=== PATIENT | male | born 1935 | race Caucasian/White ===

== ENCOUNTER 2016-11-27 16:33 | Inpatient (IN) | payer MEDICARE ==
[2016-11-27] MEDS ORDERED: Sodium Chloride 0.9% 1,000 ML IV ONE (17:56)
--- NOTE | 2016-11-27 17:58 | ED Physician Chart ---
ED Chief Complaint/HPI - Patient Information Date Seen:: 11/27/16 Time Seen:: 17:50 Chief Complaint:: GENERALIZED WEAKNESS, FREQUENT FALLS History of Present Illness:: THE PATIENT IS A POOR HISTORIAN DUE TO DEMENTIA. HE STATES THAT ABOUT LUNCH TIME TODAY HE BECAME LIGHT HEADED AND HAD A MECHANICAL FALL WHEN HE LOST HIS BALLANCE. HE DENIES AND HEAD OR OTHER INJURY AT THE TIME OF THE FALL. THE TRACK LAYER HEAD WHO ACCOMPANIED THE PATIENT TO THE HOSPITAL SAID THE PATIENT HAS BECOME WEAKER OVER THE PAST WEEK WITH INCREASED INCIDENCES OF FALLING. THE PATIENT DENIES ANY PAIN, DIFFICULTY BREATHING, NAUSEA OR VOMITING. Allergies:: Allergies Allergy/AdvReac Type Severity Reaction Status Date / Time No Known Allergies Allergy Verified 11/27/16 16:38 NO KNOWN ALLERGIES Vitals:: Vital Signs - 8 hr 11/27/16 16:38 Temp 98.3 F HR 70 RR 16 BP 124/74 O2 Sat % 96 ED Review of Systems - Review of Systems General/Constitutional: No fever, No chills, No weight loss, Weakness, Loss of appetite, Other (view of systems is iffy the patient's lack of memory.) Skin: No skin lesions, No rash, No bruising Head: No headache, Light headed Eyes: Acuity change, No loss of vision, No pain, No diplopia ENT: No earache, No sore throat, No tinnitus Neck: No neck pain, No stiffness, No mass noted Cardio Vascular: No chest pain, No palpitations, No edema Pulmonary: No SOB, No cough, No sputum GI: No nausea, No vomiting, No diarrhea, No pain G/U: No dysuria, No hematuria Musculoskeletal: No bone or joint pain, No back pain Psychiatric: No prior psych history Hematopoietic: No bruising Neurological: No syncope, Weakness, No paresthesia, No seizure, Dizziness, Confusion, No vertigo ED Past Medical History - Past Medical History Past Medical History: Other (FAILURE TO THRIVE, DEHYDRATION, SCHOLIOSIS (FROM [facility] PAPERWORK)) Family Medical History - Family Member Niece History Unknown: Yes Ethnicity: ED Physical Exam - Physical Examination General/Constitutional: Well-developed, well-nourished, Alert, No distress, Non- toxic appearing Head: Atraumatic Eyes: Lids, conjuctiva normal, PERRL, EOMI (patient has bilateral cataracts. The sclera are anicteric.) Skin: Nl inspection, No rash, No skin lesions, No ecchymosis, Well hydrated, No lymphadenopathy ENMT: External ears, nose nl, TM canals nl, Nasal exam nl, Oropharynx nl, Tonsils nl Other ENMT comments:: Teeth show evidence of moderate neglect. The oral mucosa is adequately hydrated. Neck: Nontender, No JVD, No nuchal rigidity, No mass, No stridor Respiratory: Nl effort/Exclusion, Clear to Auscultation, No Wheeze/Rhonchi/Rales Cardio Vascular: RRR, No murmur, gallop, rubs, NL S1 S2 Other Cardio Vascular comments:: Patient has good pulses in all 4 extremities. GI: No tenderness/rebounding/guarding, No organomegaly, No hernia, Normal BS's, Nondistended, No mass/bruits, No McBurney tenderness Other GI comments:: Rectal examination was deferred at my discretion. : No CVA tenderness, NL external genitalia Neuro/Psych: Normal sensory exam, Normal motor strength, Mood normal, No focal deficits Other Neuro/Psych comments:: ALERT BUT ORIENTED ONLY TO NAME. Other Misc comments:: SCOLIOSIS OF THORASIC SPINE. ED Labs/Radiology/EKG Results - Lab Results Results: Laboratory Results - last 24 hr 12/05/16 12/06/16 18:00 04:41 Sodium 128 L 130 L Potassium 4.1 3.6 Chloride 98 100 Carbon Dioxide 27.1 26.8 Anion Gap 7.0 6.8 L BUN 17 13 Creatinine 0.7 0.7 Est GFR ( Amer) TNP TNP Est GFR (Non-Af Amer) TNP TNP BUN/Creatinine Ratio 24.3 18.6 Glucose 97 79 Calcium 9.4 8.9 Moderate hyponatremia with the remaining electrolytes being within normal parameters. Normal renal function. No hypoglycemia. - Radiology Results Results: SINGLE VIEW PORTABLE CXR: NO CARDIOMEGALY OR CHF. NO AREAS OF PULMONARY CONSOLIDATION. NO PNEUMOTHORAX. ECTATIC AORTA WITH CALCIFICAIONS OF THE WALL. NO PLEURO EFFUSIONS: IMPRESSION: NO ACUTE CARDIOPULMONARY FINDINGS. ED Assessment - Assessment General Assessment: CASE SUMMARY: this 81-year-old male was sent from his nursing facility to the emergency department for evaluation of weakness and frequent falling. Patient has dementia and is a poor historian. He notes that he became lightheaded around lunch time and had a fall when he lost his balance. He denies any injury at the time of the fall. On physical examination there is no visible or palpable evidence of pedantry. There is no tenderness of the cervical, thoracic or lumbar spine. 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 Electrolyte studies showed the patient to be hyponatremia. Patient will be admitted to Dr. ROCA FOR FURTHER DIAGNOSTIC TESTING AND TREATMENT INDICATED. MDM FOR GROUND LEVEL FALL: NOT Acute head injury based on history and physical examination. NO Long bone fractures based on physical examination. NO internal organ injury based on physical exam. NO Cervical spine injuries based on NEXUS Criteria. ED Septic Shock - . Is Septic Shock (SBP<90, OR Lactate>4 mmol\L) present?: No - <6hrs of presentation: Vital Signs: Vital Signs - 8 hr 11/27/16 16:38 Temp 98.3 F HR 70 RR 16 BP 124/74 O2 Sat % 96 ED Reassessment (Disposition) - Reassessment Reassessment Condition:: Unchanged - Diagnosis Diagnosis:: GROUND LEVEL FALL. GENERALIZED WEAKNESS/BALANCE PROBLEM DEMENTIA FAILURE TO THRIVE, DEHYDRATION - Aftercare/Follow up Instructions Aftercare/Follow-Up Instructions:: Counseled pt regarding lab results/diagnosis & need follow up - Patient Disposition Discharge/Transfer:: Acute Care w/in this hosp Accepting Physician:: DR. ROCA ED Discharge Plan - Patient Disposition Admit/Discharge/Transfer: Acute Care w/in this hosp
[2016-11-27 18:08] LABS: % BASOPHILS 0.2 % (0.0-2.0); % EOSINOPHILS 2.7 % (0.0-5.0); % LYMPHOCYTES 24.8 % (20.0-50.0); % NEUTROPHILS 64.3 % (40.0-80.0); HEMATOCRIT 43.1 % (39.0-49.0); HEMOGLOBIN 14.4 gm/dL (12.6-17.4); MEAN CELL VOLUME 91.3 fl (80-99); MEAN CORPUSCULAR HEMOGLOBIN 30.5 pg (27.0-31.0); MEAN CORPUSCULAR HGB CONC 33.3 pg (28.0-36.0); NEUTROPHILE ABSOLUTE 5.3 Th/cmm (1.8-8.0); PLATELET COUNT 340 Th/cmm (150-400); RED BLOOD COUNT 4.72 Mil/cmm (3.80-5.80); WHITE BLOOD COUNT 8.1 Th/cmm (4.8-10.8)
[2016-11-27 18:24] LABS: ALB/GLOB RATIO 1.6 (1.0-1.8); ALKALINE PHOSPHATASE 76 U/L (34-104); ANION GAP 10.5 (7.0-16.0); BILIRUBIN,TOTAL 0.5 mg/dL (0.3-1.0); BUN - UREA NITROGEN 12 mg/dL (7-25); CALCIUM SERUM 9.6 mg/dL (8.6-10.3); CARBON DIOXIDE 22.8 mEq/L (21.0-31.0); CHLORIDE 96 mEq/L (98-107); CREATININE - SERUM 0.6 mg/dL (0.7-1.3); GLUCOSE 89 mg/dL (70-105); POTASSIUM SERUM 3.3 mEq/L (3.5-5.1); SGOT 14 U/L (13-39); SGPT/ALT 8 U/L (7-52); SODIUM SERUM 126 mEq/L (136-145)
[2016-11-27 18:54] LABS: URINE BILIRUBIN NEGATIVE (NEGATIVE); URINE BLOOD TRACE (NEGATIVE); URINE GLUCOSE (UA) NEGATIVE (NEGATIVE); URINE KETONE NEGATIVE (NEGATIVE); URINE PH 6.5 (4.6 - 8.0); URINE PROTEIN NEGATIVE (NEGATIVE); URINE UROBILINOGEN 0.2 E.U./dL (0.2 - 1.0)
[2016-11-27 19:13] LABS: URINE COLOR YELLOW
[2016-11-27 19:14] LABS: URINE BACTERIA NONE SEEN /hpf (NONE SEEN); URINE EPITHELIAL CELLS NONE SEEN /lpf (FEW); URINE WBC NONE SEEN /hpf (0-5)
[2016-11-27 22:24] VITALS: BP 162/98
[2016-11-27] MEDS: Sodium Chloride 0.9% 1,000 ML IV SCH (23:04)
--- NOTE | 2016-11-28 00:29 | History & Physical ---
ADMIT DATE: 11/27/2016 HISTORY OF PRESENT ILLNESS: The patient is an elderly male patient. Apparently, he has been falling several times, complaining of headache, complaining of dizziness, and the patient has been weak. The patient is known to have a history of dementia, and the patient came to the ER and was worked up and found to have hyponatremia and otherwise negative workup and was admitted for further workup. PHYSICAL EXAMINATION: GENERAL: The patient is well developed and well nourished. The patient is alert, but confused. VITAL SIGNS: His heart rate was normal at 70, respirations 16, blood pressure was 124/74. HEAD: Normal. ENT: Normal. NECK: Supple and nontender. LUNGS: Bilateral rales. CARDIOVASCULAR SYSTEM: S1 and S2 heard. ABDOMEN: Soft. Bowel sounds are heard. AUTO DISMANTLER: The patient was confused. LABORATORY DATA: The patient's sodium was 126. DIAGNOSES: History of recurrent falls and history of severe hyponatremia and generalized weakness, rule out cardiac arrhythmia and history of prior atrial fibrillation ____, and history of dementia. PLAN: The patient is being admitted. I will have cardiac and neuro workup. I will follow the patient. Also, replace some sodium to ____ sodium level to normal level and I will follow the patient. JOB# [id number]
[2016-11-28 07:16] LABS: MEAN PLATELET VOLUME 5.8 fl; WHITE BLOOD COUNT 7.3 Th/cmm (4.8-10.8)
[2016-11-28 07:27] LABS: % BASOPHILS 0.1 % (0.0-2.0); % EOSINOPHILS 2.7 % (0.0-5.0); % LYMPHOCYTES 22.3 % (20.0-50.0); % MONOCYTES 8.3 % (2.0-10.0); % NEUTROPHILS 66.6 % (40.0-80.0); HEMATOCRIT 42.5 % (39.0-49.0); HEMOGLOBIN 14.1 gm/dL (12.6-17.4); MEAN CELL VOLUME 90.8 fl (80-99); MEAN CORPUSCULAR HEMOGLOBIN 30.1 pg (27.0-31.0); MEAN CORPUSCULAR HGB CONC 33.1 pg (28.0-36.0); NEUTROPHILE ABSOLUTE 4.9 Th/cmm (1.8-8.0); PLATELET COUNT 345 Th/cmm (150-400); RED BLOOD COUNT 4.68 Mil/cmm (3.80-5.80); RED CELL DISTRIBUTION WIDTH 11.9 % (11.5-20.0)
[2016-11-28 07:48] LABS: ANION GAP 9.3 (7.0-16.0); BUN - UREA NITROGEN 12 mg/dL (7-25); CARBON DIOXIDE 24.1 mEq/L (21.0-31.0); CHLORIDE 103 mEq/L (98-107); CHOLESTEROL 164 mg/dL (<200); CREATININE - SERUM 0.6 mg/dL (0.7-1.3); GLUCOSE 81 mg/dL (70-105); POTASSIUM SERUM 3.4 mEq/L (3.5-5.1); SODIUM SERUM 133 mEq/L (136-145); TRIGLYCERIDES 69 mg/dL (<150)
--- NOTE | 2016-11-28 08:06 | Diagnostic Imaging Report ---
Portable chest x-ray HISTORY: Shortness of breath The overall heart size is difficult to assess with portable technique in a poor inspiration. No focal pulmonary processes. Tortuosity the thoracic aorta. No other hilar or mediastinal abnormalities. An orthopedic fixation plate traverses the left clavicle. Old left rib fractures noted. IMPRESSION: 1. No acute focal pulmonary processes
--- NOTE | 2016-11-28 12:40 | Diagnostic Imaging Report ---
CT scan of the brain without intravenous contrast HISTORY: Stroke, CVA Total DLP equals 570 CTDI equals 32.8 Axial sections were obtained to the base of the skull to the vertex. There is severe enlargement of the ventricular system. No acute parenchymal abnormalities. No intracerebral hemorrhage. No mass effect or shift of midline structures. Hypodensity is noted within the supratentorial white matter regions without mass effect. The findings may be associated with chronic small vessel ischemic disease. Atherosclerotic calcification is noted in the region of the vertebral and basilar arteries at the base of the skull. There appears to be partial visualization of an intraluminal density within the left maxillary sinus that may be associated with a mucosal polyp or cyst. IMPRESSION: 1. Marked ventriculomegaly. The changes may be associated with atrophy, a degree of hydrocephalus cannot be excluded. 2. No acute focal parenchymal abnormalities 3. Supratentorial white matter changes. The findings may be associated with chronic small vessel ischemic disease. 3. Atherosclerotic vascular changes 4. Partial visualization of an intraluminal density within the left maxillary sinus that may be associated with a mucosal polyp or cyst.
--- NOTE | 2016-11-28 13:42 | General Progress Note ---
Subjective - Review of Systems Events since last encounter: patient c/o dizziness denies chest pain Objective - Results Result Diagrams: 11/28/16 07:03 11/28/16 07:03 Recent Labs: Laboratory Last Values WBC 7.3 Th/cmm (4.8-10.8) 11/28/16 07:03 RBC 4.68 Mil/cmm (3.80-5.80) 11/28/16 07:03 Hgb 14.1 gm/dL (12.6-17.4) 11/28/16 07:03 Hct 42.5 % (39.0-49.0) 11/28/16 07:03 MCV 90.8 fl (80-99) 11/28/16 07:03 MCH 30.1 pg (27.0-31.0) 11/28/16 07:03 MCHC Differential 33.1 pg (28.0-36.0) 11/28/16 07:03 RDW 11.9 % (11.5-20.0) 11/28/16 07:03 Plt Count 345 Th/cmm (150-400) 11/28/16 07:03 MPV 5.8 fl 11/28/16 07:03 Neutrophils % 66.6 % (40.0-80.0) 11/28/16 07:03 Lymphocytes % 22.3 % (20.0-50.0) 11/28/16 07:03 Monocytes % 8.3 % (2.0-10.0) 11/28/16 07:03 Eosinophils % 2.7 % (0.0-5.0) 11/28/16 07:03 Basophils % 0.1 % (0.0-2.0) 11/28/16 07:03 Sodium 133 mEq/L (136-145) L 11/28/16 07:03 Potassium 3.4 mEq/L (3.5-5.1) L 11/28/16 07:03 Chloride 103 mEq/L (98-107) 11/28/16 07:03 Carbon Dioxide 24.1 mEq/L (21.0-31.0) 11/28/16 07:03 Anion Gap 9.3 (7.0-16.0) 11/28/16 07:03 BUN 12 mg/dL (7-25) 11/28/16 07:03 Creatinine 0.6 mg/dL (0.7-1.3) L 11/28/16 07:03 Est GFR ( Amer) TNP 11/28/16 07:03 Est GFR (Non-Af Amer) TNP 11/28/16 07:03 BUN/Creatinine Ratio 20.0 11/28/16 07:03 Glucose 81 mg/dL (70-105) 11/28/16 07:03 Whole Bld Lactic Acid 0.83 mmol/L (0.60-1.99) 11/27/16 17:58 Calcium 9.0 mg/dL (8.6-10.3) 11/28/16 07:03 Total Bilirubin 0.5 mg/dL (0.3-1.0) 11/27/16 17:58 AST 14 U/L (13-39) 11/27/16 17:58 ALT 8 U/L (7-52) 11/27/16 17:58 Alkaline Phosphatase 76 U/L (34-104) 11/27/16 17:58 Troponin I 0.01 ng/mL (0.01-0.05) 11/27/16 17:58 Total Protein 7.0 gm/dL (6.0-8.3) 11/27/16 17:58 Albumin 4.3 gm/dL (4.2-5.5) 11/27/16 17:58 Globulin 2.7 gm/dL 11/27/16 17:58 Albumin/Globulin Ratio 1.6 (1.0-1.8) 11/27/16 17:58 Triglycerides 69 mg/dL (<150) 11/28/16 07:03 Cholesterol 164 mg/dL (<200) 11/28/16 07:03 LDL Cholesterol Direct 105 mg/dL (75-193) 11/28/16 07:03 HDL Cholesterol 54 mg/dL (23-92) 11/28/16 07:03 TSH 0.80 uIU/ml (0.34-5.60) 11/28/16 07:03 Urine Source RANDOM 11/27/16 17:00 Urine Color YELLOW 11/27/16 17:00 Urine Clarity CLEAR (CLEAR) 11/27/16 17:00 Urine pH 6.5 (4.6 - 8.0) 11/27/16 17:00 Ur Specific [place] 1.010 (1.005-1.030) 11/27/16 17:00 Urine Protein NEGATIVE mg/dL (NEGATIVE) 11/27/16 17:00 Urine Glucose (UA) NEGATIVE mg/dL (NEGATIVE) 11/27/16 17:00 Urine Ketones NEGATIVE mg/dL (NEGATIVE) 11/27/16 17:00 Urine Blood TRACE (NEGATIVE) 11/27/16 17:00 Urine Nitrate NEGATIVE (NEGATIVE) 11/27/16 17:00 Urine Bilirubin NEGATIVE (NEGATIVE) 11/27/16 17:00 Urine Urobilinogen 0.2 E.U./dL (0.2 - 1.0) 11/27/16 17:00 Ur Leukocyte Esterase NEGATIVE (NEGATIVE) 11/27/16 17:00 Urine RBC 2-5 /hpf (0-5) H 11/27/16 17:00 Urine WBC NONE SEEN /hpf (0-5) 11/27/16 17:00 Ur Epithelial Cells NONE SEEN /lpf (FEW) 11/27/16 17:00 Urine Bacteria NONE SEEN /hpf (NONE SEEN) 11/27/16 17:00 - Physical Exam Vitals and I&O: Vital Signs Temp 97.6 F 11/28/16 04:00 Pulse 81 11/28/16 08:56 Resp 18 11/28/16 04:00 BP 154/88 11/28/16 08:56 Pulse Ox 98 11/28/16 04:00 Intake & Output 11/27/16 11/28/16 11/28/16 18:59 06:59 18:59 Intake Total 2000 Output Total 1500 Balance 500 Weight (lbs) 56.245 kg Intake: Intake, IV Amount 2000 Sodium Chloride 0.9% 1, 1000 000 ml @ Wide Open IV . Q0M ONE Rx#:[id number] Output: Urine 1500 Other: # Bowel Movements 0 Active Medications: Current Medications Acetaminophen (Tylenol) 650 mg PO Q4HR PRN PRN Reason: Pain (Mild) Stop: 01/26/17 21:20 Amlodipine Besylate (Norvasc) 5 mg PO DAILY [facility] Stop: 01/27/17 08:59 Last Admin: 11/28/16 08:55 Dose: 5 mg Docusate Sodium (Colace) 250 mg PO BID [facility] Stop: 01/27/17 08:59 Last Admin: 11/28/16 08:56 Dose: 250 mg Sodium Chloride (Nacl 0.9%) 1,000 mls @ 100 mls/hr IV .Q10H [facility] Stop: 01/26/17 19:36 Last Admin: 11/27/16 23:04 Dose: 100 mls/hr Losartan Potassium (Cozaar) 50 mg PO DAILY [facility] Stop: 01/27/17 08:59 Last Admin: 11/28/16 08:56 Dose: 50 mg
--- NOTE | 2016-11-29 01:08 | Consultation ---
DATE OF CONSULTATION: 11/28/2016 ATTENDING PHYSICIAN: Dr. Cookie Ivy. REDRAWER: Rachid Carrera M.D. REASON FOR CONSULTATION: Electrolyte imbalance, fluid management. HISTORY OF PRESENT ILLNESS: This is an 81-year-old male with past medical history of failure to thrive, who was brought in because of generalized weakness. A few hours prior to admission, the patient had a history of occasional dizziness associated with progressive weakness. He had multiple falls as a consequence. Three months prior to consultation, he had a lumbosacral x-ray done after a fall and this revealed no acute fractures. Three weeks prior to admission, he had another fall and a skull x-ray was done. This revealed no fracture. A few hours prior to admission, he had another episode of a fall with progressive weakness and dizziness. He was then brought to the Emergency Room. His sodium level was 136. He was brought to the Emergency Room. Sodium level was 126. He was started on normal saline and his sodium went up to 133. Potassium level was 3.[address] scan of the head revealed no acute focal abnormalities. Chest x-ray showed no acute disease. He had history of nausea, vomiting, diarrhea as well as polydipsia. PAST MEDICAL HISTORY: 1. Failure to thrive. 2. Essential hypertension. 3. Progressive generalized weakness. 4. Alzheimer dementia. PAST SURGICAL HISTORY: None. SOCIAL AND FAMILY HISTORY: I was not able to obtain directly from the patient because of his dementia. REVIEW OF SYSTEMS: Again, I was not able to decipher directly out of the patient. PHYSICAL EXAMINATION: GENERAL: The patient is awake, verbal, not in any distress. VITAL SIGNS: His blood pressure is 154/88, pulse 81, temperature 97.6 degrees. SKIN: Good turgor. Warm. No rash, nor jaundice appreciated. HEENT: Head normocephalic, atraumatic. Eyes: Extraocular muscles intact. Pupils equal, round, reactive to light and accommodates. Anicteric sclerae, pale conjunctivae. Nose: Midline nasal septum. Mouth: Moist mucosa with adequate dentition. NECK: Supple, no adenopathy, no thyromegaly, no bruits. Trachea palpated in the midline. CHEST AND CVS: S1, S2. No rub, murmur nor gallop appreciated. Point of maximal impulse fifth intercostal space, left midclavicular line. No abdominal or femoral bruits appreciated. LUNGS: Equal expansion. No use of accessory muscles. No supraclavicular retractions. Decreased breath sounds, but clear to auscultation without any wheeze. ABDOMEN: Mildly globular, soft, positive for bowel sounds. No bruits either diastolic or systolic. RECTAL: The patient refused. GENITOURINARY: Normal appearing male genitalia. MUSCULOSKELETAL: No effusions present in his joints with adequate range of motion. EXTREMITIES: No evidence of any edema, cyanosis, nor clubbing with palpable femoral, but unable to fully appreciate popliteal and dorsalis pedis pulses. NEUROLOGIC: The patient is awake, however, he had problem with comprehending my neuro commands, so I was not able to pursue further by neuro exam. He has voluntary movements of all of his extremities. LABORATORY DATA: Sodium 133, potassium 3.4, chloride 103, bicarbonate 24, BUN 12, creatinine 0.6, glucose 81, calcium is 9, albumin is 4.3. Troponin 0.01. Lactic acid 0.83. White count 7.3, hemoglobin 14.1, hematocrit 42.5, platelets 345, polys 66.6%. IMPRESSION: 1. Acute hyponatremia. The patient at this poin looked hypovolemic. He had been maintained on hydrochlorothiazide. This is the main reason why he developed hyponatremia. I doubt that his dizziness and generalized weakness are due to his hyponatremia because the degree of hyponatremia is not sufficient to cause neurological manifestations. 2. Hypokalemia, again this is due to intake of hydrochlorothiazide. 3. Dizziness with lightheadedness. Etiology possibly due to medications. 4. Failure to thrive. 5. Essential hypertension. 6. Progressive weakness, etiology at this point is unknown. PLAN: 1. Urinalysis. 2. Urine spot sodium. 3. Serum osmolality along with uric acid level. 4. Continue IV fluids with normal saline. 5. Hold hydrochlorothiazide for now. 6. Follow up electrolytes. Thank you Dr. Ivy for this consult. I will follow the patient closely with you. JOB# [id number]
[2016-11-29] MEDS: Sodium Chloride 0.9% 1,000 ML IV SCH ×2 (01:16→08:29)
--- NOTE | 2016-11-29 04:22 | Admit Criteria Form ---
Admit Criteria Forms - Admit Criteria Diagnosis: HYPONATREMIA; HYPERNATREMIA; HYPOKALEMIA; HYPERKALEMIA; HYPOCALCEMIA; HYPERCALCEMIA Clinical Indications for Inpatient Care (Place 'X' for any and all applicable criteria): Ongoing inpatient care may be indicated for ANY ONE of the following [G](1)(2)(3 )(5): [X ]I. Hyponatremia with ANY ONE of the following: [X ]a) Sodium less than 130 mEq/L (mmol/L) (new) (6)(22) [ ]b) Sodium less than 135 mEq/L (mmol/L) with ANY ONE of the following: [ ]i) Severe medical etiology requiring inpatient management (eg, heart failure, hypovolemia) [ ]ii) Altered mental status [ ]iii) Seizures [ ]II. Hypernatremia with ANY ONE of the following: [ ]a) Sodium greater than 155 mEq/L (mmol/L) [ ]b) Sodium greater than 150 mEq/L (mmol/L) with ANY ONE of the following: [ ] i) Altered mental status [ ]ii) Seizures [ ]iii) Severe medical etiology (eg, hypovolemia, diabetes insipidus) [ ]iv) Severe weakness [ ]v) Severe medical etiology (eg, hemolysis, infection, drug overdose) [ ]III. Hypokalemia with ANY ONE of the following: [ ]a) Potassium less than 2.5 mEq/L (mmol/L) despite outpatient and emergency treatment [ ]b) Potassium less than 3.0 mEq/L (mmol/L) with ANY ONE of the following: [ ]i) Weakness [ ]ii) Cardiac abnormality (eg, arrhythmia, conduction disturbance) [ ]iii) Cardiac ischemia [ ]iv) Ileus [ ]v) Ongoing medical cause requiring inpatient management. ( e.g., acute renal wasting, SIADH) [ ]vi) Other severe symptoms [ ] IV. Hyperkalemia with ANY ONE of the following: [ ]a) Potassium greater than 6.5 mEq/L (mmol/L) [ ]b) Potassium greater than 5 mEq/L (mmol/L) with ANY ONE of the following: [ ]i) Severe ECG findings [H] [ ]ii) Acute worsening of renal failure (creatinine greater than 2.5 mg/dL (221 micromoles/L) or significant elevation for age and size) [ ] V. Hypocalcemia with ANY ONE of the following: [ ]a) Calcium less than 7 mg/dL (1.75 mmol/L) despite outpatient and emergency treatment(19) [ ]b) Calcium less than 8 mg/dL (2 mmol/L) with significant symptoms or findings; examples include: [ ]i) Cardiac abnormality (eg, arrhythmia or conduction disturbance) [ ]ii) Altered mental status [ ]iii) Seizures [ ]iv) Breathing difficulty [ ]v) Muscle spasms [ ]. Hypercalcemia with ANY ONE of the following: [ ]a) Calcium greater than 14 mg/dL (3.5 mmol/L) [ ]b) Calcium greater than 12 mg/dL (3 mmol/L) with ANY ONE of the following: [ ]i) Significant dehydration or hypovolemia as indicated by ANY ONE of the following(2): [ ]1. Clinically significant dehydration as indicated by ANY ONE of the following: [ ]A. Acute loss of weight from baseline (5% of body weight in adults, 9% in pediatric patients) [ ]B. Hemodynamic instability [ ]C. Acute renal failure [ ]D. Serum sodium greater than 150 mEq/L (mmol/L) [ ]2) Dehydration that is persistent indicated by ALL of the following: [ ]A. Oral rehydration therapy not tolerated or insufficient to adequately correct dehydration [ ]B. Appropriate intravenous treatment (eg, fluids ) does not readily correct dehydration ie, after 12 to 24 hours of treatment) [ ]ii) Significant symptoms or findings; examples include: [ ]1) Altered mental status [ ]2) Cardiac abnormality (eg, arrhythmia, conduction disturbance) [ ]3) Cardiac abnormality (eg, arrhythmia, conduction disturbance) The original [employer] content created by [employer] has been revised. The portions of the content which have been revised are identified through the use of italic text or in bold, and [facility] has neither reviewed nor approved the modified material. All other unmodified content is copyright [facility] [place] [place] [employer] Please see references footnoted in the original [facility] edition 2016 Admit Criteria Met?: Yes
[2016-11-29 06:26] LABS: BUN - UREA NITROGEN 11 mg/dL (7-25); BUN/CREATININE RATIO 18.3; CARBON DIOXIDE 24.6 mEq/L (21.0-31.0); CHLORIDE 103 mEq/L (98-107); CREATININE - SERUM 0.6 mg/dL (0.7-1.3); GLUCOSE 76 mg/dL (70-105); MAGNESIUM 2.1 mg/dL (1.9-2.7); PHOSPHOROUS 3.1 mg/dL (2.5-5.0); POTASSIUM SERUM 3.6 mEq/L (3.5-5.1); SODIUM SERUM 133 mEq/L (136-145); URIC ACID 3.4 mg/dL (4.4-7.6)
--- NOTE | 2016-11-29 08:17 | General Progress Note ---
Subjective - Review of Systems Events since last encounter: patient awake alert c/o weakness Objective - Results Result Diagrams: 11/28/16 07:03 11/29/16 05:05 Recent Labs: Laboratory Last Values WBC 7.3 Th/cmm (4.8-10.8) 11/28/16 07:03 RBC 4.68 Mil/cmm (3.80-5.80) 11/28/16 07:03 Hgb 14.1 gm/dL (12.6-17.4) 11/28/16 07:03 Hct 42.5 % (39.0-49.0) 11/28/16 07:03 MCV 90.8 fl (80-99) 11/28/16 07:03 MCH 30.1 pg (27.0-31.0) 11/28/16 07:03 MCHC Differential 33.1 pg (28.0-36.0) 11/28/16 07:03 RDW 11.9 % (11.5-20.0) 11/28/16 07:03 Plt Count 345 Th/cmm (150-400) 11/28/16 07:03 MPV 5.8 fl 11/28/16 07:03 Neutrophils % 66.6 % (40.0-80.0) 11/28/16 07:03 Lymphocytes % 22.3 % (20.0-50.0) 11/28/16 07:03 Monocytes % 8.3 % (2.0-10.0) 11/28/16 07:03 Eosinophils % 2.7 % (0.0-5.0) 11/28/16 07:03 Basophils % 0.1 % (0.0-2.0) 11/28/16 07:03 Sodium 133 mEq/L (136-145) L 11/29/16 05:05 Potassium 3.6 mEq/L (3.5-5.1) 11/29/16 05:05 Chloride 103 mEq/L (98-107) 11/29/16 05:05 Carbon Dioxide 24.6 mEq/L (21.0-31.0) 11/29/16 05:05 Anion Gap 9.0 (7.0-16.0) 11/29/16 05:05 BUN 11 mg/dL (7-25) 09/08/17 05:05 Creatinine 0.6 mg/dL (0.7-1.3) L 11/29/16 05:05 Est GFR ( Amer) TNP 11/29/16 05:05 Est GFR (Non-Af Amer) TNP 11/29/16 05:05 BUN/Creatinine Ratio 18.3 11/29/16 05:05 Glucose 76 mg/dL (70-105) 11/29/16 05:05 Whole Bld Lactic Acid 0.83 mmol/L (0.60-1.99) 11/27/16 17:58 Uric Acid 3.4 mg/dL (4.4-7.6) L 11/29/16 05:05 Calcium 9.0 mg/dL (8.6-10.3) 11/29/16 05:05 Phosphorus 3.1 mg/dL (2.5-5.0) 11/29/16 05:05 Magnesium 2.1 mg/dL (1.9-2.7) 11/29/16 05:05 Total Bilirubin 0.5 mg/dL (0.3-1.0) 11/27/16 17:58 AST 14 U/L (13-39) 11/27/16 17:58 ALT 8 U/L (7-52) 11/27/16 17:58 Alkaline Phosphatase 76 U/L (34-104) 11/27/16 17:58 Troponin I 0.01 ng/mL (0.01-0.05) 11/27/16 17:58 Total Protein 7.0 gm/dL (6.0-8.3) 11/27/16 17:58 Albumin 4.3 gm/dL (4.2-5.5) 11/27/16 17:58 Globulin 2.7 gm/dL 11/27/16 17:58 Albumin/Globulin Ratio 1.6 (1.0-1.8) 11/27/16 17:58 Triglycerides 69 mg/dL (<150) 11/28/16 07:03 Cholesterol 164 mg/dL (<200) 11/28/16 07:03 LDL Cholesterol Direct 105 mg/dL (75-193) 11/28/16 07:03 HDL Cholesterol 54 mg/dL (23-92) 11/28/16 07:03 TSH 0.80 uIU/ml (0.34-5.60) 11/28/16 07:03 Urine Source RANDOM 11/27/16 17:00 Urine Color YELLOW 11/27/16 17:00 Urine Clarity CLEAR (CLEAR) 11/27/16 17:00 Urine pH 6.5 (4.6 - 8.0) 11/27/16 17:00 Ur Specific [place] 1.010 (1.005-1.030) 11/27/16 17:00 Urine Protein NEGATIVE mg/dL (NEGATIVE) 11/27/16 17:00 Urine Glucose (UA) NEGATIVE mg/dL (NEGATIVE) 11/27/16 17:00 Urine Ketones NEGATIVE mg/dL (NEGATIVE) 11/27/16 17:00 Urine Blood TRACE (NEGATIVE) 11/27/16 17:00 Urine Nitrate NEGATIVE (NEGATIVE) 11/27/16 17:00 Urine Bilirubin NEGATIVE (NEGATIVE) 11/27/16 17:00 Urine Urobilinogen 0.2 E.U./dL (0.2 - 1.0) 11/27/16 17:00 Ur Leukocyte Esterase NEGATIVE (NEGATIVE) 11/27/16 17:00 Urine RBC 2-5 /hpf (0-5) H 11/27/16 17:00 Urine WBC NONE SEEN /hpf (0-5) 11/27/16 17:00 Ur Epithelial Cells NONE SEEN /lpf (FEW) 11/27/16 17:00 Urine Bacteria NONE SEEN /hpf (NONE SEEN) 11/27/16 17:00 Ur Random Sodium 47 mmol/L 11/29/16 01:49 - Physical Exam Vitals and I&O: Vital Signs Temp 98.0 F 11/29/16 04:00 Pulse 71 11/29/16 04:00 Resp 18 11/29/16 04:00 BP 139/76 11/29/16 04:00 Pulse Ox 95 11/29/16 04:00 Intake & Output 11/28/16 11/29/16 11/29/16 18:59 06:59 18:59 Intake Total 1400 Balance 1400 Weight (lbs) 56.245 kg 56.245 kg Intake: Intake, IV Amount 1000 Sodium Chloride 0.9% 1, 1000 000 ml @ 100 mls/hr IV . Q10H [facility] Rx#:[id number] Oral 400 Other: # Voids 4 1,800 # Bowel Movements 1 1 Stool Characteristics Soft Soft Active Medications: Current Medications Acetaminophen (Tylenol) 650 mg PO Q4HR PRN PRN Reason: Pain (Mild) Stop: 01/26/17 21:20 Amlodipine Besylate (Norvasc) 5 mg PO DAILY [facility] Stop: 01/27/17 08:59 Last Admin: 11/28/16 08:55 Dose: 5 mg Docusate Sodium (Colace) 250 mg PO BID [facility] Stop: 01/27/17 08:59 Last Admin: 11/28/16 17:59 Dose: 250 mg Sodium Chloride (Nacl 0.9%) 1,000 mls @ 100 mls/hr IV .Q10H [facility] Stop: 01/26/17 19:36 Last Admin: 11/29/16 01:16 Dose: 100 mls/hr Losartan Potassium (Cozaar) 50 mg PO DAILY [facility] Stop: 01/27/17 08:59 Last Admin: 11/28/16 08:56 Dose: 50 mg
--- NOTE | 2016-11-29 14:54 | General Progress Note ---
Subjective - Review of Systems Service Date: 11/29/16 Subjective: alert, verbal,comfortable Objective - Results Result Diagrams: 11/28/16 07:03 11/29/16 05:05 Recent Labs: Laboratory Last Values WBC 7.3 Th/cmm (4.8-10.8) 11/28/16 07:03 RBC 4.68 Mil/cmm (3.80-5.80) 11/28/16 07:03 Hgb 14.1 gm/dL (12.6-17.4) 11/28/16 07:03 Hct 42.5 % (39.0-49.0) 11/28/16 07:03 MCV 90.8 fl (80-99) 11/28/16 07:03 MCH 30.1 pg (27.0-31.0) 11/28/16 07:03 MCHC Differential 33.1 pg (28.0-36.0) 11/28/16 07:03 RDW 11.9 % (11.5-20.0) 11/28/16 07:03 Plt Count 345 Th/cmm (150-400) 11/28/16 07:03 MPV 5.8 fl 11/28/16 07:03 Neutrophils % 66.6 % (40.0-80.0) 11/28/16 07:03 Lymphocytes % 22.3 % (20.0-50.0) 11/28/16 07:03 Monocytes % 8.3 % (2.0-10.0) 11/28/16 07:03 Eosinophils % 2.7 % (0.0-5.0) 11/28/16 07:03 Basophils % 0.1 % (0.0-2.0) 11/28/16 07:03 Sodium 133 mEq/L (136-145) L 11/29/16 05:05 Potassium 3.6 mEq/L (3.5-5.1) 11/29/16 05:05 Chloride 103 mEq/L (98-107) 11/29/16 05:05 Carbon Dioxide 24.6 mEq/L (21.0-31.0) 11/29/16 05:05 Anion Gap 9.0 (7.0-16.0) 11/29/16 05:05 BUN 11 mg/dL (7-25) 11/29/16 05:05 Creatinine 0.6 mg/dL (0.7-1.3) L 11/29/16 05:05 Est GFR ( Amer) TNP 11/29/16 05:05 Est GFR (Non-Af Amer) TNP 11/29/16 05:05 BUN/Creatinine Ratio 18.3 11/29/16 05:05 Glucose 76 mg/dL (70-105) 11/29/16 05:05 Whole Bld Lactic Acid 0.83 mmol/L (0.60-1.99) 11/27/16 17:58 Uric Acid 3.4 mg/dL (4.4-7.6) L 11/29/16 05:05 Calcium 9.0 mg/dL (8.6-10.3) 11/29/16 05:05 Phosphorus 3.1 mg/dL (2.5-5.0) 11/29/16 05:05 Magnesium 2.1 mg/dL (1.9-2.7) 11/29/16 05:05 Total Bilirubin 0.5 mg/dL (0.3-1.0) 11/27/16 17:58 AST 14 U/L (13-39) 11/27/16 17:58 ALT 8 U/L (7-52) 11/27/16 17:58 Alkaline Phosphatase 76 U/L (34-104) 11/27/16 17:58 Troponin I 0.01 ng/mL (0.01-0.05) 11/27/16 17:58 Total Protein 7.0 gm/dL (6.0-8.3) 11/27/16 17:58 Albumin 4.3 gm/dL (4.2-5.5) 11/27/16 17:58 Globulin 2.7 gm/dL 11/27/16 17:58 Albumin/Globulin Ratio 1.6 (1.0-1.8) 11/27/16 17:58 Triglycerides 69 mg/dL (<150) 11/28/16 07:03 Cholesterol 164 mg/dL (<200) 11/28/16 07:03 LDL Cholesterol Direct 105 mg/dL (75-193) 11/28/16 07:03 HDL Cholesterol 54 mg/dL (23-92) 11/28/16 07:03 TSH 0.80 uIU/ml (0.34-5.60) 11/28/16 07:03 Urine Source RANDOM 11/27/16 17:00 Urine Color YELLOW 11/27/16 17:00 Urine Clarity CLEAR (CLEAR) 11/27/16 17:00 Urine pH 6.5 (4.6 - 8.0) 11/27/16 17:00 Ur Specific [place] 1.010 (1.005-1.030) 11/27/16 17:00 Urine Protein NEGATIVE mg/dL (NEGATIVE) 11/27/16 17:00 Urine Glucose (UA) NEGATIVE mg/dL (NEGATIVE) 11/27/16 17:00 Urine Ketones NEGATIVE mg/dL (NEGATIVE) 11/27/16 17:00 Urine Blood TRACE (NEGATIVE) 11/27/16 17:00 Urine Nitrate NEGATIVE (NEGATIVE) 11/27/16 17:00 Urine Bilirubin NEGATIVE (NEGATIVE) 11/27/16 17:00 Urine Urobilinogen 0.2 E.U./dL (0.2 - 1.0) 11/27/16 17:00 Ur Leukocyte Esterase NEGATIVE (NEGATIVE) 11/27/16 17:00 Urine RBC 2-5 /hpf (0-5) H 11/27/16 17:00 Urine WBC NONE SEEN /hpf (0-5) 11/27/16 17:00 Ur Epithelial Cells NONE SEEN /lpf (FEW) 11/27/16 17:00 Urine Bacteria NONE SEEN /hpf (NONE SEEN) 11/27/16 17:00 Ur Random Sodium 47 mmol/L 11/29/16 01:49 - Physical Exam Vitals and I&O: Vital Signs Temp 98.1 F 11/29/16 08:00 Pulse 61 11/29/16 08:28 Resp 18 11/29/16 08:00 BP 165/108 11/29/16 08:28 Pulse Ox 98 11/29/16 08:00 Intake & Output 11/28/16 11/29/16 11/29/16 18:59 06:59 18:59 Intake Total 1400 721.667 Balance 1400 721.667 Weight (lbs) 56.245 kg 56.245 kg Intake: Intake, IV Amount 1000 721.667 Sodium Chloride 0.9% 1, 1000 721.667 000 ml @ 100 mls/hr IV . Q10H [facility] Rx#:[id number] Oral 400 Other: # Voids 4 1,800 # Bowel Movements 1 1 Stool Characteristics Soft Soft Soft Active Medications: Current Medications Acetaminophen (Tylenol) 650 mg PO Q4HR PRN PRN Reason: Pain (Mild) Stop: 01/26/17 21:20 Amlodipine Besylate (Norvasc) 5 mg PO DAILY NAD[facility] Stop: 01/27/17 08:59 Last Admin: 11/29/16 08:28 Dose: 5 mg Docusate Sodium (Colace) 250 mg PO BID [facility] Stop: 01/27/17 08:59 Last Admin: 11/29/16 08:25 Dose: 250 mg Sodium Chloride (Nacl 0.9%) 1,000 mls @ 100 mls/hr IV .Q10H [facility] Stop: 01/26/17 19:36 Last Admin: 11/29/16 08:29 Dose: 100 mls/hr Losartan Potassium (Cozaar) 50 mg PO DAILY [facility] Stop: 01/27/17 08:59 Last Admin: 11/29/16 08:28 Dose: 50 mg General: Alert, Oriented x3, No acute distress HEENT: Atraumatic, PERRLA, EOMI Neck: Supple, +2 carotid pulse wo bruit Cardiovascular: Regular rate, Normal S1, Normal S2 Lungs: Clear to auscultation Abdomen: Bowel sounds, Soft Extremities: no Edema Neurological: Sensation intact Skin: no Rash Psych/Mental Status: Mood NL Assessment/Plan - Assessment Assessment: Hyponatremia 2nd to HCTZ HYpokalemia 2nd to HCTZ dizziness, lightheadedness FTT Ess HTN - Plan Plan: Lab - Result Diagrams 11/28/16 07:03 11/29/16 05:05 Current Medications Acetaminophen (Tylenol) 650 mg PO Q4HR PRN PRN Reason: Pain (Mild) Stop: 01/26/17 21:20 Amlodipine Besylate (Norvasc) 5 mg PO DAILY [facility] Stop: 01/27/17 08:59 Last Admin: 11/29/16 08:28 Dose: 5 mg Docusate Sodium (Colace) 250 mg PO BID [facility] Stop: 01/27/17 08:59 Last Admin: 11/29/16 08:25 Dose: 250 mg Sodium Chloride (Nacl 0.9%) 1,000 mls @ 100 mls/hr IV .Q10H [facility] Stop: 01/26/17 19:36 Last Admin: 11/29/16 08:29 Dose: 100 mls/hr Losartan Potassium (Cozaar) 50 mg PO DAILY [facility] Stop: 01/27/17 08:59 Last Admin: 11/29/16 08:28 Dose: 50 mg Lab - Result Diagrams 11/28/16 07:03 11/29/16 05:05 Na stable @ 133 continue NS hydration
[2016-11-30] MEDS: Sodium Chloride 0.9% 1,000 ML IV SCH ×3 (01:30→16:14)
--- NOTE | 2016-11-30 09:52 | Consultation ---
DATE OF CONSULTATION: 11/29/2016 HISTORY OF PRESENT ILLNESS: The patient is an 81-year-old. The patient is admitted because of lot of dizziness, unsteadiness, and falls. The patient ____ more forgetful. Progressive weakness, difficulty with managing. The patient is having more and more difficulty with weakness and walking. PAST MEDICAL HISTORY: Hypertension, atrial fibrillation, dementia, and ataxia. MEDICATIONS: Per reconciliation. REVIEW OF SYSTEMS: The patient is awake, alert. The patient has no chest pain. The patient has no shortness of breath. No abdominal pain. No nausea or vomiting. The patient is unsteady. He says some headache. The patient falls. Forgetful. PHYSICAL EXAMINATION: VITAL SIGNS: Temperature 98.4, blood pressure 128/76, pulse is 74. NECK: Supple, no bruits. HEART: Sounds S1, S2. LUNGS: Clear. NEUROLOGIC: The patient is in bed. He gives me his name. He tells me how old, but he can not tell me much more. He is able to name simple objects such as pen and glasses. CRANIAL: Pupils react to light. No nystagmus. No facial weakness. MOTOR: The patient will lift both arms up. The patient will lift both legs up about 4/5. Reflexes are 1-2 in the upper extremities, 2+ at the knees. Ankles about -1. Gait not tested. Apparently very unsteady. INVESTIGATIONS: Sodium 126. CT scan of the head shows that the patient has ventriculomegaly. Question of hydrocephalus. The patient has white matter changes. IMPRESSION: 1. Ataxia. 2. Falls. 3. Dementia. 4. Hydrocephalus. 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 6. Hypertension, question atrial fibrillation. PLAN: Go ahead and do an MRI brain, MRI cervical spine. I will recommend Neurosurgery consult for the hydrocephalus. We will do lab studies. JOB# [id number]
--- NOTE | 2016-11-30 15:42 | General Progress Note ---
Subjective - Review of Systems Service Date: 11/30/16 Subjective: alert, verbal, comfortable. ambulating Objective - Results Result Diagrams: 11/28/16 07:03 11/29/16 05:05 Recent Labs: Laboratory Last Values WBC 7.3 Th/cmm (4.8-10.8) 11/28/16 07:03 RBC 4.68 Mil/cmm (3.80-5.80) 11/28/16 07:03 Hgb 14.1 gm/dL (12.6-17.4) 11/28/16 07:03 Hct 42.5 % (39.0-49.0) 11/28/16 07:03 MCV 90.8 fl (80-99) 11/28/16 07:03 MCH 30.1 pg (27.0-31.0) 11/28/16 07:03 MCHC Differential 33.1 pg (28.0-36.0) 11/28/16 07:03 RDW 11.9 % (11.5-20.0) 11/28/16 07:03 Plt Count 345 Th/cmm (150-400) 11/28/16 07:03 MPV 5.8 fl 11/28/16 07:03 Neutrophils % 66.6 % (40.0-80.0) 11/28/16 07:03 Lymphocytes % 22.3 % (20.0-50.0) 11/28/16 07:03 Monocytes % 8.3 % (2.0-10.0) 11/28/16 07:03 Eosinophils % 2.7 % (0.0-5.0) 11/28/16 07:03 Basophils % 0.1 % (0.0-2.0) 11/28/16 07:03 ESR 20 mm/hr (0-20) 11/30/16 06:05 Sodium 133 mEq/L (136-145) L 11/29/16 05:05 Potassium 3.6 mEq/L (3.5-5.1) 11/29/16 05:05 Chloride 103 mEq/L (98-107) 11/29/16 05:05 Carbon Dioxide 24.6 mEq/L (21.0-31.0) 11/29/16 05:05 Anion Gap 9.0 (7.0-16.0) 11/29/16 05:05 BUN 11 mg/dL (7-25) 11/29/16 05:05 Creatinine 0.6 mg/dL (0.7-1.3) L 11/29/16 05:05 Est GFR ( Amer) TNP 11/29/16 05:05 Est GFR (Non-Af Amer) TNP 11/29/16 05:05 BUN/Creatinine Ratio 18.3 11/29/16 05:05 Glucose 76 mg/dL (70-105) 11/29/16 05:05 Whole Bld Lactic Acid 0.83 mmol/L (0.60-1.99) 11/27/16 17:58 Uric Acid 3.4 mg/dL (4.4-7.6) L 11/29/16 05:05 Calcium 9.0 mg/dL (8.6-10.3) 11/29/16 05:05 Phosphorus 3.1 mg/dL (2.5-5.0) 11/29/16 05:05 Magnesium 2.1 mg/dL (1.9-2.7) 11/29/16 05:05 Total Bilirubin 0.5 mg/dL (0.3-1.0) 11/27/16 17:58 AST 14 U/L (13-39) 11/27/16 17:58 ALT 8 U/L (7-52) 11/27/16 17:58 Alkaline Phosphatase 76 U/L (34-104) 11/27/16 17:58 Ammonia 58 umol/L (16-53) H 11/29/16 20:36 Troponin I 0.01 ng/mL (0.01-0.05) 11/27/16 17:58 C-Reactive Protein < 0.2 mg/dL (0.0-0.9) 11/30/16 06:05 Total Protein 7.0 gm/dL (6.0-8.3) 11/27/16 17:58 Albumin 4.3 gm/dL (4.2-5.5) 11/27/16 17:58 Globulin 2.7 gm/dL 11/27/16 17:58 Albumin/Globulin Ratio 1.6 (1.0-1.8) 11/27/16 17:58 Triglycerides 69 mg/dL (<150) 11/28/16 07:03 Cholesterol 164 mg/dL (<200) 11/28/16 07:03 LDL Cholesterol Direct 105 mg/dL (75-193) 11/28/16 07:03 HDL Cholesterol 54 mg/dL (23-92) 11/28/16 07:03 Folic Acid 8.3 ng/mL (>3.0) 11/29/16 20:36 TSH 0.80 uIU/ml (0.34-5.60) 11/28/16 07:03 Urine Source RANDOM 11/27/16 17:00 Urine Color YELLOW 11/27/16 17:00 Urine Clarity CLEAR (CLEAR) 11/27/16 17:00 Urine pH 6.5 (4.6 - 8.0) 11/27/16 17:00 Ur Specific [place] 1.010 (1.005-1.030) 11/27/16 17:00 Urine Protein NEGATIVE mg/dL (NEGATIVE) 11/27/16 17:00 Urine Glucose (UA) NEGATIVE mg/dL (NEGATIVE) 11/27/16 17:00 Urine Ketones NEGATIVE mg/dL (NEGATIVE) 11/27/16 17:00 Urine Blood TRACE (NEGATIVE) 11/27/16 17:00 Urine Nitrate NEGATIVE (NEGATIVE) 11/27/16 17:00 Urine Bilirubin NEGATIVE (NEGATIVE) 11/27/16 17:00 Urine Urobilinogen 0.2 E.U./dL (0.2 - 1.0) 11/27/16 17:00 Ur Leukocyte Esterase NEGATIVE (NEGATIVE) 11/27/16 17:00 Urine RBC 2-5 /hpf (0-5) H 11/27/16 17:00 Urine WBC NONE SEEN /hpf (0-5) 11/27/16 17:00 Ur Epithelial Cells NONE SEEN /lpf (FEW) 11/27/16 17:00 Urine Bacteria NONE SEEN /hpf (NONE SEEN) 11/27/16 17:00 Ur Random Sodium 47 mmol/L 11/29/16 01:49 - Physical Exam Vitals and I&O: Vital Signs Temp 97.2 F 11/30/16 11:47 Pulse 76 11/30/16 13:04 Resp 16 11/30/16 11:47 BP 137/93 11/30/16 13:04 Pulse Ox 98 11/30/16 11:47 Intake & Output 11/29/16 11/30/1611/30/17 18:59 06:59 18:59 Intake Total 1721.407 553 1392 Output Total 1300 600 Balance 1721.667 -820 400 Weight (lbs) 54.885 kg 54.885 kg Intake: Intake, IV Amount 9958.847 0825 Sodium Chloride 0.9% 1, 7698.221 7033 000 ml @ 100 mls/hr IV . Q10H [facility] Rx#:[id number] Oral 480 Output: Urine 1300 600 Other: # Bowel Movements 0 Stool Characteristics Soft Active Medications: Current Medications Acetaminophen (Tylenol) 650 mg PO Q4HR PRN PRN Reason: Pain (Mild) Stop: 01/26/17 21:20 Amlodipine Besylate (Norvasc) 5 mg PO DAILY [facility] Stop: 01/27/17 08:59 Last Admin: 11/30/16 09:21 Dose: 5 mg Docusate Sodium (Colace) 250 mg PO BID [facility] Stop: 01/27/17 08:59 Last Admin: 11/30/16 09:21 Dose: 250 mg Sodium Chloride (Nacl 0.9%) 1,000 mls @ 100 mls/hr IV .Q10H [facility] Stop: 01/26/17 19:36 Last Admin: 11/30/16 11:55 Dose: 100 mls/hr Losartan Potassium (Cozaar) 50 mg PO DAILY [facility] Stop: 01/27/17 08:59 Last Admin: 11/30/16 09:22 Dose: 50 mg General: Alert, Oriented x3, No acute distress HEENT: Atraumatic, PERRLA, EOMI Neck: Supple, +2 carotid pulse wo bruit Cardiovascular: Regular rate, Normal S1, Normal S2 Lungs: Clear to auscultation Abdomen: Bowel sounds, Soft Extremities: no Edema Neurological: Sensation intact Skin: no Rash Psych/Mental Status: Mood NL Assessment/Plan - Assessment Assessment: Hyponatremia 2nd to HCTZ HYpokalemia 2nd to HCTZ dizziness, lightheadedness FTT Ess HTN Ventriculomegaly possible hydronephrosis - Plan Plan: Lab - Result Diagrams 11/28/16 07:03 11/29/16 05:05 Current Medications Acetaminophen (Tylenol) 650 mg PO Q4HR PRN PRN Reason: Pain (Mild) Stop: 01/26/17 21:20 Amlodipine Besylate (Norvasc) 5 mg PO DAILY [facility] Stop: 01/27/17 08:59 Last Admin: 11/29/16 08:28 Dose: 5 mg Docusate Sodium (Colace) 250 mg PO BID [facility] Stop: 01/27/17 08:59 Last Admin: 11/29/16 08:25 Dose: 250 mg Sodium Chloride (Nacl 0.9%) 1,000 mls @ 100 mls/hr IV .Q10H [facility] Stop: 01/26/17 19:36 Last Admin: 11/29/16 08:29 Dose: 100 mls/hr Losartan Potassium (Cozaar) 50 mg PO DAILY [facility] Stop: 01/27/17 08:59 Last Admin: 11/29/16 08:28 Dose: 50 mg Lab - Result Diagrams 11/28/16 07:03 11/29/16 05:05 Na stable @ 133 continue NS hydration f/u electrolytes
--- NOTE | 2016-11-30 16:20 | Internal Medicine Prog Note ---
Internal Medicine Objective - Results Result Diagrams: 11/28/16 07:03 11/29/16 05:05 Recent Labs: Laboratory Last Values WBC 7.3 Th/cmm (4.8-10.8) 11/28/16 07:03 RBC 4.68 Mil/cmm (3.80-5.80) 11/28/16 07:03 Hgb 14.1 gm/dL (12.6-17.4) 11/28/16 07:03 Hct 42.5 % (39.0-49.0) 11/28/16 07:03 MCV 90.8 fl (80-99) 11/28/16 07:03 MCH 30.1 pg (27.0-31.0) 11/28/16 07:03 MCHC Differential 33.1 pg (28.0-36.0) 11/28/16 07:03 RDW 11.9 % (11.5-20.0) 11/28/16 07:03 Plt Count 345 Th/cmm (150-400) 11/28/16 07:03 MPV 5.8 fl 11/28/16 07:03 Neutrophils % 66.6 % (40.0-80.0) 11/28/16 07:03 Lymphocytes % 22.3 % (20.0-50.0) 11/28/16 07:03 Monocytes % 8.3 % (2.0-10.0) 11/28/16 07:03 Eosinophils % 2.7 % (0.0-5.0) 11/28/16 07:03 Basophils % 0.1 % (0.0-2.0) 11/28/16 07:03 ESR 20 mm/hr (0-20) 11/30/16 06:05 Sodium 133 mEq/L (136-145) L 11/29/16 05:05 Potassium 3.6 mEq/L (3.5-5.1) 11/29/16 05:05 Chloride 103 mEq/L (98-107) 11/29/16 05:05 Carbon Dioxide 24.6 mEq/L (21.0-31.0) 11/29/16 05:05 Anion Gap 9.0 (7.0-16.0) 11/29/16 05:05 BUN 11 mg/dL (7-25) 11/29/16 05:05 Creatinine 0.6 mg/dL (0.7-1.3) L 11/29/16 05:05 Est GFR ( Amer) TNP 11/29/16 05:05 Est GFR (Non-Af Amer) TNP 11/29/16 05:05 BUN/Creatinine Ratio 18.3 11/29/16 05:05 Glucose 76 mg/dL (70-105) 11/29/16 05:05 Whole Bld Lactic Acid 0.83 mmol/L (0.60-1.99) 11/27/16 17:58 Uric Acid 3.4 mg/dL (4.4-7.6) L 11/29/16 05:05 Calcium 9.0 mg/dL (8.6-10.3) 11/29/16 05:05 Phosphorus 3.1 mg/dL (2.5-5.0) 11/29/16 05:05 Magnesium 2.1 mg/dL (1.9-2.7) 11/29/16 05:05 Total Bilirubin 0.5 mg/dL (0.3-1.0) 11/27/16 17:58 AST 14 U/L (13-39) 11/27/16 17:58 ALT 8 U/L (7-52) 11/27/16 17:58 Alkaline Phosphatase 76 U/L (34-104) 11/27/16 17:58 Ammonia 58 umol/L (16-53) H 11/29/16 20:36 Troponin I 0.01 ng/mL (0.01-0.05) 11/27/16 17:58 C-Reactive Protein < 0.2 mg/dL (0.0-0.9) 11/30/16 06:05 Total Protein 7.0 gm/dL (6.0-8.3) 11/27/16 17:58 Albumin 4.3 gm/dL (4.2-5.5) 11/27/16 17:58 Globulin 2.7 gm/dL 11/27/16 17:58 Albumin/Globulin Ratio 1.6 (1.0-1.8) 11/27/16 17:58 Triglycerides 69 mg/dL (<150) 11/28/16 07:03 Cholesterol 164 mg/dL (<200) 11/28/16 07:03 LDL Cholesterol Direct 105 mg/dL (75-193) 11/28/16 07:03 HDL Cholesterol 54 mg/dL (23-92) 11/28/16 07:03 Folic Acid 8.3 ng/mL (>3.0) 11/29/16 20:36 TSH 0.80 uIU/ml (0.34-5.60) 11/28/16 07:03 Urine Source RANDOM 11/27/16 17:00 Urine Color YELLOW 11/27/16 17:00 Urine Clarity CLEAR (CLEAR) 11/27/16 17:00 Urine pH 6.5 (4.6 - 8.0) 11/27/16 17:00 Ur Specific [place] 1.010 (1.005-1.030) 11/27/16 17:00 Urine Protein NEGATIVE mg/dL (NEGATIVE) 11/27/16 17:00 Urine Glucose (UA) NEGATIVE mg/dL (NEGATIVE) 11/27/16 17:00 Urine Ketones NEGATIVE mg/dL (NEGATIVE) 11/27/16 17:00 Urine Blood TRACE (NEGATIVE) 11/27/16 17:00 Urine Nitrate NEGATIVE (NEGATIVE) 11/27/16 17:00 Urine Bilirubin NEGATIVE (NEGATIVE) 11/27/16 17:00 Urine Urobilinogen 0.2 E.U./dL (0.2 - 1.0) 11/27/16 17:00 Ur Leukocyte Esterase NEGATIVE (NEGATIVE) 11/27/16 17:00 Urine RBC 2-5 /hpf (0-5) H 11/27/16 17:00 Urine WBC NONE SEEN /hpf (0-5) 11/27/16 17:00 Ur Epithelial Cells NONE SEEN /lpf (FEW) 11/27/16 17:00 Urine Bacteria NONE SEEN /hpf (NONE SEEN) 11/27/16 17:00 Ur Random Sodium 47 mmol/L 11/29/16 01:49 - Physical Exam Vitals and I&O: Vital Signs Temp 97.2 F 11/30/16 11:47 Pulse 76 11/30/16 13:04 Resp 16 11/30/16 11:47 BP 137/93 11/30/16 13:04 Pulse Ox 98 11/30/16 11:47 Intake & Output 11/29/16 11/30/16 11/30/16 18:59 06:59 18:59 Intake Total 1721.898 547 6549 Output Total 1300 600 Balance 1721.667 -820 400 Weight (lbs) 54.885 kg 54.885 kg Intake: Intake, IV Amount 9216.785 7044 Sodium Chloride 0.9% 1, 8550.042 1363 000 ml @ 100 mls/hr IV . Q10H [facility] Rx#:[id number] Oral 480 Output: Urine 1300 600 Other: # Bowel Movements 0 Stool Characteristics Soft Active Medications: Current Medications Acetaminophen (Tylenol) 650 mg PO Q4HR PRN PRN Reason: Pain (Mild) Stop: 01/26/17 21:20 Amlodipine Besylate (Norvasc) 5 mg PO DAILY [facility] Stop: 01/27/17 08:59 Last Admin: 11/30/16 09:21 Dose: 5 mg Docusate Sodium (Colace) 250 mg PO BID [facility] Stop: 01/27/17 08:59 Last Admin: 11/30/16 16:14 Dose: 250 mg Sodium Chloride (Nacl 0.9%) 1,000 mls @ 70 mls/hr IV .[id number] [facility] Stop: 01/26/17 19:36 Last Admin: 11/30/16 16:14 Dose: 70 mls/hr Losartan Potassium (Cozaar) 50 mg PO DAILY [facility] Stop: 01/27/17 08:59 Last Admin: 11/30/16 09:22 Dose: 50 mg
[2016-12-01] MEDS: Sodium Chloride 0.9% 1,000 ML IV SCH (04:07)
[2016-12-01 06:34] LABS: ANION GAP 5.9 (7.0-16.0); BUN - UREA NITROGEN 12 mg/dL (7-25); BUN/CREATININE RATIO 17.1; CARBON DIOXIDE 27.9 mEq/L (21.0-31.0); CHLORIDE 98 mEq/L (98-107); CREATININE - SERUM 0.7 mg/dL (0.7-1.3); GLUCOSE 81 mg/dL (70-105); POTASSIUM SERUM 3.8 mEq/L (3.5-5.1); SODIUM SERUM 128 mEq/L (136-145)
--- NOTE | 2016-12-01 13:48 | General Progress Note ---
Subjective - Review of Systems Events since last encounter: patient awake alert no distress ambulating Objective - Results Result Diagrams: 11/28/16 07:03 12/01/16 05:46 Recent Labs: Laboratory Last Values WBC 7.3 Th/cmm (4.8-10.8) 11/28/16 07:03 RBC 4.68 Mil/cmm (3.80-5.80) 11/28/16 07:03 Hgb 14.1 gm/dL (12.6-17.4) 11/28/16 07:03 Hct 42.5 % (39.0-49.0) 11/28/16 07:03 MCV 90.8 fl (80-99) 11/28/16 07:03 MCH 30.1 pg (27.0-31.0) 11/28/16 07:03 MCHC Differential 33.1 pg (28.0-36.0) 11/28/16 07:03 RDW 11.9 % (11.5-20.0) 11/28/16 07:03 Plt Count 345 Th/cmm (150-400) 11/28/16 07:03 MPV 5.8 fl 11/28/16 07:03 Neutrophils % 66.6 % (40.0-80.0) 11/28/16 07:03 Lymphocytes % 22.3 % (20.0-50.0) 11/28/16 07:03 Monocytes % 8.3 % (2.0-10.0) 11/28/16 07:03 Eosinophils % 2.7 % (0.0-5.0) 11/28/16 07:03 Basophils % 0.1 % (0.0-2.0) 11/28/16 07:03 ESR 20 mm/hr (0-20) 11/30/16 06:05 Sodium 128 mEq/L (136-145) L 12/01/16 05:46 Potassium 3.8 mEq/L (3.5-5.1) 12/01/16 05:46 Chloride 98 mEq/L (98-107) 12/01/16 05:46 Carbon Dioxide 27.9 mEq/L (21.0-31.0) 12/01/16 05:46 Anion Gap 5.9 (7.0-16.0) L 12/01/16 05:46 BUN 12 mg/dL (7-25) 12/01/16 05:46 Creatinine 0.7 mg/dL (0.7-1.3) 12/01/16 05:46 Est GFR ( Amer) TNP 12/01/16 05:46 Est GFR (Non-Af Amer) TNP 12/01/16 05:46 BUN/Creatinine Ratio 17.1 12/01/16 05:46 Glucose 81 mg/dL (70-105) 12/01/16 05:46 Plasma/Ser Osmolality 276 mOsmol/kg (280-301) L 11/29/16 05:05 Whole Bld Lactic Acid 0.83 mmol/L (0.60-1.99) 11/27/16 17:58 Uric Acid 3.4 mg/dL (4.4-7.6) L 11/29/16 05:05 Calcium 9.0 mg/dL (8.6-10.3) 12/01/16 05:46 Phosphorus 3.1 mg/dL (2.5-5.0) 11/29/16 05:05 Magnesium 2.1 mg/dL (1.9-2.7) 11/29/16 05:05 Total Bilirubin 0.5 mg/dL (0.3-1.0) 11/27/16 17:58 AST 14 U/L (13-39) 11/27/16 17:58 ALT 8 U/L (7-52) 11/27/16 17:58 Alkaline Phosphatase 76 U/L (34-104) 11/27/16 17:58 Ammonia 58 umol/L (16-53) H 11/29/16 20:36 Troponin I 0.01 ng/mL (0.01-0.05) 11/27/16 17:58 C-Reactive Protein < 0.2 mg/dL (0.0-0.9) 11/30/16 06:05 Total Protein 7.0 gm/dL (6.0-8.3) 11/27/16 17:58 Albumin 4.3 gm/dL (4.2-5.5) 11/27/16 17:58 Globulin 2.7 gm/dL 11/27/16 17:58 Albumin/Globulin Ratio 1.6 (1.0-1.8) 11/27/16 17:58 Triglycerides 69 mg/dL (<150) 11/28/16 07:03 Cholesterol 164 mg/dL (<200) 11/28/16 07:03 LDL Cholesterol Direct 105 mg/dL (75-193) 11/28/16 07:03 HDL Cholesterol 54 mg/dL (23-92) 11/28/16 07:03 Folic Acid 8.3 ng/mL (>3.0) 11/29/16 20:36 TSH 0.80 uIU/ml (0.34-5.60) 11/28/16 07:03 Urine Source RANDOM 11/27/16 17:00 Urine Color YELLOW 11/27/16 17:00 Urine Clarity CLEAR (CLEAR) 11/27/16 17:00 Urine pH 6.5 (4.6 - 8.0) 11/27/16 17:00 Ur Specific [place] 1.010 (1.005-1.030) 11/27/16 17:00 Urine Protein NEGATIVE mg/dL (NEGATIVE) 11/27/16 17:00 Urine Glucose (UA) NEGATIVE mg/dL (NEGATIVE) 11/27/16 17:00 Urine Ketones NEGATIVE mg/dL (NEGATIVE) 11/27/16 17:00 Urine Blood TRACE (NEGATIVE) 11/27/16 17:00 Urine Nitrate NEGATIVE (NEGATIVE) 11/27/16 17:00 Urine Bilirubin NEGATIVE (NEGATIVE) 11/27/16 17:00 Urine Urobilinogen 0.2 E.U./dL (0.2 - 1.0) 11/27/16 17:00 Ur Leukocyte Esterase NEGATIVE (NEGATIVE) 11/27/16 17:00 Urine RBC 2-5 /hpf (0-5) H 11/27/16 17:00 Urine WBC NONE SEEN /hpf (0-5) 11/27/16 17:00 Ur Epithelial Cells NONE SEEN /lpf (FEW) 11/27/16 17:00 Urine Bacteria NONE SEEN /hpf (NONE SEEN) 11/27/16 17:00 Ur Random Sodium 47 mmol/L 11/29/16 01:49 - Physical Exam Vitals and I&O: Vital Signs Temp 97.4 F 12/01/16 08:00 Pulse 61 12/01/16 08:45 Resp 19 12/01/16 08:00 BP 148/78 12/01/16 08:45 Pulse Ox 98 12/01/16 08:00 Intake & Output 11/30/16 12/01/16 12/01/16 18:59 06:59 18:59 Intake Total 1000 1191.833 Output Total 600 1100 Balance 400 91.833 Weight (lbs) 54.885 kg 54.885 kg Intake: Intake, IV Amount 1000 831.833 Sodium Chloride 0.9% 1, 1000 000 ml @ 100 mls/hr IV . Q10H [facility] Rx#:[id number] Sodium Chloride 0.9% 1, 831.833 000 ml @ 70 mls/hr IV . [id number] [facility] Rx#:[id number] Oral 360 Output: Urine 600 1100 Other: # Bowel Movements 0 1 Active Medications: Current Medications Acetaminophen (Tylenol) 650 mg PO Q4HR PRN PRN Reason: Pain (Mild) Stop: 01/26/17 21:20 Amlodipine Besylate (Norvasc) 5 mg PO DAILY [facility] Stop: 01/27/17 08:59 Last Admin: 12/01/16 08:44 Dose: 5 mg Docusate Sodium (Colace) 250 mg PO BID [facility] Stop: 01/27/17 08:59 Last Admin: 12/01/16 08:45 Dose: 250 mg Sodium Chloride (Nacl 0.9%) 1,000 mls @ 70 mls/hr IV .[id number] [facility] Stop: 01/26/17 19:36 Last Admin: 12/01/16 04:07 Dose: 70 mls/hr Losartan Potassium (Cozaar) 50 mg PO DAILY [facility] Stop: 01/27/17 08:59 Last Admin: 12/01/16 08:45 Dose: 50 mg General: Alert, Oriented x3, No acute distress HEENT: Atraumatic, PERRLA, EOMI Neck: Supple, +2 carotid pulse wo bruit Cardiovascular: Regular rate, Normal S1, Normal S2 Lungs: Clear to auscultation Abdomen: Bowel sounds, Soft Extremities: no Edema Neurological: Sensation intact Skin: no Rash Psych/Mental Status: Mood NL
--- NOTE | 2016-12-01 14:27 | General Progress Note ---
Subjective - Review of Systems Service Date: 12/01/16 Subjective: alert, verbal, comfortable. ambulating Objective - Results Result Diagrams: 11/28/16 07:03 12/01/16 05:46 Recent Labs: Laboratory Last Values WBC 7.3 Th/cmm (4.8-10.8) 11/28/16 07:03 RBC 4.68 Mil/cmm (3.80-5.80) 11/28/16 07:03 Hgb 14.1 gm/dL (12.6-17.4) 11/28/16 07:03 Hct 42.5 % (39.0-49.0) 11/28/16 07:03 MCV 90.8 fl (80-99) 11/28/16 07:03 MCH 30.1 pg (27.0-31.0) 11/28/16 07:03 MCHC Differential 33.1 pg (28.0-36.0) 11/28/16 07:03 RDW 11.9 % (11.5-20.0) 11/28/16 07:03 Plt Count 345 Th/cmm (150-400) 11/28/16 07:03 MPV 5.8 fl 11/28/16 07:03 Neutrophils % 66.6 % (40.0-80.0) 11/28/16 07:03 Lymphocytes % 22.3 % (20.0-50.0) 11/28/16 07:03 Monocytes % 8.3 % (2.0-10.0) 11/28/16 07:03 Eosinophils % 2.7 % (0.0-5.0) 11/28/16 07:03 Basophils % 0.1 % (0.0-2.0) 11/28/16 07:03 ESR 20 mm/hr (0-20) 11/30/16 06:05 Sodium 128 mEq/L (136-145) L 12/01/16 05:46 Potassium 3.8 mEq/L (3.5-5.1) 12/01/16 05:46 Chloride 98 mEq/L (98-107) 12/01/16 05:46 Carbon Dioxide 27.9 mEq/L (21.0-31.0) 12/01/16 05:46 Anion Gap 5.9 (7.0-16.0) L 12/01/16 05:46 BUN 12 mg/dL (7-25) 12/01/16 05:46 Creatinine 0.7 mg/dL (0.7-1.3) 12/01/16 05:46 Est GFR ( Amer) TNP 12/01/16 05:46 Est GFR (Non-Af Amer) TNP 12/01/16 05:46 BUN/Creatinine Ratio 17.1 12/01/16 05:46 Glucose 81 mg/dL (70-105) 12/01/16 05:46 Plasma/Ser Osmolality 276 mOsmol/kg (280-301) L 11/29/16 05:05 Whole Bld Lactic Acid 0.83 mmol/L (0.60-1.99) 11/27/16 17:58 Uric Acid 3.4 mg/dL (4.4-7.6) L 11/29/16 05:05 Calcium 9.0 mg/dL (8.6-10.3) 12/01/16 05:46 Phosphorus 3.1 mg/dL (2.5-5.0) 11/29/16 05:05 Magnesium 2.1 mg/dL (1.9-2.7) 11/29/16 05:05 Total Bilirubin 0.5 mg/dL (0.3-1.0) 11/27/16 17:58 AST 14 U/L (13-39) 11/27/16 17:58 ALT 8 U/L (7-52) 11/27/16 17:58 Alkaline Phosphatase 76 U/L (34-104) 11/27/16 17:58 Ammonia 58 umol/L (16-53) H 11/29/16 20:36 Troponin I 0.01 ng/mL (0.01-0.05) 11/27/16 17:58 C-Reactive Protein < 0.2 mg/dL (0.0-0.9) 11/30/16 06:05 Total Protein 7.0 gm/dL (6.0-8.3) 11/27/16 17:58 Albumin 4.3 gm/dL (4.2-5.5) 11/27/16 17:58 Globulin 2.7 gm/dL 11/27/16 17:58 Albumin/Globulin Ratio 1.6 (1.0-1.8) 11/27/16 17:58 Triglycerides 69 mg/dL (<150) 11/28/16 07:03 Cholesterol 164 mg/dL (<200) 11/28/16 07:03 LDL Cholesterol Direct 105 mg/dL (75-193) 11/28/16 07:03 HDL Cholesterol 54 mg/dL (23-92) 11/28/16 07:03 Folic Acid 8.3 ng/mL (>3.0) 11/29/16 20:36 TSH 0.80 uIU/ml (0.34-5.60) 11/28/16 07:03 Urine Source RANDOM 11/27/16 17:00 Urine Color YELLOW 11/27/16 17:00 Urine Clarity CLEAR (CLEAR) 11/27/16 17:00 Urine pH 6.5 (4.6 - 8.0) 11/27/16 17:00 Ur Specific [place] 1.010 (1.005-1.030) 11/27/16 17:00 Urine Protein NEGATIVE mg/dL (NEGATIVE) 11/27/16 17:00 Urine Glucose (UA) NEGATIVE mg/dL (NEGATIVE) 11/27/16 17:00 Urine Ketones NEGATIVE mg/dL (NEGATIVE) 11/27/16 17:00 Urine Blood TRACE (NEGATIVE) 11/27/16 17:00 Urine Nitrate NEGATIVE (NEGATIVE) 11/27/16 17:00 Urine Bilirubin NEGATIVE (NEGATIVE) 11/27/16 17:00 Urine Urobilinogen 0.2 E.U./dL (0.2 - 1.0) 11/27/16 17:00 Ur Leukocyte Esterase NEGATIVE (NEGATIVE) 11/27/16 17:00 Urine RBC 2-5 /hpf (0-5) H 11/27/16 17:00 Urine WBC NONE SEEN /hpf (0-5) 11/27/16 17:00 Ur Epithelial Cells NONE SEEN /lpf (FEW) 11/27/16 17:00 Urine Bacteria NONE SEEN /hpf (NONE SEEN) 11/27/16 17:00 Ur Random Sodium 47 mmol/L 11/29/16 01:49 - Physical Exam Vitals and I&O: Vital Signs Temp 97.4 F 12/01/16 08:00 Pulse 61 12/01/16 08:45 Resp 19 12/01/16 08:00 BP 148/78 12/01/16 08:45 Pulse Ox 98 09/10/17 08:00 Intake & Output 11/30/16 12/01/16 12/01/16 18:59 06:59 18:59 Intake Total 1000 1191.833 Output Total 600 1100 Balance 400 91.833 Weight (lbs) 54.885 kg 54.885 kg Intake: Intake, IV Amount 1000 831.833 Sodium Chloride 0.9% 1, 1000 000 ml @ 100 mls/hr IV . Q10H [facility] Rx#:[id number] Sodium Chloride 0.9% 1, 831.833 000 ml @ 70 mls/hr IV . [id number] [facility] Rx#:[id number] Oral 360 Output: Urine 600 1100 Other: # Bowel Movements 0 1 Active Medications: Current Medications Acetaminophen (Tylenol) 650 mg PO Q4HR PRN PRN Reason: Pain (Mild) Stop: 01/26/17 21:20 Amlodipine Besylate (Norvasc) 5 mg PO DAILY [facility] Stop: 01/27/17 08:59 Last Admin: 12/01/16 08:44 Dose: 5 mg Docusate Sodium (Colace) 250 mg PO BID [facility] Stop: 01/27/17 08:59 Last Admin: 12/01/16 08:45 Dose: 250 mg Sodium Chloride (Nacl 0.9%) 1,000 mls @ 70 mls/hr IV .[id number] [facility] Stop: 01/26/17 19:36 Last Admin: 12/01/16 04:07 Dose: 70 mls/hr Losartan Potassium (Cozaar) 50 mg PO DAILY [facility] Stop: 01/27/17 08:59 Last Admin: 12/01/16 08:45 Dose: 50 mg General: Alert, Oriented x3, No acute distress HEENT: Atraumatic, PERRLA, EOMI Neck: Supple, +2 carotid pulse wo bruit Cardiovascular: Regular rate, Normal S1, Normal S2 Lungs: Clear to auscultation Abdomen: Bowel sounds, Soft Extremities: no Edema Neurological: Sensation intact Skin: no Rash Psych/Mental Status: Mood NL Assessment/Plan - Assessment Assessment: Hyponatremia 2nd to HCTZ, 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 HYpokalemia 2nd to HCTZ dizziness, lightheadedness FTT Ess HTN Ventriculomegaly possible hydrocephalus - Plan Plan: Lab - Result Diagrams 11/28/16 07:03 11/29/16 05:05 Current Medications Acetaminophen (Tylenol) 650 mg PO Q4HR PRN PRN Reason: Pain (Mild) Stop: 01/26/17 21:20 Amlodipine Besylate (Norvasc) 5 mg PO DAILY [facility] Stop: 01/27/17 08:59 Last Admin: 11/29/16 08:28 Dose: 5 mg Docusate Sodium (Colace) 250 mg PO BID [facility] Stop: 01/27/17 08:59 Last Admin: 11/29/16 08:25 Dose: 250 mg Sodium Chloride (Nacl 0.9%) 1,000 mls @ 100 mls/hr IV .Q10H [facility] Stop: 01/26/17 19:36 Last Admin: 11/29/16 08:29 Dose: 100 mls/hr Losartan Potassium (Cozaar) 50 mg PO DAILY [facility] Stop: 01/27/17 08:59 Last Admin: 11/29/16 08:29 Na came down to 128 discontinue hydration f/u electrolytes
[2016-12-02 06:29] LABS: ANION GAP 9.4 (7.0-16.0); BUN - UREA NITROGEN 13 mg/dL (7-25); BUN/CREATININE RATIO 18.6; CALCIUM SERUM 9.1 mg/dL (8.6-10.3); CARBON DIOXIDE 25.1 mEq/L (21.0-31.0); CHLORIDE 100 mEq/L (98-107); CREATININE - SERUM 0.7 mg/dL (0.7-1.3); GLUCOSE 90 mg/dL (70-105); POTASSIUM SERUM 3.5 mEq/L (3.5-5.1); SODIUM SERUM 131 mEq/L (136-145)
--- NOTE | 2016-12-02 14:13 | General Progress Note ---
Subjective - Review of Systems Service Date: 12/02/16 Subjective: alert, verbal, comfortable. ambulating Objective - Results Result Diagrams: 11/28/16 07:03 12/02/16 05:21 Recent Labs: Laboratory Last Values WBC 7.3 Th/cmm (4.8-10.8) 11/28/16 07:03 RBC 4.68 Mil/cmm (3.80-5.80) 11/28/16 07:03 Hgb 14.1 gm/dL (12.6-17.4) 11/28/16 07:03 Hct 42.5 % (39.0-49.0) 11/28/16 07:03 MCV 90.8 fl (80-99) 11/28/16 07:03 MCH 30.1 pg (27.0-31.0) 11/28/16 07:03 MCHC Differential 33.1 pg (28.0-36.0) 11/28/16 07:03 RDW 11.9 % (11.5-20.0) 11/28/16 07:03 Plt Count 345 Th/cmm (150-400) 11/28/16 07:03 MPV 5.8 fl 11/28/16 07:03 Neutrophils % 66.6 % (40.0-80.0) 11/28/16 07:03 Lymphocytes % 22.3 % (20.0-50.0) 11/28/16 07:03 Monocytes % 8.3 % (2.0-10.0) 11/28/16 07:03 Eosinophils % 2.7 % (0.0-5.0) 11/28/16 07:03 Basophils % 0.1 % (0.0-2.0) 11/28/16 07:03 ESR 20 mm/hr (0-20) 11/30/16 06:05 Sodium 131 mEq/L (136-145) L 12/02/16 05:21 Potassium 3.5 mEq/L (3.5-5.1) 12/02/16 05:21 Chloride 100 mEq/L (98-107) 12/02/16 05:21 Carbon Dioxide 25.1 mEq/L (21.0-31.0) 12/02/16 05:21 Anion Gap 9.4 (7.0-16.0) 12/02/16 05:21 BUN 13 mg/dL (7-25) 12/02/16 05:21 Creatinine 0.7 mg/dL (0.7-1.3) 12/02/16 05:21 Est GFR ( Amer) TNP 12/02/16 05:21 Est GFR (Non-Af Amer) TNP 12/02/16 05:21 BUN/Creatinine Ratio 18.6 12/02/16 05:21 Glucose 90 mg/dL (70-105) 12/02/16 05:21 Plasma/Ser Osmolality 276 mOsmol/kg (280-301) L 11/29/16 05:05 Whole Bld Lactic Acid 0.83 mmol/L (0.60-1.99) 11/27/16 17:58 Uric Acid 3.4 mg/dL (4.4-7.6) L 11/29/16 05:05 Calcium 9.1 mg/dL (8.6-10.3) 12/02/16 05:21 Phosphorus 3.1 mg/dL (2.5-5.0) 11/29/16 05:05 Magnesium 2.1 mg/dL (1.9-2.7) 11/29/16 05:05 Total Bilirubin 0.5 mg/dL (0.3-1.0) 11/27/16 17:58 AST 14 U/L (13-39) 11/27/16 17:58 ALT 8 U/L (7-52) 11/27/16 17:58 Alkaline Phosphatase 76 U/L (34-104) 11/27/16 17:58 Ammonia 58 umol/L (16-53) H 11/29/16 20:36 Troponin I 0.01 ng/mL (0.01-0.05) 11/27/16 17:58 C-Reactive Protein < 0.2 mg/dL (0.0-0.9) 11/30/16 06:05 Total Protein 7.0 gm/dL (6.0-8.3) 11/27/16 17:58 Albumin 4.3 gm/dL (4.2-5.5) 11/27/16 17:58 Globulin 2.7 gm/dL 11/27/16 17:58 Albumin/Globulin Ratio 1.6 (1.0-1.8) 11/27/16 17:58 Triglycerides 69 mg/dL (<150) 11/28/16 07:03 Cholesterol 164 mg/dL (<200) 11/28/16 07:03 LDL Cholesterol Direct 105 mg/dL (75-193) 11/28/16 07:03 HDL Cholesterol 54 mg/dL (23-92) 11/28/16 07:03 Folic Acid 8.3 ng/mL (>3.0) 11/29/16 20:36 TSH 0.80 uIU/ml (0.34-5.60) 11/28/16 07:03 Urine Source RANDOM 11/27/16 17:00 Urine Color YELLOW 11/27/16 17:00 Urine Clarity CLEAR (CLEAR) 11/27/16 17:00 Urine pH 6.5 (4.6 - 8.0) 11/27/16 17:00 Ur Specific [place] 1.010 (1.005-1.030) 11/27/16 17:00 Urine Protein NEGATIVE mg/dL (NEGATIVE) 11/27/16 17:00 Urine Glucose (UA) NEGATIVE mg/dL (NEGATIVE) 11/27/16 17:00 Urine Ketones NEGATIVE mg/dL (NEGATIVE) 11/27/16 17:00 Urine Blood TRACE (NEGATIVE) 11/27/16 17:00 Urine Nitrate NEGATIVE (NEGATIVE) 11/27/16 17:00 Urine Bilirubin NEGATIVE (NEGATIVE) 11/27/16 17:00 Urine Urobilinogen 0.2 E.U./dL (0.2 - 1.0) 11/27/16 17:00 Ur Leukocyte Esterase NEGATIVE (NEGATIVE) 11/27/16 17:00 Urine RBC 2-5 /hpf (0-5) H 11/27/16 17:00 Urine WBC NONE SEEN /hpf (0-5) 11/27/16 17:00 Ur Epithelial Cells NONE SEEN /lpf (FEW) 11/27/16 17:00 Urine Bacteria NONE SEEN /hpf (NONE SEEN) 11/27/16 17:00 Ur Random Sodium 47 mmol/L 11/29/16 01:49 - Physical Exam Vitals and I&O: Vital Signs Temp 97.4 F 12/02/16 12:00 Pulse 60 12/02/16 12:00 Resp 20 12/02/16 12:00 BP 119/63 12/02/16 12:00 Pulse Ox 98 12/02/16 12:00 Intake & Output 12/01/16 12/02/16 12/02/16 18:59 06:59 18:59 Intake Total 1300 300 Output Total 1350 Balance -50 300 Weight (lbs) 54.885 kg 55.792 kg Intake: Oral 1300 300 Output: Urine 1350 Other: # Voids 4 # Bowel Movements 1 Active Medications: Current Medications Acetaminophen (Tylenol) 650 mg PO Q4HR PRN PRN Reason: Pain (Mild) Stop: 01/26/17 21:20 Amlodipine Besylate (Norvasc) 5 mg PO DAILY [facility] Stop: 01/27/17 08:59 Last Admin: 12/02/16 10:30 Dose: 5 mg Docusate Sodium (Colace) 250 mg PO BID [facility] Stop: 01/27/17 08:59 Last Admin: 12/02/16 10:29 Dose: 250 mg Losartan Potassium (Cozaar) 50 mg PO DAILY [facility] Stop: 01/27/17 08:59 Last Admin: 12/02/16 10:29 Dose: 50 mg General: Alert, Oriented x3, No acute distress HEENT: Atraumatic, PERRLA, EOMI Neck: Supple, +2 carotid pulse wo bruit Cardiovascular: Regular rate, Normal S1, Normal S2 Lungs: Clear to auscultation Abdomen: Bowel sounds, Soft Extremities: no Edema Neurological: Sensation intact Skin: no Rash Psych/Mental Status: Mood NL Assessment/Plan - Assessment Assessment: Hyponatremia 2nd to HCTZ, 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 HYpokalemia 2nd to HCTZ dizziness, lightheadedness 2nd to hydrocephalus FTT Ess HTN Ventriculomegaly possible hydrocephalus - Plan Plan: Lab - Result Diagrams 11/28/16 07:03 11/29/16 05:05 Current Medications Acetaminophen (Tylenol) 650 mg PO Q4HR PRN PRN Reason: Pain (Mild) Stop: 01/26/17 21:20 Amlodipine Besylate (Norvasc) 5 mg PO DAILY [facility] Stop: 01/27/17 08:59 Last Admin: 11/29/16 08:28 Dose: 5 mg Docusate Sodium (Colace) 250 mg PO BID [facility] Stop: 01/27/17 08:59 Last Admin: 11/29/16 08:25 Dose: 250 mg Sodium Chloride (Nacl 0.9%) 1,000 mls @ 100 mls/hr IV .Q10H [facility] Stop: 01/26/17 19:36 Last Admin: 11/29/16 08:29 Dose: 100 mls/hr Losartan Potassium (Cozaar) 50 mg PO DAILY [facility] Stop: 01/27/17 08:59 Last Admin: 11/29/16 08:29 Na came up to 131 discontinue hydration f/u electrolytes need Neurosurgical eval w/ regard to management of hydrocephalus Lab - Result Diagrams 11/28/16 07:03 12/02/16 05:21
--- NOTE | 2016-12-02 14:25 | General Progress Note ---
Subjective - Review of Systems Events since last encounter: alert awake Objective - Results Result Diagrams: 11/28/16 07:03 12/02/16 05:21 Recent Labs: Laboratory Last Values WBC 7.3 Th/cmm (4.8-10.8) 11/28/16 07:03 RBC 4.68 Mil/cmm (3.80-5.80) 11/28/16 07:03 Hgb 14.1 gm/dL (12.6-17.4) 11/28/16 07:03 Hct 42.5 % (39.0-49.0) 11/28/16 07:03 MCV 90.8 fl (80-99) 11/28/16 07:03 MCH 30.1 pg (27.0-31.0) 11/28/16 07:03 MCHC Differential 33.1 pg (28.0-36.0) 11/28/16 07:03 RDW 11.9 % (11.5-20.0) 11/28/16 07:03 Plt Count 345 Th/cmm (150-400) 11/28/16 07:03 MPV 5.8 fl 11/28/16 07:03 Neutrophils % 66.6 % (40.0-80.0) 11/28/16 07:03 Lymphocytes % 22.3 % (20.0-50.0) 11/28/16 07:03 Monocytes % 8.3 % (2.0-10.0) 11/28/16 07:03 Eosinophils % 2.7 % (0.0-5.0) 11/28/16 07:03 Basophils % 0.1 % (0.0-2.0) 11/28/16 07:03 ESR 20 mm/hr (0-20) 11/30/16 06:05 Sodium 131 mEq/L (136-145) L 12/02/16 05:21 Potassium 3.5 mEq/L (3.5-5.1) 12/02/16 05:21 Chloride 100 mEq/L (98-107) 12/02/16 05:21 Carbon Dioxide 25.1 mEq/L (21.0-31.0) 12/02/16 05:21 Anion Gap 9.4 (7.0-16.0) 12/02/16 05:21 BUN 13 mg/dL (7-25) 12/02/16 05:21 Creatinine 0.7 mg/dL (0.7-1.3) 12/02/16 05:21 Est GFR ( Amer) TNP 12/02/16 05:21 Est GFR (Non-Af Amer) TNP 12/02/16 05:21 BUN/Creatinine Ratio 18.6 12/02/16 05:21 Glucose 90 mg/dL (70-105) 12/02/16 05:21 Plasma/Ser Osmolality 276 mOsmol/kg (280-301) L 11/29/16 05:05 Whole Bld Lactic Acid 0.83 mmol/L (0.60-1.99) 11/27/16 17:58 Uric Acid 3.4 mg/dL (4.4-7.6) L 11/29/16 05:05 Calcium 9.1 mg/dL (8.6-10.3) 12/02/16 05:21 Phosphorus 3.1 mg/dL (2.5-5.0) 11/29/16 05:05 Magnesium 2.1 mg/dL (1.9-2.7) 11/29/16 05:05 Total Bilirubin 0.5 mg/dL (0.3-1.0) 11/27/16 17:58 AST 14 U/L (13-39) 11/27/16 17:58 ALT 8 U/L (7-52) 11/27/16 17:58 Alkaline Phosphatase 76 U/L (34-104) 11/27/16 17:58 Ammonia 58 umol/L (16-53) H 11/29/16 20:36 Troponin I 0.01 ng/mL (0.01-0.05) 11/27/16 17:58 C-Reactive Protein < 0.2 mg/dL (0.0-0.9) 11/30/16 06:05 Total Protein 7.0 gm/dL (6.0-8.3) 11/27/16 17:58 Albumin 4.3 gm/dL (4.2-5.5) 11/27/16 17:58 Globulin 2.7 gm/dL 11/27/16 17:58 Albumin/Globulin Ratio 1.6 (1.0-1.8) 11/27/16 17:58 Triglycerides 69 mg/dL (<150) 11/28/16 07:03 Cholesterol 164 mg/dL (<200) 11/28/16 07:03 LDL Cholesterol Direct 105 mg/dL (75-193) 11/28/16 07:03 HDL Cholesterol 54 mg/dL (23-92) 11/28/16 07:03 Folic Acid 8.3 ng/mL (>3.0) 11/29/16 20:36 TSH 0.80 uIU/ml (0.34-5.60) 11/28/16 07:03 Urine Source RANDOM 11/27/16 17:00 Urine Color YELLOW 11/27/16 17:00 Urine Clarity CLEAR (CLEAR) 11/27/16 17:00 Urine pH 6.5 (4.6 - 8.0) 11/27/16 17:00 Ur Specific [place] 1.010 (1.005-1.030) 11/27/16 17:00 Urine Protein NEGATIVE mg/dL (NEGATIVE) 11/27/16 17:00 Urine Glucose (UA) NEGATIVE mg/dL (NEGATIVE) 11/27/16 17:00 Urine Ketones NEGATIVE mg/dL (NEGATIVE) 11/27/16 17:00 Urine Blood TRACE (NEGATIVE) 11/27/16 17:00 Urine Nitrate NEGATIVE (NEGATIVE) 11/27/16 17:00 Urine Bilirubin NEGATIVE (NEGATIVE) 11/27/16 17:00 Urine Urobilinogen 0.2 E.U./dL (0.2 - 1.0) 11/27/16 17:00 Ur Leukocyte Esterase NEGATIVE (NEGATIVE) 11/27/16 17:00 Urine RBC 2-5 /hpf (0-5) H 11/27/16 17:00 Urine WBC NONE SEEN /hpf (0-5) 11/27/16 17:00 Ur Epithelial Cells NONE SEEN /lpf (FEW) 11/27/16 17:00 Urine Bacteria NONE SEEN /hpf (NONE SEEN) 11/27/16 17:00 Ur Random Sodium 47 mmol/L 11/29/16 01:49 - Physical Exam Vitals and I&O: Vital Signs Temp 97.4 F 12/02/16 12:00 Pulse 60 12/02/16 12:00 Resp 20 12/02/16 12:00 BP 119/63 12/02/16 12:00 Pulse Ox 98 12/02/16 12:00 Intake & Output 12/01/16 12/02/16 12/02/16 18:59 06:59 18:59 Intake Total 1300 300 Output Total 1350 Balance -50 300 Weight (lbs) 54.885 kg 55.792 kg Intake: Oral 1300 300 Output: Urine 1350 Other: # Voids 4 # Bowel Movements 1 Active Medications: Current Medications Acetaminophen (Tylenol) 650 mg PO Q4HR PRN PRN Reason: Pain (Mild) Stop: 01/26/17 21:20 Amlodipine Besylate (Norvasc) 5 mg PO DAILY [facility] Stop: 01/27/17 08:59 Last Admin: 12/02/16 10:30 Dose: 5 mg Docusate Sodium (Colace) 250 mg PO BID [facility] Stop: 01/27/17 08:59 Last Admin: 12/02/16 10:29 Dose: 250 mg Losartan Potassium (Cozaar) 50 mg PO DAILY [facility] Stop: 01/27/17 08:59 Last Admin: 12/02/16 10:29 Dose: 50 mg General: Alert, Oriented x3, No acute distress HEENT: Atraumatic, PERRLA, EOMI Neck: Supple, +2 carotid pulse wo bruit Cardiovascular: Regular rate, Normal S1, Normal S2 Lungs: Clear to auscultation Abdomen: Bowel sounds, Soft Extremities: no Edema Neurological: Sensation intact Skin: no Rash Psych/Mental Status: Mood NL
--- NOTE | 2016-12-02 20:37 | Consultation ---
DATE OF CONSULTATION: 11/27/[address] Ivy. HISTORY AND PHYSICAL: This is an 81-year-old female patient who was brought to the hospital because of altered level, dizziness, weakness and frequent falls due to ataxia. The patient was also found to have atrial fibrillation and hence Cardiology consult was requested. The patient had no complaint or palpitation prior to fall. PAST SURGICAL HISTORY: Dementia, osteoporosis and vertigo. FAMILY HISTORY: Unremarkable. SOCIAL HISTORY: No history of smoking, alcohol abuse. ALLERGIES: None. PHYSICAL EXAMINATION: VITAL SIGNS: Blood pressure 120/80, pulse 88 irregular, respirations 28. HEAD: Normocephalic. No lumps or bumps. EYES: Pupils equal, reactive to light. Fundi show AV nicking, sclerae white, conjunctivae pink. NECK: Carotid 2+. Normal upstroke. JVD flat. Thyroid not palpable. Lymph nodes not palpable. CHEST: Shows increased AP diameter. No kyphosis, scoliosis. LUNGS: Bilateral bronchovesicular breath sounds. HEART: PMI fifth intercostal space with lateral to midclavicular line. S1, S2. No S3, soft S4. S1 irregular. Systolic murmur, grade 2/6, lower left sternal border without radiation. ABDOMEN: Soft. Liver, spleen not palpable. No organomegaly. Bowel sounds active. NEUROLOGIC: No focal neurological deficit except the patient has ataxia. CLINICAL IMPRESSION: 1.Ataxia. 2.Osteoporosis, hypertension and atrial fibrillation. PLAN: Admit the patient. We will get echocardiogram. Continue with present management. No anticoagulation in view of frequent falls. JOB# [id number]
[2016-12-03 05:31] LABS: FOLIC ACID 10.7 ng/mL (>3.0)
[2016-12-03 08:09] LABS: ALDOLASE 2.2 U/L (3.3-10.3); T4 FREE 1.34 ng/dL (0.82-1.77)
[2016-12-03] MEDS: Sodium Chloride 0.9% 1,000 ML IV SCH (11:20)
--- NOTE | 2016-12-03 14:15 | General Progress Note ---
Subjective - Review of Systems Events since last encounter: patient awake alert no distress Objective - Results Result Diagrams: 11/28/16 07:03 12/02/16 05:21 Recent Labs: Laboratory Last Values WBC 7.3 Th/cmm (4.8-10.8) 11/28/16 07:03 RBC 4.68 Mil/cmm (3.80-5.80) 11/28/16 07:03 Hgb 14.1 gm/dL (12.6-17.4) 11/28/16 07:03 Hct 42.5 % (39.0-49.0) 11/28/16 07:03 MCV 90.8 fl (80-99) 11/28/16 07:03 MCH 30.1 pg (27.0-31.0) 11/28/16 07:03 MCHC Differential 33.1 pg (28.0-36.0) 11/28/16 07:03 RDW 11.9 % (11.5-20.0) 11/28/16 07:03 Plt Count 345 Th/cmm (150-400) 11/28/16 07:03 MPV 5.8 fl 11/28/16 07:03 Neutrophils % 66.6 % (40.0-80.0) 11/28/16 07:03 Lymphocytes % 22.3 % (20.0-50.0) 11/28/16 07:03 Monocytes % 8.3 % (2.0-10.0) 11/28/16 07:03 Eosinophils % 2.7 % (0.0-5.0) 11/28/16 07:03 Basophils % 0.1 % (0.0-2.0) 11/28/16 07:03 ESR 20 mm/hr (0-20) 11/30/16 06:05 Sodium 131 mEq/L (136-145) L 12/02/16 05:21 Potassium 3.5 mEq/L (3.5-5.1) 12/02/16 05:21 Chloride 100 mEq/L (98-107) 12/02/16 05:21 Carbon Dioxide 25.1 mEq/L (21.0-31.0) 12/02/16 05:21 Anion Gap 9.4 (7.0-16.0) 12/02/16 05:21 BUN 13 mg/dL (7-25) 12/02/16 05:21 Creatinine 0.7 mg/dL (0.7-1.3) 12/02/16 05:21 Est GFR ( Amer) TNP 12/02/16 05:21 Est GFR (Non-Af Amer) TNP 12/02/16 05:21 BUN/Creatinine Ratio 18.6 12/02/16 05:21 Glucose 90 mg/dL (70-105) 12/02/16 05:21 Plasma/Ser Osmolality 276 mOsmol/kg (280-301) L 11/29/16 05:05 Whole Bld Lactic Acid 0.83 mmol/L (0.60-1.99) 11/27/16 17:58 Uric Acid 3.4 mg/dL (4.4-7.6) L 11/29/16 05:05 Calcium 9.1 mg/dL (8.6-10.3) 12/02/16 05:21 Phosphorus 3.1 mg/dL (2.5-5.0) 11/29/16 05:05 Magnesium 2.1 mg/dL (1.9-2.7) 11/29/16 05:05 Total Bilirubin 0.5 mg/dL (0.3-1.0) 11/27/16 17:58 AST 14 U/L (13-39) 11/27/16 17:58 ALT 8 U/L (7-52) 11/27/16 17:58 Alkaline Phosphatase 76 U/L (34-104) 11/27/16 17:58 Ammonia 58 umol/L (16-53) H 11/29/16 20:36 Troponin I 0.01 ng/mL (0.01-0.05) 11/27/16 17:58 C-Reactive Protein < 0.2 mg/dL (0.0-0.9) 11/30/16 06:05 Total Protein 7.0 gm/dL (6.0-8.3) 11/27/16 17:58 Albumin 4.3 gm/dL (4.2-5.5) 11/27/16 17:58 Globulin 2.7 gm/dL 11/27/16 17:58 Albumin/Globulin Ratio 1.6 (1.0-1.8) 11/27/16 17:58 Triglycerides 69 mg/dL (<150) 11/28/16 07:03 Cholesterol 164 mg/dL (<200) 11/28/16 07:03 LDL Cholesterol Direct 105 mg/dL (75-193) 11/28/16 07:03 HDL Cholesterol 54 mg/dL (23-92) 11/28/16 07:03 Aldolase 2.2 U/L (3.3-10.3) L 11/30/16 06:05 Whole Bld Vitamin B1 119.2 nmol/L (66.5-200.0) 11/29/16 20:36 Vitamin B12 1360 pg/mL (211-946) H 11/30/16 06:05 Folic Acid 10.7 ng/mL (>3.0) 11/30/16 06:05 Free T4 1.34 ng/dL (0.82-1.77) 11/30/16 06:05 TSH 0.80 uIU/ml (0.34-5.60) 11/28/16 07:03 Urine Source RANDOM 11/27/16 17:00 Urine Color YELLOW 11/27/16 17:00 Urine Clarity CLEAR (CLEAR) 11/27/16 17:00 Urine pH 6.5 (4.6 - 8.0) 11/27/16 17:00 Ur Specific [place] 1.010 (1.005-1.030) 11/27/16 17:00 Urine Protein NEGATIVE mg/dL (NEGATIVE) 11/27/16 17:00 Urine Glucose (UA) NEGATIVE mg/dL (NEGATIVE) 11/27/16 17:00 Urine Ketones NEGATIVE mg/dL (NEGATIVE) 11/27/16 17:00 Urine Blood TRACE (NEGATIVE) 11/27/16 17:00 Urine Nitrate NEGATIVE (NEGATIVE) 11/27/16 17:00 Urine Bilirubin NEGATIVE (NEGATIVE) 11/27/16 17:00 Urine Urobilinogen 0.2 E.U./dL (0.2 - 1.0) 11/27/16 17:00 Ur Leukocyte Esterase NEGATIVE (NEGATIVE) 11/27/16 17:00 Urine RBC 2-5 /hpf (0-5) H 11/27/16 17:00 Urine WBC NONE SEEN /hpf (0-5) 11/27/16 17:00 Ur Epithelial Cells NONE SEEN /lpf (FEW) 11/27/16 17:00 Urine Bacteria NONE SEEN /hpf (NONE SEEN) 11/27/16 17:00 Ur Random Sodium 47 mmol/L 11/29/16 01:49 - Physical Exam Vitals and I&O: Vital Signs Temp 97.5 F 12/03/16 12:00 Pulse 69 12/03/16 12:00 Resp 19 12/03/16 12:00 BP 153/92 12/03/16 12:00 Pulse Ox 97 12/03/16 12:00 Intake & Output 12/02/16 12/03/16 12/03/16 18:59 06:59 18:59 Intake Total 480 Output Total 2150 Balance 480 -2150 Weight (lbs) 55.792 kg 55.338 kg Intake: Oral 480 Output: Urine 2150 Other: # Voids 5 1 Active Medications: Current Medications Acetaminophen (Tylenol) 650 mg PO Q4HR PRN PRN Reason: Pain (Mild) Stop: 01/26/17 21:20 Amlodipine Besylate (Norvasc) 5 mg PO DAILY [facility] Stop: 01/27/17 08:59 Last Admin: 12/03/16 08:56 Dose: 5 mg Docusate Sodium (Colace) 250 mg PO BID NADINE Stop: 01/27/17 08:59 Last Admin: 12/03/16 08:55 Dose: 250 mg Sodium Chloride (Nacl 0.9%) 1,000 mls @ 50 mls/hr IV .Q20H [facility] Stop: 02/01/17 09:42 Last Admin: 12/03/16 11:20 Dose: 50 mls/hr Losartan Potassium (Cozaar) 50 mg PO DAILY [facility] Stop: 01/27/17 08:59 Last Admin: 12/03/16 08:56 Dose: 50 mg General: Alert, Oriented x3, No acute distress HEENT: Atraumatic, PERRLA, EOMI Neck: Supple, +2 carotid pulse wo bruit Cardiovascular: Regular rate, Normal S1, Normal S2 Lungs: Clear to auscultation Abdomen: Bowel sounds, Soft Extremities: no Edema Neurological: Sensation intact Skin: no Rash Psych/Mental Status: Mood NL Nutritional Asmnt/Malnutr-PDOC - Dietary Evaluation Malnutrition Findings (Please click <Entered> for more info): Nutritional Asmnt/Malnutrition Start: 12/02/16 17: 08 Text: Status: Complete Freq: Document 12/02/16 17:08 BRIANA (Rec: 12/02/16 17:18 [email or web address]) Nutritional Asmnt/Malnutrition Patient General Information Nutritional Screening Moderate Risk Screening Diagnosis Hx recurrent falls, hx severe hyponaremia, generalized weakness Pertinent Medical Hx/Surgical Hx Dementia Subjective Information 81 year old male from SNF, [place] speaking. Pt sitting on edge of bed during visit. Mild muscle fat wasting to chest and shoulders, appeared age appropriate. Spoke to RN ROHAN Christie denied nutritional concern. Avg PO intake 75-100% of meals since adm, meeting nutritional needs. Current Diet Order/ Nutrition Support Soft/bland Pertinent Medications Colace Pertinent Labs Reviewed. Nutritional Hx/Data Height 1.7 m Height (Calculated Centimeters) 170.2 Current Weight (lbs) 55.792 kg Weight (Calculated Kilograms) 55.8 Weight (Calculated Grams) 62995.9 [place] Body Weight 148 Weight Status Approriate GI Symptoms Usual diet at home [place] [facility]: MARIA ESTHER, [facility] soft Skin Integrity/Comment: Florentino 20. Skin intact. Current %PO Good (75-100%) Estimated Nutritional Goals Calories/Kcals/Kg IBW 148lb/67.3kg Kcals Calculated 1683-2019kcal (25-30kcal/kg) Protein Calculated 67g (!g/kg) Fluid: ml 1683-2019ml (1ml/kcal) Nutritional Problem 1. Problem Problem No nutritional problem at this time. Intervention/Recommendation Comments 1. Recommend [facility] soft chopped diet for balanced nutrition and adequate fiber intake. No altered of GI function needed soft/bland diet. [place] [facility]: [facility] soft, MARIA ESTHER. Expected Outcomes/Goals Expected Outcomes/Goals 1. PO intake continue to meet at least 75% of estimated nutritional needs.
--- NOTE | 2016-12-03 14:53 | General Progress Note ---
Subjective - Review of Systems Service Date: 12/03/16 Subjective: alert, verbal, comfortable. ambulating Objective - Results Result Diagrams: 11/28/16 07:03 12/02/16 05:21 Recent Labs: Laboratory Last Values WBC 7.3 Th/cmm (4.8-10.8) 11/28/16 07:03 RBC 4.68 Mil/cmm (3.80-5.80) 11/28/16 07:03 Hgb 14.1 gm/dL (12.6-17.4) 11/28/16 07:03 Hct 42.5 % (39.0-49.0) 11/28/16 07:03 MCV 90.8 fl (80-99) 11/28/16 07:03 MCH 30.1 pg (27.0-31.0) 11/28/16 07:03 MCHC Differential 33.1 pg (28.0-36.0) 11/28/16 07:03 RDW 11.9 % (11.5-20.0) 11/28/16 07:03 Plt Count 345 Th/cmm (150-400) 11/28/16 07:03 MPV 5.8 fl 11/28/16 07:03 Neutrophils % 66.6 % (40.0-80.0) 11/28/16 07:03 Lymphocytes % 22.3 % (20.0-50.0) 11/28/16 07:03 Monocytes % 8.3 % (2.0-10.0) 11/28/16 07:03 Eosinophils % 2.7 % (0.0-5.0) 11/28/16 07:03 Basophils % 0.1 % (0.0-2.0) 11/28/16 07:03 ESR 20 mm/hr (0-20) 11/30/16 06:05 Sodium 131 mEq/L (136-145) L 12/02/16 05:21 Potassium 3.5 mEq/L (3.5-5.1) 12/02/16 05:21 Chloride 100 mEq/L (98-107) 12/02/16 05:21 Carbon Dioxide 25.1 mEq/L (21.0-31.0) 12/02/16 05:21 Anion Gap 9.4 (7.0-16.0) 12/02/16 05:21 BUN 13 mg/dL (7-25) 12/02/16 05:21 Creatinine 0.7 mg/dL (0.7-1.3) 12/02/16 05:21 Est GFR ( Amer) TNP 12/02/16 05:21 Est GFR (Non-Af Amer) TNP 12/02/16 05:21 BUN/Creatinine Ratio 18.6 12/02/16 05:21 Glucose 90 mg/dL (70-105) 12/02/16 05:21 Plasma/Ser Osmolality 276 mOsmol/kg (280-301) L 11/29/16 05:05 Whole Bld Lactic Acid 0.83 mmol/L (0.60-1.99) 11/27/16 17:58 Uric Acid 3.4 mg/dL (4.4-7.6) L 11/29/16 05:05 Calcium 9.1 mg/dL (8.6-10.3) 12/02/16 05:21 Phosphorus 3.1 mg/dL (2.5-5.0) 11/29/16 05:05 Magnesium 2.1 mg/dL (1.9-2.7) 11/29/16 05:05 Total Bilirubin 0.5 mg/dL (0.3-1.0) 11/27/16 17:58 AST 14 U/L (13-39) 11/27/16 17:58 ALT 8 U/L (7-52) 11/27/16 17:58 Alkaline Phosphatase 76 U/L (34-104) 11/27/16 17:58 Ammonia 58 umol/L (16-53) H 11/29/16 20:36 Troponin I 0.01 ng/mL (0.01-0.05) 11/27/16 17:58 C-Reactive Protein < 0.2 mg/dL (0.0-0.9) 11/30/16 06:05 Total Protein 7.0 gm/dL (6.0-8.3) 11/27/16 17:58 Albumin 4.3 gm/dL (4.2-5.5) 11/27/16 17:58 Globulin 2.7 gm/dL 11/27/16 17:58 Albumin/Globulin Ratio 1.6 (1.0-1.8) 11/27/16 17:58 Triglycerides 69 mg/dL (<150) 11/28/16 07:03 Cholesterol 164 mg/dL (<200) 11/28/16 07:03 LDL Cholesterol Direct 105 mg/dL (75-193) 11/28/16 07:03 HDL Cholesterol 54 mg/dL (23-92) 11/28/16 07:03 Aldolase 2.2 U/L (3.3-10.3) L 11/30/16 06:05 Whole Bld Vitamin B1 119.2 nmol/L (66.5-200.0) 11/29/16 20:36 Vitamin B12 1360 pg/mL (211-946) H 11/30/16 06:05 Folic Acid 10.7 ng/mL (>3.0) 11/30/16 06:05 Free T4 1.34 ng/dL (0.82-1.77) 11/30/16 06:05 TSH 0.80 uIU/ml (0.34-5.60) 11/28/16 07:03 Urine Source RANDOM 11/27/16 17:00 Urine Color YELLOW 11/27/16 17:00 Urine Clarity CLEAR (CLEAR) 11/27/16 17:00 Urine pH 6.5 (4.6 - 8.0) 11/27/16 17:00 Ur Specific [place] 1.010 (1.005-1.030) 11/27/16 17:00 Urine Protein NEGATIVE mg/dL (NEGATIVE) 11/27/16 17:00 Urine Glucose (UA) NEGATIVE mg/dL (NEGATIVE) 11/27/16 17:00 Urine Ketones NEGATIVE mg/dL (NEGATIVE) 11/27/16 17:00 Urine Blood TRACE (NEGATIVE) 11/27/16 17:00 Urine Nitrate NEGATIVE (NEGATIVE) 11/27/16 17:00 Urine Bilirubin NEGATIVE (NEGATIVE) 11/27/16 17:00 Urine Urobilinogen 0.2 E.U./dL (0.2 - 1.0) 11/27/16 17:00 Ur Leukocyte Esterase NEGATIVE (NEGATIVE) 11/27/16 17:00 Urine RBC 2-5 /hpf (0-5) H 11/27/16 17:00 Urine WBC NONE SEEN /hpf (0-5) 11/27/16 17:00 Ur Epithelial Cells NONE SEEN /lpf (FEW) 11/27/16 17:00 Urine Bacteria NONE SEEN /hpf (NONE SEEN) 11/27/16 17:00 Ur Random Sodium 47 mmol/L 11/29/16 01:49 - Physical Exam Vitals and I&O: Vital Signs Temp 97.5 F 12/03/16 12:00 Pulse 69 12/03/16 12:00 Resp 19 12/03/16 12:00 BP 153/92 12/03/16 12:00 Pulse Ox 97 12/03/16 12:00 Intake & Output 12/02/16 12/03/16 12/03/16 18:59 06:59 18:59 Intake Total 480 Output Total 2150 Balance 480 -2150 Weight (lbs) 55.792 kg 55.338 kg Intake: Oral 480 Output: Urine 2150 Other: # Voids 5 1 Active Medications: Current Medications Acetaminophen (Tylenol) 650 mg PO Q4HR PRN PRN Reason: Pain (Mild) Stop: 01/26/17 21:20 Amlodipine Besylate (Norvasc) 5 mg PO DAILY [facility] Stop: 01/27/17 08:59 Last Admin: 12/03/16 08:56 Dose: 5 mg Docusate Sodium (Colace) 250 mg PO BID [facility] Stop: 01/27/17 08:59 Last Admin: 12/03/16 08:55 Dose: 250 mg Sodium Chloride (Nacl 0.9%) 1,000 mls @ 50 mls/hr IV .Q20H [facility] Stop: 02/01/17 09:42 Last Admin: 12/03/16 11:20 Dose: 50 mls/hr Losartan Potassium (Cozaar) 50 mg PO DAILY [facility] Stop: 01/27/17 08:59 Last Admin: 12/03/16 08:56 Dose: 50 mg General: Alert, Oriented x3, No acute distress HEENT: Atraumatic, PERRLA, EOMI Neck: Supple, +2 carotid pulse wo bruit Cardiovascular: Regular rate, Normal S1, Normal S2 Lungs: Clear to auscultation Abdomen: Bowel sounds, Soft Extremities: no Edema Neurological: Sensation intact Skin: no Rash Psych/Mental Status: Mood NL Assessment/Plan - Assessment Assessment: Hyponatremia 2nd to HCTZ, 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 HYpokalemia 2nd to HCTZ dizziness, lightheadedness 2nd to hydrocephalus FTT Ess HTN Ventriculomegaly possible hydrocephalus - Plan Plan: Lab - Result Diagrams 11/28/16 07:03 11/29/16 05:05 Current Medications Acetaminophen (Tylenol) 650 mg PO Q4HR PRN PRN Reason: Pain (Mild) Stop: 01/26/17 21:20 Amlodipine Besylate (Norvasc) 5 mg PO DAILY [facility] Stop: 01/27/17 08:59 Last Admin: 11/29/16 08:28 Dose: 5 mg Docusate Sodium (Colace) 250 mg PO BID [facility] Stop: 01/27/17 08:59 Last Admin: 11/29/16 08:25 Dose: 250 mg Sodium Chloride (Nacl 0.9%) 1,000 mls @ 100 mls/hr IV .Q10H [facility] Stop: 01/26/17 19:36 Last Admin: 11/29/16 08:29 Dose: 100 mls/hr Losartan Potassium (Cozaar) 50 mg PO DAILY [facility] Stop: 01/27/17 08:59 Last Admin: 11/29/16 08:29 Na came up to 131 discontinue hydration f/u electrolytes need Neurosurgical eval w/ regard to management of hydrocephalus Lab - Result Diagrams 11/28/16 07:03 12/02/16 05:21 Nutritional Asmnt/Malnutr-PDOC - Dietary Evaluation Malnutrition Findings (Please click <Entered> for more info): Nutritional Asmnt/Malnutrition Start: 12/02/16 17: 08 Text: Status: Complete Freq: Document 12/02/16 17:08 GSUN (Rec: 12/02/16 17:18 [email or web address]) Nutritional Asmnt/Malnutrition Patient General Information Nutritional Screening Moderate Risk Screening Diagnosis Hx recurrent falls, hx severe hyponaremia, generalized weakness Pertinent Medical Hx/Surgical Hx Dementia Subjective Information 81 year old male from SNF, [place] speaking. Pt sitting on edge of bed during visit. Mild muscle fat wasting to chest and shoulders, appeared age appropriate. Spoke to ROHAN Christie RN denied nutritional concern. Avg PO intake 75-100% of meals since adm, meeting nutritional needs. Current Diet Order/ Nutrition Support Soft/bland Pertinent Medications Colace Pertinent Labs Reviewed. Nutritional Hx/Data Height 1.7 m Height (Calculated Centimeters) 170.2 Current Weight (lbs) 55.792 kg Weight (Calculated Kilograms) 55.8 Weight (Calculated Grams) 69187.9 [place] Body Weight 148 Weight Status Approriate GI Symptoms Usual diet at home [place] [facility]: MARIA ESTHER, [facility] Skin Integrity/Comment: Florentino 20. Skin intact. Current %PO Good (75-100%) Estimated Nutritional Goals Calories/Kcals/Kg IBW 148lb/67.3kg Kcals Calculated 1683-2019kcal (25-30kcal/kg) Protein Calculated 67g (!g/kg) Fluid: ml 1683-2019ml (1ml/kcal) Nutritional Problem 1. Problem Problem No nutritional problem at this time. Intervention/Recommendation Comments 1. Recommend [facility] soft chopped diet for balanced nutrition and adequate fiber intake. No altered of GI function needed soft/bland diet. [facility] MARIA [facility]. Expected Outcomes/Goals Expected Outcomes/Goals 1. PO intake continue to meet at least 75% of estimated nutritional needs.
--- NOTE | 2016-12-03 19:22 | Progress Notes ---
DATE: 12/03/2016 SUBJECTIVE: The patient is in bed, awake, alert, and confused. The patient is still very unsteady, tendency to fall. OBJECTIVE: VITAL SIGNS: Temperature 98.3, blood pressure 135/76, pulse is 72. NECK: Supple. HEART: Normal heart sounds. NEUROLOGIC: The patient is neurologically awake. He does not know where he is. He does not know what day or month it is. He is able to name simple objects. CRANIAL: Pupils react to light. No nystagmus. MOTOR: He will lift both arms up, increased tone. Lower extremities about 4/5. Reflexes 1+ in the upper extremity, 2+ in the ____, unsteady. INVESTIGATION: CT scan head shows ventriculomegaly, hydrocephalus. MRI brain, MRA pending. ASSESSMENT: 1. Ataxia. 2. Falls. 3. Dementia. 4. Hydrocephalus. 5. Myelopathy with hyperreflexia. 6. Hypertension. PLAN: The patient MRI brain. MRI cervical spine. The patient also recommend Neurosurgery input because of the hydrocephalus any intervention. B12 is okay. TSH is okay. JOB# [id number]
[2016-12-04] MEDS: Sodium Chloride 0.9% 1,000 ML IV SCH (04:43)
--- NOTE | 2016-12-04 08:10 | Diagnostic Imaging Report ---
MRI cervical spine without IV contrast HISTORY: Ataxia, falls COMPARISON: None Technique: Multiplanar T1, T2, and STIR weighted sequences of the cervical spine were obtained without IV contrast. FINDINGS: Exam is limited due to motion No evidence of an acute compression fracture or subluxation. There is accentuation of the cervical lordosis. There is a 1.2 cm high T1 high T2 signal in intensity lesion within C4 with signal dropout on STIR weighted images suggestive of a hemangioma. No focal spinal cord abnormality identified. Multilevel facet and discogenic degenerative changes are seen with multilevel disc desiccation mild to moderate multilevel disc space loss of height greatest at C3/C4 with moderate disc space loss of height at this level. Level by level: C2/C3: No spinal canal narrowing. There is mild bilateral neural foraminal narrowing C3/C4: Suggestion of minimal fluid in the disc space. No erosive changes identified. No spinal canal narrowing. There is mild bilateral neural foraminal narrowing C4/C5: Mild left dominguez neural foraminal narrowing. No spinal canal narrowing. C5/C6: 1 to 2 mm posterior disc osteophyte complex indenting the thecal sac. Mild ligament flavum hypertrophy is noted. There is mild spinal canal narrowing. There is also mild bilateral neural foraminal narrowing C6/C7: 1 to 2 mm posterior disc osteophyte complex indenting the thecal sac. Mild spinal canal narrowing is noted. There is mild leftward neural foraminal narrowing. C7/T1: No spinal canal and neural foraminal narrowing. The regional soft tissues are grossly unremarkable. IMPRESSION: Limited examination due to motion. No evidence of an acute compression fracture or subluxation. Multilevel moderate to advanced degenerative changes. There is moderate disc space loss of height at C3/C4 with possible minimal fluid in the disc space at this level may be degenerative in etiology or less likely due to infectious /inflammatory process. No evidence of endplate erosions or focal epidural abnormalities. No focal spinal cord abnormality identified. 1.3 cm lesion within the C4 vertebral body suggestive of an hemangioma.
--- NOTE | 2016-12-04 08:10 | Diagnostic Imaging Report ---
MRI Brain without intravenous Contrast Indication: Ataxia, falls, hydrocephalus Comparison: CT head performed [facility] on 11/28/2016 Technique: Multiplanar T1, T2, FLAIR, GRE and diffusion weighted images of the brain were obtained without intravenous contrast.. Findings: There is no evidence of restricted diffusion to suggest an acute infarction. Moderate supratentorial white matter disease is noted. There is enlargement of the ventricular system primarily the lateral ventricles and the third ventricle. The fourth ventricle size is within normal limits. No evidence of midline shift. No mass effect identified. The bilateral cerebellopontine angles are preserved. The vascular voids are preserved. A 3.7 x 2.3 cm left anterior temporal arachnoid cyst is noted. No evidence of an acute hemorrhage. There is mucosal thickening in the paranasal sinuses. There is a mucous retention cyst versus polyp of the left maxillary sinus. IMPRESSION: No evidence of acute infarction. Increased size of the third and lateral ventricles. Normal sized fourth ventricle is noted. Hydrocephalus possibly due to aqueductal stenosis cannot be excluded. Alternatively, This may also be related to patient's atrophy. Moderate supratentorial white matter disease which is nonspecific and may be due to chronic microvessel ischemia. 3.7 x 2.3 cm left anterior temporal arachnoid cyst.
--- NOTE | 2016-12-04 09:28 | Progress Notes ---
DATE: 12/04/2016 SUBJECTIVE: The patient is doing better. The patient is more responsive, trying to get out of bed more. Still unsteady. No repeat . OBJECTIVE: VITAL SIGNS: Temperature 98.9, blood pressure 130/72, was 78. NECK: Supple. NEUROLOGIC: Awake. He is able to give me his name, but not much more. He did not know what day, what month. Cranial nerves: Pupils react to light. No nystagmus. Motor: The patient would lift both arms up. Lower extremity about 4/5. INVESTIGATIONS: MRI brain and cervical spine pending. LABORATORY DATA: B12 is 1360. C-reactive protein normal. Ammonia a little bit high. ASSESSMENT: 1. Ataxia. 2. Falls. 3. Dementia. 4. Hydrocephalus. 5. Myelopathy with hyperreflexia. 6. Hypertension. PLAN: 1. The patient's MRI brain and MRI cervical spine. 2. Recommend Neurosurgery input for the hydrocephalus. JOB# [id number]
--- NOTE | 2016-12-04 09:51 | General Progress Note ---
Subjective - Review of Systems Events since last encounter: patient improving more awake ,alert Objective - Results Result Diagrams: 11/28/16 07:03 12/02/16 05:21 Recent Labs: Laboratory Last Values WBC 7.3 Th/cmm (4.8-10.8) 11/28/16 07:03 RBC 4.68 Mil/cmm (3.80-5.80) 11/28/16 07:03 Hgb 14.1 gm/dL (12.6-17.4) 11/28/16 07:03 Hct 42.5 % (39.0-49.0) 11/28/16 07:03 MCV 90.8 fl (80-99) 11/28/16 07:03 MCH 30.1 pg (27.0-31.0) 11/28/16 07:03 MCHC Differential 33.1 pg (28.0-36.0) 11/28/16 07:03 RDW 11.9 % (11.5-20.0) 11/28/16 07:03 Plt Count 345 Th/cmm (150-400) 11/28/16 07:03 MPV 5.8 fl 11/28/16 07:03 Neutrophils % 66.6 % (40.0-80.0) 11/28/16 07:03 Lymphocytes % 22.3 % (20.0-50.0) 11/28/16 07:03 Monocytes % 8.3 % (2.0-10.0) 11/28/16 07:03 Eosinophils % 2.7 % (0.0-5.0) 11/28/16 07:03 Basophils % 0.1 % (0.0-2.0) 11/28/16 07:03 ESR 20 mm/hr (0-20) 11/30/16 06:05 Sodium 131 mEq/L (136-145) L 12/02/16 05:21 Potassium 3.5 mEq/L (3.5-5.1) 12/02/16 05:21 Chloride 100 mEq/L (98-107) 12/02/16 05:21 Carbon Dioxide 25.1 mEq/L (21.0-31.0) 12/02/16 05:21 Anion Gap 9.4 (7.0-16.0) 12/02/16 05:21 BUN 13 mg/dL (7-25) 12/02/16 05:21 Creatinine 0.7 mg/dL (0.7-1.3) 12/02/16 05:21 Est GFR ( Amer) TNP 12/02/16 05:21 Est GFR (Non-Af Amer) TNP 12/02/16 05:21 BUN/Creatinine Ratio 18.6 12/02/16 05:21 Glucose 90 mg/dL (70-105) 12/02/16 05:21 Plasma/Ser Osmolality 276 mOsmol/kg (280-301) L 11/29/16 05:05 Whole Bld Lactic Acid 0.83 mmol/L (0.60-1.99) 11/27/16 17:58 Uric Acid 3.4 mg/dL (4.4-7.6) L 11/29/16 05:05 Calcium 9.1 mg/dL (8.6-10.3) 12/02/16 05:21 Phosphorus 3.1 mg/dL (2.5-5.0) 11/29/16 05:05 Magnesium 2.1 mg/dL (1.9-2.7) 11/29/16 05:05 Total Bilirubin 0.5 mg/dL (0.3-1.0) 11/27/16 17:58 AST 14 U/L (13-39) 11/27/16 17:58 ALT 8 U/L (7-52) 11/27/16 17:58 Alkaline Phosphatase 76 U/L (34-104) 11/27/16 17:58 Ammonia 58 umol/L (16-53) H 11/29/16 20:36 Troponin I 0.01 ng/mL (0.01-0.05) 11/27/16 17:58 C-Reactive Protein < 0.2 mg/dL (0.0-0.9) 11/30/16 06:05 Total Protein 7.0 gm/dL (6.0-8.3) 11/27/16 17:58 Albumin 4.3 gm/dL (4.2-5.5) 11/27/16 17:58 Globulin 2.7 gm/dL 11/27/16 17:58 Albumin/Globulin Ratio 1.6 (1.0-1.8) 09/06/17 17:58 Triglycerides 69 mg/dL (<150) 11/28/16 07:03 Cholesterol 164 mg/dL (<200) 11/28/16 07:03 LDL Cholesterol Direct 105 mg/dL (75-193) 11/28/16 07:03 HDL Cholesterol 54 mg/dL (23-92) 11/28/16 07:03 Aldolase 2.2 U/L (3.3-10.3) L 11/30/16 06:05 Whole Bld Vitamin B1 119.2 nmol/L (66.5-200.0) 11/29/16 20:36 Vitamin B12 1360 pg/mL (211-946) H 11/30/16 06:05 Folic Acid 10.7 ng/mL (>3.0) 11/30/16 06:05 Free T4 1.34 ng/dL (0.82-1.77) 11/30/16 06:05 TSH 0.80 uIU/ml (0.34-5.60) 11/28/16 07:03 Urine Source RANDOM 11/27/16 17:00 Urine Color YELLOW 11/27/16 17:00 Urine Clarity CLEAR (CLEAR) 11/27/16 17:00 Urine pH 6.5 (4.6 - 8.0) 11/27/16 17:00 Ur Specific [place] 1.010 (1.005-1.030) 11/27/16 17:00 Urine Protein NEGATIVE mg/dL (NEGATIVE) 11/27/16 17:00 Urine Glucose (UA) NEGATIVE mg/dL (NEGATIVE) 11/27/16 17:00 Urine Ketones NEGATIVE mg/dL (NEGATIVE) 11/27/16 17:00 Urine Blood TRACE (NEGATIVE) 11/27/16 17:00 Urine Nitrate NEGATIVE (NEGATIVE) 11/27/16 17:00 Urine Bilirubin NEGATIVE (NEGATIVE) 11/27/16 17:00 Urine Urobilinogen 0.2 E.U./dL (0.2 - 1.0) 11/27/16 17:00 Ur Leukocyte Esterase NEGATIVE (NEGATIVE) 11/27/16 17:00 Urine RBC 2-5 /hpf (0-5) H 11/27/16 17:00 Urine WBC NONE SEEN /hpf (0-5) 11/27/16 17:00 Ur Epithelial Cells NONE SEEN /lpf (FEW) 11/27/16 17:00 Urine Bacteria NONE SEEN /hpf (NONE SEEN) 11/27/16 17:00 Ur Random Sodium 47 mmol/L 11/29/16 01:49 - Physical Exam Vitals and I&O: Vital Signs Temp 98.1 F 12/03/16 20:00 Pulse 72 12/04/16 09:16 Resp 18 12/03/16 20:00 BP 155/90 12/04/16 09:16 Pulse Ox 90 12/03/16 20:00 Intake & Output 12/03/16 12/04/16 12/04/16 18:59 06:59 18:59 Intake Total 1550 869.167 Output Total 800 Balance 1550 69.167 Weight (lbs) 55.338 kg 104.326 kg Intake: Intake, IV Amount 869.167 Sodium Chloride 0.9% 1, 869.167 000 ml @ 50 mls/hr IV . Q20H [facility] Rx#:[id number] Oral 1550 Output: Urine 800 Other: # Voids 4 3 # Bowel Movements 0 0 Active Medications: Current Medications Acetaminophen (Tylenol) 650 mg PO Q4HR PRN PRN Reason: Pain (Mild) Stop: 01/26/17 21:20 Amlodipine Besylate (Norvasc) 5 mg PO DAILY [facility] Stop: 01/27/17 08:59 Last Admin: 12/04/16 09:16 Dose: 5 mg Docusate Sodium (Colace) 250 mg PO BID [facility] Stop: 01/27/17 08:59 Last Admin: 12/04/16 09:16 Dose: 250 mg Sodium Chloride (Nacl 0.9%) 1,000 mls @ 50 mls/hr IV .Q20H [facility] Stop: 02/01/17 09:42 Last Admin: 12/04/16 04:43 Dose: 50 mls/hr Losartan Potassium (Cozaar) 50 mg PO DAILY [facility] Stop: 01/27/17 08:59 Last Admin: 12/04/16 09:16 Dose: 50 mg General: Alert, Oriented x3, No acute distress HEENT: Atraumatic, PERRLA, EOMI Neck: Supple, +2 carotid pulse wo bruit Cardiovascular: Regular rate, Normal S1, Normal S2 Lungs: Clear to auscultation Abdomen: Bowel sounds, Soft Extremities: no Edema Neurological: Sensation intact Skin: no Rash Psych/Mental Status: Mood NL Assessment/Plan - Problem List Patient Problems: All Active Problems Ataxia (Acute) R27.0 Dementia (Acute) F03.90 Falls (Acute) W19.XXXA HTN (hypertension) (Acute) I10 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) - Plan Plan: monitor vitals/diet labs f/up consultants Nutritional Asmnt/Malnutr-PDOC - Dietary Evaluation Malnutrition Findings (Please click <Entered> for more info): Nutritional Asmnt/Malnutrition Start: 12/02/16 17: 08 Text: Status: Complete Freq: Document 12/02/16 17:08 GSUN (Rec: 12/02/16 17:18 BRIANA [email or web address]) Nutritional Asmnt/Malnutrition Patient General Information Nutritional Screening Moderate Risk Screening Diagnosis Hx recurrent falls, hx severe hyponaremia, generalized weakness Pertinent Medical Hx/Surgical Hx Dementia Subjective Information 81 year old male from SNF, Lithuanian speaking. Pt sitting on edge of bed during visit. Mild muscle fat wasting to chest and shoulders, appeared age appropriate. Spoke to ROHAN Christie RN denied nutritional concern. Avg PO intake 75-100% of meals since adm, meeting nutritional needs. Current Diet Order/ Nutrition Support Soft/bland Pertinent Medications Colace Pertinent Labs Reviewed. Nutritional Hx/Data Height 1.7 m Height (Calculated Centimeters) 170.2 Current Weight (lbs) 55.792 kg Weight (Calculated Kilograms) 55.8 Weight (Calculated Grams) [address]2015.9 [place] Body Weight 148 Weight Status Approriate GI Symptoms Usual diet at home [place] [facility]: MARIA ESTHER, [facility] Skin Integrity/Comment: Florentino 20. Skin intact. Current %PO Good (75-100%) Estimated Nutritional Goals Calories/Kcals/Kg IBW 148lb/67.3kg Kcals Calculated 1683-2019kcal (25-30kcal/kg) Protein Calculated 67g (!g/kg) Fluid: ml 1683-2019ml (1ml/kcal) Nutritional Problem 1. Problem Problem No nutritional problem at this time. Intervention/Recommendation Comments 1. Recommend [facility] soft chopped diet for balanced nutrition and adequate fiber intake. No altered of GI function needed soft/bland diet. [place] [facility]: [facility] soft, MARIA ESTHER. Expected Outcomes/Goals Expected Outcomes/Goals 1. PO intake continue to meet at least 75% of estimated nutritional needs.
--- NOTE | 2016-12-04 15:15 | General Progress Note ---
Subjective - Review of Systems Service Date: 12/04/16 Subjective: alert, verbal, comfortable. ambulating w/ walker Objective - Results Result Diagrams: 11/28/16 07:03 12/02/16 05:21 Recent Labs: Laboratory Last Values WBC 7.3 Th/cmm (4.8-10.8) 11/28/16 07:03 RBC 4.68 Mil/cmm (3.80-5.80) 11/28/16 07:03 Hgb 14.1 gm/dL (12.6-17.4) 11/28/16 07:03 Hct 42.5 % (39.0-49.0) 11/28/16 07:03 MCV 90.8 fl (80-99) 11/28/16 07:03 MCH 30.1 pg (27.0-31.0) 11/28/16 07:03 MCHC Differential 33.1 pg (28.0-36.0) 11/28/16 07:03 RDW 11.9 % (11.5-20.0) 11/28/16 07:03 Plt Count 345 Th/cmm (150-400) 11/28/16 07:03 MPV 5.8 fl 11/28/16 07:03 Neutrophils % 66.6 % (40.0-80.0) 11/28/16 07:03 Lymphocytes % 22.3 % (20.0-50.0) 11/28/16 07:03 Monocytes % 8.3 % (2.0-10.0) 11/28/16 07:03 Eosinophils % 2.7 % (0.0-5.0) 11/28/16 07:03 Basophils % 0.1 % (0.0-2.0) 11/28/16 07:03 ESR 20 mm/hr (0-20) 11/30/16 06:05 Sodium 131 mEq/L (136-145) L 12/02/16 05:21 Potassium 3.5 mEq/L (3.5-5.1) 12/02/16 05:21 Chloride 100 mEq/L (98-107) 12/02/16 05:21 Carbon Dioxide 25.1 mEq/L (21.0-31.0) 12/02/16 05:21 Anion Gap 9.4 (7.0-16.0) 12/02/16 05:21 BUN 13 mg/dL (7-25) 12/02/16 05:21 Creatinine 0.7 mg/dL (0.7-1.3) 12/02/16 05:21 Est GFR ( Amer) TNP 12/02/16 05:21 Est GFR (Non-Af Amer) TNP 12/02/16 05:21 BUN/Creatinine Ratio 18.6 12/02/16 05:21 Glucose 90 mg/dL (70-105) 12/02/16 05:21 Plasma/Ser Osmolality 276 mOsmol/kg (280-301) L 11/29/16 05:05 Whole Bld Lactic Acid 0.83 mmol/L (0.60-1.99) 11/27/16 17:58 Uric Acid 3.4 mg/dL (4.4-7.6) L 11/29/16 05:05 Calcium 9.1 mg/dL (8.6-10.3) 12/02/16 05:21 Phosphorus 3.1 mg/dL (2.5-5.0) 11/29/16 05:05 Magnesium 2.1 mg/dL (1.9-2.7) 11/29/16 05:05 Total Bilirubin 0.5 mg/dL (0.3-1.0) 11/27/16 17:58 AST 14 U/L (13-39) 11/27/16 17:58 ALT 8 U/L (7-52) 11/27/16 17:58 Alkaline Phosphatase 76 U/L (34-104) 11/27/16 17:58 Ammonia 58 umol/L (16-53) H 11/29/16 20:36 Troponin I 0.01 ng/mL (0.01-0.05) 11/27/16 17:58 C-Reactive Protein < 0.2 mg/dL (0.0-0.9) 11/30/16 06:05 Total Protein 7.0 gm/dL (6.0-8.3) 11/27/16 17:58 Albumin 4.3 gm/dL (4.2-5.5) 11/27/16 17:58 Globulin 2.7 gm/dL 11/27/16 17:58 Albumin/Globulin Ratio 1.6 (1.0-1.8) 11/27/16 17:58 Triglycerides 69 mg/dL (<150) 11/28/16 07:03 Cholesterol 164 mg/dL (<200) 11/28/16 07:03 LDL Cholesterol Direct 105 mg/dL (75-193) 11/28/16 07:03 HDL Cholesterol 54 mg/dL (23-92) 11/28/16 07:03 Aldolase 2.2 U/L (3.3-10.3) L 11/30/16 06:05 Whole Bld Vitamin B1 119.2 nmol/L (66.5-200.0) 11/29/16 20:36 Vitamin B12 1360 pg/mL (211-946) H 11/30/16 06:05 Folic Acid 10.7 ng/mL (>3.0) 11/30/16 06:05 Free T4 1.34 ng/dL (0.82-1.77) 11/30/16 06:05 TSH 0.80 uIU/ml (0.34-5.60) 11/28/16 07:03 Urine Source RANDOM 11/27/16 17:00 Urine Color YELLOW 11/27/16 17:00 Urine Clarity CLEAR (CLEAR) 11/27/16 17:00 Urine pH 6.5 (4.6 - 8.0) 11/27/16 17:00 Ur Specific [place] 1.010 (1.005-1.030) 11/27/16 17:00 Urine Protein NEGATIVE mg/dL (NEGATIVE) 11/27/16 17:00 Urine Glucose (UA) NEGATIVE mg/dL (NEGATIVE) 11/27/16 17:00 Urine Ketones NEGATIVE mg/dL (NEGATIVE) 11/27/16 17:00 Urine Blood TRACE (NEGATIVE) 11/27/16 17:00 Urine Nitrate NEGATIVE (NEGATIVE) 11/27/16 17:00 Urine Bilirubin NEGATIVE (NEGATIVE) 11/27/16 17:00 Urine Urobilinogen 0.2 E.U./dL (0.2 - 1.0) 11/27/16 17:00 Ur Leukocyte Esterase NEGATIVE (NEGATIVE) 11/27/16 17:00 Urine RBC 2-5 /hpf (0-5) H 11/27/16 17:00 Urine WBC NONE SEEN /hpf (0-5) 11/27/16 17:00 Ur Epithelial Cells NONE SEEN /lpf (FEW) 11/27/16 17:00 Urine Bacteria NONE SEEN /hpf (NONE SEEN) 11/27/16 17:00 Ur Random Sodium 47 mmol/L 11/29/16 01:49 - Physical Exam Vitals and I&O: Vital Signs Temp 98 F 12/04/16 08:00 Pulse 78 12/04/16 12:21 Resp 18 12/04/16 08:00 BP 155/90 12/04/16 09:16 Pulse Ox 97 12/04/16 08:00 Intake & Output 12/03/16 12/04/16 12/04/16 18:59 06:59 18:59 Intake Total 1550 869.167 Output Total 800 Balance 1550 69.167 Weight (lbs) 55.338 kg 104.326 kg Intake: Intake, IV Amount 869.167 Sodium Chloride 0.9% 1, 869.167 000 ml @ 50 mls/hr IV . Q20H [facility] Rx#:[id number] Oral 1550 Output: Urine 800 Other: # Voids 4 3 # Bowel Movements 0 0 Active Medications: Current Medications Acetaminophen (Tylenol) 650 mg PO Q4HR PRN PRN Reason: Pain (Mild) Stop: 01/26/17 21:20 Amlodipine Besylate (Norvasc) 5 mg PO DAILY [facility] Stop: 01/27/17 08:59 Last Admin: 12/04/16 09:16 Dose: 5 mg Docusate Sodium (Colace) 250 mg PO BID [facility] Stop: 01/27/17 08:59 Last Admin: 12/04/16 09:16 Dose: 250 mg Sodium Chloride (Nacl 0.9%) 1,000 mls @ 50 mls/hr IV .Q20H [facility] Stop: 02/01/17 09:42 Last Admin: 12/04/16 04:43 Dose: 50 mls/hr Losartan Potassium (Cozaar) 50 mg PO DAILY [facility] Stop: 01/27/17 08:59 Last Admin: 12/04/16 09:16 Dose: 50 mg General: Alert, Oriented x3, No acute distress HEENT: Atraumatic, PERRLA, EOMI Neck: Supple, +2 carotid pulse wo bruit Cardiovascular: Regular rate, Normal S1, Normal S2 Lungs: Clear to auscultation Abdomen: Bowel sounds, Soft Extremities: no Edema Neurological: Sensation intact Skin: no Rash Psych/Mental Status: Mood NL Assessment/Plan - Problem List Patient Problems: All Active Problems Ataxia (Acute) R27.0 Dementia (Acute) F03.90 Falls (Acute) W19.XXXA HTN (hypertension) (Acute) I10 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) - Assessment Assessment: Hyponatremia 2nd to HCTZ, 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 HYpokalemia 2nd to HCTZ dizziness, lightheadedness 2nd to hydrocephalus FTT Ess HTN Ventriculomegaly possible hydrocephalus - Plan Plan: Lab - Result Diagrams 11/28/16 07:03 11/29/16 05:05 Current Medications Acetaminophen (Tylenol) 650 mg PO Q4HR PRN PRN Reason: Pain (Mild) Stop: 01/26/17 21:20 Amlodipine Besylate (Norvasc) 5 mg PO DAILY [facility] Stop: 01/27/17 08:59 Last Admin: 11/29/16 08:28 Dose: 5 mg Docusate Sodium (Colace) 250 mg PO BID [facility] Stop: 01/27/17 08:59 Last Admin: 11/29/16 08:25 Dose: 250 mg Sodium Chloride (Nacl 0.9%) 1,000 mls @ 100 mls/hr IV .Q10H [facility] Stop: 01/26/17 19:36 Last Admin: 11/29/16 08:29 Dose: 100 mls/hr Losartan Potassium (Cozaar) 50 mg PO DAILY [facility] Stop: 01/27/17 08:59 Last Admin: 11/29/16 08:29 Na came up to 131 discontinue hydration f/u electrolytes need Neurosurgical eval w/ regard to management of hydrocephalus Lab - Result Diagrams 11/28/16 07:03 12/02/16 05:21 Nutritional Asmnt/Malnutr-PDOC - Dietary Evaluation Malnutrition Findings (Please click <Entered> for more info): Nutritional Asmnt/Malnutrition Start: 12/02/16 17: 08 Text: Status: Complete Freq: Document 12/02/16 17:08 BRIANA (Rec: 12/02/16 17:18 BRIANA [email or web address]) Nutritional Asmnt/Malnutrition Patient General Information Nutritional Screening Moderate Risk Screening Diagnosis Hx recurrent falls, hx severe hyponaremia, generalized weakness Pertinent Medical Hx/Surgical Hx Dementia Subjective Information 81 year old male from SNF, [place]ym[place] speaking. Pt sitting on edge of bed during visit. Mild muscle fat wasting to chest and shoulders, appeared age appropriate. Spoke to RN ROHAN Christie denied nutritional concern. Avg PO intake 75-100% of meals since adm, meeting nutritional needs. Current Diet Order/ Nutrition Support Soft/bland Pertinent Medications Colace Pertinent Labs Reviewed. Nutritional Hx/Data Height 1.7 m Height (Calculated Centimeters) 170.2 Current Weight (lbs) 55.792 kg Weight (Calculated Kilograms) 55.8 Weight (Calculated Grams) 50163.9 [place] Body Weight 148 Weight Status Approriate GI Symptoms Usual diet at home [place] [facility]escent: MARIA ESTHER, [facility] soft Skin Integrity/Comment: Florentino 20. Skin intact. Current %PO Good (75-100%) Estimated Nutritional Goals Calories/Kcals/Kg IBW 148lb/67.3kg Kcals Calculated 1683-2019kcal (25-30kcal/kg) Protein Calculated 67g (!g/kg) Fluid: ml 1683-2019ml (1ml/kcal) Nutritional Problem 1. Problem Problem No nutritional problem at this time. Intervention/Recommendation Comments 1. Recommend [facility] soft chopped diet for balanced nutrition and adequate fiber intake. No altered of GI function needed soft/bland diet. [facility] jermain MARIA ESTHER. Expected Outcomes/Goals Expected Outcomes/Goals 1. PO intake continue to meet at least 75% of estimated nutritional needs.
[2016-12-05 05:25] LABS: ANION GAP 7.9 (7.0-16.0); BUN - UREA NITROGEN 13 mg/dL (7-25); BUN/CREATININE RATIO 18.6; CALCIUM SERUM 9.3 mg/dL (8.6-10.3); CHLORIDE 95 mEq/L (98-107); CREATININE - SERUM 0.7 mg/dL (0.7-1.3); GLUCOSE 76 mg/dL (70-105); POTASSIUM SERUM 3.9 mEq/L (3.5-5.1); SODIUM SERUM 128 mEq/L (136-145)
--- NOTE | 2016-12-05 08:41 | General Progress Note ---
Subjective - Review of Systems Events since last encounter: awake ,alert no distress Objective - Results Result Diagrams: 11/28/16 07:03 12/05/16 04:32 Recent Labs: Laboratory Last Values WBC 7.3 Th/cmm (4.8-10.8) 11/28/16 07:03 RBC 4.68 Mil/cmm (3.80-5.80) 11/28/16 07:03 Hgb 14.1 gm/dL (12.6-17.4) 11/28/16 07:03 Hct 42.5 % (39.0-49.0) 11/28/16 07:03 MCV 90.8 fl (80-99) 11/28/16 07:03 MCH 30.1 pg (27.0-31.0) 11/28/16 07:03 MCHC Differential 33.1 pg (28.0-36.0) 11/28/16 07:03 RDW 11.9 % (11.5-20.0) 11/28/16 07:03 Plt Count 345 Th/cmm (150-400) 11/28/16 07:03 MPV 5.8 fl 11/28/16 07:03 Neutrophils % 66.6 % (40.0-80.0) 11/28/16 07:03 Lymphocytes % 22.3 % (20.0-50.0) 11/28/16 07:03 Monocytes % 8.3 % (2.0-10.0) 11/28/16 07:03 Eosinophils % 2.7 % (0.0-5.0) 11/28/16 07:03 Basophils % 0.1 % (0.0-2.0) 11/28/16 07:03 ESR 20 mm/hr (0-20) 11/30/16 06:05 Sodium 128 mEq/L (136-145) L 12/05/16 04:32 Potassium 3.9 mEq/L (3.5-5.1) 12/05/16 04:32 Chloride 95 mEq/L (98-107) L 12/05/16 04:32 Carbon Dioxide 29.0 mEq/L (21.0-31.0) 12/05/16 04:32 Anion Gap 7.9 (7.0-16.0) 12/05/16 04:32 BUN 13 mg/dL (7-25) 12/05/16 04:32 Creatinine 0.7 mg/dL (0.7-1.3) 12/05/16 04:32 Est GFR ( Amer) TNP 12/05/16 04:32 Est GFR (Non-Af Amer) TNP 12/05/16 04:32 BUN/Creatinine Ratio 18.6 12/05/16 04:32 Glucose 76 mg/dL (70-105) 12/05/16 04:32 Plasma/Ser Osmolality 276 mOsmol/kg (280-301) L 11/29/16 05:05 Whole Bld Lactic Acid 0.83 mmol/L (0.60-1.99) 11/27/16 17:58 Uric Acid 3.4 mg/dL (4.4-7.6) L 11/29/16 05:05 Calcium 9.3 mg/dL (8.6-10.3) 12/05/16 04:32 Phosphorus 3.1 mg/dL (2.5-5.0) 11/29/16 05:05 Magnesium 2.1 mg/dL (1.9-2.7) 11/29/16 05:05 Total Bilirubin 0.5 mg/dL (0.3-1.0) 11/27/16 17:58 AST 14 U/L (13-39) 11/27/16 17:58 ALT 8 U/L (7-52) 11/27/16 17:58 Alkaline Phosphatase 76 U/L (34-104) 11/27/16 17:58 Ammonia 58 umol/L (16-53) H 11/29/16 20:36 Troponin I 0.01 ng/mL (0.01-0.05) 11/27/16 17:58 C-Reactive Protein < 0.2 mg/dL (0.0-0.9) 11/30/16 06:05 Total Protein 7.0 gm/dL (6.0-8.3) 11/27/16 17:58 Albumin 4.3 gm/dL (4.2-5.5) 11/27/16 17:58 Globulin 2.7 gm/dL 11/27/16 17:58 Albumin/Globulin Ratio 1.6 (1.0-1.8) 09/06/17 17:58 Triglycerides 69 mg/dL (<150) 11/28/16 07:03 Cholesterol 164 mg/dL (<200) 11/28/16 07:03 LDL Cholesterol Direct 105 mg/dL (75-193) 11/28/16 07:03 HDL Cholesterol 54 mg/dL (23-92) 11/28/16 07:03 Aldolase 2.2 U/L (3.3-10.3) L 11/30/16 06:05 Whole Bld Vitamin B1 119.2 nmol/L (66.5-200.0) 11/29/16 20:36 Vitamin B12 1360 pg/mL (211-946) H 11/30/16 06:05 Folic Acid 10.7 ng/mL (>3.0) 11/30/16 06:05 Free T4 1.34 ng/dL (0.82-1.77) 11/30/16 06:05 TSH 0.80 uIU/ml (0.34-5.60) 11/28/16 07:03 Urine Source RANDOM 11/27/16 17:00 Urine Color YELLOW 11/27/16 17:00 Urine Clarity CLEAR (CLEAR) 11/27/16 17:00 Urine pH 6.5 (4.6 - 8.0) 11/27/16 17:00 Ur Specific [place] 1.010 (1.005-1.030) 11/27/16 17:00 Urine Protein NEGATIVE mg/dL (NEGATIVE) 11/27/16 17:00 Urine Glucose (UA) NEGATIVE mg/dL (NEGATIVE) 11/27/16 17:00 Urine Ketones NEGATIVE mg/dL (NEGATIVE) 11/27/16 17:00 Urine Blood TRACE (NEGATIVE) 11/27/16 17:00 Urine Nitrate NEGATIVE (NEGATIVE) 11/27/16 17:00 Urine Bilirubin NEGATIVE (NEGATIVE) 11/27/16 17:00 Urine Urobilinogen 0.2 E.U./dL (0.2 - 1.0) 11/27/16 17:00 Ur Leukocyte Esterase NEGATIVE (NEGATIVE) 11/27/16 17:00 Urine RBC 2-5 /hpf (0-5) H 11/27/16 17:00 Urine WBC NONE SEEN /hpf (0-5) 11/27/16 17:00 Ur Epithelial Cells NONE SEEN /lpf (FEW) 11/27/16 17:00 Urine Bacteria NONE SEEN /hpf (NONE SEEN) 11/27/16 17:00 Ur Random Sodium 47 mmol/L 11/29/16 01:49 - Physical Exam Vitals and I&O: Vital Signs Temp 97.3 F 12/05/16 04:00 Pulse 63 12/05/16 08:12 Resp 18 12/05/16 04:00 BP 167/81 12/05/16 08:12 Pulse Ox 100 12/05/16 04:00 Intake & Output 12/04/16 12/05/16 12/05/16 18:59 06:59 18:59 Intake Total 1800 100 Output Total 820 Balance 1800 -720 Weight (lbs) 104.326 kg 55.701 kg Intake: Oral 1800 100 Output: Urine 820 Other: # Voids 5 # Bowel Movements 0 Active Medications: Current Medications Acetaminophen (Tylenol) 650 mg PO Q4HR PRN PRN Reason: Pain (Mild) Stop: 01/26/17 21:20 Amlodipine Besylate (Norvasc) 5 mg PO DAILY [facility] Stop: 01/27/17 08:59 Last Admin: 12/05/16 08:12 Dose: 5 mg Docusate Sodium (Colace) 250 mg PO BID [facility] Stop: 01/27/17 08:59 Last Admin: 12/05/16 08:12 Dose: 250 mg Sodium Chloride (Nacl 0.9%) 1,000 mls @ 50 mls/hr IV .Q20H NADINE Stop: 02/01/17 09:42 Last Admin: 12/04/16 04:43 Dose: 50 mls/hr Losartan Potassium (Cozaar) 50 mg PO DAILY [facility] Stop: 01/27/17 08:59 Last Admin: 12/05/16 08:12 Dose: 50 mg General: Alert, Oriented x3, No acute distress HEENT: Atraumatic, PERRLA, EOMI Neck: Supple, +2 carotid pulse wo bruit Cardiovascular: Regular rate, Normal S1, Normal S2 Lungs: Clear to auscultation Abdomen: Bowel sounds, Soft Extremities: no Edema Neurological: Sensation intact Skin: no Rash Psych/Mental Status: Mood NL Assessment/Plan - Problem List Patient Problems: All Active Problems Ataxia (Acute) R27.0 Dementia (Acute) F03.90 Falls (Acute) W19.XXXA HTN (hypertension) (Acute) I10 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) - Plan Plan: monitor vitals/diet labs f/up consultants Nutritional Asmnt/Mal[place]r-PDOC - Dietary Evaluation Malnutrition Findings (Please click <Entered> for more info): Nutritional Asmnt/Malnutrition Start: 12/02/16 17: 08 Text: Status: Complete Freq: Document 12/02/16 17:08 BRIANA (Rec: 12/02/16 17:18 [email or web address]) Nutritional Asmnt/Malnutrition Patient General Information Nutritional Screening Moderate Risk Screening Diagnosis Hx recurrent falls, hx severe hyponaremia, generalized weakness Pertinent Medical Hx/Surgical Hx Dementia Subjective Information 81 year old male from SNF, [place]ian speaking. Pt sitting on edge of bed during visit. Mild muscle fat wasting to chest and shoulders, appeared age appropriate. Spoke to ROHAN Christie RN denied nutritional concern. Avg PO intake 75-100% of meals since adm, meeting nutritional needs. Current Diet Order/ Nutrition Support Soft/bland Pertinent Medications Colace Pertinent Labs Reviewed. Nutritional Hx/Data Height 1.7 m Height (Calculated Centimeters) 170.2 Current Weight (lbs) 55.792 kg Weight (Calculated Kilograms) 55.8 Weight (Calculated Grams) 32548.9 [place] Body Weight 148 Weight Status Approriate GI Symptoms Usual diet at home [place] [facility]: [facility], [facility] Skin Integrity/Comment: Florentino Hauser. Skin intact. Current %PO Good (75-100%) Estimated Nutritional Goals Calories/Kcals/Kg IBW 148lb/67.3kg Kcals Calculated 1683-2019kcal (25-30kcal/kg) Protein Calculated 67g (!g/kg) Fluid: ml 1683-2019ml (1ml/kcal) Nutritional Problem 1. Problem Problem No nutritional problem at this time. Intervention/Recommendation Comments 1. Recommend [facility] chopped diet for balanced nutrition and adequate fiber intake. No altered of GI function needed soft/bland diet. [place] [facility]: [facility], [facility]. Expected Outcomes/Goals Expected Outcomes/Goals 1. PO intake continue to meet at least 75% of estimated nutritional needs.
[2016-12-05] MEDS: Sodium Chloride 0.9% 1,000 ML IV SCH ×2 (14:26→23:24)
--- NOTE | 2016-12-05 17:56 | General Progress Note ---
Subjective - Review of Systems Service Date: 12/05/16 Subjective: alert, verbal, comfortable. ambulating w/ walker Objective - Results Result Diagrams: 11/28/16 07:03 12/05/16 04:32 Recent Labs: Laboratory Last Values WBC 7.3 Th/cmm (4.8-10.8) 11/28/16 07:03 RBC 4.68 Mil/cmm (3.80-5.80) 11/28/16 07:03 Hgb 14.1 gm/dL (12.6-17.4) 11/28/16 07:03 Hct 42.5 % (39.0-49.0) 11/28/16 07:03 MCV 90.8 fl (80-99) 11/28/16 07:03 MCH 30.1 pg (27.0-31.0) 11/28/16 07:03 MCHC Differential 33.1 pg (28.0-36.0) 11/28/16 07:03 RDW 11.9 % (11.5-20.0) 11/28/16 07:03 Plt Count 345 Th/cmm (150-400) 11/28/16 07:03 MPV 5.8 fl 11/28/16 07:03 Neutrophils % 66.6 % (40.0-80.0) 11/28/16 07:03 Lymphocytes % 22.3 % (20.0-50.0) 11/28/16 07:03 Monocytes % 8.3 % (2.0-10.0) 11/28/16 07:03 Eosinophils % 2.7 % (0.0-5.0) 11/28/16 07:03 Basophils % 0.1 % (0.0-2.0) 11/28/16 07:03 ESR 20 mm/hr (0-20) 11/30/16 06:05 Sodium 128 mEq/L (136-145) L 12/05/16 04:32 Potassium 3.9 mEq/L (3.5-5.1) 12/05/16 04:32 Chloride 95 mEq/L (98-107) L 12/05/16 04:32 Carbon Dioxide 29.0 mEq/L (21.0-31.0) 12/05/16 04:32 Anion Gap 7.9 (7.0-16.0) 12/05/16 04:32 BUN 13 mg/dL (7-25) 12/05/16 04:32 Creatinine 0.7 mg/dL (0.7-1.3) 12/05/16 04:32 Est GFR ( Amer) TNP 12/05/16 04:32 Est GFR (Non-Af Amer) TNP 12/05/16 04:32 BUN/Creatinine Ratio 18.6 12/05/16 04:32 Glucose 76 mg/dL (70-105) 12/05/16 04:32 Plasma/Ser Osmolality 276 mOsmol/kg (280-301) L 11/29/16 05:05 Whole Bld Lactic Acid 0.83 mmol/L (0.60-1.99) 11/27/16 17:58 Uric Acid 3.4 mg/dL (4.4-7.6) L 11/29/16 05:05 Calcium 9.3 mg/dL (8.6-10.3) 12/05/16 04:32 Phosphorus 3.1 mg/dL (2.5-5.0) 11/29/16 05:05 Magnesium 2.1 mg/dL (1.9-2.7) 11/29/16 05:05 Total Bilirubin 0.5 mg/dL (0.3-1.0) 11/27/16 17:58 AST 14 U/L (13-39) 11/27/16 17:58 ALT 8 U/L (7-52) 11/27/16 17:58 Alkaline Phosphatase 76 U/L (34-104) 11/27/16 17:58 Ammonia 58 umol/L (16-53) H 11/29/16 20:36 Troponin I 0.01 ng/mL (0.01-0.05) 11/27/16 17:58 C-Reactive Protein < 0.2 mg/dL (0.0-0.9) 11/30/16 06:05 Total Protein 7.0 gm/dL (6.0-8.3) 11/27/16 17:58 Albumin 4.3 gm/dL (4.2-5.5) 11/27/16 17:58 Globulin 2.7 gm/dL 11/27/16 17:58 Albumin/Globulin Ratio 1.6 (1.0-1.8) 11/27/16 17:58 Triglycerides 69 mg/dL (<150) 11/28/16 07:03 Cholesterol 164 mg/dL (<200) 11/28/16 07:03 LDL Cholesterol Direct 105 mg/dL (75-193) 11/28/16 07:03 HDL Cholesterol 54 mg/dL (23-92) 11/28/16 07:03 Aldolase 2.2 U/L (3.3-10.3) L 11/30/16 06:05 Whole Bld Vitamin B1 119.2 nmol/L (66.5-200.0) 11/29/16 20:36 Vitamin B12 1360 pg/mL (211-946) H 11/30/16 06:05 Folic Acid 10.7 ng/mL (>3.0) 11/30/16 06:05 Free T4 1.34 ng/dL (0.82-1.77) 11/30/16 06:05 TSH 0.80 uIU/ml (0.34-5.60) 11/28/16 07:03 Urine Source RANDOM 11/27/16 17:00 Urine Color YELLOW 11/27/16 17:00 Urine Clarity CLEAR (CLEAR) 11/27/16 17:00 Urine pH 6.5 (4.6 - 8.0) 11/27/16 17:00 Ur Specific [place] 1.010 (1.005-1.030) 11/27/16 17:00 Urine Protein NEGATIVE mg/dL (NEGATIVE) 11/27/16 17:00 Urine Glucose (UA) NEGATIVE mg/dL (NEGATIVE) 11/27/16 17:00 Urine Ketones NEGATIVE mg/dL (NEGATIVE) 11/27/16 17:00 Urine Blood TRACE (NEGATIVE) 11/27/16 17:00 Urine Nitrate NEGATIVE (NEGATIVE) 11/27/16 17:00 Urine Bilirubin NEGATIVE (NEGATIVE) 11/27/16 17:00 Urine Urobilinogen 0.2 E.U./dL (0.2 - 1.0) 11/27/16 17:00 Ur Leukocyte Esterase NEGATIVE (NEGATIVE) 11/27/16 17:00 Urine RBC 2-5 /hpf (0-5) H 11/27/16 17:00 Urine WBC NONE SEEN /hpf (0-5) 11/27/16 17:00 Ur Epithelial Cells NONE SEEN /lpf (FEW) 11/27/16 17:00 Urine Bacteria NONE SEEN /hpf (NONE SEEN) 11/27/16 17:00 Ur Random Sodium 47 mmol/L 11/29/16 01:49 - Physical Exam Vitals and I&O: Vital Signs Temp 98.2 F 12/05/16 12:10 Pulse 75 12/05/16 12:10 Resp 18 12/05/16 12:10 BP 120/70 12/05/16 12:10 Pulse Ox 97 12/05/16 12:10 Intake & Output 12/04/16 12/05/16 12/05/16 18:59 06:59 18:59 Intake Total 1800 100 Output Total 820 Balance 1800 -720 Weight (lbs) 104.326 kg 55.701 kg Intake: Oral 1800 100 Output: Urine 820 Other: # Voids 5 # Bowel Movements 0 Active Medications: Current Medications Acetaminophen (Tylenol) 650 mg PO Q4HR PRN PRN Reason: Pain (Mild) Stop: 01/26/17 21:20 Amlodipine Besylate (Norvasc) 5 mg PO DAILY [facility] Stop: 01/27/17 08:59 Last Admin: 12/05/16 08:12 Dose: 5 mg Docusate Sodium (Colace) 250 mg PO BID [facility] Stop: 01/27/17 08:59 Last Admin: 12/05/16 16:25 Dose: 250 mg Sodium Chloride (Nacl 0.9%) 1,000 mls @ 150 mls/hr IV .Q6H40M [facility] Stop: 02/01/17 09:42 Last Admin: 12/05/16 14:26 Dose: 150 mls/hr Losartan Potassium (Cozaar) 50 mg PO DAILY [facility] Stop: 01/27/17 08:59 Last Admin: 12/05/16 08:12 Dose: 50 mg General: Alert, Oriented x3, No acute distress HEENT: Atraumatic, PERRLA, EOMI Neck: Supple, +2 carotid pulse wo bruit Cardiovascular: Regular rate, Normal S1, Normal S2 Lungs: Clear to auscultation Abdomen: Bowel sounds, Soft Extremities: no Edema Neurological: Sensation intact Skin: no Rash Psych/Mental Status: Mood NL Assessment/Plan - Problem List Patient Problems: All Active Problems Ataxia (Acute) R27.0 Dementia (Acute) F03.90 Falls (Acute) W19.XXXA HTN (hypertension) (Acute) I10 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) - Assessment Assessment: Hyponatremia 2nd to HCTZ, 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 HYpokalemia 2nd to HCTZ dizziness, lightheadedness 2nd to hydrocephalus FTT Ess HTN Ventriculomegaly possible hydrocephalus - Plan Plan: Lab - Result Diagrams 11/28/16 07:03 11/29/16 05:05 Current Medications Acetaminophen (Tylenol) 650 mg PO Q4HR PRN PRN Reason: Pain (Mild) Stop: 01/26/17 21:20 Amlodipine Besylate (Norvasc) 5 mg PO DAILY [facility] Stop: 01/27/17 08:59 Last Admin: 11/29/16 08:28 Dose: 5 mg Docusate Sodium (Colace) 250 mg PO BID [facility] Stop: 01/27/17 08:59 Last Admin: 11/29/16 08:25 Dose: 250 mg Sodium Chloride (Nacl 0.9%) 1,000 mls @ 100 mls/hr IV .Q10H [facility] Stop: 01/26/17 19:36 Last Admin: 11/29/16 08:29 Dose: 100 mls/hr Losartan Potassium (Cozaar) 50 mg PO DAILY [facility] Stop: 01/27/17 08:59 Last Admin: 11/29/16 08:29 Na down to 128 started on IVF f/u electrolytes need Neurosurgical eval w/ regard to management of hydrocephalus Lab - Result Diagrams 11/28/16 07:03 12/05/16 04:32 Nutritional Asmnt/Malnutr-PDOC - Dietary Evaluation Malnutrition Findings (Please click <Entered> for more info): Nutritional Asmnt/Malnutrition Start: 12/02/16 17: 08 Text: Status: Complete Freq: Document 12/02/16 17:08 GSUN (Rec: 12/02/16 17:18 BRIANA [email or web address]) Nutritional Asmnt/Malnutrition Patient General Information Nutritional Screening Moderate Risk Screening Diagnosis Hx recurrent falls, hx severe hyponaremia, generalized weakness Pertinent Medical Hx/Surgical Hx Dementia Subjective Information 81 year old male from SNF, Serbian speaking. Pt sitting on edge of bed during visit. Mild muscle fat wasting to chest and shoulders, appeared age appropriate. Spoke to RN Shahnaz, RN denied nutritional concern. Avg PO intake 75-100% of meals since adm, meeting nutritional needs. Current Diet Order/ Nutrition Support Soft/bland Pertinent Medications Colace Pertinent Labs Reviewed. Nutritional Hx/Data Height 1.7 m Height (Calculated Centimeters) 170.2 Current Weight (lbs) 55.792 kg Weight (Calculated Kilograms) 55.8 Weight (Calculated Grams) 87328.9 [place] Body Weight 148 Weight Status Approriate GI Symptoms Usual diet at home [place] [facility]: MARIA ESTHER, [facility] soft Skin Integrity/Comment: Florentino 20. Skin intact. Current %PO Good (75-100%) Estimated Nutritional Goals Calories/Kcals/Kg IBW 148lb/67.3kg Kcals Calculated 1683-2019kcal (25-30kcal/kg) Protein Calculated 67g (!g/kg) Fluid: ml 1683-2019ml (1ml/kcal) Nutritional Problem 1. Problem Problem No nutritional problem at this time. Intervention/Recommendation Comments 1. Recommend [facility] soft chopped diet for balanced nutrition and adequate fiber intake. No altered of GI function needed soft/bland diet. [facility] MARIA ESTHER. Expected Outcomes/Goals Expected Outcomes/Goals 1. PO intake continue to meet at least 75% of estimated nutritional needs.
[2016-12-05 18:22] LABS: BUN - UREA NITROGEN 17 mg/dL (7-25); BUN/CREATININE RATIO 24.3; CARBON DIOXIDE 27.1 mEq/L (21.0-31.0); CHLORIDE 98 mEq/L (98-107); CREATININE - SERUM 0.7 mg/dL (0.7-1.3); GLUCOSE 97 mg/dL (70-105); POTASSIUM SERUM 4.1 mEq/L (3.5-5.1); SODIUM SERUM 128 mEq/L (136-145)
[2016-12-05 18:23] LABS: CALCIUM SERUM 9.4 mg/dL (8.6-10.3)
[2016-12-06 05:27] LABS: ANION GAP 6.8 (7.0-16.0); BUN - UREA NITROGEN 13 mg/dL (7-25); BUN/CREATININE RATIO 18.6; CALCIUM SERUM 8.9 mg/dL (8.6-10.3); CARBON DIOXIDE 26.8 mEq/L (21.0-31.0); CHLORIDE 100 mEq/L (98-107); CREATININE - SERUM 0.7 mg/dL (0.7-1.3); GLUCOSE 79 mg/dL (70-105); POTASSIUM SERUM 3.6 mEq/L (3.5-5.1); SODIUM SERUM 130 mEq/L (136-145)
[2016-12-06] MEDS: Sodium Chloride 0.9% 1,000 ML IV SCH (06:33)
--- NOTE | 2016-12-06 08:22 | General Progress Note ---
Subjective - Review of Systems Events since last encounter: patient awake ,alert no distress Objective - Results Result Diagrams: 11/28/16 07:03 12/06/16 04:41 Recent Labs: Laboratory Last Values WBC 7.3 Th/cmm (4.8-10.8) 11/28/16 07:03 RBC 4.68 Mil/cmm (3.80-5.80) 11/28/16 07:03 Hgb 14.1 gm/dL (12.6-17.4) 11/28/16 07:03 Hct 42.5 % (39.0-49.0) 11/28/16 07:03 MCV 90.8 fl (80-99) 11/28/16 07:03 MCH 30.1 pg (27.0-31.0) 11/28/16 07:03 MCHC Differential 33.1 pg (28.0-36.0) 11/28/16 07:03 RDW 11.9 % (11.5-20.0) 11/28/16 07:03 Plt Count 345 Th/cmm (150-400) 11/28/16 07:03 MPV 5.8 fl 11/28/16 07:03 Neutrophils % 66.6 % (40.0-80.0) 11/28/16 07:03 Lymphocytes % 22.3 % (20.0-50.0) 11/28/16 07:03 Monocytes % 8.3 % (2.0-10.0) 11/28/16 07:03 Eosinophils % 2.7 % (0.0-5.0) 11/28/16 07:03 Basophils % 0.1 % (0.0-2.0) 11/28/16 07:03 ESR 20 mm/hr (0-20) 11/30/16 06:05 Sodium 130 mEq/L (136-145) L 12/06/16 04:41 Potassium 3.6 mEq/L (3.5-5.1) 12/06/16 04:41 Chloride 100 mEq/L (98-107) 12/06/16 04:41 Carbon Dioxide 26.8 mEq/L (21.0-31.0) 12/06/16 04:41 Anion Gap 6.8 (7.0-16.0) L 12/06/16 04:41 BUN 13 mg/dL (7-25) 12/06/16 04:41 Creatinine 0.7 mg/dL (0.7-1.3) 12/06/16 04:41 Est GFR ( Amer) TNP 12/06/16 04:41 Est GFR (Non-Af Amer) TNP 12/06/16 04:41 BUN/Creatinine Ratio 18.6 12/06/16 04:41 Glucose 79 mg/dL (70-105) 12/06/16 04:41 Plasma/Ser Osmolality 276 mOsmol/kg (280-301) L 11/29/16 05:05 Whole Bld Lactic Acid 0.83 mmol/L (0.60-1.99) 11/27/16 17:58 Uric Acid 3.4 mg/dL (4.4-7.6) L 11/29/16 05:05 Calcium 8.9 mg/dL (8.6-10.3) 12/06/16 04:41 Phosphorus 3.1 mg/dL (2.5-5.0) 11/29/16 05:05 Magnesium 2.1 mg/dL (1.9-2.7) 11/29/16 05:05 Total Bilirubin 0.5 mg/dL (0.3-1.0) 11/27/16 17:58 AST 14 U/L (13-39) 11/27/16 17:58 ALT 8 U/L (7-52) 11/27/16 17:58 Alkaline Phosphatase 76 U/L (34-104) 11/27/16 17:58 Ammonia 58 umol/L (16-53) H 11/29/16 20:36 Troponin I 0.01 ng/mL (0.01-0.05) 11/27/16 17:58 C-Reactive Protein < 0.2 mg/dL (0.0-0.9) 11/30/16 06:05 Total Protein 7.0 gm/dL (6.0-8.3) 11/27/16 17:58 Albumin 4.3 gm/dL (4.2-5.5) 11/27/16 17:58 Globulin 2.7 gm/dL 11/27/16 17:58 Albumin/Globulin Ratio 1.6 (1.0-1.8) 11/27/16 17:58 Triglycerides 69 mg/dL (<150) 11/28/16 07:03 Cholesterol 164 mg/dL (<200) 11/28/16 07:03 LDL Cholesterol Direct 105 mg/dL (75-193) 11/28/16 07:03 HDL Cholesterol 54 mg/dL (23-92) 11/28/16 07:03 Aldolase 2.2 U/L (3.3-10.3) L 11/30/16 06:05 Whole Bld Vitamin B1 119.2 nmol/L (66.5-200.0) 11/29/16 20:36 Vitamin B12 1360 pg/mL (211-946) H 11/30/16 06:05 Folic Acid 10.7 ng/mL (>3.0) 11/30/16 06:05 Free T4 1.34 ng/dL (0.82-1.77) 11/30/16 06:05 TSH 0.80 uIU/ml (0.34-5.60) 11/28/16 07:03 Urine Source RANDOM 11/27/16 17:00 Urine Color YELLOW 11/27/16 17:00 Urine Clarity CLEAR (CLEAR) 11/27/16 17:00 Urine pH 6.5 (4.6 - 8.0) 11/27/16 17:00 Ur Specific [place] 1.010 (1.005-1.030) 11/27/16 17:00 Urine Protein NEGATIVE mg/dL (NEGATIVE) 11/27/16 17:00 Urine Glucose (UA) NEGATIVE mg/dL (NEGATIVE) 11/27/16 17:00 Urine Ketones NEGATIVE mg/dL (NEGATIVE) 11/27/16 17:00 Urine Blood TRACE (NEGATIVE) 11/27/16 17:00 Urine Nitrate NEGATIVE (NEGATIVE) 11/27/16 17:00 Urine Bilirubin NEGATIVE (NEGATIVE) 11/27/16 17:00 Urine Urobilinogen 0.2 E.U./dL (0.2 - 1.0) 11/27/16 17:00 Ur Leukocyte Esterase NEGATIVE (NEGATIVE) 11/27/16 17:00 Urine RBC 2-5 /hpf (0-5) H 11/27/16 17:00 Urine WBC NONE SEEN /hpf (0-5) 11/27/16 17:00 Ur Epithelial Cells NONE SEEN /lpf (FEW) 11/27/16 17:00 Urine Bacteria NONE SEEN /hpf (NONE SEEN) 11/27/16 17:00 Ur Random Sodium 47 mmol/L 11/29/16 01:49 - Physical Exam Vitals and I&O: Vital Signs Temp 98.4 F 12/06/16 07:58 Pulse 70 12/06/16 08:09 Resp 16 12/06/16 07:58 BP 155/93 12/06/16 08:09 Pulse Ox 97 12/06/16 07:58 Intake & Output 12/05/16 12/06/16 12/06/16 18:59 06:59 18:59 Intake Total 702.5 1997.5 Output Total 1500 Balance 702.5 497.5 Weight (lbs) 55.338 kg 55.429 kg Intake: Intake, IV Amount 602.5 1397.5 Sodium Chloride 0.9% 1, 602.5 1397.5 000 ml @ 150 mls/hr IV . Q6H40M [facility] Rx#:[id number] Oral 100 600 Output: Urine 1500 Other: # Voids 3 6 Active Medications: Current Medications Acetaminophen (Tylenol) 650 mg PO Q4HR PRN PRN Reason: Pain (Mild) Stop: 01/26/17 21:20 Amlodipine Besylate (Norvasc) 5 mg PO DAILY [facility] Stop: 01/27/17 08:59 Last Admin: 12/06/16 08:09 Dose: 5 mg Docusate Sodium (Colace) 250 mg PO BID [facility] Stop: 01/27/17 08:59 Last Admin: 12/06/16 08:08 Dose: 250 mg Sodium Chloride (Nacl 0.9%) 1,000 mls @ 150 mls/hr IV .Q6H40M [facility] Stop: 02/01/17 09:42 Last Admin: 12/06/16 06:33 Dose: 150 mls/hr Losartan Potassium (Cozaar) 50 mg PO DAILY [facility] Stop: 01/27/17 08:59 Last Admin: 12/06/16 08:08 Dose: 50 mg General: Alert, Oriented x3, No acute distress HEENT: Atraumatic, PERRLA, EOMI Neck: Supple, +2 carotid pulse wo bruit Cardiovascular: Regular rate, Normal S1, Normal S2 Lungs: Clear to auscultation Abdomen: Bowel sounds, Soft Extremities: no Edema Neurological: Sensation intact Skin: no Rash Psych/Mental Status: Mood NL Assessment/Plan - Problem List Patient Problems: All Active Problems Ataxia (Acute) R27.0 Dementia (Acute) F03.90 Falls (Acute) W19.XXXA HTN (hypertension) (Acute) I10 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) - Plan Plan: monitor vitals/diet labs f/up consultants Nutritional Asmnt/Malnutr-PDOC - Dietary Evaluation Malnutrition Findings (Please click <Entered> for more info): Nutritional Asmnt/Malnutrition Start: 12/02/16 17: 08 Text: Status: Complete Freq: Document 12/02/16 17:08 BRIANA (Rec: 12/02/16 17:18 BRIANA [email or web address]) Nutritional Asmnt/Malnutrition Patient General Information Nutritional Screening Moderate Risk Screening Diagnosis Hx recurrent falls, hx severe hyponaremia, generalized weakness Pertinent Medical Hx/Surgical Hx Dementia Subjective Information 81 year old male from SNF, Icelandic speaking. Pt sitting on edge of bed during visit. Mild muscle fat wasting to chest and shoulders, appeared age appropriate. Spoke to ROHAN Christie RN denied nutritional concern. Avg PO intake 75-100% of meals since adm, meeting nutritional needs. Current Diet Order/ Nutrition Support Soft/bland Pertinent Medications Colace Pertinent Labs Reviewed. Nutritional Hx/Data Height 1.7 m Height (Calculated Centimeters) 170.2 Current Weight (lbs) 55.792 kg Weight (Calculated Kilograms) 55.8 Weight (Calculated Grams) 82969.9 [place] Body Weight 148 Weight Status Approriate GI Symptoms Usual diet at home [place] [facility]: MARIA ESTHER, [facility] soft Skin Integrity/Comment: Florentino 20. Skin intact. Current %PO Good (75-100%) Estimated Nutritional Goals Calories/Kcals/Kg IBW 148lb/67.3kg Kcals Calculated 1683-2019kcal (25-30kcal/kg) Protein Calculated 67g (!g/kg) Fluid: ml 1683-2019ml (1ml/kcal) Nutritional Problem 1. Problem Problem No nutritional problem at this time. Intervention/Recommendation Comments 1. Recommend [facility] soft chopped diet for balanced nutrition and adequate fiber intake. No altered of GI function needed soft/bland diet. [facility]: [facility], MARIA ESTHER. Expected Outcomes/Goals Expected Outcomes/Goals 1. PO intake continue to meet at least 75% of estimated nutritional needs.
--- NOTE | 2016-12-06 14:51 | General Progress Note ---
Subjective - Review of Systems Service Date: 12/06/16 Subjective: alert, verbal, comfortable. ambulating w/ walker Objective - Results Result Diagrams: 11/28/16 07:03 12/06/16 04:41 Recent Labs: Laboratory Last Values WBC 7.3 Th/cmm (4.8-10.8) 11/28/16 07:03 RBC 4.68 Mil/cmm (3.80-5.80) 11/28/16 07:03 Hgb 14.1 gm/dL (12.6-17.4) 11/28/16 07:03 Hct 42.5 % (39.0-49.0) 11/28/16 07:03 MCV 90.8 fl (80-99) 11/28/16 07:03 MCH 30.1 pg (27.0-31.0) 11/28/16 07:03 MCHC Differential 33.1 pg (28.0-36.0) 11/28/16 07:03 RDW 11.9 % (11.5-20.0) 11/28/16 07:03 Plt Count 345 Th/cmm (150-400) 11/28/16 07:03 MPV 5.8 fl 11/28/16 07:03 Neutrophils % 66.6 % (40.0-80.0) 11/28/16 07:03 Lymphocytes % 22.3 % (20.0-50.0) 11/28/16 07:03 Monocytes % 8.3 % (2.0-10.0) 11/28/16 07:03 Eosinophils % 2.7 % (0.0-5.0) 11/28/16 07:03 Basophils % 0.1 % (0.0-2.0) 11/28/16 07:03 ESR 20 mm/hr (0-20) 11/30/16 06:05 Sodium 130 mEq/L (136-145) L 12/06/16 04:41 Potassium 3.6 mEq/L (3.5-5.1) 12/06/16 04:41 Chloride 100 mEq/L (98-107) 12/06/16 04:41 Carbon Dioxide 26.8 mEq/L (21.0-31.0) 12/06/16 04:41 Anion Gap 6.8 (7.0-16.0) L 12/06/16 04:41 BUN 13 mg/dL (7-25) 12/06/16 04:41 Creatinine 0.7 mg/dL (0.7-1.3) 12/06/16 04:41 Est GFR ( Amer) TNP 12/06/16 04:41 Est GFR (Non-Af Amer) TNP 12/06/16 04:41 BUN/Creatinine Ratio 18.6 12/06/16 04:41 Glucose 79 mg/dL (70-105) 12/06/16 04:41 Plasma/Ser Osmolality 276 mOsmol/kg (280-301) L 11/29/16 05:05 Whole Bld Lactic Acid 0.83 mmol/L (0.60-1.99) 11/27/16 17:58 Uric Acid 3.4 mg/dL (4.4-7.6) L 11/29/16 05:05 Calcium 8.9 mg/dL (8.6-10.3) 12/06/16 04:41 Phosphorus 3.1 mg/dL (2.5-5.0) 11/29/16 05:05 Magnesium 2.1 mg/dL (1.9-2.7) 11/29/16 05:05 Total Bilirubin 0.5 mg/dL (0.3-1.0) 11/27/16 17:58 AST 14 U/L (13-39) 11/27/16 17:58 ALT 8 U/L (7-52) 11/27/16 17:58 Alkaline Phosphatase 76 U/L (34-104) 11/27/16 17:58 Ammonia 58 umol/L (16-53) H 11/29/16 20:36 Troponin I 0.01 ng/mL (0.01-0.05) 11/27/16 17:58 C-Reactive Protein < 0.2 mg/dL (0.0-0.9) 11/30/16 06:05 Total Protein 7.0 gm/dL (6.0-8.3) 11/27/16 17:58 Albumin 4.3 gm/dL (4.2-5.5) 11/27/16 17:58 Globulin 2.7 gm/dL 11/27/16 17:58 Albumin/Globulin Ratio 1.6 (1.0-1.8) 11/27/16 17:58 Triglycerides 69 mg/dL (<150) 11/28/16 07:03 Cholesterol 164 mg/dL (<200) 11/28/16 07:03 LDL Cholesterol Direct 105 mg/dL (75-193) 11/28/16 07:03 HDL Cholesterol 54 mg/dL (23-92) 11/28/16 07:03 Aldolase 2.2 U/L (3.3-10.3) L 11/30/16 06:05 Whole Bld Vitamin B1 119.2 nmol/L (66.5-200.0) 11/29/16 20:36 Vitamin B12 1360 pg/mL (211-946) H 11/30/16 06:05 Folic Acid 10.7 ng/mL (>3.0) 11/30/16 06:05 Free T4 1.34 ng/dL (0.82-1.77) 11/30/16 06:05 TSH 0.80 uIU/ml (0.34-5.60) 11/28/16 07:03 Urine Source RANDOM 11/27/16 17:00 Urine Color YELLOW 11/27/16 17:00 Urine Clarity CLEAR (CLEAR) 11/27/16 17:00 Urine pH 6.5 (4.6 - 8.0) 11/27/16 17:00 Ur Specific [place] 1.010 (1.005-1.030) 11/27/16 17:00 Urine Protein NEGATIVE mg/dL (NEGATIVE) 11/27/16 17:00 Urine Glucose (UA) NEGATIVE mg/dL (NEGATIVE) 11/27/16 17:00 Urine Ketones NEGATIVE mg/dL (NEGATIVE) 11/27/16 17:00 Urine Blood TRACE (NEGATIVE) 11/27/16 17:00 Urine Nitrate NEGATIVE (NEGATIVE) 11/27/16 17:00 Urine Bilirubin NEGATIVE (NEGATIVE) 11/27/16 17:00 Urine Urobilinogen 0.2 E.U./dL (0.2 - 1.0) 11/27/16 17:00 Ur Leukocyte Esterase NEGATIVE (NEGATIVE) 11/27/16 17:00 Urine RBC 2-5 /hpf (0-5) H 11/27/16 17:00 Urine WBC NONE SEEN /hpf (0-5) 11/27/16 17:00 Ur Epithelial Cells NONE SEEN /lpf (FEW) 11/27/16 17:00 Urine Bacteria NONE SEEN /hpf (NONE SEEN) 11/27/16 17:00 Ur Random Sodium 47 mmol/L 11/29/16 01:49 - Physical Exam Vitals and I&O: Vital Signs Temp 98.2 F 12/06/16 14:10 Pulse 76 12/06/16 14:10 Resp 15 12/06/16 14:10 BP 185/95 12/06/16 14:10 Pulse Ox 98 12/06/16 14:10 Intake & Output 12/05/16 12/06/16 12/06/16 18:59 06:59 18:59 Intake Total 702.5 1997.5 Output Total 1500 Balance 702.5 497.5 Weight (lbs) 55.338 kg 55.429 kg Intake: Intake, IV Amount 602.5 1397.5 Sodium Chloride 0.9% 1, 602.5 1397.5 000 ml @ 150 mls/hr IV . Q6H40M [facility] Rx#:[id number] Oral 100 600 Output: Urine 1500 Other: # Voids 3 6 Active Medications: Current Medications Acetaminophen (Tylenol) 650 mg PO Q4HR PRN PRN Reason: Pain (Mild) Stop: 01/26/17 21:20 Amlodipine Besylate (Norvasc) 5 mg PO DAILY [facility] Stop: 01/27/17 08:59 Last Admin: 12/06/16 08:09 Dose: 5 mg Docusate Sodium (Colace) 250 mg PO BID [facility] Stop: 01/27/17 08:59 Last Admin: 12/06/16 08:08 Dose: 250 mg Sodium Chloride (Nacl 0.9%) 1,000 mls @ 150 mls/hr IV .Q6H40M [facility] Stop: 02/01/17 09:42 Last Admin: 12/06/16 06:33 Dose: 150 mls/hr Losartan Potassium (Cozaar) 50 mg PO DAILY [facility] Stop: 01/27/17 08:59 Last Admin: 12/06/16 08:08 Dose: 50 mg General: Alert, Oriented x3, No acute distress HEENT: Atraumatic, PERRLA, EOMI Neck: Supple, +2 carotid pulse wo bruit Cardiovascular: Regular rate, Normal S1, Normal S2 Lungs: Clear to auscultation Abdomen: Bowel sounds, Soft Extremities: no Edema Neurological: Sensation intact Skin: no Rash Psych/Mental Status: Mood NL Assessment/Plan - Problem List Patient Problems: All Active Problems Ataxia (Acute) R27.0 Dementia (Acute) F03.90 Falls (Acute) W19.XXXA HTN (hypertension) (Acute) I10 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) - Assessment Assessment: Hyponatremia 2nd to HCTZ, 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 HYpokalemia 2nd to HCTZ dizziness, lightheadedness 2nd to hydrocephalus FTT Ess HTN Ventriculomegaly possible hydrocephalus - Plan Plan: Lab - Result Diagrams 11/28/16 07:03 11/29/16 05:05 Current Medications Acetaminophen (Tylenol) 650 mg PO Q4HR PRN PRN Reason: Pain (Mild) Stop: 01/26/17 21:20 Amlodipine Besylate (Norvasc) 5 mg PO DAILY [facility] Stop: 01/27/17 08:59 Last Admin: 11/29/16 08:28 Dose: 5 mg Docusate Sodium (Colace) 250 mg PO BID [facility] Stop: 01/27/17 08:59 Last Admin: 11/29/16 08:25 Dose: 250 mg Sodium Chloride (Nacl 0.9%) 1,000 mls @ 100 mls/hr IV .Q10H [facility] Stop: 01/26/17 19:36 Last Admin: 11/29/16 08:29 Dose: 100 mls/hr Losartan Potassium (Cozaar) 50 mg PO DAILY [facility] Stop: 01/27/17 08:59 Last Admin: 11/29/16 08:29 Na up to 128 started on IVF f/u electrolytes need Neurosurgical eval w/ regard to management of hydrocephalus Lab - Result Diagrams 11/28/16 07:03 12/06/16 04:41 Nutritional Asmnt/Malnutr-PDOC - Dietary Evaluation Malnutrition Findings (Please click <Entered> for more info): Nutritional Asmnt/Malnutrition Start: 12/02/16 17: 08 Text: Status: Complete Freq: Document 12/02/16 17:08 GSSTEPH (Rec: 12/02/16 17:18 [email or web address]) Nutritional Asmnt/Malnutrition Patient General Information Nutritional Screening Moderate Risk Screening Diagnosis Hx recurrent falls, hx severe hyponaremia, generalized weakness Pertinent Medical Hx/Surgical Hx Dementia Subjective Information 81 year old male from SNF, [place] speaking. Pt sitting on edge of bed during visit. Mild muscle fat wasting to chest and shoulders, appeared age appropriate. Spoke to RN ROHAN Christie denied nutritional concern. Avg PO intake 75-100% of meals since adm, meeting nutritional needs. Current Diet Order/ Nutrition Support Soft/bland Pertinent Medications Colace Pertinent Labs Reviewed. Nutritional Hx/Data Height 1.7 m Height (Calculated Centimeters) 170.2 Current Weight (lbs) 55.792 kg Weight (Calculated Kilograms) 55.8 Weight (Calculated Grams) 87925.9 [employer] Body Weight 148 Weight Status Approriate GI Symptoms Usual diet at home [place] [facility]: MARIA ESTHER, [facility] soft Skin Integrity/Comment: Florentino 20. Skin intact. Current %PO Good (75-100%) Estimated Nutritional Goals Calories/Kcals/Kg IBW 148lb/67.3kg Kcals Calculated 1683-2019kcal (25-30kcal/kg) Protein Calculated 67g (!g/kg) Fluid: ml 1683-2019ml (1ml/kcal) Nutritional Problem 1. Problem Problem No nutritional problem at this time. Intervention/Recommendation Comments 1. Recommend [facility] soft chopped diet for balanced nutrition and adequate fiber intake. No altered of GI function needed soft/bland diet. [place] [facility]: [facility] jermain, MARIA ESTHER. Expected Outcomes/Goals Expected Outcomes/Goals 1. PO intake continue to meet at least 75% of estimated nutritional needs.
--- NOTE | 2016-12-24 03:08 | Progress Notes ---
DATE: 12/06/2016 HOSPITAL COURSE: This patient is very well known to me from [facility]. ____ The patient is known to have history of underlying dementia, history of recurrent falls, history of hyponatremia and rule out cardiac arrhythmia, atrial fibrillation ____ was worked up completely. The patient was found to have ____ the patient was sent back to [facility] in a stable condition, where I will be following the patient. MEDICATIONS: See the reconciliation sheet. ACTIVITY: As tolerated. I will refer him to [facility] for Neurosurgical consultation. JOB# [id number]
== END 2016-12-06 15:15 | disposition home or self-care (01) | DRG 644 ==
LOC: ER 16:33 → TELE 19:45 → MSI 11-28 11:53
PROVIDERS: ADMIT Internal Medicine; ATTEND Internal Medicine
DX: E22.2 Syndrome of inappropriate secretion of antidiuretic hormone (principal); G91.9 Hydrocephalus, unspecified; G93.89 Other specified disorders of brain; G95.9 Disease of spinal cord, unspecified; I48.91 Unspecified atrial fibrillation; G30.9 Alzheimer's disease, unspecified; I10 Essential (primary) hypertension; R62.7 Adult failure to thrive; F02.80 Dementia in other diseases classified elsewhere, unspecified severity, without behavioral disturbance, psychotic disturbance, mood disturbance, and anxiety; E86.0 Dehydration; T50.2X5A Adverse effect of carbonic-anhydrase inhibitors, benzothiadiazides and other diuretics, initial encounter; M81.0 Age-related osteoporosis without current pathological fracture; E87.6 Hypokalemia; R27.0 Ataxia, unspecified; W18.30XA Fall on same level, unspecified, initial encounter; Y93.89 Activity, other specified; Y92.89 Other specified places as the place of occurrence of the external cause; Y99.8 Other external cause status
CPT/HCPCS: 36415-UA; 70450-TC; 71010-TC; 72141-TC; 80048-TC; 80053-TC; 80061-TC; 81001-TC; 82085-90; 82140-TC; 82607-90; 82746-90; 83605; 83735-TC; 83930-90; 84100-TC; 84300-TC; 84425-90; 84439-90; 84443-TC; 84484-TC; 84550-TC; 85025-TC; 85652-TC; 86141-TC; 87086-90; 97530; J7030; X3904; Z7610; Z7610-TC

== ENCOUNTER 2017-03-28 10:39 | Inpatient (IN) | payer MEDICARE, OTHER ==
--- NOTE | 2017-03-28 10:46 | ED Physician Chart ---
ED Chief Complaint/HPI - Patient Information Date Seen:: 03/28/17 Time Seen:: 10:44 Chief Complaint:: Confusion and chest pain History of Present Illness:: 81 yo male was brought from SNF to ER for evaluation of increasing confusion, chest pain, poor appetite, and failure to thrive. Allergies:: Allergies Allergy/AdvReac Type Severity Reaction Status Date / Time No Known Allergies Allergy Verified 11/27/16 16:38 ED Review of Systems - Review of Systems General/Constitutional: No fever, Weakness Skin: No bruising Head: No headache Eyes: No pain ENT: No nasal drainage Neck: No neck pain Cardio Vascular: Chest pain Pulmonary: No SOB GI: No nausea, No vomiting Musculoskeletal: No bone or joint pain Neurological: No focal symptoms ED Past Medical History - Past Medical History Past Medical History: HTN, Dementia, Other (atrial fibrillation, weakness, osteoporosis, scoliosis, ataxia, hydrocephalus) Social History: Non Smoker, No Alcohol, No Drug Use Family Medical History - Family Member Niece History Unknown: Yes Ethnicity: ED Physical Exam - Physical Examination General/Constitutional: Awake Head: Atraumatic Eyes: PERRL Skin: No ecchymosis ENMT: Nasal exam nl Neck: No nuchal rigidity Respiratory: No Wheeze/Rhonchi/Rales Cardio Vascular: No murmur, gallop, rubs Other Cardio Vascular comments:: Atrial fibrillation GI: No tenderness/rebounding/guarding Extremities: normal strength in all extremities Neuro/Psych: No focal deficits ED Labs/Radiology/EKG Results - Radiology Results Results: CXR: No consolidation ED Assessment - Assessment General Assessment: UTI Leukocytosis Hyponatremia Dementia Assessment/Comments:: CBC, CMP, Trop I, BNP CXR, EKG NS 1L IV bolus Rocephin IV Admit to med surg ED Septic Shock - . Is Septic Shock (SBP<90, OR Lactate>4 mmol\L) present?: No ED Reassessment (Disposition) - Reassessment Reassessment Condition:: Improved - Patient Disposition Discharge/Transfer:: Acute Care w/in this hosp Admitting Psych Physician:: Jake Ivy ED Discharge Plan - Patient Disposition Admit/Discharge/Transfer: Acute Care w/in this hosp Condition at Disposition: Stable
[2017-03-28 11:12] LABS: % EOSINOPHILS 0.7 % (0.0-5.0); % LYMPHOCYTES 12.5 % (20.0-50.0); % MONOCYTES 6.5 % (2.0-10.0); % NEUTROPHILS 77.3 % (40.0-80.0); BASOPHILE ABSOLUTE 0.4 Th/cumm (0-0.2); EOSINOPHILE ABSOLUTE 0.1 Th/cmm (0.1-0.4); HEMATOCRIT 43.9 % (41.0-60); HEMOGLOBIN 14.4 gm/dL (12-16); LYMPHOCYTE ABSOLUTE 1.6 Th/cmm (1.5-3.0); MEAN CELL VOLUME 89.1 fl (80-99); MEAN CORPUSCULAR HEMOGLOBIN 29.2 pg (27.0-31.0); MEAN CORPUSCULAR HGB CONC 32.8 pg (28.0-36.0); MEAN PLATELET VOLUME 6.1 fl; MONOCYTE ABSOLUTE 0.9 Th/cmm (0.3-1.0); NEUTROPHILE ABSOLUTE 10.2 Th/cmm (1.8-8.0); RED BLOOD COUNT 4.93 Mil/cmm (3.80-5.80); RED CELL DISTRIBUTION WIDTH 12.1 % (11.5-20.0)
[2017-03-28 11:20] LABS: PLATELET COUNT 628 Th/cmm (150-400); WHITE BLOOD COUNT 13.2 Th/cmm (4.8-10.8)
[2017-03-28 11:33] LABS: ALB/GLOB RATIO 1.2 (1.0-1.8); ALBUMIN 3.8 gm/dL (4.2-5.5); ALKALINE PHOSPHATASE 88 U/L (34-104); ANION GAP 11.1 (7.0-16.0); BILIRUBIN,TOTAL 0.5 mg/dL (0.3-1.0); BUN - UREA NITROGEN 18 mg/dL (7-25); CALCIUM SERUM 9.3 mg/dL (8.6-10.3); CARBON DIOXIDE 26.6 mEq/L (21.0-31.0); CHLORIDE 94 mEq/L (98-107); CREATININE - SERUM 0.7 mg/dL (0.7-1.3); GLUCOSE 86 mg/dL (70-105); POTASSIUM SERUM 3.7 mEq/L (3.5-5.1); SGOT 19 U/L (13-39); SGPT/ALT 26 U/L (7-52); SODIUM SERUM 128 mEq/L (136-145)
--- NOTE | 2017-03-28 11:41 | Diagnostic Imaging Report ---
CHEST X-RAY: AP view INDICATION: Shortness of breath COMPARISON: 11/27/2016 FINDINGS: Chronic lung changes are seen with no focal consolidation or effusions. Heart size is at the upper limits of normal. Tortuous aorta is noted. Degenerative changes of spine are noted. Postsurgical changes of the left clavicle are noted. IMPRESSION: Chronic lung changes with no focal consolidation identified.
[2017-03-28] MEDS ORDERED: Sodium Chloride 0.9% 1,000 ML IV ONE (12:32)
[2017-03-28] MEDS ORDERED: cefTRIAXone 1 GM in Sodium Chloride 0.9% 50 ML IV ONE (12:32)
[2017-03-28 17:49] LABS: URINE MICROSCOPIC INDICATED? YES; URINE SOURCE RANDOM
[2017-03-28 18:00] LABS: URINE CLARITY HAZY (CLEAR); URINE COLOR YELLOW
[2017-03-28 18:02] LABS: URINE BILIRUBIN NEGATIVE (NEGATIVE); URINE CLINITEST NEGATIVE (NEGATIVE); URINE GLUCOSE (UA) NEGATIVE (NEGATIVE); URINE ICTOTEST NEGATIVE (NEGATIVE); URINE KETONE NEGATIVE (NEGATIVE)
[2017-03-28 18:03] LABS: URINE BLOOD SMALL (NEGATIVE); URINE PH 7.5 (4.6 - 8.0); URINE PROTEIN NEGATIVE (NEGATIVE); URINE UROBILINOGEN 0.2 E.U./dL (0.2 - 1.0)
[2017-03-28 18:04] LABS: URINE LEUKOCYTE ESTERASE LARGE (NEGATIVE); URINE NITRATE POSITIVE (NEGATIVE)
[2017-03-28 18:17] LABS: URINE EPITHELIAL CELLS OCCASIONAL /lpf (FEW); URINE WBC 50-100 /hpf (0-5)
[2017-03-28 18:18] LABS: URINE BACTERIA 4+ /hpf (NONE SEEN)
[2017-03-28] MEDS ORDERED: cefTRIAXone 1 GM in Sodium Chloride 0.9% 50 ML IV SCH (20:39)
[2017-03-28] MEDS: Azithromycin 500 MG in Sodium Chloride 0.9% 250 ML IV SCH (22:15)
[2017-03-28 22:35] VITALS: BP 118/75
[2017-03-29 06:33] LABS: EOSINOPHILE ABSOLUTE 0.1 Th/cmm (0.1-0.4); HEMATOCRIT 40.5 % (41.0-60); HEMOGLOBIN 13.9 gm/dL (12-16); LYMPHOCYTE ABSOLUTE 0.6 Th/cmm (1.5-3.0); MEAN CELL VOLUME 88.1 fl (80-99); MEAN CORPUSCULAR HEMOGLOBIN 30.2 pg (27.0-31.0); MEAN CORPUSCULAR HGB CONC 34.3 pg (28.0-36.0); MEAN PLATELET VOLUME 6.4 fl; MONOCYTE ABSOLUTE 1.1 Th/cmm (0.3-1.0); NEUTROPHILE ABSOLUTE 33.5 Th/cmm (1.8-8.0); RED BLOOD COUNT 4.59 Mil/cmm (3.80-5.80); RED CELL DISTRIBUTION WIDTH 12.3 % (11.5-20.0)
[2017-03-29 06:45] LABS: PLATELET COUNT 501 Th/cmm (150-400); WHITE BLOOD COUNT 35.3 Th/cmm (4.8-10.8)
[2017-03-29 06:49] LABS: BUN - UREA NITROGEN 15 mg/dL (7-25); CALCIUM SERUM 8.6 mg/dL (8.6-10.3); CARBON DIOXIDE 26.5 mEq/L (21.0-31.0); CHLORIDE 98 mEq/L (98-107); CHOLESTEROL 121 mg/dL (<200); CREATININE - SERUM 0.8 mg/dL (0.7-1.3); GLUCOSE 107 mg/dL (70-105); HDL -HIGH DENSITY LIPOPROTEIN 53 mg/dL (23-92); POTASSIUM SERUM 3.5 mEq/L (3.5-5.1); SODIUM SERUM 133 mEq/L (136-145); TRIGLYCERIDES 79 mg/dL (<150)
--- NOTE | 2017-03-29 08:31 | History & Physical ---
ADMIT DATE: 03/29/2017 CHIEF COMPLAINT: Confusion. HISTORY OF PRESENT ILLNESS: This is an 81-year-old male, who was brought in to the Emergency Room from a senior living facility due to increased confusion and poor appetite. REVIEW OF SYSTEMS: GENERAL: This is an 81-year-old male that appears as stated. HEAD: No headache. No dizziness. EYES: No eye pain. No blurring of vision. NECK: No neck pain. No nuchal rigidity. CHEST: No chest pain. No palpitation. PULMONARY: No coughing. No shortness of breath. GASTROINTESTINAL: No diarrhea. No constipation. No abdominal pain. MUSCULOSKELETAL: No muscle pain. No joint pain. SOCIAL HISTORY: The patient lived in a senior living facility prior to hospitalization. FAMILY HISTORY: Unremarkable. PAST SURGICAL HISTORY: Unremarkable. PAST MEDICAL HISTORY: Includes hypertension, dementia, atrial fibrillation, and osteoarthritis. PHYSICAL EXAMINATION: VITAL SIGNS: Temperature 97.9, heart rate of 69, blood pressure 116/62, respirations of 19, and 98% on room air. HEENT: Head is atraumatic, normocephalic. Eyes; bilateral conjunctivae are clear, bilateral pupils equally round and reactive. NECK: Supple. No JVD. CARDIOVASCULAR: S1 and S2 without murmur. PULMONARY: Clear to auscultation. GASTROINTESTINAL: Soft and nontender without guarding. Positive bowel sounds. MUSCULOSKELETAL: No clubbing and no cyanosis noted. ASSESSMENT: 1. Urinary tract infection. 2. Sepsis. 3. Dementia. 4. Osteoarthritis. 5. Atrial fibrillation. 6. Generalized weakness. 7. Hypertension. PLAN: We will keep the patient inpatient to admit to Med/Surg unit. We will continue antibiotics and we will follow up with the ID doctor. We will do medication reconciliation accordingly. Treatment plans were discussed with the patient's nurse. Treatment plans were discussed with Dr. Ivy. JOB# [id number]
[2017-03-29 08:40] LABS: BAND NEUTROPHILE 7 % (0-10); LYMPHOCYTE 1 % (20-50); MONOCYTE 4 % (2-10); NEUTROPHILS 88 % (40-80); PLATELET ESTIMATE INCREASED PLATELETS (NORMAL); TOTAL CELLS COUNTED 100
[2017-03-29] MEDS ORDERED: VTE Chemical Prophylaxis Screen/Admission MC PRN (09:01)
[2017-03-29 11:39] LABS: HEMATOCRIT 39.5 % (41.0-60); HEMOGLOBIN 13.5 gm/dL (12-16); MEAN CELL VOLUME 88.6 fl (80-99); MEAN CORPUSCULAR HEMOGLOBIN 30.2 pg (27.0-31.0); MEAN CORPUSCULAR HGB CONC 34.1 pg (28.0-36.0); MEAN PLATELET VOLUME 6.2 fl; PLATELET COUNT 467 Th/cmm (150-400); RED BLOOD COUNT 4.46 Mil/cmm (3.80-5.80); RED CELL DISTRIBUTION WIDTH 12.3 % (11.5-20.0)
[2017-03-29 11:43] LABS: WHITE BLOOD COUNT 29.9 Th/cmm (4.8-10.8)
[2017-03-29 11:59] LABS: TOTAL CELLS COUNTED 100
[2017-03-29 12:00] LABS: BAND NEUTROPHILE 5 % (0-10); BASOPHIL 1 % (0-3); LYMPHOCYTE 1 % (20-50); MONOCYTE 5 % (2-10); NEUTROPHILS 88 % (40-80); PLATELET ESTIMATE INCREASED PLATELETS (NORMAL)
--- NOTE | 2017-03-29 19:06 | Consultation ---
Consult Note - Consult Note Service Date: 03/29/17 Referring Physician: Jake Ivy Consult Note: PHYSICIAN Consultation Note: Date of Admission: 03/28/17 Purpose of Consultation: Chief Complaint: Patient TRAN DUTTA was admitted to location Medical/ Surgical Unit I with FAILURE TO THRIVE, LEUKOCYTOSIS. History of Present Illness:81 year old male with hstory of dementia, HTN atrial fibrillation Past Medical History: HTN, Dementia, Other (atrial fibrillation, weakness, osteoporosis, scoliosis, ataxia, hydrocephalus). Social History: Non Smoker, No Alcohol, No Drug Use Allergies Allergy/AdvReac Type Severity Reaction Status Date / Time No Known Allergies Allergy Verified 11/27/16 16:38 Vital Signs Temp 98.6 F 03/29/17 15:55 Pulse 90 03/29/17 15:55 Resp 17 03/29/17 15:55 BP 137/82 03/29/17 15:55 Pulse Ox 98 03/29/17 15:55 Intake & Output 03/29/17 03/29/17 03/30/17 06:59 18:59 06:59 Intake Total 300 Balance 300 Weight (lbs) 59.874 kg Intake: Intake, IV Amount 300 Azithromycin 500 mg In 250 Sodium Chloride 0.9% 250 ml @ 250 mls/hr IV Q24HR [facility] Rx#:[id number] cefTRIAXone 1 gm In 50 Sodium Chloride 0.9% 50 ml @ 100 mls/hr IV Q24HR [facility] Rx#:[id number] Laboratory Results - last 24 hr 03/29/17 03/29/17 03/29/17 05:30 05:30 05:30 WBC 35.3 H* D RBC 4.59 Hgb 13.9 Hct 40.5 L MCV 88.1 MCH 30.2 MCHC Differential 34.3 RDW 12.3 Plt Count 501 H D MPV 6.4 Band Neutrophils % 7 Neutrophils (Manual) 88 H Lymphocytes 1 L Monocytes 4 Basophils Platelet Estimate INCREASED PLATELETS Sodium 133 L Potassium 3.5 Chloride 98 Carbon Dioxide 26.5 Anion Gap 12.0 BUN 15 Creatinine 0.8 Est GFR ( Amer) TNP Est GFR (Non-Af Amer) TNP BUN/Creatinine Ratio 18.8 Glucose 107 H Calcium 8.6 Triglycerides 79 Cholesterol 121 LDL Cholesterol Direct 64 L HDL Cholesterol 53 TSH 1.00 03/29/17 11:15 WBC 29.9 H* RBC 4.46 Hgb 13.5 Hct 39.5 L MCV 88.6 MCH 30.2 MCHC Differential 34.1 RDW 12.3 Plt Count 467 H MPV 6.2 Band Neutrophils % 5 Neutrophils (Manual) 88 H Lymphocytes 1 L Monocytes 5 Basophils 1 Platelet Estimate INCREASED PLATELETS Sodium Potassium Chloride Carbon Dioxide Anion Gap BUN Creatinine Est GFR ( Amer) Est GFR (Non-Af Amer) BUN/Creatinine Ratio Glucose Calcium Triglycerides Cholesterol LDL Cholesterol Direct HDL Cholesterol TSH Home Medication Medication Instructions Recorded Type Acetaminophen [Tylenol] 650 mg PO Q6H PRN 11/27/16 History Amlodipine Besylate 5 mg PO DAILY 11/27/16 History Docusate Sodium [Colace] 250 mg PO BID 11/27/16 History Hydrochlorothiazide [Microzide] 12.5 mg PO DAILY 11/27/16 History Losartan Potassium [Cozaar] 50 mg PO DAILY 11/27/16 History Current Medications Generic Name Dose Route Start Last Admin Trade Name Freq PRN Reason Stop Dose Admin Acetaminophen 650 mg 03/28/17 20:39 Tylenol PO 05/27/17 20:38 Q6H PRN TEMP >101.1 OR PAIN Acetaminophen 650 mg 03/28/17 20:39 Tylenol PO 05/27/17 20:38 Q4H PRN Pain (Moderate) Amlodipine Besylate 5 mg 03/29/17 09:00 03/29/17 09:01 Norvasc PO 05/28/17 08:59 5 mg DAILY NADINE Administration Docusate Sodium 250 mg 03/29/17 09:00 03/29/17 17:20 Colace PO 05/28/17 08:59 250 mg BID NADINE Administration Hydrochlorothiazide 12.5 mg 03/29/17 09:00 03/29/17 09:01 Hctz PO 05/28/17 08:59 12.5 mg DAILY NADINE Administration Azithromycin 500 mg/ Sodium 250 mls @ 250 mls/hr 03/28/17 20:39 03/28/17 23: 38 Chloride IV 05/27/17 20:38 Infused Q24HR [facility] Infusion Ceftriaxone Sodium 1 gm/ 50 mls @ 100 mls/hr 03/28/17 20:39 03/28/17 22:15 Sodium Chloride IV 05/27/17 20:38 Infused Q24HR [facility] Infusion Losartan Potassium 50 mg 03/29/17 09:00 03/29/17 09:00 Cozaar PO 05/28/17 08:59 50 mg DAILY NADINE Administration Miscellaneous 1 ea 03/29/17 09:01 Vte Chemical Prophylaxis Screen/ Admission 05/28/17 09:00 PRN PRN PROTOCOL Review of Systems: A 12 point ROS was reviewed with the pertinent positive and negatives noted in the HPI. Social History Smoking Status Unknown if ever smoked Drug Use No Alcohol Use No Family Medical History Family Medical History Start: 03/28/17 20: 34 Freq: ONCE Status: Active Document 03/28/17 21:20 RULA (Rec: 03/28/17 22:42 RULA ALAINA- [id number]) Family Medical History Niece History Unknown Yes Physical Exam: General: Comfortable, not in acute distress. HEENT: Head: Normocephalic, atraumatic. Oral cavity: Moist, pink tongue. Eyes : No pallor. No icterus. Pupil PERRLA. Neck: Supple, no JVD, no use of X his neck muscles. Cardio: S1 and S2 within normal metabolism normal murmur or gallop. Respiratory: Vesicular breath sound with the crackles. Abdominal: Soft, nontender, nondistended bowel sounds present. Genital/Urinary: Deferred Extremities: No cyanosis no clubbing or no edema Neurological: Arousable., Awake. Assessment: 1. Sepsis. 2. UTI. 3. Aspiration pneumonia. Plan: Start Zosyn. Thank you Dr. Ivy for involving me in taking care of this patient. Loki Overton Devesh N., M.D. [id number]
[2017-03-29] MEDS: Azithromycin 500 MG in Sodium Chloride 0.9% 250 ML IV SCH (20:26)
[2017-03-29] MEDS ORDERED: Piperacillin Sodium/Tazobact 2.25 gm Vial IV ONE (20:42)
[2017-03-30] MEDS ORDERED: Piperacillin Sodium/Tazobact 2.25 gm Vial IV ONE (04:17)
--- NOTE | 2017-03-30 11:13 | General Progress Note ---
Subjective - Review of Systems Events since last encounter: patient remains confused in no acute distress Objective - Results Result Diagrams: 03/29/17 11:15 03/29/17 05:30 Recent Labs: Laboratory Last Values WBC 29.9 Th/cmm (4.8-10.8) H* 03/29/17 11:15 RBC 4.46 Mil/cmm (3.80-5.80) 03/29/17 11:15 Hgb 13.5 gm/dL (12-16) 03/29/17 11:15 Hct 39.5 % (41.0-60) L 03/29/17 11:15 MCV 88.6 fl (80-99) 03/29/17 11:15 MCH 30.2 pg (27.0-31.0) 03/29/17 11:15 MCHC Differential 34.1 pg (28.0-36.0) 03/29/17 11:15 RDW 12.3 % (11.5-20.0) 03/29/17 11:15 Plt Count 467 Th/cmm (150-400) H 03/29/17 11:15 MPV 6.2 fl 03/29/17 11:15 Neutrophils % 77.3 % (40.0-80.0) 03/28/17 11:05 Band Neutrophils % 5 % (0-10) 03/29/17 11:15 Lymphocytes % 12.5 % (20.0-50.0) L 03/28/17 11:05 Monocytes % 6.5 % (2.0-10.0) 03/28/17 11:05 Eosinophils % 0.7 % (0.0-5.0) 03/28/17 11:05 Basophils % 3.0 % (0.0-2.0) H 03/28/17 11:05 Neutrophils (Manual) 88 % (40-80) H 03/29/17 11:15 Lymphocytes 1 % (20-50) L 03/29/17 11:15 Monocytes 5 % (2-10) 03/29/17 11:15 Basophils 1 % (0-3) 03/29/17 11:15 Platelet Estimate INCREASED PLATELETS (NORMAL) 03/29/17 11:15 Sodium 133 mEq/L (136-145) L 03/29/17 05:30 Potassium 3.5 mEq/L (3.5-5.1) 03/29/17 05:30 Chloride 98 mEq/L (98-107) 03/29/17 05:30 Carbon Dioxide 26.5 mEq/L (21.0-31.0) 03/29/17 05:30 Anion Gap 12.0 (7.0-16.0) 03/29/17 05:30 BUN 15 mg/dL (7-25) 03/29/17 05:30 Creatinine 0.8 mg/dL (0.7-1.3) 03/29/17 05:30 Est GFR ( Amer) TNP 03/29/17 05:30 Est GFR (Non-Af Amer) TNP 03/29/17 05:30 BUN/Creatinine Ratio 18.8 03/29/17 05:30 Glucose 107 mg/dL (70-105) H 03/29/17 05:30 Whole Bld Lactic Acid 1.52 mmol/L (0.60-1.99) 03/28/17 10:50 Calcium 8.6 mg/dL (8.6-10.3) 03/29/17 05:30 Total Bilirubin 0.5 mg/dL (0.3-1.0) 03/28/17 11:05 AST 19 U/L (13-39) 03/28/17 11:05 ALT 26 U/L (7-52) 03/28/17 11:05 Alkaline Phosphatase 88 U/L (34-104) 03/28/17 11:05 Troponin I 0.01 ng/mL (0.01-0.05) 03/28/17 11:05 B-Natriuretic Peptide 21.9 pg/mL (5.0-100.0) 03/28/17 11:05 Total Protein 7.0 gm/dL (6.0-8.3) 03/28/17 11:05 Albumin 3.8 gm/dL (4.2-5.5) L 03/28/17 11:05 Globulin 3.2 gm/dL 03/28/17 11:05 Albumin/Globulin Ratio 1.2 (1.0-1.8) 03/28/17 11:05 Triglycerides 79 mg/dL (<150) 03/29/17 05:30 Cholesterol 121 mg/dL (<200) 03/29/17 05:30 LDL Cholesterol Direct 64 mg/dL (75-193) L 03/29/17 05:30 HDL Cholesterol 53 mg/dL (23-92) 03/29/17 05:30 TSH 1.00 uIU/ml (0.34-5.60) 03/29/17 05:30 Urine Source RANDOM 03/28/17 16:14 Urine Color YELLOW 03/28/17 16:14 Urine Clarity HAZY (CLEAR) 03/28/17 16:14 Urine pH 7.5 (4.6 - 8.0) 03/28/17 16:14 Ur Specific [place] 1.010 (1.005-1.030) 03/28/17 16:14 Urine Protein NEGATIVE mg/dL (NEGATIVE) 03/28/17 16:14 Urine Glucose (UA) NEGATIVE mg/dL (NEGATIVE) 03/28/17 16:14 Urine Clinitest NEGATIVE mg/dL (NEGATIVE) 03/28/17 16:14 Urine Ketones NEGATIVE mg/dL (NEGATIVE) 03/28/17 16:14 Urine Blood SMALL (NEGATIVE) H 03/28/17 16:14 Urine Nitrate POSITIVE (NEGATIVE) H 03/28/17 16:14 Urine Bilirubin NEGATIVE (NEGATIVE) 03/28/17 16:14 Urine Ictotest NEGATIVE (NEGATIVE) 03/28/17 16:14 Urine Urobilinogen 0.2 E.U./dL (0.2 - 1.0) 03/28/17 16:14 Ur Leukocyte Esterase LARGE (NEGATIVE) H 03/28/17 16:14 Urine RBC 5-10 /hpf (0-5) H 03/28/17 16:14 Urine WBC 50-100 /hpf (0-5) H 03/28/17 16:14 Ur Epithelial Cells OCCASIONAL /lpf (FEW) 03/28/17 16:14 Urine Bacteria 4+ /hpf (NONE SEEN) H 03/28/17 16:14 - Physical Exam Vitals and I&O: Vital Signs Temp 97.2 F 03/30/17 08:00 Pulse 78 03/30/17 08:29 Resp 19 03/30/17 08:00 BP 127/86 03/30/17 08:29 Pulse Ox 98 03/30/17 08:00 Intake & Output 03/29/17 03/30/17 03/30/17 18:59 06:59 18:59 Intake Total 250 350 Balance 250 350 Weight (lbs) 59.874 kg 59.874 kg Intake: Intake, IV Amount 350 Azithromycin 500 mg In 250 Sodium Chloride 0.9% 250 ml @ 250 mls/hr IV Q24HR [facility] Rx#:[id number] Piperacillin Sodium/ 100 Tazobact 2.25 gm In Sodium Chloride 0.9% 50 ml @ 100 mls/hr IV Q8HR [facility] Rx#:[id number] Oral 250 Other: # Voids 3 # Bowel Movements 1 Active Medications: Current Medications Acetaminophen (Tylenol) 650 mg PO Q6H PRN PRN Reason: TEMP >101.1 OR PAIN Stop: 05/27/17 20:38 Acetaminophen (Tylenol) 650 mg PO Q4H PRN PRN Reason: Pain (Moderate) Stop: 05/27/17 20:38 Amlodipine Besylate (Norvasc) 5 mg PO DAILY [facility] Stop: 05/28/17 08:59 Last Admin: 03/30/17 08:29 Dose: 5 mg Docusate Sodium (Colace) 250 mg PO BID [facility] Stop: 05/28/17 08:59 Last Admin: 03/30/17 08:29 Dose: 250 mg Hydrochlorothiazide (Hctz) 12.5 mg PO DAILY [facility] Stop: 05/28/17 08:59 Last Admin: 03/30/17 08:28 Dose: 12.5 mg Azithromycin 500 mg/ Sodium (Chloride) 250 mls @ 250 mls/hr IV Q24HR [facility] Stop: 05/27/17 20:38 Last Infusion: 03/29/17 21:48 Dose: Infused Piperacillin Sod/Tazobactam (Sod 2.25 gm/ Sodium Chloride) 50 mls @ 100 mls/hr IV Q8HR [facility] Stop: 05/28/17 20:59 Last Infusion: 03/30/17 06:08 Dose: Infused Losartan Potassium (Cozaar) 50 mg PO DAILY [facility] Stop: 05/28/17 08:59 Last Admin: 03/30/17 08:28 Dose: 50 mg Miscellaneous (Vte Chemical Prophylaxis Screen/ Admission) 1 ea [facility] PRN PRN PRN Reason: PROTOCOL Stop: 05/28/17 09:00 General: No acute distress HEENT: Atraumatic Neck: Supple Cardiovascular: Regular rate Assessment/Plan - Problem List Patient Problems: All Active Problems Sepsis (Acute) UTI (urinary tract infection) (Acute) WEAKNESS, CHEST PAIN, POOR ORAL INTAKE (Acute) Ataxia (Acute) R27.0 Dementia (Acute) F03.90 Falls (Acute) W19.XXXA HTN (hypertension) (Acute) I10 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
[2017-03-30] MEDS: Azithromycin 500 MG in Sodium Chloride 0.9% 250 ML IV SCH (22:44)
[2017-03-31 07:05] LABS: % EOSINOPHILS 1.5 % (0.0-5.0); % LYMPHOCYTES 13.2 % (20.0-50.0); % MONOCYTES 12.8 % (2.0-10.0); % NEUTROPHILS 72.5 % (40.0-80.0); EOSINOPHILE ABSOLUTE 0.1 Th/cmm (0.1-0.4); HEMATOCRIT 38.4 % (41.0-60); HEMOGLOBIN 12.9 gm/dL (12-16); LYMPHOCYTE ABSOLUTE 1.2 Th/cmm (1.5-3.0); MEAN CORPUSCULAR HEMOGLOBIN 29.6 pg (27.0-31.0); MEAN CORPUSCULAR HGB CONC 33.7 pg (28.0-36.0); MEAN PLATELET VOLUME 6.9 fl; MONOCYTE ABSOLUTE 1.2 Th/cmm (0.3-1.0); NEUTROPHILE ABSOLUTE 6.8 Th/cmm (1.8-8.0); RED BLOOD COUNT 4.36 Mil/cmm (3.80-5.80); RED CELL DISTRIBUTION WIDTH 12.2 % (11.5-20.0)
[2017-03-31 07:06] LABS: PLATELET COUNT 302 Th/cmm (150-400); WHITE BLOOD COUNT 9.3 Th/cmm (4.8-10.8)
[2017-03-31 07:37] LABS: ALB/GLOB RATIO 0.9 (1.0-1.8); ALKALINE PHOSPHATASE 88 U/L (34-104); ANION GAP 9.8 (7.0-16.0); BILIRUBIN,TOTAL 0.4 mg/dL (0.3-1.0); BUN - UREA NITROGEN 20 mg/dL (7-25); CALCIUM SERUM 8.5 mg/dL (8.6-10.3); CHLORIDE 102 mEq/L (98-107); CREATININE - SERUM 0.9 mg/dL (0.7-1.3); GLUCOSE 87 mg/dL (70-105); SGOT 14 U/L (13-39); SGPT/ALT 17 U/L (7-52); SODIUM SERUM 138 mEq/L (136-145); TOTAL PROTEIN,SERUM 6.3 gm/dL (6.0-8.3)
[2017-03-31 07:50] LABS: POTASSIUM SERUM 2.8 mEq/L (3.5-5.1)
[2017-03-31] MEDS ORDERED: Potassium Chloride 20 mEq ER Tab PO ONE ×2 (08:02→09:30)
--- NOTE | 2017-03-31 11:46 | Internal Medicine Prog Note ---
Internal Medicine Subjective - Subjective Service Date: 03/31/17 Patient seen and examined:: with staff Patient is:: awake Per staff patient has:: no adverse event Internal Medicine Objective - Results Result Diagrams: 03/31/17 05:50 03/31/17 05:50 Recent Labs: Laboratory Last Values WBC 9.3 Th/cmm (4.8-10.8) D 03/31/17 05:50 RBC 4.36 Mil/cmm (3.80-5.80) 03/31/17 05:50 Hgb 12.9 gm/dL (12-16) 03/31/17 05:50 Hct 38.4 % (41.0-60) L 03/31/17 05:50 MCV 88.0 fl (80-99) 03/31/17 05:50 MCH 29.6 pg (27.0-31.0) 03/31/17 05:50 MCHC Differential 33.7 pg (28.0-36.0) 03/31/17 05:50 RDW 12.2 % (11.5-20.0) 03/31/17 05:50 Plt Count 302 Th/cmm (150-400) D 03/31/17 05:50 MPV 6.9 fl 03/31/17 05:50 Neutrophils % 72.5 % (40.0-80.0) 03/31/17 05:50 Band Neutrophils % 5 % (0-10) 03/29/17 11:15 Lymphocytes % 13.2 % (20.0-50.0) L 03/31/17 05:50 Monocytes % 12.8 % (2.0-10.0) H 03/31/17 05:50 Eosinophils % 1.5 % (0.0-5.0) 03/31/17 05:50 Basophils % 0.0 % (0.0-2.0) 03/31/17 05:50 Neutrophils (Manual) 88 % (40-80) H 03/29/17 11:15 Lymphocytes 1 % (20-50) L 03/29/17 11:15 Monocytes 5 % (2-10) 03/29/17 11:15 Basophils 1 % (0-3) 03/29/17 11:15 Platelet Estimate INCREASED PLATELETS (NORMAL) 03/29/17 11:15 Sodium 138 mEq/L (136-145) 03/31/17 05:50 Potassium 2.8 mEq/L (3.5-5.1) L* 03/31/17 05:50 Chloride 102 mEq/L (98-107) 03/31/17 05:50 Carbon Dioxide 29.0 mEq/L (21.0-31.0) 03/31/17 05:50 Anion Gap 9.8 (7.0-16.0) 03/31/17 05:50 BUN 20 mg/dL (7-25) 03/31/17 05:50 Creatinine 0.9 mg/dL (0.7-1.3) 03/31/17 05:50 Est GFR ( Amer) TNP 03/31/17 05:50 Est GFR (Non-Af Amer) TNP 03/31/17 05:50 BUN/Creatinine Ratio 22.2 03/31/17 05:50 Glucose 87 mg/dL (70-105) 03/31/17 05:50 Whole Bld Lactic Acid 1.52 mmol/L (0.60-1.99) 03/28/17 10:50 Calcium 8.5 mg/dL (8.6-10.3) L 03/31/17 05:50 Total Bilirubin 0.4 mg/dL (0.3-1.0) 03/31/17 05:50 AST 14 U/L (13-39) 03/31/17 05:50 ALT 17 U/L (7-52) 03/31/17 05:50 Alkaline Phosphatase 88 U/L (34-104) 03/31/17 05:50 Troponin I 0.01 ng/mL (0.01-0.05) 03/28/17 11:05 B-Natriuretic Peptide 21.9 pg/mL (5.0-100.0) 03/28/17 11:05 Total Protein 6.3 gm/dL (6.0-8.3) 03/31/17 05:50 Albumin 3.0 gm/dL (4.2-5.5) L 03/31/17 05:50 Globulin 3.3 gm/dL 03/31/17 05:50 Albumin/Globulin Ratio 0.9 (1.0-1.8) L 03/31/17 05:50 Triglycerides 79 mg/dL (<150) 03/29/17 05:30 Cholesterol 121 mg/dL (<200) 03/29/17 05:30 LDL Cholesterol Direct 64 mg/dL (75-193) L 03/29/17 05:30 HDL Cholesterol 53 mg/dL (23-92) 03/29/17 05:30 TSH 1.00 uIU/ml (0.34-5.60) 03/29/17 05:30 Urine Source RANDOM 03/28/17 16:14 Urine Color YELLOW 03/28/17 16:14 Urine Clarity HAZY (CLEAR) 03/28/17 16:14 Urine pH 7.5 (4.6 - 8.0) 03/28/17 16:14 Ur Specific [place] 1.010 (1.005-1.030) 03/28/17 16:14 Urine Protein NEGATIVE mg/dL (NEGATIVE) 03/28/17 16:14 Urine Glucose (UA) NEGATIVE mg/dL (NEGATIVE) 03/28/17 16:14 Urine Clinitest NEGATIVE mg/dL (NEGATIVE) 03/28/17 16:14 Urine Ketones NEGATIVE mg/dL (NEGATIVE) 03/28/17 16:14 Urine Blood SMALL (NEGATIVE) H 03/28/17 16:14 Urine Nitrate POSITIVE (NEGATIVE) H 03/28/17 16:14 Urine Bilirubin NEGATIVE (NEGATIVE) 03/28/17 16:14 Urine Ictotest NEGATIVE (NEGATIVE) 03/28/17 16:14 Urine Urobilinogen 0.2 E.U./dL (0.2 - 1.0) 03/28/17 16:14 Ur Leukocyte Esterase LARGE (NEGATIVE) H 03/28/17 16:14 Urine RBC 5-10 /hpf (0-5) H 03/28/17 16:14 Urine WBC 50-100 /hpf (0-5) H 03/28/17 16:14 Ur Epithelial Cells OCCASIONAL /lpf (FEW) 03/28/17 16:14 Urine Bacteria 4+ /hpf (NONE SEEN) H 03/28/17 16:14 - Physical Exam Vitals and I&O: Vital Signs Temp 98.2 F 03/31/17 11:35 Pulse 64 03/31/17 11:35 Resp 17 03/31/17 11:35 BP 128/65 03/31/17 11:35 Pulse Ox 99 01/08/18 11:35 Intake & Output 03/30/17 03/31/17 03/31/17 18:59 06:59 18:59 Intake Total 600 250 Balance 600 250 Weight (lbs) 131 lb 131 lb Intake: Intake, IV Amount 50 50 Piperacillin Sodium/ 50 50 Tazobact 2.25 gm In Sodium Chloride 0.9% 50 ml @ 100 mls/hr IV Q8HR [facility] Rx#:[id number] Oral 550 200 Other: # Voids 3 2 # Bowel Movements 0 0 Active Medications: Current Medications Acetaminophen (Tylenol) 650 mg PO Q6H PRN PRN Reason: TEMP >101.1 OR PAIN Stop: 05/27/17 20:38 Acetaminophen (Tylenol) 650 mg PO Q4H PRN PRN Reason: Pain (Moderate) Stop: 05/27/17 20:38 Amlodipine Besylate (Norvasc) 5 mg PO DAILY [facility] Stop: 05/28/17 08:59 Last Admin: 03/31/17 08:47 Dose: 5 mg Docusate Sodium (Colace) 250 mg PO BID [facility] Stop: 05/28/17 08:59 Last Admin: 03/31/17 08:46 Dose: 250 mg Hydrochlorothiazide (Hctz) 12.5 mg PO DAILY [facility] Stop: 05/28/17 08:59 Last Admin: 03/31/17 08:46 Dose: 12.5 mg Azithromycin 500 mg/ Sodium (Chloride) 250 mls @ 250 mls/hr IV Q24HR [facility] Stop: 05/27/17 20:38 Last Admin: 03/30/17 22:44 Dose: 250 mls/hr Piperacillin Sod/Tazobactam (Sod 2.25 gm/ Sodium Chloride) 50 mls @ 100 mls/hr IV Q8HR [facility] Stop: 05/28/17 20:59 Last Admin: 03/31/17 06:00 Dose: 100 mls/hr Losartan Potassium (Cozaar) 50 mg PO DAILY [facility] Stop: 05/28/17 08:59 Last Admin: 03/31/17 08:47 Dose: 50 mg Miscellaneous (Vte Chemical Prophylaxis Screen/ Admission) 1 ea [facility] PRN PRN PRN Reason: PROTOCOL Stop: 05/28/17 09:00 General: alert HEENT: NC/AT, PERRLA Neck: Supple Lungs: CTAB Cardiovascular: RRR, Normal S1, Normal S2, without murmur Abdomen: soft, non-tender, non-distended, positive bowel sound Extremities: ecchymosis Internal Medicine Assmt/Plan - Assessment Assessment: Sepsis (Acute) UTI (urinary tract infection) (Acute) WEAKNESS, CHEST PAIN, POOR ORAL INTAKE (Acute) Ataxia (Acute) R27.0 Dementia (Acute) F03.90 Falls (Acute) W19.XXXA HTN (hypertension) (Acute) I10 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
--- NOTE | 2017-03-31 12:09 | Infectious Disease Prog Note ---
Infectious Disease Subjective - Review of Systems Service Date: 03/31/17 Subjective: No new change. No fever. Infectious Disease Objective - Results Result Diagrams: 03/31/17 05:50 03/31/17 05:50 Recent Labs: Laboratory Last Values WBC 9.3 Th/cmm (4.8-10.8) D 03/31/17 05:50 RBC 4.36 Mil/cmm (3.80-5.80) 03/31/17 05:50 Hgb 12.9 gm/dL (12-16) 03/31/17 05:50 Hct 38.4 % (41.0-60) L 03/31/17 05:50 MCV 88.0 fl (80-99) 03/31/17 05:50 MCH 29.6 pg (27.0-31.0) 03/31/17 05:50 MCHC Differential 33.7 pg (28.0-36.0) 03/31/17 05:50 RDW 12.2 % (11.5-20.0) 03/31/17 05:50 Plt Count 302 Th/cmm (150-400) D 03/31/17 05:50 MPV 6.9 fl 03/31/17 05:50 Neutrophils % 72.5 % (40.0-80.0) 03/31/17 05:50 Band Neutrophils % 5 % (0-10) 03/29/17 11:15 Lymphocytes % 13.2 % (20.0-50.0) L 03/31/17 05:50 Monocytes % 12.8 % (2.0-10.0) H 03/31/17 05:50 Eosinophils % 1.5 % (0.0-5.0) 03/31/17 05:50 Basophils % 0.0 % (0.0-2.0) 03/31/17 05:50 Neutrophils (Manual) 88 % (40-80) H 03/29/17 11:15 Lymphocytes 1 % (20-50) L 03/29/17 11:15 Monocytes 5 % (2-10) 03/29/17 11:15 Basophils 1 % (0-3) 03/29/17 11:15 Platelet Estimate INCREASED PLATELETS (NORMAL) 03/29/17 11:15 Sodium 138 mEq/L (136-145) 03/31/17 05:50 Potassium 2.8 mEq/L (3.5-5.1) L* 03/31/17 05:50 Chloride 102 mEq/L (98-107) 03/31/17 05:50 Carbon Dioxide 29.0 mEq/L (21.0-31.0) 03/31/17 05:50 Anion Gap 9.8 (7.0-16.0) 03/31/17 05:50 BUN 20 mg/dL (7-25) 03/31/17 05:50 Creatinine 0.9 mg/dL (0.7-1.3) 03/31/17 05:50 Est GFR ( Amer) TNP 03/31/17 05:50 Est GFR (Non-Af Amer) TNP 03/31/17 05:50 BUN/Creatinine Ratio 22.2 03/31/17 05:50 Glucose 87 mg/dL (70-105) 03/31/17 05:50 Whole Bld Lactic Acid 1.52 mmol/L (0.60-1.99) 03/28/17 10:50 Calcium 8.5 mg/dL (8.6-10.3) L 03/31/17 05:50 Total Bilirubin 0.4 mg/dL (0.3-1.0) 03/31/17 05:50 AST 14 U/L (13-39) 03/31/17 05:50 ALT 17 U/L (7-52) 03/31/17 05:50 Alkaline Phosphatase 88 U/L (34-104) 03/31/17 05:50 Troponin I 0.01 ng/mL (0.01-0.05) 03/28/17 11:05 B-Natriuretic Peptide 21.9 pg/mL (5.0-100.0) 03/28/17 11:05 Total Protein 6.3 gm/dL (6.0-8.3) 03/31/17 05:50 Albumin 3.0 gm/dL (4.2-5.5) L 03/31/17 05:50 Globulin 3.3 gm/dL 03/31/17 05:50 Albumin/Globulin Ratio 0.9 (1.0-1.8) L 03/31/17 05:50 Triglycerides 79 mg/dL (<150) 03/29/17 05:30 Cholesterol 121 mg/dL (<200) 03/29/17 05:30 LDL Cholesterol Direct 64 mg/dL (75-193) L 03/29/17 05:30 HDL Cholesterol 53 mg/dL (23-92) 03/29/17 05:30 TSH 1.00 uIU/ml (0.34-5.60) 03/29/17 05:30 Urine Source RANDOM 03/28/17 16:14 Urine Color YELLOW 03/28/17 16:14 Urine Clarity HAZY (CLEAR) 03/28/17 16:14 Urine pH 7.5 (4.6 - 8.0) 03/28/17 16:14 Ur Specific [place] 1.010 (1.005-1.030) 03/28/17 16:14 Urine Protein NEGATIVE mg/dL (NEGATIVE) 03/28/17 16:14 Urine Glucose (UA) NEGATIVE mg/dL (NEGATIVE) 03/28/17 16:14 Urine Clinitest NEGATIVE mg/dL (NEGATIVE) 03/28/17 16:14 Urine Ketones NEGATIVE mg/dL (NEGATIVE) 03/28/17 16:14 Urine Blood SMALL (NEGATIVE) H 03/28/17 16:14 Urine Nitrate POSITIVE (NEGATIVE) H 03/28/17 16:14 Urine Bilirubin NEGATIVE (NEGATIVE) 03/28/17 16:14 Urine Ictotest NEGATIVE (NEGATIVE) 03/28/17 16:14 Urine Urobilinogen 0.2 E.U./dL (0.2 - 1.0) 03/28/17 16:14 Ur Leukocyte Esterase LARGE (NEGATIVE) H 03/28/17 16:14 Urine RBC 5-10 /hpf (0-5) H 03/28/17 16:14 Urine WBC 50-100 /hpf (0-5) H 03/28/17 16:14 Ur Epithelial Cells OCCASIONAL /lpf (FEW) 03/28/17 16:14 Urine Bacteria 4+ /hpf (NONE SEEN) H 03/28/17 16:14 - Physical Exam Vitals and I&O: Vital Signs Temp 98.2 F 03/31/17 11:35 Pulse 64 03/31/17 11:35 Resp 17 03/31/17 11:35 BP 128/65 03/31/17 11:35 Pulse Ox 99 03/31/17 11:35 Intake & Output 03/30/17 03/31/1718 18:59 06:59 18:59 Intake Total 600 250 Balance 600 250 Weight (lbs) 59.421 kg 59.421 kg Intake: Intake, IV Amount 50 50 Piperacillin Sodium/ 50 50 Tazobact 2.25 gm In Sodium Chloride 0.9% 50 ml @ 100 mls/hr IV Q8HR [facility] Rx#:[id number] Oral 550 200 Other: # Voids 3 2 # Bowel Movements 0 0 Active Medications: Current Medications Acetaminophen (Tylenol) 650 mg PO Q6H PRN PRN Reason: TEMP >101.1 OR PAIN Stop: 05/27/17 20:38 Acetaminophen (Tylenol) 650 mg PO Q4H PRN PRN Reason: Pain (Moderate) Stop: 05/27/17 20:38 Amlodipine Besylate (Norvasc) 5 mg PO DAILY [facility] Stop: 05/28/17 08:59 Last Admin: 03/31/17 08:47 Dose: 5 mg Docusate Sodium (Colace) 250 mg PO BID [facility] Stop: 05/28/17 08:59 Last Admin: 03/31/17 08:46 Dose: 250 mg Hydrochlorothiazide (Hctz) 12.5 mg PO DAILY [facility] Stop: 05/28/17 08:59 Last Admin: 03/31/17 08:46 Dose: 12.5 mg Azithromycin 500 mg/ Sodium (Chloride) 250 mls @ 250 mls/hr IV Q24HR [facility] Stop: 05/27/17 20:38 Last Admin: 03/30/17 22:44 Dose: 250 mls/hr Piperacillin Sod/Tazobactam (Sod 2.25 gm/ Sodium Chloride) 50 mls @ 100 mls/hr IV Q8HR [facility] Stop: 05/28/17 20:59 Last Admin: 03/31/17 06:00 Dose: 100 mls/hr Losartan Potassium (Cozaar) 50 mg PO DAILY [facility] Stop: 05/28/17 08:59 Last Admin: 03/31/17 08:47 Dose: 50 mg Miscellaneous (Vte Chemical Prophylaxis Screen/ Admission) 1 ea [facility] PRN PRN PRN Reason: PROTOCOL Stop: 05/28/17 09:00 General: no acute distress, well developed, well nourished HEENT: atraumatic, normocephalic, PERRLA, EOMI, moist mucous membrane Neck: supple, no thyromegaly Cardiovascular: S1S2, regular Lungs: clear to percussion, crackles, rhonchi Abdomen: soft, no tender, no distended, no mass Extremities: no cyanosis, no clubbing, no edema Neurological: awake, alert, oriented, CN 2-12 intact, focal findings Infectious Disease Assmt/Plan - Problem List Patient Problems: All Active Problems Sepsis (Acute) UTI (urinary tract infection) (Acute) WEAKNESS, CHEST PAIN, POOR ORAL INTAKE (Acute) Ataxia (Acute) R27.0 Dementia (Acute) F03.90 Falls (Acute) W19.XXXA HTN (hypertension) (Acute) I10 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 Sepsis. Improving. 2. UTI. 3. Aspiration pneumonia. 4. Dementia. 5. Hypertension. - Plan Plan: Continue Zosyn.
[2017-03-31] MEDS: Azithromycin 500 MG in Sodium Chloride 0.9% 250 ML IV SCH (21:40)
[2017-04-01 06:02] LABS: % BASOPHILS 0.6 % (0.0-2.0); % EOSINOPHILS 1.8 % (0.0-5.0); % LYMPHOCYTES 20.4 % (20.0-50.0); % MONOCYTES 12.4 % (2.0-10.0); % NEUTROPHILS 64.8 % (40.0-80.0); EOSINOPHILE ABSOLUTE 0.1 Th/cmm (0.1-0.4); HEMATOCRIT 40.7 % (41.0-60); HEMOGLOBIN 13.4 gm/dL (12-16); LYMPHOCYTE ABSOLUTE 1.6 Th/cmm (1.5-3.0); MEAN CELL VOLUME 87.9 fl (80-99); MEAN CORPUSCULAR HEMOGLOBIN 28.9 pg (27.0-31.0); MEAN CORPUSCULAR HGB CONC 32.9 pg (28.0-36.0); MEAN PLATELET VOLUME 6.3 fl; NEUTROPHILE ABSOLUTE 5.3 Th/cmm (1.8-8.0); PLATELET COUNT 337 Th/cmm (150-400); RED BLOOD COUNT 4.64 Mil/cmm (3.80-5.80); RED CELL DISTRIBUTION WIDTH 12.3 % (11.5-20.0)
[2017-04-01 06:14] LABS: ANION GAP 10.2 (7.0-16.0); BUN - UREA NITROGEN 16 mg/dL (7-25); CALCIUM SERUM 8.6 mg/dL (8.6-10.3); CARBON DIOXIDE 26.4 mEq/L (21.0-31.0); CHLORIDE 104 mEq/L (98-107); CREATININE - SERUM 0.8 mg/dL (0.7-1.3); GLUCOSE 87 mg/dL (70-105); POTASSIUM SERUM 3.6 mEq/L (3.5-5.1); SODIUM SERUM 137 mEq/L (136-145)
--- NOTE | 2017-04-01 16:21 | General Progress Note ---
Subjective - Review of Systems Events since last encounter: no change Objective - Results Result Diagrams: 04/01/17 05:48 04/01/17 05:48 Recent Labs: Laboratory Last Values WBC 8.0 Th/cmm (4.8-10.8) 04/01/17 05:48 RBC 4.64 Mil/cmm (3.80-5.80) 04/01/17 05:48 Hgb 13.4 gm/dL (12-16) 04/01/17 05:48 Hct 40.7 % (41.0-60) L 04/01/17 05:48 MCV 87.9 fl (80-99) 04/01/17 05:48 MCH 28.9 pg (27.0-31.0) 04/01/17 05:48 MCHC Differential 32.9 pg (28.0-36.0) 04/01/17 05:48 RDW 12.3 % (11.5-20.0) 04/01/17 05:48 Plt Count 337 Th/cmm (150-400) 04/01/17 05:48 MPV 6.3 fl 04/01/17 05:48 Neutrophils % 64.8 % (40.0-80.0) 04/01/17 05:48 Band Neutrophils % 5 % (0-10) 03/29/17 11:15 Lymphocytes % 20.4 % (20.0-50.0) 04/01/17 05:48 Monocytes % 12.4 % (2.0-10.0) H 04/01/17 05:48 Eosinophils % 1.8 % (0.0-5.0) 04/01/17 05:48 Basophils % 0.6 % (0.0-2.0) 04/01/17 05:48 Neutrophils (Manual) 88 % (40-80) H 03/29/17 11:15 Lymphocytes 1 % (20-50) L 03/29/17 11:15 Monocytes 5 % (2-10) 03/29/17 11:15 Basophils 1 % (0-3) 03/29/17 11:15 Platelet Estimate INCREASED PLATELETS (NORMAL) 03/29/17 11:15 Sodium 137 mEq/L (136-145) 04/01/17 05:48 Potassium 3.6 mEq/L (3.5-5.1) 04/01/17 05:48 Chloride 104 mEq/L (98-107) 04/01/17 05:48 Carbon Dioxide 26.4 mEq/L (21.0-31.0) 04/01/17 05:48 Anion Gap 10.2 (7.0-16.0) 04/01/17 05:48 BUN 16 mg/dL (7-25) 04/01/17 05:48 Creatinine 0.8 mg/dL (0.7-1.3) 04/01/17 05:48 Est GFR ( Amer) TNP 04/01/17 05:48 Est GFR (Non-Af Amer) TNP 04/01/17 05:48 BUN/Creatinine Ratio 20.0 04/01/17 05:48 Glucose 87 mg/dL (70-105) 04/01/17 05:48 Whole Bld Lactic Acid 1.52 mmol/L (0.60-1.99) 03/28/17 10:50 Calcium 8.6 mg/dL (8.6-10.3) 04/01/17 05:48 Total Bilirubin 0.4 mg/dL (0.3-1.0) 03/31/17 05:50 AST 14 U/L (13-39) 03/31/17 05:50 ALT 17 U/L (7-52) 03/31/17 05:50 Alkaline Phosphatase 88 U/L (34-104) 03/31/17 05:50 Troponin I 0.01 ng/mL (0.01-0.05) 03/28/17 11:05 B-Natriuretic Peptide 21.9 pg/mL (5.0-100.0) 03/28/17 11:05 Total Protein 6.3 gm/dL (6.0-8.3) 03/31/17 05:50 Albumin 3.0 gm/dL (4.2-5.5) L 03/31/17 05:50 Globulin 3.3 gm/dL 03/31/17 05:50 Albumin/Globulin Ratio 0.9 (1.0-1.8) L 03/31/17 05:50 Triglycerides 79 mg/dL (<150) 03/29/17 05:30 Cholesterol 121 mg/dL (<200) 03/29/17 05:30 LDL Cholesterol Direct 64 mg/dL (75-193) L 03/29/17 05:30 HDL Cholesterol 53 mg/dL (23-92) 03/29/17 05:30 TSH 1.00 uIU/ml (0.34-5.60) 03/29/17 05:30 Urine Source RANDOM 03/28/17 16:14 Urine Color YELLOW 03/28/17 16:14 Urine Clarity HAZY (CLEAR) 03/28/17 16:14 Urine pH 7.5 (4.6 - 8.0) 03/28/17 16:14 Ur Specific [place] 1.010 (1.005-1.030) 03/28/17 16:14 Urine Protein NEGATIVE mg/dL (NEGATIVE) 03/28/17 16:14 Urine Glucose (UA) NEGATIVE mg/dL (NEGATIVE) 03/28/17 16:14 Urine Clinitest NEGATIVE mg/dL (NEGATIVE) 03/28/17 16:14 Urine Ketones NEGATIVE mg/dL (NEGATIVE) 03/28/17 16:14 Urine Blood SMALL (NEGATIVE) H 03/28/17 16:14 Urine Nitrate POSITIVE (NEGATIVE) H 03/28/17 16:14 Urine Bilirubin NEGATIVE (NEGATIVE) 03/28/17 16:14 Urine Ictotest NEGATIVE (NEGATIVE) 03/28/17 16:14 Urine Urobilinogen 0.2 E.U./dL (0.2 - 1.0) 03/28/17 16:14 Ur Leukocyte Esterase LARGE (NEGATIVE) H 03/28/17 16:14 Urine RBC 5-10 /hpf (0-5) H 03/28/17 16:14 Urine WBC 50-100 /hpf (0-5) H 03/28/17 16:14 Ur Epithelial Cells OCCASIONAL /lpf (FEW) 03/28/17 16:14 Urine Bacteria 4+ /hpf (NONE SEEN) H 03/28/17 16:14 - Physical Exam Vitals and I&O: Vital Signs Temp 97.1 F 04/01/17 15:21 Pulse 70 04/01/17 15:21 Resp 17 04/01/17 15:21 BP 151/87 04/01/17 15:21 Pulse Ox 99 04/01/17 15:21 Intake & Output 03/31/17 04/01/17 04/01/17 18:59 06:59 18:59 Intake Total 50 100 Balance 50 100 Intake: Intake, IV Amount 50 100 Piperacillin Sodium/ 50 100 Tazobact 2.25 gm In Sodium Chloride 0.9% 50 ml @ 100 mls/hr IV Q8HR [facility] Rx#:[id number] Active Medications: Current Medications Acetaminophen (Tylenol) 650 mg PO Q6H PRN PRN Reason: TEMP >101.1 OR PAIN Stop: 05/27/17 20:38 Acetaminophen (Tylenol) 650 mg PO Q4H PRN PRN Reason: Pain (Moderate) Stop: 05/27/17 20:38 Amlodipine Besylate (Norvasc) 5 mg PO DAILY [facility] Stop: 05/28/17 08:59 Last Admin: 04/01/17 09:06 Dose: 5 mg Docusate Sodium (Colace) 250 mg PO BID [facility] Stop: 05/31/17 16:59 Hydrochlorothiazide (Hctz) 12.5 mg PO DAILY [facility] Stop: 05/28/17 08:59 Last Admin: 04/01/17 09:07 Dose: 12.5 mg Azithromycin 500 mg/ Sodium (Chloride) 250 mls @ 250 mls/hr IV Q24HR [facility] Stop: 05/27/17 20:38 Last Admin: 03/31/17 21:40 Dose: 250 mls/hr Piperacillin Sod/Tazobactam (Sod 2.25 gm/ Sodium Chloride) 50 mls @ 100 mls/hr IV Q8HR [facility] Stop: 05/28/17 20:59 Last Admin: 04/01/17 12:47 Dose: 100 mls/hr Losartan Potassium (Cozaar) 50 mg PO DAILY [facility] Stop: 05/28/17 08:59 Last Admin: 04/01/17 09:07 Dose: 50 mg Miscellaneous (Vte Chemical Prophylaxis Screen/ Admission) 1 ea [facility] PRN PRN PRN Reason: PROTOCOL Stop: 05/28/17 09:00 General: No acute distress HEENT: Atraumatic Neck: Supple Cardiovascular: Regular rate Assessment/Plan - Problem List Patient Problems: All Active Problems Sepsis (Acute) UTI (urinary tract infection) (Acute) WEAKNESS, CHEST PAIN, POOR ORAL INTAKE (Acute) Ataxia (Acute) R27.0 Dementia (Acute) F03.90 Falls (Acute) W19.XXXA HTN (hypertension) (Acute) I10 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 Pt seen lying in bed at the time of visit, awake, not able to comprehend. Spoke with RN, Pt had 70% of breakfast this morning. Per notes, PO intake 25-75%. Current Diet Order/ Nutrition Support mech soft chopped Pertinent Medications colace, piperacillin Pertinent Labs 04/01 nutrition related labs WNL Nutritional Hx/Data Height 1.7 m Height (Calculated Centimeters) 170.2 Current Weight (lbs) 59.421 kg Weight (Calculated Kilograms) 59.4 Weight (Calculated Grams) 28359.6 [place] Body Weight 148 % [place] Body Weight 88 Body Mass Index (BMI) 20.5 Weight Status Approriate GI Symptoms GI Symptoms None Last BM 03/29 Difficult in: None Skin Integrity/Comment: skin tear to right head and buttocks Current %PO Fair (50-74%) Estimated Nutritional Goals BEE in Kcals: Using Current wt Calories/Kcals/Kg 27-32 Kcals Calculated 8403-3054 Protein: Using Current wt Protein g/k.2-1.4 Protein Calculated 72-84 Fluid: ml 1620-1920ml (1ml/kcal) Nutritional Problem 1. Problem Problem increased nutrition needs ( calorie and protein) Etiology increased metablic demand for healing Signs/Symptoms: dx of sepsis Malnutrition Alert Protein-Calorie Malnutrition N/A Is there a minimum of two criteria No selected? Query Text:Check all the applicable criteria. A minimum of two criteria are recommended for diagnosis of either severe or non-severe malnutrition. Intervention/Recommendation Comments 1. Continue with current diet as ordered. 2. Monitor PO intake, wt, labs and skin integrity 3. F/U as moderate risk in 3-5 days, 04/04-04/06, PO check Expected Outcomes/Goals Expected Outcomes/Goals 1. PO intake to meet at least 75% of nutritional needs. 2. Wt stability, skin to remain intact, labs WNL.
--- NOTE | 2017-04-21 11:52 | Discharge Summary ---
DATE OF DISCHARGE: 04/01/2017 HOSPITAL COURSE: A patient of mine, very well known to me in the care home, was brought to the Emergency Room because of increasing confusion and poor appetite and the patient was found to have UTI, sepsis syndrome, dementia, osteoarthritis, atrial fibrillation, and hypertension. The patient was admitted, IV fluids given, IV antibiotics were given. ID doctor was consulted, Dr. Manjarrez as well as Neurological consultation by Dr. Taylor. The patient improved and the patient was in stable condition on 04/01/2017, discharged in stable condition. MEDICATIONS: See the reconciliation sheet. ACTIVITY AND DIET: As per the order sheet. JOB# [id number]
== END 2017-04-01 20:00 | disposition home or self-care (01) | DRG 871 ==
LOC: ER 10:39 → MSI 19:21
PROVIDERS: ADMIT Internal Medicine; ATTEND Internal Medicine
DX: A41.9 Sepsis, unspecified organism (principal); J69.0 Pneumonitis due to inhalation of food and vomit; I48.91 Unspecified atrial fibrillation; N39.0 Urinary tract infection, site not specified; F03.90 Unspecified dementia, unspecified severity, without behavioral disturbance, psychotic disturbance, mood disturbance, and anxiety; M19.90 Unspecified osteoarthritis, unspecified site; I10 Essential (primary) hypertension; R62.7 Adult failure to thrive; M81.0 Age-related osteoporosis without current pathological fracture; M41.9 Scoliosis, unspecified
CPT/HCPCS: 36415-UA; 71045-TC; 80048-TC; 80053-TC; 80061-TC; 81001-TC; 83605; 83880-TC; 84443-TC; 84484-TC; 85007-TC; 85025-TC; 85027-TC; 87086-90; 93005; J0456; J0696; J2543; J7030; Z7610

== ENCOUNTER 2017-09-23 15:46 | Inpatient (IN) | payer MEDICARE, OTHER ==
[2017-09-23 16:28] LABS: % BASOPHILS 0.3 % (0.0-2.0); % EOSINOPHILS 3.8 % (0.0-5.0); % LYMPHOCYTES 27.3 % (20.0-50.0); % MONOCYTES 8.8 % (2.0-10.0); % NEUTROPHILS 59.8 % (40.0-80.0); EOSINOPHILE ABSOLUTE 0.3 Th/cmm (0.1-0.4); HEMOGLOBIN 14.3 gm/dL (12-16); LYMPHOCYTE ABSOLUTE 2.2 Th/cmm (1.5-3.0); MEAN CELL VOLUME 89.2 fl (80-99); MEAN CORPUSCULAR HEMOGLOBIN 29.7 pg (27.0-31.0); MEAN CORPUSCULAR HGB CONC 33.2 pg (28.0-36.0); MEAN PLATELET VOLUME 5.4 fl; MONOCYTE ABSOLUTE 0.7 Th/cmm (0.3-1.0); NEUTROPHILE ABSOLUTE 4.7 Th/cmm (1.8-8.0); PLATELET COUNT 430 Th/cmm (150-400); RED BLOOD COUNT 4.82 Mil/cmm (3.80-5.80); RED CELL DISTRIBUTION WIDTH 12.7 % (11.5-20.0); WHITE BLOOD COUNT 7.9 Th/cmm (4.8-10.8)
[2017-09-23 16:41] LABS: ANION GAP 11.4 (7.0-16.0); BUN - UREA NITROGEN 17 mg/dL (7-25); CALCIUM SERUM 9.6 mg/dL (8.6-10.3); CARBON DIOXIDE 26.9 mEq/L (21.0-31.0); CHLORIDE 93 mEq/L (98-107); CREATININE - SERUM 0.8 mg/dL (0.7-1.3); GLUCOSE 95 mg/dL (70-105); POTASSIUM SERUM 4.3 mEq/L (3.5-5.1); SODIUM SERUM 127 mEq/L (136-145)
[2017-09-23] MEDS ORDERED: Sodium Chloride 0.9% 1,000 ML IV ONE (20:05)
[2017-09-23] MEDS: Sodium Chloride 0.9% 1,000 ML IV SCH (22:38)
[2017-09-23 22:52] VITALS: BP 156/90
--- NOTE | 2017-09-23 23:36 | ED Physician Chart ---
ED Chief Complaint/HPI - Patient Information Date Seen:: 09/23/17 Chief Complaint:: UNWITNESSED FALL History of Present Illness:: PATIENT FELL TODAY. UNWITNESSED FALL, SENT FOR EVALUATION. PATIENT NOT COMPLAINING OF PAIN AT THIS TIME. PATIENT BROUGHT IN BY AMBULANCE. Allergies:: Allergies Allergy/AdvReac Type Severity Reaction Status Date / Time No Known Allergies Allergy Verified 11/27/16 16:38 Vitals:: Vital Signs - 8 hr 09/23/17 09/23/17 16:00 17:42 Temp 96.6 F HR 72 73 RR 16 16 BP 152/89 O2 Sat % 97 99 Historian:: Patient, EMS ED Review of Systems - Review of Systems General/Constitutional: No fever Head: No headache Family Medical History - Family Member Niece History Unknown: Yes Ethnicity: ED Labs/Radiology/EKG Results - Lab Results Results: Laboratory Tests 09/23/17 09/23/17 16:20 16:20 WBC 7.9 RBC 4.82 Hgb 14.3 Hct 43.0 MCV 89.2 MCH 29.7 MCHC Differential 33.2 RDW 12.7 Plt Count 430 H MPV 5.4 Neutrophils % 59.8 Lymphocytes % 27.3 Monocytes % 8.8 Eosinophils % 3.8 Basophils % 0.3 Sodium 127 L Potassium 4.3 Chloride 93 L Carbon Dioxide 26.9 Anion Gap 11.4 BUN 17 Creatinine 0.8 Est GFR ( Amer) TNP Est GFR (Non-Af Amer) TNP BUN/Creatinine Ratio 21.3 Glucose 95 Calcium 9.6 ED Septic Shock - <6hrs of presentation: Vital Signs: Vital Signs - 8 hr 09/23/17 09/23/17 16:00 17:42 Temp 96.6 F HR 72 73 RR 16 16 BP 152/89 O2 Sat % 97 99 ED Discharge Plan - Patient Disposition Admit/Discharge/Transfer: Acute Care w/in this hosp
[2017-09-24 06:06] LABS: % BASOPHILS 1.4 % (0.0-2.0); % EOSINOPHILS 6.5 % (0.0-5.0); % LYMPHOCYTES 31.5 % (20.0-50.0); % MONOCYTES 10.4 % (2.0-10.0); % NEUTROPHILS 50.2 % (40.0-80.0); BASOPHILE ABSOLUTE 0.1 Th/cumm (0-0.2); EOSINOPHILE ABSOLUTE 0.5 Th/cmm (0.1-0.4); HEMATOCRIT 39.5 % (41.0-60); HEMOGLOBIN 13.3 gm/dL (12-16); LYMPHOCYTE ABSOLUTE 2.2 Th/cmm (1.5-3.0); MEAN CELL VOLUME 89.1 fl (80-99); MEAN CORPUSCULAR HEMOGLOBIN 30.1 pg (27.0-31.0); MEAN CORPUSCULAR HGB CONC 33.8 pg (28.0-36.0); MEAN PLATELET VOLUME 5.6 fl; MONOCYTE ABSOLUTE 0.7 Th/cmm (0.3-1.0); NEUTROPHILE ABSOLUTE 3.6 Th/cmm (1.8-8.0); PLATELET COUNT 389 Th/cmm (150-400); RED BLOOD COUNT 4.44 Mil/cmm (3.80-5.80); RED CELL DISTRIBUTION WIDTH 12.7 % (11.5-20.0); WHITE BLOOD COUNT 7.1 Th/cmm (4.8-10.8)
[2017-09-24 06:24] LABS: URINE SOURCE CLEAN C
[2017-09-24 06:31] LABS: ALB/GLOB RATIO 1.6 (1.0-1.8); ALBUMIN 3.5 gm/dL (4.2-5.5); ALKALINE PHOSPHATASE 62 U/L (34-104); ANION GAP 10.4 (7.0-16.0); BILIRUBIN,TOTAL 0.6 mg/dL (0.3-1.0); BUN - UREA NITROGEN 11 mg/dL (7-25); CALCIUM SERUM 8.6 mg/dL (8.6-10.3); CHLORIDE 102 mEq/L (98-107); CREATININE - SERUM 0.6 mg/dL (0.7-1.3); GLUCOSE 76 mg/dL (70-105); LIPASE 19 U/L (11-82); POTASSIUM SERUM 3.4 mEq/L (3.5-5.1); SGOT 13 U/L (13-39); SGPT/ALT 10 U/L (7-52); SODIUM SERUM 132 mEq/L (136-145); TOTAL PROTEIN,SERUM 5.7 gm/dL (6.0-8.3)
[2017-09-24 06:32] LABS: URINE BILIRUBIN NEGATIVE (NEGATIVE); URINE BLOOD NEGATIVE (NEGATIVE); URINE GLUCOSE (UA) NEGATIVE (NEGATIVE); URINE KETONE NEGATIVE (NEGATIVE); URINE LEUKOCYTE ESTERASE NEGATIVE (NEGATIVE); URINE NITRATE NEGATIVE (NEGATIVE); URINE PH 7.5 (4.6 - 8.0); URINE PROTEIN NEGATIVE (NEGATIVE); URINE UROBILINOGEN 0.2 E.U./dL (0.2 - 1.0)
[2017-09-24 06:38] LABS: URINE CLARITY CLEAR (CLEAR); URINE COLOR YELLOW; URINE MICROSCOPIC INDICATED? NO
--- NOTE | 2017-09-24 10:10 | Diagnostic Imaging Report ---
CHEST X-RAY: AP view INDICATION: Pneumonia COMPARISON: Chest x-ray 03/28/2017 FINDINGS: Exam is limited due to patient rotation. Right lower lung zone subsegmental atelectasis versus scarring is noted. Heart size is borderline prominent. No focal consolidation or effusions. No pneumothorax. Old left rib fractures are noted. Postsurgical changes of the left clavicle are noted. IMPRESSION: Limited exam due to rotation. No focal consolidation identified. Right lower lung zone subsegmental atelectasis versus scarring.
--- NOTE | 2017-09-24 10:14 | Diagnostic Imaging Report ---
Pelvis single view Indication: Fall Comparison: none Findings: Mild degenerative changes of both hip joints are noted. No evidence of an acute fracture or dislocation. Degenerative changes of SI joints are also noted. Impression: No evidence of an acute fracture. Degenerative changes. In the setting of trauma, if clinical symptoms persist and there is continued concern for an occult fracture, follow up exams in 5-7 days is suggested.
--- NOTE | 2017-09-24 10:26 | Diagnostic Imaging Report ---
Head CT without intravenous contrast Indication: confusion Comparison: Head CT 11/28/2016 an MRI brain on 12/03/2016 Technique: Axial images were obtained from the vertex to the skull base without IV contrast. Coronal reconstructions were made. Total DLP: 733, [id number] FINDINGS: Images of the brain obtained without contrast demonstrate no evidence of an acute hemorrhage. Atrophy is noted. There is prominence of the third and lateral ventricles. The fourth ventricle is within normal limits. Similar findings were seen on prior exams. Mild white matter disease is noted. No evidence of a skull fracture or focal soft tissue swelling. The visualized paranasal sinuses demonstrate mucosal thickening. Atherosclerosis is noted. IMPRESSION: No evidence of an acute intracranial hemorrhage. Persistent generalized prominence of the third and lateral ventricles. The fourth ventricle is normal in size. Similar finding is seen on prior exams. This may be due to aqueduct stenosis. Alternatively this may be due to patient's atrophy. Mild supratentorial white matter disease which is nonspecific and may be due to chronic microvessel ischemia.. Atherosclerotic vascular disease. Mild sinus disease.
--- NOTE | 2017-09-24 11:35 | Diagnostic Imaging Report ---
Carotid ultrasound HISTORY: Altered mental status COMPARISON: None Technique: Longitudinal and transverse sonographic sector images of the carotid arteries were obtained with doppler analysis. FINDINGS: Exam of the right side demonstrates generalized atherosclerotic vascular disease with moderate generalized atherosclerotic vascular plaque formation. Exam of the left side demonstrates generalized atherosclerotic vascular disease and moderate generalized atherosclerotic plaque formation. The velocity and velocity ratios are within normal limits. Antegrade vertebral artery flow is demonstrated bilaterally. IMPRESSION: Moderate generalized atherosclerotic vascular disease. No evidence of hemodynamic significant stenosis based on peak systolic velocity criteria.
[2017-09-24] MEDS: Sodium Chloride 0.9% 1,000 ML IV SCH (16:45)
--- NOTE | 2017-09-24 18:06 | History & Physical ---
ADMIT DATE: 09/23/2017 HISTORY OF PRESENT ILLNESS: The patient is a very well known to me. This patient came to the Emergency Room from [facility] where I will follow the patient and this patient has been complaining of severe weakness and history of several falls. The patient is complaining of aches all over the body and the patient was evaluated in the Emergency Room and the patient was admitted for ataxia, rule out CVA and TIA and encephalopathy. The patient's temperature was 96.6, pulse was 72, respirations 16. White count was 7.9, hemoglobin 14, hematocrit was 43. Electrolytes are within normal limits. PHYSICAL EXAMINATION: GENERAL: The patient was awake, slightly confused, complaining of generalized weakness, history of several falls at times. HEAD: Normal. ENT: Normal. NECK: Supple, nontender. LUNGS: Bilateral clear. CARDIOVASCULAR SYSTEM: S1, S2 heard. ABDOMEN: Soft. Bowel sounds are heard. CENTRAL NERVOUS SYSTEM: Decreased sensorium. DIAGNOSES: Encephalopathy, history of several falls, rule out transient ischemic attack, history of arthritis was made. PLAN: The patient is being admitted and I will go ahead and do a complete neurological workup. I will have Neuro and Psych see the patient and I will follow the patient. JOB# [id number]
[2017-09-24] MEDS ORDERED: Potassium Chloride Elixir 20 mEq /15 mL UDC PO ONE (19:38)
[2017-09-24] MEDS: Lactulose 10 Gm/15 mL 30mL UDC PO SCH (20:57)
--- NOTE | 2017-09-25 08:23 | Diagnostic Imaging Report ---
KUB single view HISTORY: Constipation. COMPARISON: None FINDINGS: Copious stool is seen throughout the colon gas-filled loops of bowel. Degenerative changes of the spine are noted. Osteopenia suspected. IMPRESSION: Copious amount of stool with gas-filled bowel. Please correlate for possible mild constipation.
[2017-09-25 09:06] LABS: % BASOPHILS 0.6 % (0.0-2.0); % EOSINOPHILS 6.2 % (0.0-5.0); % LYMPHOCYTES 30.5 % (20.0-50.0); % MONOCYTES 9.9 % (2.0-10.0); % NEUTROPHILS 52.8 % (40.0-80.0); EOSINOPHILE ABSOLUTE 0.4 Th/cmm (0.1-0.4); HEMOGLOBIN 13.4 gm/dL (12-16); MEAN CELL VOLUME 89.3 fl (80-99); MEAN CORPUSCULAR HEMOGLOBIN 29.9 pg (27.0-31.0); MEAN CORPUSCULAR HGB CONC 33.5 pg (28.0-36.0); MEAN PLATELET VOLUME 5.4 fl; MONOCYTE ABSOLUTE 0.6 Th/cmm (0.3-1.0); NEUTROPHILE ABSOLUTE 3.5 Th/cmm (1.8-8.0); PLATELET COUNT 389 Th/cmm (150-400); RED BLOOD COUNT 4.48 Mil/cmm (3.80-5.80); WHITE BLOOD COUNT 6.5 Th/cmm (4.8-10.8)
[2017-09-25] MEDS: Lactulose 10 Gm/15 mL 30mL UDC PO SCH ×3 (09:17→20:26)
[2017-09-25 09:23] LABS: ANION GAP 10.4 (7.0-16.0); BUN - UREA NITROGEN 8 mg/dL (7-25); CALCIUM SERUM 8.8 mg/dL (8.6-10.3); CARBON DIOXIDE 23.5 mEq/L (21.0-31.0); CHLORIDE 100 mEq/L (98-107); CREATININE - SERUM 0.6 mg/dL (0.7-1.3); GLUCOSE 84 mg/dL (70-105); POTASSIUM SERUM 3.9 mEq/L (3.5-5.1); SODIUM SERUM 130 mEq/L (136-145)
--- NOTE | 2017-09-25 14:38 | Diagnostic Imaging Report ---
Ultrasound abdomen HISTORY: Elevated ammonia COMPARISON: None Technique: Sonography of the abdomen was performed in multiple planes. FINDINGS: Exam is limited due to bowel gas and body habitus. The liver demonstrates normal echogenicity and measures 18.1 cm. There are multiple cystic lesions some of which demonstrating septations, the largest within the right lobe measuring 4.3 x 4.8 cm. Some of These lesions demonstrate internal echoes. There may be small amount of gallbladder sludge. No discrete stones identified. The gallbladder wall measures 3 mm. The common bile duct measures 3 mm. Assessment of the pancreas is limited due to bowel gas. The right kidney measures 10.2 x 3.9 cm. No evidence of focal lesions or hydronephrosis. The left kidney measures 11.1 x 4.8 cm demonstrating indeterminate large echogenic mass measuring 5.7 x 5.9 cm. No hydronephrosis. The spleen measures 8.8 cm. The abdominal aorta was suboptimally visualized. IMPRESSION: Large echogenic mass arising from the left kidney. Neoplasm such as renal cell carcinoma cannot be excluded and further assessment with CT renal mass protocol is recommended. Mildly prominent liver with multiple lesions likely representative phlebotomy services of hepatic cysts. Internal echoes may be due to hemorrhagic and proteinaceous components. Follow up CT would further clarify Possible small amount of gallbladder sludge. No discrete gallstones identified. Borderline prominence of the gallbladder wall was also noted. Results were communicated to the referring team on 09/25/2017.
--- NOTE | 2017-09-25 17:02 | General Progress Note ---
Subjective - Review of Systems Subjective: pt. c/o's of increasing weakness Objective - Results Result Diagrams: 09/25/17 08:55 09/25/17 08:55 Recent Labs: Laboratory Last Values WBC 6.5 Th/cmm (4.8-10.8) 09/25/17 08:55 RBC 4.48 Mil/cmm (3.80-5.80) 09/25/17 08:55 Hgb 13.4 gm/dL (12-16) 09/25/17 08:55 Hct 40.0 % (41.0-60) L 09/25/17 08:55 MCV 89.3 fl (80-99) 09/25/17 08:55 MCH 29.9 pg (27.0-31.0) 09/25/17 08:55 MCHC Differential 33.5 pg (28.0-36.0) 09/25/17 08:55 RDW 13.0 % (11.5-20.0) 09/25/17 08:55 Plt Count 389 Th/cmm (150-400) 09/25/17 08:55 MPV 5.4 fl 09/25/17 08:55 Neutrophils % 52.8 % (40.0-80.0) 09/25/17 08:55 Lymphocytes % 30.5 % (20.0-50.0) 09/25/17 08:55 Monocytes % 9.9 % (2.0-10.0) 09/25/17 08:55 Eosinophils % 6.2 % (0.0-5.0) H 09/25/17 08:55 Basophils % 0.6 % (0.0-2.0) 09/25/17 08:55 Sodium 130 mEq/L (136-145) L 09/25/17 08:55 Potassium 3.9 mEq/L (3.5-5.1) 09/25/17 08:55 Chloride 100 mEq/L (98-107) 09/25/17 08:55 Carbon Dioxide 23.5 mEq/L (21.0-31.0) 09/25/17 08:55 Anion Gap 10.4 (7.0-16.0) 09/25/17 08:55 BUN 8 mg/dL (7-25) 09/25/17 08:55 Creatinine 0.6 mg/dL (0.7-1.3) L 09/25/17 08:55 Est GFR ( Amer) TNP 09/25/17 08:55 Est GFR (Non-Af Amer) TNP 09/25/17 08:55 BUN/Creatinine Ratio 13.3 09/25/17 08:55 Glucose 84 mg/dL (70-105) 09/25/17 08:55 Calcium 8.8 mg/dL (8.6-10.3) 09/25/17 08:55 Total Bilirubin 0.6 mg/dL (0.3-1.0) 09/24/17 05:25 AST 13 U/L (13-39) 09/24/17 05:25 ALT 10 U/L (7-52) 09/24/17 05:25 Alkaline Phosphatase 62 U/L (34-104) 09/24/17 05:25 Ammonia 62 umol/L (16-53) H 09/24/17 05:35 Total Protein 5.7 gm/dL (6.0-8.3) L 09/24/17 05:25 Albumin 3.5 gm/dL (4.2-5.5) L 09/24/17 05:25 Globulin 2.2 gm/dL 09/24/17 05:25 Albumin/Globulin Ratio 1.6 (1.0-1.8) 09/24/17 05:25 Lipase 19 U/L (11-82) 09/24/17 05:25 TSH 1.62 uIU/ml (0.34-5.60) 09/24/17 05:35 Urine Source CLEAN C 09/24/17 06:15 Urine Color YELLOW 09/24/17 06:15 Urine Clarity CLEAR (CLEAR) 09/24/17 06:15 Urine pH 7.5 (4.6 - 8.0) 09/24/17 06:15 Ur Specific [place] 1.010 (1.005-1.030) 09/24/17 06:15 Urine Protein NEGATIVE mg/dL (NEGATIVE) 09/24/17 06:15 Urine Glucose (UA) NEGATIVE mg/dL (NEGATIVE) 09/24/17 06:15 Urine Ketones NEGATIVE mg/dL (NEGATIVE) 09/24/17 06:15 Urine Blood NEGATIVE (NEGATIVE) 09/24/17 06:15 Urine Nitrate NEGATIVE (NEGATIVE) 09/24/17 06:15 Urine Bilirubin NEGATIVE (NEGATIVE) 09/24/17 06:15 Urine Urobilinogen 0.2 E.U./dL (0.2 - 1.0) 09/24/17 06:15 Ur Leukocyte Esterase NEGATIVE (NEGATIVE) 09/24/17 06:15 - Physical Exam Vitals and I&O: Vital Signs Temp 97.8 F 09/25/17 12:12 Pulse 72 09/25/17 12:12 Resp 18 09/25/17 12:12 BP 136/70 09/25/17 12:12 Pulse Ox 97 09/25/17 12:12 Intake & Output 09/24/17 09/25/17 09/25/17 18:59 06:59 18:59 Intake Total 2500 200 Output Total 0 0 Balance 2500 200 Weight (lbs) 60.838 kg 60.838 kg Intake: Intake, IV Amount 1000 Sodium Chloride 0.9% 1, 1000 000 ml @ 100 mls/hr IV . Q10H [facility] Rx#:[id number] Oral 1500 200 Output: Stool 0 0 Other: # Voids 2 2 # Bowel Movements 0 Weight Source Bedscale Bedscale Active Medications: Current Medications Acetaminophen (Tylenol) 650 mg PO Q6H PRN PRN Reason: TEMP >101.1 OR PAIN Stop: 11/22/17 20:23 Last Admin: 09/24/17 18:04 Dose: 650 mg Amlodipine Besylate (Norvasc) 5 mg PO DAILY [facility] Stop: 11/23/17 08:59 Last Admin: 09/25/17 09:17 Dose: Not Given Docusate Sodium (Colace) 250 mg PO BID [facility] Stop: 11/23/17 08:59 Last Admin: 09/25/17 09:17 Dose: Not Given Hydrochlorothiazide (Hctz) 12.5 mg PO DAILY [facility] Stop: 11/23/17 08:59 Last Admin: 09/25/17 09:17 Dose: Not Given Sodium Chloride (Nacl 0.9%) 1,000 mls @ 100 mls/hr IV .Q10H [facility] Stop: 11/22/17 21:59 Last Admin: 09/24/17 16:45 Dose: 100 mls/hr Lactulose (Cephulac) 20 gm PO TID [facility] Stop: 11/23/17 20:59 Last Admin: 09/25/17 13:47 Dose: 20 gm Losartan Potassium (Cozaar) 50 mg PO DAILY [facility] Stop: 11/23/17 08:59 Last Admin: 09/25/17 09:17 Dose: Not Given General: Alert, No acute distress HEENT: PERRLA, EOMI Neck: Supple Cardiovascular: Normal S1, Normal S2 Lungs: Clear to auscultation Abdomen: Bowel sounds Neurological: Other (unsteady gait) Assessment/Plan - Assessment Assessment: encephalopathy h/o falls r/o transient ischemic attack h/o arthritis - Plan Plan: neuro & psych eval continue current orders continue present management
--- NOTE | 2017-09-25 20:40 | Consultation ---
DATE OF CONSULTATION: 09/25/2017 INPATIENT GASTROINTESTINAL CONSULTATION REFERRING PHYSICIAN: Dr. Ivy. REASON FOR CONSULTATION: Elevated ammonia level. HISTORY OF PRESENT ILLNESS: This is an 81-year-old male who is from a skilled facility. The patient was sent over because of weakness and several falls. The patient had an elevated ammonia level, therefore primary doctor asked to see this patient. The patient is otherwise a poor historian. Staff noted no complaints of abdominal pain, no nausea, no vomiting, no diarrhea. No constipation. No hematemesis, coffee-ground emesis, melena or hematochezia. PAST MEDICAL HISTORY: Stroke, TIA. PAST SURGICAL HISTORY: Unknown. FAMILY HISTORY: Noncontributory. SOCIAL HISTORY: Resident of skilled facility. ALLERGIES: None. CURRENT MEDICATIONS: Tylenol, Norvasc, Colace, hydrochlorothiazide, lactulose, Cozaar, normal saline. REVIEW OF SYSTEMS: Unobtainable. PHYSICAL EXAMINATION: VITAL SIGNS: Temperature 98.6, breathing 18, pulse of 81, blood pressure 144/82, satting 96%. GENERAL: In no apparent distress. EYES: Anicteric. Normal conjunctivae. HEENT: Normocephalic, atraumatic. Moist mucous membranes. NECK: Soft, supple. CHEST: Clear, normal effort. CARDIOVASCULAR: Regular rate and rhythm. ABDOMEN: Soft, nontender, nondistended. SKIN: Warm, dry. EXTREMITIES: Reveal no cyanosis. PSYCHOLOGIC: Alert and oriented x 1. LABORATORY DATA: Show white count 7.1, hemoglobin 13.3, platelets of 389. Total bilirubin 0.6, AST 13, ALT 10, alkaline phosphatase 62, ammonia level 62, lipase 19. IMPRESSION: An 81-year-old male with elevated ammonia level, this could be due to a metabolic condition as opposed underlying liver disease. Liver function tests and platelet count are within normal limits, making liver disease less likely. An INR can also be checked as well as an abdominal ultrasound to determine if there is any underlying liver disease, a viral hepatitis screen can also be performed. PLAN: 1. Check abdominal ultrasound. 2. Check INR. 3. Check hepatitis panel. 4. Provide the patient with lactulose. Thank you for allowing me to participate. Please call me if any questions. JOB# [id number]
--- NOTE | 2017-09-25 23:48 | Consultation ---
DATE OF CONSULTATION: 09/24/[address] Ivy. HISTORY OF PRESENT ILLNESS: This is an 81-year-old male patient brought to the Emergency Room with altered level of consciousness. The patient has elevated ammonia level. The patient has poor oral intake. PAST MEDICAL HISTORY: The patient has a history of dementia, hyponatremia, dysphagia, and ataxia. FAMILY HISTORY: Unremarkable. SOCIAL HISTORY: No history of smoking or alcohol abuse. ALLERGIES: No known allergies. PHYSICAL EXAMINATION: VITAL SIGNS: Blood pressure 130/80, pulse 80, and respirations 28. HEAD: Normocephalic. No lumps or bumps. EYES: Pupils equal, reactive to light. Fundi show AV nicking, sclerae white, conjunctivae pink. NECK: Carotid 2+. Normal upstroke. JVD flat. Thyroid not palpable. Lymph nodes not palpable. CHEST: Shows increased AP diameter. No kyphosis, scoliosis. LUNGS: Bilateral bronchovesicular breath sounds. HEART: PMI fifth intercostal space with lateral to midclavicular line. S1, S2. No S3, S4, soft systolic murmur. ABDOMEN: Soft. Liver, spleen not palpable. No organomegaly. Bowel sounds active. NEUROLOGIC: The patient is confused. No focal neurological deficit. EXTREMITIES: Peripheral pulses 2+. No pedal edema. CLINICAL IMPRESSION: Hyponatremia, ataxia, hepatic encephalopathy, dysphagia, and dementia. PLAN: Admit the patient. The patient has no atrial fibrillation and hence, we will stop the monitor, the patient to have GI evaluation. JOB# [id number]
[2017-09-26] MEDS: Sodium Chloride 0.9% 1,000 ML IV SCH ×2 (02:08→09:19)
[2017-09-26 05:54] LABS: ALB/GLOB RATIO 1.4 (1.0-1.8); ALBUMIN 3.7 gm/dL (4.2-5.5); BILIRUBIN,DIRECT 0.16 mg/dL (0.0-0.2); BILIRUBIN,TOTAL 0.5 mg/dL (0.3-1.0); TOTAL PROTEIN,SERUM 6.3 gm/dL (6.0-8.3)
[2017-09-26] MEDS: Lactulose 10 Gm/15 mL 30mL UDC PO SCH ×3 (08:25→20:10)
--- NOTE | 2017-09-26 08:55 | GI Progress Note ---
Subjective - Review of Systems Subjective: NO EVENTS EATING BREAKFAST Objective - Results Result Diagrams: 09/25/17 08:55 09/25/17 08:55 Recent Labs: Laboratory Last Values WBC 6.5 Th/cmm (4.8-10.8) 09/25/17 08:55 RBC 4.48 Mil/cmm (3.80-5.80) 09/25/17 08:55 Hgb 13.4 gm/dL (12-16) 09/25/17 08:55 Hct 40.0 % (41.0-60) L 09/25/17 08:55 MCV 89.3 fl (80-99) 09/25/17 08:55 MCH 29.9 pg (27.0-31.0) 09/25/17 08:55 MCHC Differential 33.5 pg (28.0-36.0) 09/25/17 08:55 RDW 13.0 % (11.5-20.0) 09/25/17 08:55 Plt Count 389 Th/cmm (150-400) 09/25/17 08:55 MPV 5.4 fl 09/25/17 08:55 Neutrophils % 52.8 % (40.0-80.0) 09/25/17 08:55 Lymphocytes % 30.5 % (20.0-50.0) 09/25/17 08:55 Monocytes % 9.9 % (2.0-10.0) 09/25/17 08:55 Eosinophils % 6.2 % (0.0-5.0) H 09/25/17 08:55 Basophils % 0.6 % (0.0-2.0) 09/25/17 08:55 Sodium 130 mEq/L (136-145) L 09/25/17 08:55 Potassium 3.9 mEq/L (3.5-5.1) 09/25/17 08:55 Chloride 100 mEq/L (98-107) 09/25/17 08:55 Carbon Dioxide 23.5 mEq/L (21.0-31.0) 09/25/17 08:55 Anion Gap 10.4 (7.0-16.0) 09/25/17 08:55 BUN 8 mg/dL (7-25) 09/25/17 08:55 Creatinine 0.6 mg/dL (0.7-1.3) L 09/25/17 08:55 Est GFR ( Amer) TNP 09/25/17 08:55 Est GFR (Non-Af Amer) TNP 09/25/17 08:55 BUN/Creatinine Ratio 13.3 09/25/17 08:55 Glucose 84 mg/dL (70-105) 09/25/17 08:55 Calcium 8.8 mg/dL (8.6-10.3) 09/25/17 08:55 Total Bilirubin 0.5 mg/dL (0.3-1.0) 09/26/17 04:15 Direct Bilirubin 0.16 mg/dL (0.0-0.2) 09/26/17 04:15 AST 15 U/L (13-39) 09/26/17 04:15 ALT 13 U/L (7-52) 09/26/17 04:15 Alkaline Phosphatase 61 U/L (34-104) 09/26/17 04:15 Ammonia 51 umol/L (16-53) 09/26/17 04:15 Total Protein 6.3 gm/dL (6.0-8.3) 09/26/17 04:15 Albumin 3.7 gm/dL (4.2-5.5) L 09/26/17 04:15 Globulin 2.6 gm/dL 09/26/17 04:15 Albumin/Globulin Ratio 1.4 (1.0-1.8) 09/26/17 04:15 Lipase 19 U/L (11-82) 09/24/17 05:25 TSH 1.62 uIU/ml (0.34-5.60) 09/24/17 05:35 Urine Source CLEAN C 09/24/17 06:15 Urine Color YELLOW 09/24/17 06:15 Urine Clarity CLEAR (CLEAR) 09/24/17 06:15 Urine pH 7.5 (4.6 - 8.0) 09/24/17 06:15 Ur Specific [place] 1.010 (1.005-1.030) 09/24/17 06:15 Urine Protein NEGATIVE mg/dL (NEGATIVE) 09/24/17 06:15 Urine Glucose (UA) NEGATIVE mg/dL (NEGATIVE) 09/24/17 06:15 Urine Ketones NEGATIVE mg/dL (NEGATIVE) 09/24/17 06:15 Urine Blood NEGATIVE (NEGATIVE) 09/24/17 06:15 Urine Nitrate NEGATIVE (NEGATIVE) 09/24/17 06:15 Urine Bilirubin NEGATIVE (NEGATIVE) 09/24/17 06:15 Urine Urobilinogen 0.2 E.U./dL (0.2 - 1.0) 09/24/17 06:15 Ur Leukocyte Esterase NEGATIVE (NEGATIVE) 09/24/17 06:15 - Physical Exam Vitals and I&O: Vital Signs Temp 97.9 F 09/26/17 04:00 Pulse 64 09/26/17 08:24 Resp 17 09/26/17 04:00 BP 168/91 09/26/17 08:24 Pulse Ox 96 09/26/17 04:00 Intake & Output 09/25/17 09/26/17 09/26/17 18:59 06:59 18:59 Intake Total 400 Balance 400 Weight (lbs) 60.781 kg 59.421 kg Intake: Oral 400 Other: # Voids 3 2 # Bowel Movements 1 Weight Source Bedscale Bedscale Active Medications: Current Medications Acetaminophen (Tylenol) 650 mg PO Q6H PRN PRN Reason: TEMP >101.1 OR PAIN Stop: 11/22/17 20:23 Last Admin: 09/24/17 18:04 Dose: 650 mg Amlodipine Besylate (Norvasc) 5 mg PO DAILY [facility] Stop: 11/23/17 08:59 Last Admin: 09/26/17 08:24 Dose: 5 mg Docusate Sodium (Colace) 250 mg PO BID [facility] Stop: 11/23/17 08:59 Last Admin: 09/26/17 08:24 Dose: 250 mg Hydrochlorothiazide (Hctz) 12.5 mg PO DAILY [facility] Stop: 11/23/17 08:59 Last Admin: 09/26/17 08:23 Dose: 12.5 mg Sodium Chloride (Nacl 0.9%) 1,000 mls @ 50 mls/hr IV .Q20H [facility] Stop: 11/25/17 08:59 Lactulose (Cephulac) 20 gm PO TID [facility] Stop: 11/23/17 20:59 Last Admin: 09/26/17 08:25 Dose: 20 gm Losartan Potassium (Cozaar) 50 mg PO DAILY [facility] Stop: 11/23/17 08:59 Last Admin: 09/26/17 08:24 Dose: 50 mg General: Alert, No acute distress HEENT: PERRLA, EOMI Neck: Supple Cardiovascular: Normal S1, Normal S2 Lungs: Clear to auscultation Abdomen: Bowel sounds Neurological: Other (unsteady gait) Assessment/Plan - Assessment Assessment: 81 YO MALE WITH ELEVATED AMMONIA THAT HAS NORMALIZED LIKELY FROM CONSTIPATION LFTS ARE NORMAL JOSÉ MIGUEL SHOWED LEFT RENAL MASS, LIVER CYST, AND GALLBLADDER SLUDGE KUB SHOWED STOOL 1.UROLOGY INPUT 2.CONT LACTULOSE 3.CHECK INR, VIRAL HEP PANEL 4.CT LIVER
[2017-09-26 09:16] LABS: INR 1.06 (0.5-1.4)
[2017-09-26] MEDS ORDERED: IOHEXOL 300mgI/mL 100 ML VIAL IVP ONE (09:46)
--- NOTE | 2017-09-26 13:16 | Diagnostic Imaging Report ---
Exam: CT examination abdomen HISTORY: Liver lesions Total DLP equals 192 CTDI equals 8.2 Findings: Multiple contiguous thin section of the abdomen pelvis obtained from lower thorax to pubic symphysis with administration of intravenous contrast material. The study was performed utilizing three-phase contrast injection liver protocol. The study demonstrates a normal aeration of lung parenchyma the bases. There is evidence for multiple cysts throughout the liver parenchyma largest one in the left lobe of liver measuring 5.4 cm diameter. The spleen is intact. The stomach is normal. The gallbladder is intact. There is evidence for left renal mass measuring 5.8 cm. Angiomyolipoma cannot be excluded. Clinical correlation recommended. The visualized gallbladder is intact. No free fluid is noted. Large amount of fecal content is noted throughout the colon. Urinary bladder is distended. Evidence for fecal impaction the rectum. Bony structures demonstrate no evidence for lytic or blastic changes. IMPRESSION: Multiple well-defined cysts throughout the liver parenchyma, largest measuring 5.4 cm diameter. 5.8 cm left renal mass, clinical correlation recommended. Fecal impaction
--- NOTE | 2017-09-26 15:26 | Consultation ---
DATE OF CONSULTATION: UROLOGY CONSULTATION REASON FOR CONSULTATION: Seen for large kidney mass. INDICATIONS: The patient is an 81-year-old was admitted following change of mental status, elevated ammonia level, weakness and several falls. [facility] He also has generalized body pain. He was found to have ataxia and admitted for further workup. He denies any urinary problems of pain in the flanks, bleeding, or previous operations on the kidneys or bladder or stone disease; however, the patient is not a very good historian and does have confusion and memory lapses, therefore, history is not completely reliable. He denies urinary symptoms or complaints and is incontinent in a diaper. PAST MEDICAL HISTORY: History of stroke and TIA. Probably hypertension, but no other details known. PAST SURGICAL HISTORY: Unknown. The patient denies any procedures. ALLERGIES: None. HOME MEDICATIONS BEFORE ADMISSION: Tylenol, amlodipine, hydrochlorothiazide and Cozaar. REVIEW OF SYSTEMS: Significant weakness, fall, altered level of consciousness and loss of balance. No headache or seizures. No chest pain, coughing or shortness of breath. No difficulty swallowing or sore throat. No abdominal pain, vomiting or diarrhea, and no dysuria or hematuria. No skin rashes. No joint swellings. PHYSICAL EXAMINATION: GENERAL: On exam, he is an elderly, frail, pleasant gentleman with a BMI of 24. He seems somewhat confused. Apparently, has no family members and does have a conservator. VITAL SIGNS: Temperature 97.9, heart rate 64, blood pressure 168/91. No fever recorded in the hospital. HEAD AND NECK: Normocephalic. Trachea central. Pupils equal and reactive. No jaundice. Thyroid and lymph nodes not palpable. Carotid bruit absent. CHEST: Symmetrical. LUNGS: Clear. No rales or rhonchi. HEART: Sounds normal in sinus rhythm, no murmur. ABDOMEN: Soft, nontender. No organomegaly, mass, or hernia. Kidneys not palpable or tender. EXTREMITIES: No edema or lymphadenopathy. NEUROLOGIC: Nonfocal. Moves all 4 limbs. DIAGNOSTIC DATA: Ultrasound of the abdomen showed a large 10 cm mass in the left kidney suspicious for malignancy. Hepatic cysts were noted and some gallbladder sludge. Pelvis x-ray showed no acute changes or fractures. Chest x-ray, right lower lobe atelectasis and scarring and a head CT showed no evidence of acute changes. Carotid ultrasound, no evidence of hemodynamic significant stenosis. KUB, mild constipation. GI consult evaluated him for elevated ammonia, which came back normal in the day or two and they have recommended no further workup. LABORATORY DATA: White count 6.5, hemoglobin 13.4, stable, platelets 389. PT and PTT normal. Sodium was low initially at 127, now 130 and BUN 8, creatinine 0.6. Liver functions are normal. Urine is also normal without any blood or red cells. IMPRESSION: Incidental large left renal mass. Recommend research if patient had a previous exams or workup for this mass and if it was a whole diagnosis or not. This would require a CT scan with and without contrast to make a definitive diagnosis about malignancy or rule it out and subsequently a big operation that the patient may or may not be able to handle. Before we proceed in that direction, we need to find out about his previous history. His general medical condition and ability to undertake this operation as well as the consent process from the family or conservator. Nurses were instructed to find this information and then inform me accordingly. History of fall and ataxia probably from previous stroke and residual deficit. History of hypertension, currently not very well controlled. JOB# [id number]
[2017-09-27] MEDS: Sodium Chloride 0.9% 1,000 ML IV SCH (06:16)
[2017-09-27] MEDS: Lactulose 10 Gm/15 mL 30mL UDC PO SCH ×3 (08:42→20:51)
[2017-09-28] MEDS: Sodium Chloride 0.9% 1,000 ML IV SCH (00:30)
--- NOTE | 2017-09-28 00:46 | Progress Notes ---
DATE: 09/27/2017 The patient is stable neurologically without pain, bleeding or dysuria. He still needs some restraints and remains somewhat altered. He is tolerating diet. PHYSICAL EXAMINATION: VITAL SIGNS: On exam, blood pressure 110/53, temperature 98, heart rate 59, saturating 98%. ABDOMEN: Soft. Left flank and left upper quadrant, suggestion of a mass in the kidney. No tenderness, no hernia. EXTREMITIES: No edema. HEART AND LUNG: Sounds normal. 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 Meanwhile, we have continued supportive and symptomatic treatment for his altered level of consciousness, ataxia and hypertension. IMPRESSION: Large left renal mass. PLAN: We will discuss with radiologist and would like to follow up in the office closely to decide if this requires further intervention in terms of embolization or surgery or simple followup. JOB# [id number]
--- NOTE | 2017-09-28 03:56 | Progress Notes ---
DATE: 09/27/2017 SUBJECTIVE: The patient was seen in his room, lying in the bed. The patient is a poor historian due to medical condition. The patient appears to be irritable, otherwise the patient is in no acute distress. OBJECTIVE: VITAL SIGNS: Temperature 98.9, heart rate 60, blood pressure 108/64, respirations 17, 95% on room air. HEENT: Head is atraumatic and normocephalic. Eyes: Bilateral conjunctivae are clear. Bilateral pupils are equally round and reactive. NECK: Supple. No JVD. CARDIOVASCULAR: S1 and S2, without murmur. PULMONARY: Clear to auscultation. GASTROINTESTINAL: Soft and nontender without guarding. Positive bowel sounds. MUSCULOSKELETAL: No clubbing. No cyanosis noted. ASSESSMENT: 1. Encephalopathy. 2. Dementia. 3. Osteoarthritis. 4. Renal mass. PLAN: We will continue to monitor the patient's electrolyte levels. Also going to monitor for the ammonia level. The patient was seen by urologist at this point due to his medical condition and considering his age, surgery may not be the first option in terms with a renal mass. Otherwise, he will continue current treatment. Plan of care was discussed with the patient's nurse. Plan of treatment was discussed with Dr. Ivy. JOB# [id number]
[2017-09-28 04:57] LABS: RED BLOOD COUNT 4.96 Mil/cmm (3.80-5.80); WHITE BLOOD COUNT 7.4 Th/cmm (4.8-10.8)
[2017-09-28 04:58] LABS: % BASOPHILS 0.5 % (0.0-2.0); % EOSINOPHILS 4.3 % (0.0-5.0); % LYMPHOCYTES 30.1 % (20.0-50.0); % MONOCYTES 9.8 % (2.0-10.0); % NEUTROPHILS 55.3 % (40.0-80.0); EOSINOPHILE ABSOLUTE 0.3 Th/cmm (0.1-0.4); HEMATOCRIT 44.1 % (41.0-60); HEMOGLOBIN 14.6 gm/dL (12-16); LYMPHOCYTE ABSOLUTE 2.2 Th/cmm (1.5-3.0); MEAN CORPUSCULAR HEMOGLOBIN 29.4 pg (27.0-31.0); MEAN CORPUSCULAR HGB CONC 33.1 pg (28.0-36.0); MEAN PLATELET VOLUME 5.5 fl; MONOCYTE ABSOLUTE 0.7 Th/cmm (0.3-1.0); NEUTROPHILE ABSOLUTE 4.2 Th/cmm (1.8-8.0); PLATELET COUNT 390 Th/cmm (150-400); RED CELL DISTRIBUTION WIDTH 12.4 % (11.5-20.0)
[2017-09-28 05:23] LABS: ALB/GLOB RATIO 1.6 (1.0-1.8); ALBUMIN 4.2 gm/dL (4.2-5.5); ALKALINE PHOSPHATASE 61 U/L (34-104); BILIRUBIN,TOTAL 0.6 mg/dL (0.3-1.0); BUN - UREA NITROGEN 7 mg/dL (7-25); CALCIUM SERUM 9.3 mg/dL (8.6-10.3); CARBON DIOXIDE 25.3 mEq/L (21.0-31.0); CHLORIDE 95 mEq/L (98-107); CREATININE - SERUM 0.6 mg/dL (0.7-1.3); GLUCOSE 78 mg/dL (70-105); POTASSIUM SERUM 3.3 mEq/L (3.5-5.1); SGOT 14 U/L (13-39); SGPT/ALT 14 U/L (7-52); SODIUM SERUM 129 mEq/L (136-145); TOTAL PROTEIN,SERUM 6.9 gm/dL (6.0-8.3)
[2017-09-28] MEDS: Lactulose 10 Gm/15 mL 30mL UDC PO SCH ×3 (09:31→20:20)
--- NOTE | 2017-09-28 11:51 | General Progress Note ---
Subjective - Review of Systems Events since last encounter: still confused in no distress no fever Subjective: pt. c/o's of increasing weakness Objective - Results Result Diagrams: 09/28/17 04:50 09/28/17 04:50 Recent Labs: Laboratory Last Values WBC 7.4 Th/cmm (4.8-10.8) 09/28/17 04:50 RBC 4.96 Mil/cmm (3.80-5.80) 09/28/17 04:50 Hgb 14.6 gm/dL (12-16) 09/28/17 04:50 Hct 44.1 % (41.0-60) 09/28/17 04:50 MCV 89.0 fl (80-99) 09/28/17 04:50 MCH 29.4 pg (27.0-31.0) 09/28/17 04:50 MCHC Differential 33.1 pg (28.0-36.0) 09/28/17 04:50 RDW 12.4 % (11.5-20.0) 09/28/17 04:50 Plt Count 390 Th/cmm (150-400) 09/28/17 04:50 MPV 5.5 fl 09/28/17 04:50 Neutrophils % 55.3 % (40.0-80.0) 09/28/17 04:50 Lymphocytes % 30.1 % (20.0-50.0) 09/28/17 04:50 Monocytes % 9.8 % (2.0-10.0) 09/28/17 04:50 Eosinophils % 4.3 % (0.0-5.0) 09/28/17 04:50 Basophils % 0.5 % (0.0-2.0) 09/28/17 04:50 PT 11.0 SECONDS (9.5-11.5) 09/26/17 04:15 INR 1.06 (0.5-1.4) 09/26/17 04:15 Sodium 129 mEq/L (136-145) L 09/28/17 04:50 Potassium 3.3 mEq/L (3.5-5.1) L 09/28/17 04:50 Chloride 95 mEq/L (98-107) L 09/28/17 04:50 Carbon Dioxide 25.3 mEq/L (21.0-31.0) 09/28/17 04:50 Anion Gap 12.0 (7.0-16.0) 09/28/17 04:50 BUN 7 mg/dL (7-25) 09/28/17 04:50 Creatinine 0.6 mg/dL (0.7-1.3) L 09/28/17 04:50 Est GFR ( Amer) TNP 09/28/17 04:50 Est GFR (Non-Af Amer) TNP 09/28/17 04:50 BUN/Creatinine Ratio 11.7 09/28/17 04:50 Glucose 78 mg/dL (70-105) 09/28/17 04:50 Calcium 9.3 mg/dL (8.6-10.3) 09/28/17 04:50 Total Bilirubin 0.6 mg/dL (0.3-1.0) 09/28/17 04:50 Direct Bilirubin 0.16 mg/dL (0.0-0.2) 09/26/17 04:15 AST 14 U/L (13-39) 09/28/17 04:50 ALT 14 U/L (7-52) 09/28/17 04:50 Alkaline Phosphatase 61 U/L (34-104) 09/28/17 04:50 Ammonia 51 umol/L (16-53) 09/26/17 04:15 Total Protein 6.9 gm/dL (6.0-8.3) 09/28/17 04:50 Albumin 4.2 gm/dL (4.2-5.5) 09/28/17 04:50 Globulin 2.7 gm/dL 09/28/17 04:50 Albumin/Globulin Ratio 1.6 (1.0-1.8) 09/28/17 04:50 Lipase 19 U/L (11-82) 09/24/17 05:25 Tumor Marker AFP 5.4 ng/mL (0.0-8.3) 09/26/17 04:15 TSH 1.62 uIU/ml (0.34-5.60) 09/24/17 05:35 Urine Source CLEAN C 09/24/17 06:15 Urine Color YELLOW 09/24/17 06:15 Urine Clarity CLEAR (CLEAR) 09/24/17 06:15 Urine pH 7.5 (4.6 - 8.0) 09/24/17 06:15 Ur Specific [place] 1.010 (1.005-1.030) 09/24/17 06:15 Urine Protein NEGATIVE mg/dL (NEGATIVE) 09/24/17 06:15 Urine Glucose (UA) NEGATIVE mg/dL (NEGATIVE) 09/24/17 06:15 Urine Ketones NEGATIVE mg/dL (NEGATIVE) 09/24/17 06:15 Urine Blood NEGATIVE (NEGATIVE) 09/24/17 06:15 Urine Nitrate NEGATIVE (NEGATIVE) 09/24/17 06:15 Urine Bilirubin NEGATIVE (NEGATIVE) 09/24/17 06:15 Urine Urobilinogen 0.2 E.U./dL (0.2 - 1.0) 09/24/17 06:15 Ur Leukocyte Esterase NEGATIVE (NEGATIVE) 09/24/17 06:15 - Physical Exam Vitals and I&O: Vital Signs Temp 98.6 F 09/28/17 08:00 Pulse 61 09/28/17 09:30 Resp 18 09/28/17 08:00 BP 124/77 09/28/17 09:31 Pulse Ox 98 09/28/17 08:00 Intake & Output 09/27/17 09/28/17 09/28/17 18:59 06:59 18:59 Intake Total 600 900 Balance 600 900 Weight (lbs) 60.963 kg Intake: Intake, IV Amount 900 Sodium Chloride 0.9% 1, 900 000 ml @ 50 mls/hr IV . Q20H [facility] Rx#:[id number] Oral 600 Other: # Voids 4 # Bowel Movements 3 Stool Characteristics Soft Soft Weight Source Bedscale Active Medications: Current Medications Acetaminophen (Tylenol) 650 mg PO Q6H PRN PRN Reason: TEMP >101.1 OR PAIN Stop: 11/22/17 20:23 Last Admin: 09/24/17 18:04 Dose: 650 mg Amlodipine Besylate (Norvasc) 5 mg PO DAILY [facility] Stop: 11/23/17 08:59 Last Admin: 09/28/17 09:35 Dose: Not Given Docusate Sodium (Colace) 250 mg PO BID [facility] Stop: 11/23/17 08:59 Last Admin: 09/28/17 09:31 Dose: 250 mg Hydrochlorothiazide (Hctz) 12.5 mg PO DAILY [facility] Stop: 11/23/17 08:59 Last Admin: 09/28/17 09:31 Dose: 12.5 mg Sodium Chloride (Nacl 0.9%) 1,000 mls @ 50 mls/hr IV .Q20H [facility] Stop: 11/25/17 08:59 Last Admin: 09/28/17 00:30 Dose: 50 mls/hr Lactulose (Cephulac) 20 gm PO TID [facility] Stop: 11/23/17 20:59 Last Admin: 09/28/17 09:31 Dose: 20 gm Losartan Potassium (Cozaar) 50 mg PO DAILY [facility] Stop: 11/23/17 08:59 Last Admin: 09/28/17 09:30 Dose: 50 mg Potassium Chloride (Klor-Con) 20 meq PO X1 ONE Stop: 09/28/17 14:01 General: Alert, No acute distress HEENT: PERRLA, EOMI Neck: Supple Cardiovascular: Normal S1, Normal S2 Lungs: Clear to auscultation Abdomen: Bowel sounds Neurological: Other (unsteady gait) Assessment/Plan - Assessment Assessment: encephalopathy h/o falls r/o transient ischemic attack h/o arthritis - Plan Plan: neuro & psych eval continue current orders continue present management Nutritional Asmnt/Malnutr-PDOC - Dietary Evaluation Malnutrition Findings (Please click <Entered> for more info): Nutritional Asmnt/Malnutrition Start: 09/26/17 17: 00 Text: Status: Complete Freq: Protocol: Document 09/26/17 17:00 LCHENG (Rec: 09/26/17 17:30 LCHENG [id number]) Nutritional Asmnt/Malnutrition Patient General Information Nutritional Screening Moderate Risk Diagnosis hyponatremia, encephalopahty Pertinent Medical Hx/Surgical Hx not indicated Subjective Information Pt seen lying in bed at time of visit, repeating speech. Per nurse, pt ate 100% of breakfast this morning. Per EMR, PO intake 100%. Current Diet Order/ Nutrition Support [facility] soft ground Pertinent Medications colace, nacl 0.9% Pertinent Labs 7/5 Na 130, Cr 0.6, glucose 84 Nutritional Hx/Data Height 1.57 m Height (Calculated Centimeters) 157.5 Current Weight (lbs) 59.421 kg Weight (Calculated Kilograms) 59.4 Weight (Calculated Grams) 32685.6 [place] Body Weight 118 Body Mass Index (BMI) 23.9 Weight Status Approriate GI Symptoms GI Symptoms None Last BM 09/25 Difficult in: None Food Allergies Yes: nuts, corn, bread Skin Integrity/Comment: veronica 15 Estimated Nutritional Goals BEE in Kcals: Using Current wt Calories/Kcals/Kg 25-30 Kcals Calculated 4004-1173 Protein: Using Current wt Protein g/k Protein Calculated 60 Fluid: ml 1500-1800ml (1ml/kcal) Nutritional Problem 1. Problem Problem altered nutrition related lab Etiology electrolytes imbalance Signs/Symptoms: Na 130, Cr 0.6 Malnutrition Alert Is there a minimum of two criteria No selected? Query Text:Check all the applicable criteria. A minimum of two criteria are recommended for diagnosis of either severe or non-severe malnutrition. Malnutrition Related to Morbid Obesity Malnutrition related to morbid obesity No Intervention/Recommendation Comments 1. Continue with current diet as ordered. 2. Monitor PO intake, wt, labs and skin integrity 3. F/U as low risk in 7 days, 10/03 Expected Outcomes/Goals Expected Outcomes/Goals 1. PO intake to meet at least 75% of nutritional needs. 2. Wt stability, skin to remain intact, labs to approach WNL.
--- NOTE | 2017-09-28 12:09 | GI Progress Note ---
Subjective - Review of Systems Service Date: 09/28/17 Events since last encounter: No events Subjective: No GI complaints Eating 100% Objective - Results Result Diagrams: 09/28/17 04:50 09/28/17 04:50 Recent Labs: Laboratory Last Values WBC 7.4 Th/cmm (4.8-10.8) 09/28/17 04:50 RBC 4.96 Mil/cmm (3.80-5.80) 09/28/17 04:50 Hgb 14.6 gm/dL (12-16) 09/28/17 04:50 Hct 44.1 % (41.0-60) 09/28/17 04:50 MCV 89.0 fl (80-99) 09/28/17 04:50 MCH 29.4 pg (27.0-31.0) 09/28/17 04:50 MCHC Differential 33.1 pg (28.0-36.0) 09/28/17 04:50 RDW 12.4 % (11.5-20.0) 09/28/17 04:50 Plt Count 390 Th/cmm (150-400) 09/28/17 04:50 MPV 5.5 fl 09/28/17 04:50 Neutrophils % 55.3 % (40.0-80.0) 09/28/17 04:50 Lymphocytes % 30.1 % (20.0-50.0) 09/28/17 04:50 Monocytes % 9.8 % (2.0-10.0) 09/28/17 04:50 Eosinophils % 4.3 % (0.0-5.0) 09/28/17 04:50 Basophils % 0.5 % (0.0-2.0) 09/28/17 04:50 PT 11.0 SECONDS (9.5-11.5) 09/26/17 04:15 INR 1.06 (0.5-1.4) 09/26/17 04:15 Sodium 129 mEq/L (136-145) L 09/28/17 04:50 Potassium 3.3 mEq/L (3.5-5.1) L 09/28/17 04:50 Chloride 95 mEq/L (98-107) L 09/28/17 04:50 Carbon Dioxide 25.3 mEq/L (21.0-31.0) 09/28/17 04:50 Anion Gap 12.0 (7.0-16.0) 09/28/17 04:50 BUN 7 mg/dL (7-25) 09/28/17 04:50 Creatinine 0.6 mg/dL (0.7-1.3) L 09/28/17 04:50 Est GFR ( Amer) TNP 09/28/17 04:50 Est GFR (Non-Af Amer) TNP 09/28/17 04:50 BUN/Creatinine Ratio 11.7 09/28/17 04:50 Glucose 78 mg/dL (70-105) 09/28/17 04:50 Calcium 9.3 mg/dL (8.6-10.3) 09/28/17 04:50 Total Bilirubin 0.6 mg/dL (0.3-1.0) 09/28/17 04:50 Direct Bilirubin 0.16 mg/dL (0.0-0.2) 09/26/17 04:15 AST 14 U/L (13-39) 09/28/17 04:50 ALT 14 U/L (7-52) 09/28/17 04:50 Alkaline Phosphatase 61 U/L (34-104) 09/28/17 04:50 Ammonia 51 umol/L (16-53) 09/26/17 04:15 Total Protein 6.9 gm/dL (6.0-8.3) 09/28/17 04:50 Albumin 4.2 gm/dL (4.2-5.5) 09/28/17 04:50 Globulin 2.7 gm/dL 09/28/17 04:50 Albumin/Globulin Ratio 1.6 (1.0-1.8) 09/28/17 04:50 Lipase 19 U/L (11-82) 09/24/17 05:25 Tumor Marker AFP 5.4 ng/mL (0.0-8.3) 09/26/17 04:15 TSH 1.62 uIU/ml (0.34-5.60) 09/24/17 05:35 Urine Source CLEAN C 09/24/17 06:15 Urine Color YELLOW 09/24/17 06:15 Urine Clarity CLEAR (CLEAR) 09/24/17 06:15 Urine pH 7.5 (4.6 - 8.0) 09/24/17 06:15 Ur Specific [place] 1.010 (1.005-1.030) 09/24/17 06:15 Urine Protein NEGATIVE mg/dL (NEGATIVE) 09/24/17 06:15 Urine Glucose (UA) NEGATIVE mg/dL (NEGATIVE) 09/24/17 06:15 Urine Ketones NEGATIVE mg/dL (NEGATIVE) 09/24/17 06:15 Urine Blood NEGATIVE (NEGATIVE) 09/24/17 06:15 Urine Nitrate NEGATIVE (NEGATIVE) 09/24/17 06:15 Urine Bilirubin NEGATIVE (NEGATIVE) 09/24/17 06:15 Urine Urobilinogen 0.2 E.U./dL (0.2 - 1.0) 09/24/17 06:15 Ur Leukocyte Esterase NEGATIVE (NEGATIVE) 09/24/17 06:15 - Physical Exam Vitals and I&O: Vital Signs Temp 98.6 F 09/28/17 08:00 Pulse 61 09/28/17 09:30 Resp 18 09/28/17 08:00 BP 124/77 09/28/17 09:31 Pulse Ox 98 09/28/17 08:00 Intake & Output 09/27/17 09/28/17 09/28/17 18:59 06:59 18:59 Intake Total 600 900 Balance 600 900 Weight (lbs) 60.963 kg Intake: Intake, IV Amount 900 Sodium Chloride 0.9% 1, 900 000 ml @ 50 mls/hr IV . Q20H [facility] Rx#:[id number] Oral 600 Other: # Voids 4 # Bowel Movements 3 Stool Characteristics Soft Soft Weight Source Bedscale Active Medications: Current Medications Acetaminophen (Tylenol) 650 mg PO Q6H PRN PRN Reason: TEMP >101.1 OR PAIN Stop: 11/22/17 20:23 Last Admin: 09/24/17 18:04 Dose: 650 mg Amlodipine Besylate (Norvasc) 5 mg PO DAILY [facility] Stop: 11/23/17 08:59 Last Admin: 09/28/17 09:35 Dose: Not Given Docusate Sodium (Colace) 250 mg PO BID [facility] Stop: 11/23/17 08:59 Last Admin: 09/28/17 09:31 Dose: 250 mg Hydrochlorothiazide (Hctz) 12.5 mg PO DAILY [facility] Stop: 09/02/18 08:59 Last Admin: 09/28/17 09:31 Dose: 12.5 mg Sodium Chloride (Nacl 0.9%) 1,000 mls @ 50 mls/hr IV .Q20H [facility] Stop: 11/25/17 08:59 Last Admin: 09/28/17 00:30 Dose: 50 mls/hr Lactulose (Cephulac) 20 gm PO TID [facility] Stop: 11/23/17 20:59 Last Admin: 09/28/17 09:31 Dose: 20 gm Losartan Potassium (Cozaar) 50 mg PO DAILY [facility] Stop: 11/23/17 08:59 Last Admin: 09/28/17 09:30 Dose: 50 mg Potassium Chloride (Klor-Con) 20 meq PO X1 ONE Stop: 09/28/17 14:01 General: Alert, No acute distress Cardiovascular: Regular rate, Normal S1, Normal S2 Lungs: Clear to auscultation Abdomen: Bowel sounds, Soft Neurological: Other (unsteady gait) Assessment/Plan - Assessment Assessment: Elevated Ammonia - Plan Plan: 1. ELEVATED AMMONIA THAT HAS NORMALIZED LIKELY FROM CONSTIPATION LFTS ARE NORMAL JOSÉ MIGUEL SHOWED LEFT RENAL MASS, LIVER CYST, AND GALLBLADDER SLUDGE KUB SHOWED STOOL CONT LACTULOSE Hepatitis panel is P CT showed liver cysts
[2017-09-28] MEDS ORDERED: Potassium Chloride 20 mEq ER Tab PO ONE (14:00)
[2017-09-29] MEDS: Sodium Chloride 0.9% 1,000 ML IV SCH ×2 (00:56→16:49)
[2017-09-29] MEDS: Lactulose 10 Gm/15 mL 30mL UDC PO SCH ×3 (09:20→21:14)
[2017-09-29 11:23] LABS: ANION GAP 11.6 (7.0-16.0); BUN - UREA NITROGEN 9 mg/dL (7-25); CALCIUM SERUM 9.1 mg/dL (8.6-10.3); CARBON DIOXIDE 22.9 mEq/L (21.0-31.0); CHLORIDE 91 mEq/L (98-107); CREATININE - SERUM 0.5 mg/dL (0.7-1.3); GLUCOSE 103 mg/dL (70-105); POTASSIUM SERUM 3.5 mEq/L (3.5-5.1); SODIUM SERUM 122 mEq/L (136-145)
--- NOTE | 2017-09-29 13:57 | GI Progress Note ---
Subjective - Review of Systems Subjective: NO EVENTS EATING LUNCH Objective - Results Result Diagrams: 09/28/17 04:50 09/29/17 10:56 Recent Labs: Laboratory Last Values WBC 7.4 Th/cmm (4.8-10.8) 09/28/17 04:50 RBC 4.96 Mil/cmm (3.80-5.80) 09/28/17 04:50 Hgb 14.6 gm/dL (12-16) 09/28/17 04:50 Hct 44.1 % (41.0-60) 09/28/17 04:50 MCV 89.0 fl (80-99) 09/28/17 04:50 MCH 29.4 pg (27.0-31.0) 09/28/17 04:50 MCHC Differential 33.1 pg (28.0-36.0) 09/28/17 04:50 RDW 12.4 % (11.5-20.0) 09/28/17 04:50 Plt Count 390 Th/cmm (150-400) 09/28/17 04:50 MPV 5.5 fl 09/28/17 04:50 Neutrophils % 55.3 % (40.0-80.0) 09/28/17 04:50 Lymphocytes % 30.1 % (20.0-50.0) 09/28/17 04:50 Monocytes % 9.8 % (2.0-10.0) 09/28/17 04:50 Eosinophils % 4.3 % (0.0-5.0) 09/28/17 04:50 Basophils % 0.5 % (0.0-2.0) 09/28/17 04:50 PT 11.0 SECONDS (9.5-11.5) 09/26/17 04:15 INR 1.06 (0.5-1.4) 09/26/17 04:15 Sodium 122 mEq/L (136-145) L 09/29/17 10:56 Potassium 3.5 mEq/L (3.5-5.1) 09/29/17 10:56 Chloride 91 mEq/L (98-107) L 09/29/17 10:56 Carbon Dioxide 22.9 mEq/L (21.0-31.0) 09/29/17 10:56 Anion Gap 11.6 (7.0-16.0) 09/29/17 10:56 BUN 9 mg/dL (7-25) 09/29/17 10:56 Creatinine 0.5 mg/dL (0.7-1.3) L 09/29/17 10:56 Est GFR ( Amer) TNP 09/29/17 10:56 Est GFR (Non-Af Amer) TNP 09/29/17 10:56 BUN/Creatinine Ratio 18.0 09/29/17 10:56 Glucose 103 mg/dL (70-105) 09/29/17 10:56 Calcium 9.1 mg/dL (8.6-10.3) 09/29/17 10:56 Total Bilirubin 0.6 mg/dL (0.3-1.0) 09/28/17 04:50 Direct Bilirubin 0.16 mg/dL (0.0-0.2) 09/26/17 04:15 AST 14 U/L (13-39) 09/28/17 04:50 ALT 14 U/L (7-52) 09/28/17 04:50 Alkaline Phosphatase 61 U/L (34-104) 09/28/17 04:50 Ammonia 51 umol/L (16-53) 09/26/17 04:15 Total Protein 6.9 gm/dL (6.0-8.3) 09/28/17 04:50 Albumin 4.2 gm/dL (4.2-5.5) 09/28/17 04:50 Globulin 2.7 gm/dL 09/28/17 04:50 Albumin/Globulin Ratio 1.6 (1.0-1.8) 09/28/17 04:50 Lipase 19 U/L (11-82) 09/24/17 05:25 Tumor Marker AFP 5.4 ng/mL (0.0-8.3) 09/26/17 04:15 TSH 1.62 uIU/ml (0.34-5.60) 09/24/17 05:35 Urine Source CLEAN C 09/24/17 06:15 Urine Color YELLOW 09/24/17 06:15 Urine Clarity CLEAR (CLEAR) 09/24/17 06:15 Urine pH 7.5 (4.6 - 8.0) 09/24/17 06:15 Ur Specific [place] 1.010 (1.005-1.030) 09/24/17 06:15 Urine Protein NEGATIVE mg/dL (NEGATIVE) 09/24/17 06:15 Urine Glucose (UA) NEGATIVE mg/dL (NEGATIVE) 09/24/17 06:15 Urine Ketones NEGATIVE mg/dL (NEGATIVE) 09/24/17 06:15 Urine Blood NEGATIVE (NEGATIVE) 09/24/17 06:15 Urine Nitrate NEGATIVE (NEGATIVE) 09/24/17 06:15 Urine Bilirubin NEGATIVE (NEGATIVE) 09/24/17 06:15 Urine Urobilinogen 0.2 E.U./dL (0.2 - 1.0) 09/24/17 06:15 Ur Leukocyte Esterase NEGATIVE (NEGATIVE) 09/24/17 06:15 - Physical Exam Vitals and I&O: Vital Signs Temp 98 F 09/29/17 04:00 Pulse 64 09/29/17 09:20 Resp 19 09/29/17 04:00 BP 147/69 09/29/17 09:20 Pulse Ox 97 09/29/17 04:00 Intake & Output 09/28/17 09/29/17 09/29/17 18:59 06:59 18:59 Intake Total 700 1000 Balance 700 1000 Weight (lbs) 60.963 kg 60.781 kg Intake: Intake, IV Amount 1000 Sodium Chloride 0.9% 1, 1000 000 ml @ 50 mls/hr IV . Q20H [facility] Rx#:[id number] Oral 700 Other: # Voids 3 # Bowel Movements 1 Stool Characteristics Soft Soft Weight Source Bedscale Estimated Active Medications: Current Medications Acetaminophen (Tylenol) 650 mg PO Q6H PRN PRN Reason: TEMP >101.1 OR PAIN Stop: 11/22/17 20:23 Last Admin: 09/24/17 18:04 Dose: 650 mg Amlodipine Besylate (Norvasc) 5 mg PO DAILY [facility] Stop: 11/23/17 08:59 Last Admin: 09/29/17 09:20 Dose: 5 mg Docusate Sodium (Colace) 250 mg PO BID [facility] Stop: 11/23/17 08:59 Last Admin: 09/29/17 09:20 Dose: 250 mg Hydrochlorothiazide (Hctz) 12.5 mg PO DAILY [facility] Stop: 11/23/17 08:59 Last Admin: 09/29/17 09:21 Dose: 12.5 mg Sodium Chloride (Nacl 0.9%) 1,000 mls @ 50 mls/hr IV .Q20H [facility] Stop: 11/25/17 08:59 Last Admin: 09/29/17 00:56 Dose: 50 mls/hr Lactulose (Cephulac) 20 gm PO TID [facility] Stop: 11/23/17 20:59 Last Admin: 09/29/17 09:20 Dose: 20 gm Losartan Potassium (Cozaar) 50 mg PO DAILY [facility] Stop: 11/23/17 08:59 Last Admin: 09/29/17 09:20 Dose: 50 mg General: Alert, No acute distress HEENT: PERRLA, EOMI Neck: Supple Cardiovascular: Regular rate, Normal S1, Normal S2 Lungs: Clear to auscultation Abdomen: Bowel sounds, Soft Neurological: Other (unsteady gait) Assessment/Plan - Assessment Assessment: 81 YO MALE WITH ELEVATED AMMONIA THAT HAS NORMALIZED LIKELY FROM CONSTIPATION LFTS ARE NORMAL JOSÉ MIGUEL SHOWED LEFT RENAL MASS, LIVER CYST, AND GALLBLADDER SLUDGE KUB SHOWED STOOL CT SHOWED LIVER CYST AFP AND INR ARE NORMAL 1.UROLOGY INPUT 2.CONT LACTULOSE 3.VIRAL HEP PANEL
--- NOTE | 2017-09-29 14:53 | General Progress Note ---
Subjective - Review of Systems Events since last encounter: in no distress Subjective: pt. c/o's of increasing weakness Objective - Results Result Diagrams: 09/28/17 04:50 09/29/17 10:56 Recent Labs: Laboratory Last Values WBC 7.4 Th/cmm (4.8-10.8) 09/28/17 04:50 RBC 4.96 Mil/cmm (3.80-5.80) 09/28/17 04:50 Hgb 14.6 gm/dL (12-16) 09/28/17 04:50 Hct 44.1 % (41.0-60) 09/28/17 04:50 MCV 89.0 fl (80-99) 09/28/17 04:50 MCH 29.4 pg (27.0-31.0) 09/28/17 04:50 MCHC Differential 33.1 pg (28.0-36.0) 09/28/17 04:50 RDW 12.4 % (11.5-20.0) 09/28/17 04:50 Plt Count 390 Th/cmm (150-400) 09/28/17 04:50 MPV 5.5 fl 09/28/17 04:50 Neutrophils % 55.3 % (40.0-80.0) 09/28/17 04:50 Lymphocytes % 30.1 % (20.0-50.0) 09/28/17 04:50 Monocytes % 9.8 % (2.0-10.0) 09/28/17 04:50 Eosinophils % 4.3 % (0.0-5.0) 09/28/17 04:50 Basophils % 0.5 % (0.0-2.0) 09/28/17 04:50 PT 11.0 SECONDS (9.5-11.5) 09/26/17 04:15 INR 1.06 (0.5-1.4) 09/26/17 04:15 Sodium 122 mEq/L (136-145) L 09/29/17 10:56 Potassium 3.5 mEq/L (3.5-5.1) 09/29/17 10:56 Chloride 91 mEq/L (98-107) L 09/29/17 10:56 Carbon Dioxide 22.9 mEq/L (21.0-31.0) 09/29/17 10:56 Anion Gap 11.6 (7.0-16.0) 09/29/17 10:56 BUN 9 mg/dL (7-25) 09/29/17 10:56 Creatinine 0.5 mg/dL (0.7-1.3) L 09/29/17 10:56 Est GFR ( Amer) TNP 09/29/17 10:56 Est GFR (Non-Af Amer) TNP 09/29/17 10:56 BUN/Creatinine Ratio 18.0 09/29/17 10:56 Glucose 103 mg/dL (70-105) 09/29/17 10:56 Calcium 9.1 mg/dL (8.6-10.3) 09/29/17 10:56 Total Bilirubin 0.6 mg/dL (0.3-1.0) 09/28/17 04:50 Direct Bilirubin 0.16 mg/dL (0.0-0.2) 09/26/17 04:15 AST 14 U/L (13-39) 09/28/17 04:50 ALT 14 U/L (7-52) 09/28/17 04:50 Alkaline Phosphatase 61 U/L (34-104) 09/28/17 04:50 Ammonia 51 umol/L (16-53) 09/26/17 04:15 Total Protein 6.9 gm/dL (6.0-8.3) 09/28/17 04:50 Albumin 4.2 gm/dL (4.2-5.5) 09/28/17 04:50 Globulin 2.7 gm/dL 09/28/17 04:50 Albumin/Globulin Ratio 1.6 (1.0-1.8) 09/28/17 04:50 Lipase 19 U/L (11-82) 09/24/17 05:25 Tumor Marker AFP 5.4 ng/mL (0.0-8.3) 09/26/17 04:15 TSH 1.62 uIU/ml (0.34-5.60) 09/24/17 05:35 Urine Source CLEAN C 09/24/17 06:15 Urine Color YELLOW 09/24/17 06:15 Urine Clarity CLEAR (CLEAR) 09/24/17 06:15 Urine pH 7.5 (4.6 - 8.0) 09/24/17 06:15 Ur Specific [place] 1.010 (1.005-1.030) 09/24/17 06:15 Urine Protein NEGATIVE mg/dL (NEGATIVE) 09/24/17 06:15 Urine Glucose (UA) NEGATIVE mg/dL (NEGATIVE) 09/24/17 06:15 Urine Ketones NEGATIVE mg/dL (NEGATIVE) 09/24/17 06:15 Urine Blood NEGATIVE (NEGATIVE) 09/24/17 06:15 Urine Nitrate NEGATIVE (NEGATIVE) 09/24/17 06:15 Urine Bilirubin NEGATIVE (NEGATIVE) 09/24/17 06:15 Urine Urobilinogen 0.2 E.U./dL (0.2 - 1.0) 09/24/17 06:15 Ur Leukocyte Esterase NEGATIVE (NEGATIVE) 09/24/17 06:15 - Physical Exam Vitals and I&O: Vital Signs Temp 98 F 09/29/17 04:00 Pulse 64 09/29/17 09:20 Resp 19 09/29/17 04:00 BP 147/69 09/29/17 09:20 Pulse Ox 97 09/29/17 04:00 Intake & Output 09/28/17 09/29/17 09/29/17 18:59 06:59 18:59 Intake Total 700 1000 Balance 700 1000 Weight (lbs) 60.963 kg 60.781 kg Intake: Intake, IV Amount 1000 Sodium Chloride 0.9% 1, 1000 000 ml @ 50 mls/hr IV . Q20H [facility] Rx#:[id number] Oral 700 Other: # Voids 3 # Bowel Movements 1 Stool Characteristics Soft Soft Weight Source Bedscale Estimated Active Medications: Current Medications Acetaminophen (Tylenol) 650 mg PO Q6H PRN PRN Reason: TEMP >101.1 OR PAIN Stop: 11/22/17 20:23 Last Admin: 09/24/17 18:04 Dose: 650 mg Amlodipine Besylate (Norvasc) 5 mg PO DAILY [facility] Stop: 11/23/17 08:59 Last Admin: 09/29/17 09:20 Dose: 5 mg Docusate Sodium (Colace) 250 mg PO BID NADINE Stop: 11/23/17 08:59 Last Admin: 09/29/17 09:20 Dose: 250 mg Hydrochlorothiazide (Hctz) 12.5 mg PO DAILY [facility] Stop: 11/23/17 08:59 Last Admin: 09/29/17 09:21 Dose: 12.5 mg Sodium Chloride (Nacl 0.9%) 1,000 mls @ 50 mls/hr IV .Q20H [facility] Stop: 11/25/17 08:59 Last Admin: 09/29/17 00:56 Dose: 50 mls/hr Lactulose (Cephulac) 20 gm PO TID [facility] Stop: 11/23/17 20:59 Last Admin: 09/29/17 14:41 Dose: 20 gm Losartan Potassium (Cozaar) 50 mg PO DAILY NADINE Stop: 11/23/17 08:59 Last Admin: 09/29/17 09:20 Dose: 50 mg General: Alert, No acute distress HEENT: PERRLA, EOMI Neck: Supple Cardiovascular: Regular rate, Normal S1, Normal S2 Lungs: Clear to auscultation Abdomen: Bowel sounds, Soft Neurological: Other (unsteady gait) Assessment/Plan - Assessment Assessment: encephalopathy h/o falls r/o transient ischemic attack h/o arthritis - Plan Plan: neuro & psych eval continue current orders continue present management Nutritional Asmnt/Malnutr-PDOC - Dietary Evaluation Malnutrition Findings (Please click <Entered> for more info): Nutritional Asmnt/Malnutrition Start: 09/26/17 17: 00 Text: Status: Complete Freq: Protocol: Document 09/26/17 17:00 [facility] (Rec: 09/26/17 17:30 [id number] Nutritional Asmnt/Malnutrition Patient General Information Nutritional Screening Moderate Risk Diagnosis hyponatremia, encephalopahty Pertinent Medical Hx/Surgical Hx not indicated Subjective Information Pt seen lying in bed at time of visit, repeating speech. Per nurse, pt ate 100% of breakfast this morning. Per EMR, PO intake 100%. Current Diet Order/ [facility] Pertinent Medications colace, nacl 0.9% Pertinent Labs 09/25 Na 130, Cr 0.6, glucose 84 Nutritional Hx/Data Height 1.57 m Height (Calculated Centimeters) 157.5 Current Weight (lbs) 59.421 kg Weight (Calculated Kilograms) 59.4 Weight (Calculated Grams) 96307.6 [place] Body Weight 118 Body Mass Index (BMI) 23.9 Weight Status Approriate GI Symptoms GI Symptoms None Last BM 7/ Difficult in: None Food Allergies Yes: nuts, corn, bread Skin Integrity/Comment: veronica Norton Estimated Nutritional Goals BEE in Kcals: Using Current wt Calories/Kcals/Kg 25-30 Kcals Calculated [id number] Protein: Using Current wt Protein g/k Protein Calculated 60 Fluid: ml 1500-1800ml (1ml/kcal) Nutritional Problem 1. Problem Problem altered nutrition related lab Etiology electrolytes imbalance Signs/Symptoms: Na 130, Cr 0.6 Malnutrition Alert Is there a minimum of two criteria No selected? Query Text:Check all the applicable criteria. A minimum of two criteria are recommended for diagnosis of either severe or non-severe malnutrition. Malnutrition Related to Morbid Obesity Malnutrition related to morbid obesity No Intervention/Recommendation Comments 1. Continue with current diet as ordered. 2. Monitor PO intake, wt, labs and skin integrity 3. F/U as low risk in 7 days, 10/03 Expected Outcomes/Goals Expected Outcomes/Goals 1. PO intake to meet at least 75% of nutritional needs. 2. Wt stability, skin to remain intact, labs to approach WNL.
[2017-09-29] MEDS ORDERED: Sodium Chloride 0.9% 1,000 ML IV SCH (19:15)
[2017-09-30 05:53] LABS: ALB/GLOB RATIO 1.5 (1.0-1.8); ALBUMIN 3.8 gm/dL (4.2-5.5); ALKALINE PHOSPHATASE 63 U/L (34-104); ANION GAP 10.4 (7.0-16.0); BILIRUBIN,TOTAL 0.5 mg/dL (0.3-1.0); BUN - UREA NITROGEN 8 mg/dL (7-25); CALCIUM SERUM 9.1 mg/dL (8.6-10.3); CHLORIDE 93 mEq/L (98-107); CREATININE - SERUM 0.5 mg/dL (0.7-1.3); GLUCOSE 82 mg/dL (70-105); POTASSIUM SERUM 3.4 mEq/L (3.5-5.1); SGOT 14 U/L (13-39); SGPT/ALT 12 U/L (7-52); SODIUM SERUM 124 mEq/L (136-145); TOTAL PROTEIN,SERUM 6.4 gm/dL (6.0-8.3)
[2017-09-30] MEDS: Lactulose 10 Gm/15 mL 30mL UDC PO SCH ×3 (08:39→20:35)
[2017-09-30] MEDS ORDERED: Potassium Chloride 20 mEq ER Tab PO ONE (11:38)
--- NOTE | 2017-09-30 11:39 | Internal Medicine Prog Note ---
Internal Medicine Subjective - Subjective Service Date: 09/30/17 Patient seen and examined:: with staff Patient is:: awake Per staff patient has:: tolerating meds Internal Medicine Objective - Results Result Diagrams: 09/28/17 04:50 09/30/17 05:30 Recent Labs: Laboratory Last Values WBC 7.4 Th/cmm (4.8-10.8) 09/28/17 04:50 RBC 4.96 Mil/cmm (3.80-5.80) 09/28/17 04:50 Hgb 14.6 gm/dL (12-16) 09/28/17 04:50 Hct 44.1 % (41.0-60) 09/28/17 04:50 MCV 89.0 fl (80-99) 09/28/17 04:50 MCH 29.4 pg (27.0-31.0) 09/28/17 04:50 MCHC Differential 33.1 pg (28.0-36.0) 09/28/17 04:50 RDW 12.4 % (11.5-20.0) 09/28/17 04:50 Plt Count 390 Th/cmm (150-400) 09/28/17 04:50 MPV 5.5 fl 09/28/17 04:50 Neutrophils % 55.3 % (40.0-80.0) 09/28/17 04:50 Lymphocytes % 30.1 % (20.0-50.0) 09/28/17 04:50 Monocytes % 9.8 % (2.0-10.0) 09/28/17 04:50 Eosinophils % 4.3 % (0.0-5.0) 09/28/17 04:50 Basophils % 0.5 % (0.0-2.0) 09/28/17 04:50 PT 11.0 SECONDS (9.5-11.5) 09/26/17 04:15 INR 1.06 (0.5-1.4) 09/26/17 04:15 Sodium 124 mEq/L (136-145) L 09/30/17 05:30 Potassium 3.4 mEq/L (3.5-5.1) L 09/30/17 05:30 Chloride 93 mEq/L (98-107) L 09/30/17 05:30 Carbon Dioxide 24.0 mEq/L (21.0-31.0) 09/30/17 05:30 Anion Gap 10.4 (7.0-16.0) 09/30/17 05:30 BUN 8 mg/dL (7-25) 09/30/17 05:30 Creatinine 0.5 mg/dL (0.7-1.3) L 09/30/17 05:30 Est GFR ( Amer) TNP 09/30/17 05:30 Est GFR (Non-Af Amer) TNP 09/30/17 05:30 BUN/Creatinine Ratio 16.0 09/30/17 05:30 Glucose 82 mg/dL (70-105) 09/30/17 05:30 Calcium 9.1 mg/dL (8.6-10.3) 09/30/17 05:30 Magnesium 2.0 mg/dL (1.9-2.7) 09/30/17 05:30 Total Bilirubin 0.5 mg/dL (0.3-1.0) 09/30/17 05:30 Direct Bilirubin 0.16 mg/dL (0.0-0.2) 09/26/17 04:15 AST 14 U/L (13-39) 09/30/17 05:30 ALT 12 U/L (7-52) 09/30/17 05:30 Alkaline Phosphatase 63 U/L (34-104) 09/30/17 05:30 Ammonia 51 umol/L (16-53) 09/26/17 04:15 Total Protein 6.4 gm/dL (6.0-8.3) 09/30/17 05:30 Albumin 3.8 gm/dL (4.2-5.5) L 09/30/17 05:30 Globulin 2.6 gm/dL 09/30/17 05:30 Albumin/Globulin Ratio 1.5 (1.0-1.8) 09/30/17 05:30 Lipase 19 U/L (11-82) 09/24/17 05:25 Tumor Marker AFP 5.4 ng/mL (0.0-8.3) 09/26/17 04:15 TSH 1.62 uIU/ml (0.34-5.60) 09/24/17 05:35 Urine Source CLEAN C 09/24/17 06:15 Urine Color YELLOW 09/24/17 06:15 Urine Clarity CLEAR (CLEAR) 09/24/17 06:15 Urine pH 7.5 (4.6 - 8.0) 09/24/17 06:15 Ur Specific [place] 1.010 (1.005-1.030) 09/24/17 06:15 Urine Protein NEGATIVE mg/dL (NEGATIVE) 09/24/17 06:15 Urine Glucose (UA) NEGATIVE mg/dL (NEGATIVE) 09/24/17 06:15 Urine Ketones NEGATIVE mg/dL (NEGATIVE) 09/24/17 06:15 Urine Blood NEGATIVE (NEGATIVE) 09/24/17 06:15 Urine Nitrate NEGATIVE (NEGATIVE) 09/24/17 06:15 Urine Bilirubin NEGATIVE (NEGATIVE) 09/24/17 06:15 Urine Urobilinogen 0.2 E.U./dL (0.2 - 1.0) 09/24/17 06:15 Ur Leukocyte Esterase NEGATIVE (NEGATIVE) 09/24/17 06:15 - Physical Exam Vitals and I&O: Vital Signs Temp 98.8 F 09/30/17 08:00 Pulse 65 09/30/17 08:40 Resp 17 09/30/17 08:00 BP 147/82 09/30/17 08:40 Pulse Ox 97 09/30/17 08:00 Intake & Output 09/29/17 09/30/17 09/30/17 18:59 06:59 18:59 Intake Total 1814.167 Balance 1814.167 Weight (lbs) 134 lb 133 lb Intake: Intake, IV Amount 794.167 Sodium Chloride 0.9% 1, 794.167 000 ml @ 50 mls/hr IV . Q20H [facility] Rx#:[id number] Oral 1020 Other: # Voids 3 3 # Bowel Movements 1 Stool Characteristics Soft Weight Source Estimated Bedscale Active Medications: Current Medications Acetaminophen (Tylenol) 650 mg PO Q6H PRN PRN Reason: TEMP >101.1 OR PAIN Stop: 11/22/17 20:23 Last Admin: 09/24/17 18:04 Dose: 650 mg Amlodipine Besylate (Norvasc) 5 mg PO DAILY [facility] Stop: 11/23/17 08:59 Last Admin: 09/30/17 08:39 Dose: 5 mg Docusate Sodium (Colace) 250 mg PO BID [facility] Stop: 11/23/17 08:59 Last Admin: 09/30/17 08:39 Dose: 250 mg Sodium Chloride (Nacl 0.9%) 1,000 mls @ 25 mls/hr IV .Q24H [facility] Stop: 11/28/17 19:14 Lactulose (Cephulac) 20 gm PO TID [facility] Stop: 11/23/17 20:59 Last Admin: 09/30/17 08:39 Dose: 20 gm Losartan Potassium (Cozaar) 50 mg PO DAILY [facility] Stop: 11/23/17 08:59 Last Admin: 09/30/17 08:40 Dose: 50 mg General: weak HEENT: NC/AT, PERRLA Neck: Supple Lungs: CTAB Cardiovascular: RRR, Normal S1, Normal S2, without murmur Abdomen: soft, non-tender, non-distended Internal Medicine Assmt/Plan - Assessment Assessment: hypokalemia encephalopathy h/o falls r/o transient ischemic attack h/o arthritis - Plan Plan: replace potassium follow up labs in am continue current plan of care Nutritional Asmnt/Malnutr-PDOC - Dietary Evaluation Malnutrition Findings (Please click <Entered> for more info): Nutritional Asmnt/Malnutrition Start: 09/26/17 17: 00 Text: Status: Complete Freq: Protocol: Document 09/26/17 17:00 LCHENG (Rec: 09/26/17 17:30 [email or web address]) Nutritional Asmnt/Malnutrition Patient General Information Nutritional Screening Moderate Risk Diagnosis hyponatremia, encephalopahty Pertinent Medical Hx/Surgical Hx not indicated Subjective Information Pt seen lying in bed at time of visit, repeating speech. Per nurse, pt ate 100% of breakfast this morning. Per EMR, PO intake 100%. Current Diet Order/ Nutrition Support [facility] soft ground Pertinent Medications colace, nacl 0.9% Pertinent Labs 7/ Na 130, Cr 0.6, glucose 84 Nutritional Hx/Data Height 5 ft 2 in Height (Calculated Centimeters) 157.5 Current Weight (lbs) 131 lb Weight (Calculated Kilograms) 59.4 Weight (Calculated Grams) 87619.6 [place] Body Weight 118 Body Mass Index (BMI) 23.9 Weight Status Approriate GI Symptoms GI Symptoms None Last BM 7/5 Difficult in: None Food Allergies Yes: nuts, corn, bread Skin Integrity/Comment: veronica 15 Estimated Nutritional Goals BEE in Kcals: Using Current wt Calories/Kcals/Kg 25-30 Kcals Calculated 0119-0373 Protein: Using Current wt Protein g/k Protein Calculated 60 Fluid: ml 1500-1800ml (1ml/kcal) Nutritional Problem 1. Problem Problem altered nutrition related lab Etiology electrolytes imbalance Signs/Symptoms: Na 130, Cr 0.6 Malnutrition Alert Is there a minimum of two criteria No selected? Query Text:Check all the applicable criteria. A minimum of two criteria are recommended for diagnosis of either severe or non-severe malnutrition. Malnutrition Related to Morbid Obesity Malnutrition related to morbid obesity No Intervention/Recommendation Comments 1. Continue with current diet as ordered. 2. Monitor PO intake, wt, labs and skin integrity 3. F/U as low risk in 7 days, 10/03 Expected Outcomes/Goals Expected Outcomes/Goals 1. PO intake to meet at least 75% of nutritional needs. 2. Wt stability, skin to remain intact, labs to approach WNL.
--- NOTE | 2017-09-30 12:32 | GI Progress Note ---
Subjective - Review of Systems Subjective: NO EVENTS Objective - Results Result Diagrams: 09/28/17 04:50 09/30/17 05:30 Recent Labs: Laboratory Last Values WBC 7.4 Th/cmm (4.8-10.8) 09/28/17 04:50 RBC 4.96 Mil/cmm (3.80-5.80) 09/28/17 04:50 Hgb 14.6 gm/dL (12-16) 09/28/17 04:50 Hct 44.1 % (41.0-60) 09/28/17 04:50 MCV 89.0 fl (80-99) 09/28/17 04:50 MCH 29.4 pg (27.0-31.0) 09/28/17 04:50 MCHC Differential 33.1 pg (28.0-36.0) 09/28/17 04:50 RDW 12.4 % (11.5-20.0) 09/28/17 04:50 Plt Count 390 Th/cmm (150-400) 09/28/17 04:50 MPV 5.5 fl 09/28/17 04:50 Neutrophils % 55.3 % (40.0-80.0) 09/28/17 04:50 Lymphocytes % 30.1 % (20.0-50.0) 09/28/17 04:50 Monocytes % 9.8 % (2.0-10.0) 09/28/17 04:50 Eosinophils % 4.3 % (0.0-5.0) 09/28/17 04:50 Basophils % 0.5 % (0.0-2.0) 09/28/17 04:50 PT 11.0 SECONDS (9.5-11.5) 09/26/17 04:15 INR 1.06 (0.5-1.4) 09/26/17 04:15 Sodium 124 mEq/L (136-145) L 09/30/17 05:30 Potassium 3.4 mEq/L (3.5-5.1) L 09/30/17 05:30 Chloride 93 mEq/L (98-107) L 09/30/17 05:30 Carbon Dioxide 24.0 mEq/L (21.0-31.0) 09/30/17 05:30 Anion Gap 10.4 (7.0-16.0) 09/30/17 05:30 BUN 8 mg/dL (7-25) 09/30/17 05:30 Creatinine 0.5 mg/dL (0.7-1.3) L 09/30/17 05:30 Est GFR ( Amer) TNP 09/30/17 05:30 Est GFR (Non-Af Amer) TNP 09/30/17 05:30 BUN/Creatinine Ratio 16.0 09/30/17 05:30 Glucose 82 mg/dL (70-105) 09/30/17 05:30 Calcium 9.1 mg/dL (8.6-10.3) 09/30/17 05:30 Magnesium 2.0 mg/dL (1.9-2.7) 09/30/17 05:30 Total Bilirubin 0.5 mg/dL (0.3-1.0) 09/30/17 05:30 Direct Bilirubin 0.16 mg/dL (0.0-0.2) 09/26/17 04:15 AST 14 U/L (13-39) 09/30/17 05:30 ALT 12 U/L (7-52) 09/30/17 05:30 Alkaline Phosphatase 63 U/L (34-104) 09/30/17 05:30 Ammonia 51 umol/L (16-53) 09/26/17 04:15 Total Protein 6.4 gm/dL (6.0-8.3) 09/30/17 05:30 Albumin 3.8 gm/dL (4.2-5.5) L 09/30/17 05:30 Globulin 2.6 gm/dL 09/30/17 05:30 Albumin/Globulin Ratio 1.5 (1.0-1.8) 09/30/17 05:30 Lipase 19 U/L (11-82) 09/24/17 05:25 Tumor Marker AFP 5.4 ng/mL (0.0-8.3) 09/26/17 04:15 TSH 1.62 uIU/ml (0.34-5.60) 09/24/17 05:35 Urine Source CLEAN C 09/24/17 06:15 Urine Color YELLOW 09/24/17 06:15 Urine Clarity CLEAR (CLEAR) 09/24/17 06:15 Urine pH 7.5 (4.6 - 8.0) 09/24/17 06:15 Ur Specific [place] 1.010 (1.005-1.030) 09/24/17 06:15 Urine Protein NEGATIVE mg/dL (NEGATIVE) 09/24/17 06:15 Urine Glucose (UA) NEGATIVE mg/dL (NEGATIVE) 09/24/17 06:15 Urine Ketones NEGATIVE mg/dL (NEGATIVE) 09/24/17 06:15 Urine Blood NEGATIVE (NEGATIVE) 09/24/17 06:15 Urine Nitrate NEGATIVE (NEGATIVE) 09/24/17 06:15 Urine Bilirubin NEGATIVE (NEGATIVE) 09/24/17 06:15 Urine Urobilinogen 0.2 E.U./dL (0.2 - 1.0) 09/24/17 06:15 Ur Leukocyte Esterase NEGATIVE (NEGATIVE) 09/24/17 06:15 - Physical Exam Vitals and I&O: Vital Signs Temp 98.8 F 09/30/17 08:00 Pulse 65 09/30/17 08:40 Resp 17 09/30/17 08:00 BP 147/82 09/30/17 08:40 Pulse Ox 97 09/30/17 08:00 Intake & Output 09/29/17 09/30/17 09/30/17 18:59 06:59 18:59 Intake Total 1814.167 Balance 1814.167 Weight (lbs) 60.781 kg 60.328 kg Intake: Intake, IV Amount 794.167 Sodium Chloride 0.9% 1, 794.167 000 ml @ 50 mls/hr IV . Q20H [facility] Rx#:[id number] Oral 1020 Other: # Voids 3 3 # Bowel Movements 1 Stool Characteristics Soft Weight Source Estimated Bedscale Active Medications: Current Medications Acetaminophen (Tylenol) 650 mg PO Q6H PRN PRN Reason: TEMP >101.1 OR PAIN Stop: 11/22/17 20:23 Last Admin: 09/24/17 18:04 Dose: 650 mg Amlodipine Besylate (Norvasc) 5 mg PO DAILY [facility] Stop: 11/23/17 08:59 Last Admin: 09/30/17 08:39 Dose: 5 mg Docusate Sodium (Colace) 250 mg PO BID [facility] Stop: 11/23/17 08:59 Last Admin: 09/30/17 08:39 Dose: 250 mg Sodium Chloride (Nacl 0.9%) 1,000 mls @ 25 mls/hr IV .Q24H [facility] Stop: 11/28/17 19:14 Lactulose (Cephulac) 20 gm PO TID [facility] Stop: 11/23/17 20:59 Last Admin: 09/30/17 08:39 Dose: 20 gm Losartan Potassium (Cozaar) 50 mg PO DAILY [facility] Stop: 11/23/17 08:59 Last Admin: 09/30/17 08:40 Dose: 50 mg General: Alert, No acute distress HEENT: PERRLA, EOMI Neck: Supple Cardiovascular: Regular rate, Normal S1, Normal S2 Lungs: Clear to auscultation Abdomen: Bowel sounds, Soft Neurological: Other (unsteady gait) Assessment/Plan - Assessment Assessment: 81 YO MALE WITH ELEVATED AMMONIA THAT HAS NORMALIZED LIKELY FROM CONSTIPATION LFTS ARE NORMAL JOSÉ MIGUEL SHOWED LEFT RENAL MASS, LIVER CYST, AND GALLBLADDER SLUDGE KUB SHOWED STOOL CT SHOWED LIVER CYST AFP AND INR ARE NORMAL 1.UROLOGY INPUT FOR RENAL MASS 2.CONT LACTULOSE 3.VIRAL HEP PANEL
[2017-09-30 18:25] LABS: URINE MICROSCOPIC INDICATED? YES; URINE SOURCE CATH
[2017-09-30 18:27] LABS: URINE BILIRUBIN NEGATIVE (NEGATIVE); URINE BLOOD NEGATIVE (NEGATIVE); URINE GLUCOSE (UA) NEGATIVE (NEGATIVE); URINE KETONE NEGATIVE (NEGATIVE); URINE LEUKOCYTE ESTERASE NEGATIVE (NEGATIVE); URINE NITRATE NEGATIVE (NEGATIVE); URINE PH 6.5 (4.6 - 8.0); URINE PROTEIN NEGATIVE (NEGATIVE); URINE UROBILINOGEN 0.2 E.U./dL (0.2 - 1.0)
[2017-09-30 18:33] LABS: URINE CLARITY CLEAR (CLEAR); URINE COLOR YELLOW
[2017-09-30 18:34] LABS: URINE BACTERIA NONE SEEN /hpf (NONE SEEN); URINE EPITHELIAL CELLS NONE SEEN /lpf (FEW); URINE RBC NONE SEEN /hpf (0-5); URINE WBC NONE SEEN /hpf (0-5)
[2017-10-01 05:32] LABS: HEP A AB IGM NEGATIVE
[2017-10-01 05:33] LABS: HEP B CORE IGM NEGATIVE
[2017-10-01 05:34] LABS: HEP B SURFACE AG QL NEGATIVE; HEP C ANTIBODY SEE REF. LAB REPORT
[2017-10-01 06:37] LABS: % BASOPHILS 0.9 % (0.0-2.0); % EOSINOPHILS 4.5 % (0.0-5.0); % LYMPHOCYTES 30.5 % (20.0-50.0); % MONOCYTES 10.9 % (2.0-10.0); % NEUTROPHILS 53.2 % (40.0-80.0); BASOPHILE ABSOLUTE 0.1 Th/cumm (0-0.2); EOSINOPHILE ABSOLUTE 0.3 Th/cmm (0.1-0.4); HEMATOCRIT 40.1 % (41.0-60); HEMOGLOBIN 13.5 gm/dL (12-16); LYMPHOCYTE ABSOLUTE 2.2 Th/cmm (1.5-3.0); MEAN CELL VOLUME 89.4 fl (80-99); MEAN CORPUSCULAR HEMOGLOBIN 30.2 pg (27.0-31.0); MEAN CORPUSCULAR HGB CONC 33.7 pg (28.0-36.0); MEAN PLATELET VOLUME 5.5 fl; MONOCYTE ABSOLUTE 0.8 Th/cmm (0.3-1.0); NEUTROPHILE ABSOLUTE 3.9 Th/cmm (1.8-8.0); PLATELET COUNT 387 Th/cmm (150-400); RED BLOOD COUNT 4.49 Mil/cmm (3.80-5.80); RED CELL DISTRIBUTION WIDTH 12.7 % (11.5-20.0); WHITE BLOOD COUNT 7.3 Th/cmm (4.8-10.8)
[2017-10-01 07:10] LABS: ANION GAP 10.5 (7.0-16.0); BUN - UREA NITROGEN 9 mg/dL (7-25); CALCIUM SERUM 8.9 mg/dL (8.6-10.3); CARBON DIOXIDE 23.2 mEq/L (21.0-31.0); CHLORIDE 96 mEq/L (98-107); CREATININE - SERUM 0.6 mg/dL (0.7-1.3); GLUCOSE 79 mg/dL (70-105); POTASSIUM SERUM 3.7 mEq/L (3.5-5.1); SODIUM SERUM 126 mEq/L (136-145)
[2017-10-01] MEDS: Lactulose 10 Gm/15 mL 30mL UDC PO SCH ×3 (08:44→21:14)
--- NOTE | 2017-10-01 09:37 | Consultation ---
DATE OF CONSULTATION: 09/30/2017 NEUROLOGY CONSULTATION HISTORY OF PRESENT ILLNESS: The patient is an 81-year-old, admitted with complaints of increasing weakness, more difficulty with walking and fall. The patient then complains of pain all over. The patient moving all extremities, but weak. PAST MEDICAL HISTORY: The patient with history of urinary tract infection in the past. The patient with atrial fibrillation, dysphagia, history of hypertension, dementia, osteoporosis, episode of hyponatremia in the past, question of hydrocephalus, history of previous ataxia and falls. MEDICATIONS: As per reconciliation. Here, the patient is on lactulose and losartan. REVIEW OF SYSTEMS: Twelve point negative except for above. PHYSICAL EXAMINATION: VITAL SIGNS: Temperature 98.7, blood pressure 116/80, pulse is about 72. NECK: Supple, no bruits. HEART: Heart sounds S1, S2. LUNGS: Clear. NEUROLOGIC: The patient is lying in bed, awake. He does follow instructions, speaks mainly Upper Sorbian. The patient gives his name, but I do not get much more. Cranial nerves: NERVIES: Pupils react to light. The patient has full eye movement. Motor: He will lift both arms up. Strength is quite good, about 4/5. Legs, he has first increased tone with spasticity. He is able to lift the legs up, strength about 4/5. Reflexes 1+ in the upper extremities ____. INVESTIGATIONS: CT scan of the head is negative, ____ question of enlarged ventricles which was seen before. No acute stroke. The patient's ammonia level was elevated. Noted as per GI. The patient evaluated and worked up. Ultrasound shows a normal mass in the ____. ASSESSMENT: 1. Encephalopathy. 2. Dementia. 3. Ataxia. 4. Possible myelopathy. 5. ____. 6. Hypertension. 7. Atrial fibrillation. DICTATION ENDS HERE JOB# [id number]
--- NOTE | 2017-10-01 10:02 | Diagnostic Imaging Report ---
Exam: CT examination cervical spine. HISTORY: Leg weakness Total DLP equals 318 CTDI equals 15.4 Findings: Multiple contiguous thin section of the cervical spine were obtained in axial plane with coronal sagittal construction technique. No prior studies available comparison. The study demonstrates no evidence for acute fracture dislocation. No prevertebral soft tissue swelling is noted. The neural canal is intact. Diffuse degenerative osteophytic changes are noted with facet arthropathy bilaterally throughout the cervical spine. The pedicles are intact. The posterior elements are normal. IMPRESSION: Degenerative changes, osteoarthritis cervical spine.
--- NOTE | 2017-10-01 13:09 | General Progress Note ---
Subjective - Review of Systems Events since last encounter: no distress no change Subjective: pt. c/o's of increasing weakness Objective - Results Result Diagrams: 10/01/17 06:18 10/01/17 06:18 Recent Labs: Laboratory Last Values WBC 7.3 Th/cmm (4.8-10.8) 10/01/17 06:18 RBC 4.49 Mil/cmm (3.80-5.80) 10/01/17 06:18 Hgb 13.5 gm/dL (12-16) 10/01/17 06:18 Hct 40.1 % (41.0-60) L 10/01/17 06:18 MCV 89.4 fl (80-99) 10/01/17 06:18 MCH 30.2 pg (27.0-31.0) 10/01/17 06:18 MCHC Differential 33.7 pg (28.0-36.0) 10/01/17 06:18 RDW 12.7 % (11.5-20.0) 10/01/17 06:18 Plt Count 387 Th/cmm (150-400) 10/01/17 06:18 MPV 5.5 fl 10/01/17 06:18 Neutrophils % 53.2 % (40.0-80.0) 10/01/17 06:18 Lymphocytes % 30.5 % (20.0-50.0) 10/01/17 06:18 Monocytes % 10.9 % (2.0-10.0) H 10/01/17 06:18 Eosinophils % 4.5 % (0.0-5.0) 10/01/17 06:18 Basophils % 0.9 % (0.0-2.0) 10/01/17 06:18 PT 11.0 SECONDS (9.5-11.5) 09/26/17 04:15 INR 1.06 (0.5-1.4) 09/26/17 04:15 Sodium 126 mEq/L (136-145) L 10/01/17 06:18 Potassium 3.7 mEq/L (3.5-5.1) 10/01/17 06:18 Chloride 96 mEq/L (98-107) L 10/01/17 06:18 Carbon Dioxide 23.2 mEq/L (21.0-31.0) 10/01/17 06:18 Anion Gap 10.5 (7.0-16.0) 10/01/17 06:18 BUN 9 mg/dL (7-25) 10/01/17 06:18 Creatinine 0.6 mg/dL (0.7-1.3) L 10/01/17 06:18 Est GFR ( Amer) TNP 10/01/17 06:18 Est GFR (Non-Af Amer) TNP 10/01/17 06:18 BUN/Creatinine Ratio 15.0 10/01/17 06:18 Glucose 79 mg/dL (70-105) 10/01/17 06:18 Calcium 8.9 mg/dL (8.6-10.3) 10/01/17 06:18 Magnesium 2.0 mg/dL (1.9-2.7) 09/30/17 05:30 Total Bilirubin 0.5 mg/dL (0.3-1.0) 09/30/17 05:30 Direct Bilirubin 0.16 mg/dL (0.0-0.2) 09/26/17 04:15 AST 14 U/L (13-39) 09/30/17 05:30 ALT 12 U/L (7-52) 09/30/17 05:30 Alkaline Phosphatase 63 U/L (34-104) 09/30/17 05:30 Ammonia 51 umol/L (16-53) 09/26/17 04:15 C-Reactive Protein < 0.2 mg/dL (0.0-0.9) 10/01/17 06:18 Total Protein 6.4 gm/dL (6.0-8.3) 09/30/17 05:30 Albumin 3.8 gm/dL (4.2-5.5) L 09/30/17 05:30 Globulin 2.6 gm/dL 09/30/17 05:30 Albumin/Globulin Ratio 1.5 (1.0-1.8) 09/30/17 05:30 Lipase 19 U/L (11-82) 09/24/17 05:25 Tumor Marker AFP 5.4 ng/mL (0.0-8.3) 09/26/17 04:15 TSH 1.62 uIU/ml (0.34-5.60) 09/24/17 05:35 Urine Source CATH 09/30/17 17:00 Urine Color YELLOW 09/30/17 17:00 Urine Clarity CLEAR (CLEAR) 09/30/17 17:00 Urine pH 6.5 (4.6 - 8.0) 09/30/17 17:00 Ur Specific [place] <= 1.005 (1.005-1.030) 09/30/17 17:00 Urine Protein NEGATIVE mg/dL (NEGATIVE) 09/30/17 17:00 Urine Glucose (UA) NEGATIVE mg/dL (NEGATIVE) 09/30/17 17:00 Urine Ketones NEGATIVE mg/dL (NEGATIVE) 09/30/17 17:00 Urine Blood NEGATIVE (NEGATIVE) 09/30/17 17:00 Urine Nitrate NEGATIVE (NEGATIVE) 09/30/17 17:00 Urine Bilirubin NEGATIVE (NEGATIVE) 09/30/17 17:00 Urine Urobilinogen 0.2 E.U./dL (0.2 - 1.0) 09/30/17 17:00 Ur Leukocyte Esterase NEGATIVE (NEGATIVE) 09/30/17 17:00 Urine RBC NONE SEEN /hpf (0-5) 09/30/17 17:00 Urine WBC NONE SEEN /hpf (0-5) 09/30/17 17:00 Ur Epithelial Cells NONE SEEN /lpf (FEW) 09/30/17 17:00 Urine Bacteria NONE SEEN /hpf (NONE SEEN) 09/30/17 17:00 Hepatitis A IgM Ab NEGATIVE 09/25/17 08:55 Hep Bs Antigen NEGATIVE 09/25/17 08:55 Hep B Core IgM Ab NEGATIVE 09/25/17 08:55 Hepatitis C Antibody SEE REF. LAB REPORT 09/25/17 08:55 - Physical Exam Vitals and I&O: Vital Signs Temp 98.2 F 10/01/17 12:00 Pulse 72 10/01/17 12:00 Resp 18 10/01/17 12:00 BP 156/85 10/01/17 12:00 Pulse Ox 96 10/01/17 12:00 Intake & Output 09/30/17 10/01/17 10/01/17 18:59 06:59 18:59 Intake Total 700 200 Output Total 0 Balance 700 200 Weight (lbs) 58.786 kg 58.786 kg Intake: Oral 700 200 Output: Stool 0 Other: # Voids 3 1 # Bowel Movements 1 0 Stool Characteristics Soft Soft Formed Formed Weight Source Bedscale Bedscale Active Medications: Current Medications Acetaminophen (Tylenol) 650 mg PO Q6H PRN PRN Reason: TEMP >101.1 OR PAIN Stop: 11/22/17 20:23 Last Admin: 09/24/17 18:04 Dose: 650 mg Amlodipine Besylate (Norvasc) 5 mg PO DAILY [facility] Stop: 11/23/17 08:59 Last Admin: 10/01/17 08:45 Dose: 5 mg Docusate Sodium (Colace) 250 mg PO BID [facility] Stop: 11/23/17 08:59 Last Admin: 10/01/17 08:44 Dose: 250 mg Sodium Chloride (Nacl 0.9%) 1,000 mls @ 25 mls/hr IV .Q24H [facility] Stop: 11/28/17 19:14 Last Admin: 10/01/17 01:23 Dose: 25 mls/hr Lactulose (Cephulac) 20 gm PO TID [facility] Stop: 11/23/17 20:59 Last Admin: 10/01/17 08:44 Dose: 20 gm Losartan Potassium (Cozaar) 50 mg PO DAILY [facility] Stop: 11/23/17 08:59 Last Admin: 10/01/17 08:44 Dose: 50 mg Sodium Chloride (Nacl Tab) 2 gm PO BID [facility] Stop: 11/30/17 10:59 Last Admin: 10/01/17 11:12 Dose: 2 gm General: Alert, No acute distress HEENT: PERRLA, EOMI Neck: Supple Cardiovascular: Regular rate, Normal S1, Normal S2 Lungs: Clear to auscultation Abdomen: Bowel sounds, Soft Neurological: Other (unsteady gait) Assessment/Plan - Assessment Assessment: encephalopathy h/o falls r/o transient ischemic attack h/o arthritis - Plan Plan: neuro & psych eval continue current orders continue present management Nutritional Asmnt/Malnutr-PDOC - Dietary Evaluation Malnutrition Findings (Please click <Entered> for more info): Nutritional Asmnt/Malnutrition Start: 09/26/17 17: 00 Text: Status: Complete Freq: Protocol: Document 09/26/17 17:00 TERRY (Rec: 09/26/17 17:30 TERRY [email or web address]) Nutritional Asmnt/Malnutrition Patient General Information Nutritional Screening Moderate Risk Diagnosis hyponatremia, encephalopahty Pertinent Medical Hx/Surgical Hx not indicated Subjective Information Pt seen lying in bed at time of visit, repeating speech. Per nurse, pt ate 100% of breakfast this morning. Per EMR, PO intake 100%. Current Diet Order/ Nutrition Support [facility] soft ground Pertinent Medications colace, nacl 0.9% Pertinent Labs 09/25 Na 130, Cr 0.6, glucose 84 Nutritional Hx/Data Height 1.57 m Height (Calculated Centimeters) 157.5 Current Weight (lbs) 59.421 kg Weight (Calculated Kilograms) 59.4 Weight (Calculated Grams) 67124.6 [place] Body Weight 118 Body Mass Index (BMI) 23.9 Weight Status Approriate GI Symptoms GI Symptoms None Last BM 09/25 Difficult in: None Food Allergies Yes: nuts, corn, bread Skin Integrity/Comment: veronica [place] Estimated Nutritional Goals BEE in Kcals: Using Current wt Calories/Kcals/Kg 25-30 Kcals Calculated 7110-8111 Protein: Using Current wt Protein g/k Protein Calculated 60 Fluid: ml 1500-1800ml (1ml/kcal) Nutritional Problem 1. Problem Problem altered nutrition related lab Etiology electrolytes imbalance Signs/Symptoms: Na 130, Cr 0.6 Malnutrition Alert Is there a minimum of two criteria No selected? Query Text:Check all the applicable criteria. A minimum of two criteria are recommended for diagnosis of either severe or non-severe malnutrition. Malnutrition Related to Morbid Obesity Malnutrition related to morbid obesity No Intervention/Recommendation Comments 1. Continue with current diet as ordered. 2. Monitor PO intake, wt, labs and skin integrity 3. F/U as low risk in 7 days, 10/03 Expected Outcomes/Goals Expected Outcomes/Goals 1. PO intake to meet at least 75% of nutritional needs. 2. Wt stability, skin to remain intact, labs to approach WNL.
--- NOTE | 2017-10-01 13:45 | GI Progress Note ---
Subjective - Review of Systems Subjective: NO EVENTS DENIES ABD PAIN Objective - Results Result Diagrams: 10/01/17 06:18 10/01/17 06:18 Recent Labs: Laboratory Last Values WBC 7.3 Th/cmm (4.8-10.8) 10/01/17 06:18 RBC 4.49 Mil/cmm (3.80-5.80) 10/01/17 06:18 Hgb 13.5 gm/dL (12-16) 10/01/17 06:18 Hct 40.1 % (41.0-60) L 10/01/17 06:18 MCV 89.4 fl (80-99) 10/01/17 06:18 MCH 30.2 pg (27.0-31.0) 10/01/17 06:18 MCHC Differential 33.7 pg (28.0-36.0) 10/01/17 06:18 RDW 12.7 % (11.5-20.0) 10/01/17 06:18 Plt Count 387 Th/cmm (150-400) 10/01/17 06:18 MPV 5.5 fl 10/01/17 06:18 Neutrophils % 53.2 % (40.0-80.0) 10/01/17 06:18 Lymphocytes % 30.5 % (20.0-50.0) 10/01/17 06:18 Monocytes % 10.9 % (2.0-10.0) H 10/01/17 06:18 Eosinophils % 4.5 % (0.0-5.0) 10/01/17 06:18 Basophils % 0.9 % (0.0-2.0) 10/01/17 06:18 PT 11.0 SECONDS (9.5-11.5) 09/26/17 04:15 INR 1.06 (0.5-1.4) 09/26/17 04:15 Sodium 126 mEq/L (136-145) L 10/01/17 06:18 Potassium 3.7 mEq/L (3.5-5.1) 10/01/17 06:18 Chloride 96 mEq/L (98-107) L 10/01/17 06:18 Carbon Dioxide 23.2 mEq/L (21.0-31.0) 10/01/17 06:18 Anion Gap 10.5 (7.0-16.0) 10/01/17 06:18 BUN 9 mg/dL (7-25) 10/01/17 06:18 Creatinine 0.6 mg/dL (0.7-1.3) L 10/01/17 06:18 Est GFR ( Amer) TNP 10/01/17 06:18 Est GFR (Non-Af Amer) TNP 10/01/17 06:18 BUN/Creatinine Ratio 15.0 10/01/17 06:18 Glucose 79 mg/dL (70-105) 10/01/17 06:18 Calcium 8.9 mg/dL (8.6-10.3) 10/01/17 06:18 Magnesium 2.0 mg/dL (1.9-2.7) 09/30/17 05:30 Total Bilirubin 0.5 mg/dL (0.3-1.0) 09/30/17 05:30 Direct Bilirubin 0.16 mg/dL (0.0-0.2) 09/26/17 04:15 AST 14 U/L (13-39) 09/30/17 05:30 ALT 12 U/L (7-52) 09/30/17 05:30 Alkaline Phosphatase 63 U/L (34-104) 09/30/17 05:30 Ammonia 51 umol/L (16-53) 09/26/17 04:15 C-Reactive Protein < 0.2 mg/dL (0.0-0.9) 10/01/17 06:18 Total Protein 6.4 gm/dL (6.0-8.3) 09/30/17 05:30 Albumin 3.8 gm/dL (4.2-5.5) L 09/30/17 05:30 Globulin 2.6 gm/dL 09/30/17 05:30 Albumin/Globulin Ratio 1.5 (1.0-1.8) 09/30/17 05:30 Lipase 19 U/L (11-82) 09/24/17 05:25 Tumor Marker AFP 5.4 ng/mL (0.0-8.3) 09/26/17 04:15 TSH 1.62 uIU/ml (0.34-5.60) 09/24/17 05:35 Urine Source CATH 09/30/17 17:00 Urine Color YELLOW 09/30/17 17:00 Urine Clarity CLEAR (CLEAR) 09/30/17 17:00 Urine pH 6.5 (4.6 - 8.0) 09/30/17 17:00 Ur Specific [place] <= 1.005 (1.005-1.030) 09/30/17 17:00 Urine Protein NEGATIVE mg/dL (NEGATIVE) 09/30/17 17:00 Urine Glucose (UA) NEGATIVE mg/dL (NEGATIVE) 09/30/17 17:00 Urine Ketones NEGATIVE mg/dL (NEGATIVE) 09/30/17 17:00 Urine Blood NEGATIVE (NEGATIVE) 09/30/17 17:00 Urine Nitrate NEGATIVE (NEGATIVE) 09/30/17 17:00 Urine Bilirubin NEGATIVE (NEGATIVE) 09/30/17 17:00 Urine Urobilinogen 0.2 E.U./dL (0.2 - 1.0) 09/30/17 17:00 Ur Leukocyte Esterase NEGATIVE (NEGATIVE) 09/30/17 17:00 Urine RBC NONE SEEN /hpf (0-5) 09/30/17 17:00 Urine WBC NONE SEEN /hpf (0-5) 09/30/17 17:00 Ur Epithelial Cells NONE SEEN /lpf (FEW) 09/30/17 17:00 Urine Bacteria NONE SEEN /hpf (NONE SEEN) 09/30/17 17:00 Hepatitis A IgM Ab NEGATIVE 09/25/17 08:55 Hep Bs Antigen NEGATIVE 09/25/17 08:55 Hep B Core IgM Ab NEGATIVE 09/25/17 08:55 Hepatitis C Antibody SEE REF. LAB REPORT 09/25/17 08:55 - Physical Exam Vitals and I&O: Vital Signs Temp 98.2 F 10/01/17 12:00 Pulse 72 10/01/17 12:00 Resp 18 10/01/17 12:00 BP 156/85 10/01/17 12:00 Pulse Ox 96 10/01/17 12:00 Intake & Output 09/30/17 10/01/17 10/01/17 18:59 06:59 18:59 Intake Total 700 200 Output Total 0 Balance 700 200 Weight (lbs) 58.786 kg 58.786 kg Intake: Oral 700 200 Output: Stool 0 Other: # Voids 3 1 # Bowel Movements 1 0 Stool Characteristics Soft Soft Formed Formed Weight Source Bedscale Bedscale Active Medications: Current Medications Acetaminophen (Tylenol) 650 mg PO Q6H PRN PRN Reason: TEMP >101.1 OR PAIN Stop: 11/22/17 20:23 Last Admin: 09/24/17 18:04 Dose: 650 mg Amlodipine Besylate (Norvasc) 5 mg PO DAILY NADINE Stop: 11/23/17 08:59 Last Admin: 10/01/17 08:45 Dose: 5 mg Docusate Sodium (Colace) 250 mg PO BID NADINE Stop: 11/23/17 08:59 Last Admin: 10/01/17 08:44 Dose: 250 mg Sodium Chloride (Nacl 0.9%) 1,000 mls @ 25 mls/hr IV .Q24H NADINE Stop: 11/28/17 19:14 Last Admin: 10/01/17 01:23 Dose: 25 mls/hr Lactulose (Cephulac) 20 gm PO TID NADINE Stop: 11/23/17 20:59 Last Admin: 10/01/17 13:07 Dose: 20 gm Losartan Potassium (Cozaar) 50 mg PO DAILY NADINE Stop: 11/23/17 08:59 Last Admin: 10/01/17 08:44 Dose: 50 mg Sodium Chloride (Nacl Tab) 2 gm PO BID NADINE Stop: 11/30/17 10:59 Last Admin: 10/01/17 11:12 Dose: 2 gm General: Alert, No acute distress HEENT: PERRLA, EOMI Neck: Supple Cardiovascular: Regular rate, Normal S1, Normal S2 Lungs: Clear to auscultation Abdomen: Bowel sounds, Soft Neurological: Other (unsteady gait) Assessment/Plan - Assessment Assessment: 81 YO MALE WITH ELEVATED AMMONIA THAT HAS NORMALIZED LIKELY FROM CONSTIPATION LFTS ARE NORMAL JOSÉ MIGUEL SHOWED LEFT RENAL MASS, LIVER CYST, AND GALLBLADDER SLUDGE KUB SHOWED STOOL CT SHOWED LIVER CYST AFP AND INR ARE NORMAL HAV/HBV/HCV NEG 1.UROLOGY INPUT FOR RENAL MASS 2.CONT LACTULOSE 3.F/U PCP 4.WILL SEE NEEDED; CALL IF QUESTIONS
[2017-10-01 15:47] LABS: ANION GAP 11.2 (7.0-16.0); BUN - UREA NITROGEN 11 mg/dL (7-25); CALCIUM SERUM 9.1 mg/dL (8.6-10.3); CARBON DIOXIDE 22.4 mEq/L (21.0-31.0); CHLORIDE 95 mEq/L (98-107); CREATININE - SERUM 0.6 mg/dL (0.7-1.3); GLUCOSE 138 mg/dL (70-105); POTASSIUM SERUM 3.6 mEq/L (3.5-5.1); SODIUM SERUM 125 mEq/L (136-145)
--- NOTE | 2017-10-01 20:25 | Consultation ---
DATE OF CONSULTATION: 09/29/2017 PATIENT'S AGE: 81 yrs. SEX: Male. RACE: . REQUESTING PHYSICIAN: Dr. Ivy. HISTORY OF PRESENT ILLNESS: The patient came to the Emergency Room from [facility] where the patient has been complaining of some severe weakness and history of several falls. The patient is complaining of aches all over the body and the patient was evaluated in the Emergency Room and the patient was admitted for ataxia, rule out CVA and TIA. The patient at the time of my examination out here yesterday was conscious, cooperative and alert. He does not complain of any pain, but that might have gotten better. The patient might have all those symptoms because there was significant elevation in temperature about 5 days ago out here, which could give rise to dehydration and other problems. At that time, the electrolytes were within normal limits. MEDICATIONS: Reviewed. The only thing was that the patient had been having low sodium, but review of the medication revealed the patient was also on diuretic and hydrochlorothiazide, reasons not clear. PHYSICAL EXAMINATION: GENERAL/VITAL SIGNS: Reveals an elderly person who is afebrile, heart rate is about 70 per minute. Blood pressure is within normal limits. Hygiene is somewhat poor. Appetite is good as per the nursing. The patient does not complain of anything significantly except for telling me and the nurse that he wants to really walk around and go out. NEUROLOGIC: Grossly seems to be okay. The patient is able to mobilize all the four extremities and follow commands reasonably well. Oropharynx is clear. NECK: Jugular venous pressure is not raised. CHEST: Reveals good air entry bilaterally. CARDIOVASCULAR: Heart sounds, S1 and S2 normally heard. No S3 noticed. As mentioned, chest revealed good air entry bilaterally. No significant abnormal sounds noticed. Rare rhonchi. ABDOMEN: Soft. There seems to be little fullness in the abdomen. EXTREMITIES: Did not show any edema. BIOCHEMICAL AND DIAGNOSTIC DATA: Available revealed the following: The patient had a significant decrease in sodium, reason not clear on 09/29/2017. Sodium 122, potassium 3.5, chloride 91, CO2 content 22, creatinine 0.1 and BUN 9. On 11/29/2017, the patient's chemistries revealed albumin 4.2 and total protein 6.9. Sodium was better 129. The patient also had CT scan of the abdomen and was found to be having a mass in the left lower side of the kidney, which was thought to be an echoic mask on the ultrasound suggesting possibility of tumor. There is a CT scan done, which does not show the same thing and could be a mixed mass tumor and not a malignant one, which was thought to be essentially renal cell carcinoma; reason being this, the patient has a good CBC, proteins are good, the patient is eating good and neurologically, seems to be okay. Hemoglobin as mentioned is pretty good for his age and functioning okay, although malignancy cannot be ruled out still, but most likely a mixed tumor. PLAN: At present: 1. To discontinue hydrochlorothiazide. 2. Make it more salt in the food. 3. Restrict fluids to 1500 mL per 24 hours. 4. Repeat CMP tomorrow and then we would review. JOB# [id number]
[2017-10-01 20:26] LABS: URINE MICROSCOPIC INDICATED? YES; URINE SOURCE RANDOM
[2017-10-01 20:29] LABS: URINE BILIRUBIN NEGATIVE (NEGATIVE); URINE BLOOD TRACE (NEGATIVE); URINE GLUCOSE (UA) NEGATIVE (NEGATIVE); URINE KETONE NEGATIVE (NEGATIVE); URINE LEUKOCYTE ESTERASE NEGATIVE (NEGATIVE); URINE NITRATE NEGATIVE (NEGATIVE); URINE PH 6.5 (4.6 - 8.0); URINE PROTEIN NEGATIVE (NEGATIVE); URINE UROBILINOGEN 0.2 E.U./dL (0.2 - 1.0)
[2017-10-01 20:34] LABS: URINE CLARITY CLEAR (CLEAR); URINE COLOR YELLOW
[2017-10-01 20:36] LABS: URINE BACTERIA NONE SEEN /hpf (NONE SEEN); URINE EPITHELIAL CELLS NONE SEEN /lpf (FEW); URINE RBC NONE SEEN /hpf (0-5); URINE WBC NONE SEEN /hpf (0-5)
--- NOTE | 2017-10-02 04:01 | Progress Notes ---
DATE: 10/01/2017 UROLOGY PROGRESS NOTE The patient is undergoing a GI and Neurology evaluation and gradually improving. Meanwhile, I have discussed the CT findings with the radiologist who said he would issue or dictate an addendum to the original CT report that was somewhat incomplete and did not specify that the patient has renal cell carcinoma, most probably and not angiomyolipoma as the fat content in the tumor is very low. Changes, the patient's prognosis needs to be addressed by Surgery. We will request primary physician and conservator to give consent and approval. PHYSICAL EXAMINATION: VITAL SIGNS: Temperature is 98.3, heart rate 71, blood pressure 131/70. ABDOMEN: Soft, nontender, nondistended. Flanks also nontender, a vague feeling of a mass in the left upper quadrant. EXTREMITIES: No edema. CARDIOVASCULAR: Heart sounds, sinus rhythm. LABORATORY DATA: CT addendum reviewed now consistent with renal cell carcinoma. White count 7.3, hemoglobin 13.5, platelets 387. Sodium remains low at 125, potassium 3.6, BUN 11, creatinine 0.6. Urine culture showed mixed cruz and not indicative of infection. IMPRESSION: 1. Incidental left renal mass, most likely renal cell carcinoma. Recommend nephrectomy at a larger center like [facility] and may be attempted with the robot. Need approval from the conservator. 2. Ataxia and balance problems gradually improving. 3. History of stroke and TIA, currently stable. 4. History of elevated ammonia level seems to have been transient and now resolved. 5. Hyponatremia. No major change or improvement. 6. Altered level of consciousness also improved significantly. [facility]# [id number]
[2017-10-02 06:41] LABS: ANION GAP 10.4 (7.0-16.0); BUN - UREA NITROGEN 9 mg/dL (7-25); CALCIUM SERUM 8.6 mg/dL (8.6-10.3); CARBON DIOXIDE 21.9 mEq/L (21.0-31.0); CHLORIDE 98 mEq/L (98-107); CREATININE - SERUM 0.5 mg/dL (0.7-1.3); GLUCOSE 76 mg/dL (70-105); POTASSIUM SERUM 3.3 mEq/L (3.5-5.1); SODIUM SERUM 127 mEq/L (136-145)
[2017-10-02] MEDS: Lactulose 10 Gm/15 mL 30mL UDC PO SCH ×2 (08:24→14:09)
[2017-10-02 12:15] LABS: FOLIC ACID 12.6 ng/mL (>3.0)
[2017-10-02] MEDS ORDERED: Potassium Chloride 20 mEq ER Tab PO ONE (12:53)
--- NOTE | 2017-10-02 16:05 | General Progress Note ---
Subjective - Review of Systems Events since last encounter: pt. still weak Subjective: pt. c/o's of increasing weakness Objective - Results Result Diagrams: 10/01/17 06:18 10/02/17 05:42 Recent Labs: Laboratory Last Values WBC 7.3 Th/cmm (4.8-10.8) 10/01/17 06:18 RBC 4.49 Mil/cmm (3.80-5.80) 10/01/17 06:18 Hgb 13.5 gm/dL (12-16) 10/01/17 06:18 Hct 40.1 % (41.0-60) L 10/01/17 06:18 MCV 89.4 fl (80-99) 10/01/17 06:18 MCH 30.2 pg (27.0-31.0) 10/01/17 06:18 MCHC Differential 33.7 pg (28.0-36.0) 10/01/17 06:18 RDW 12.7 % (11.5-20.0) 10/01/17 06:18 Plt Count 387 Th/cmm (150-400) 10/01/17 06:18 MPV 5.5 fl 10/01/17 06:18 Neutrophils % 53.2 % (40.0-80.0) 10/01/17 06:18 Lymphocytes % 30.5 % (20.0-50.0) 10/01/17 06:18 Monocytes % 10.9 % (2.0-10.0) H 10/01/17 06:18 Eosinophils % 4.5 % (0.0-5.0) 10/01/17 06:18 Basophils % 0.9 % (0.0-2.0) 10/01/17 06:18 PT 11.0 SECONDS (9.5-11.5) 09/26/17 04:15 INR 1.06 (0.5-1.4) 09/26/17 04:15 Sodium 127 mEq/L (136-145) L 10/02/17 05:42 Potassium 3.3 mEq/L (3.5-5.1) L 10/02/17 05:42 Chloride 98 mEq/L (98-107) 10/02/17 05:42 Carbon Dioxide 21.9 mEq/L (21.0-31.0) 10/02/17 05:42 Anion Gap 10.4 (7.0-16.0) 10/02/17 05:42 BUN 9 mg/dL (7-25) 10/02/17 05:42 Creatinine 0.5 mg/dL (0.7-1.3) L 10/02/17 05:42 Est GFR ( Amer) TNP 10/02/17 05:42 Est GFR (Non-Af Amer) TNP 10/02/17 05:42 BUN/Creatinine Ratio 18.0 10/02/17 05:42 Glucose 76 mg/dL (70-105) 10/02/17 05:42 Calcium 8.6 mg/dL (8.6-10.3) 10/02/17 05:42 Magnesium 2.0 mg/dL (1.9-2.7) 09/30/17 05:30 Total Bilirubin 0.5 mg/dL (0.3-1.0) 09/30/17 05:30 Direct Bilirubin 0.16 mg/dL (0.0-0.2) 09/26/17 04:15 AST 14 U/L (13-39) 09/30/17 05:30 ALT 12 U/L (7-52) 09/30/17 05:30 Alkaline Phosphatase 63 U/L (34-104) 09/30/17 05:30 Ammonia 51 umol/L (16-53) 09/26/17 04:15 C-Reactive Protein < 0.2 mg/dL (0.0-0.9) 10/01/17 06:18 Total Protein 6.4 gm/dL (6.0-8.3) 09/30/17 05:30 Albumin 3.8 gm/dL (4.2-5.5) L 09/30/17 05:30 Globulin 2.6 gm/dL 09/30/17 05:30 Albumin/Globulin Ratio 1.5 (1.0-1.8) 09/30/17 05:30 Lipase 19 U/L (11-82) 09/24/17 05:25 Tumor Marker AFP 5.4 ng/mL (0.0-8.3) 09/26/17 04:15 Vitamin B12 940 pg/mL (232-1245) 10/01/17 06:18 Folic Acid 12.6 ng/mL (>3.0) 10/01/17 06:18 TSH 1.62 uIU/ml (0.34-5.60) 09/24/17 05:35 Urine Source RANDOM 10/01/17 20:20 Urine Color YELLOW 10/01/17 20:20 Urine Clarity CLEAR (CLEAR) 10/01/17 20:20 Urine pH 6.5 (4.6 - 8.0) 10/01/17 20:20 Ur Specific [place] 1.010 (1.005-1.030) 10/01/17 20:20 Urine Protein NEGATIVE mg/dL (NEGATIVE) 10/01/17 20:20 Urine Glucose (UA) NEGATIVE mg/dL (NEGATIVE) 10/01/17 20:20 Urine Ketones NEGATIVE mg/dL (NEGATIVE) 10/01/17 20:20 Urine Blood TRACE (NEGATIVE) 10/01/17 20:20 Urine Nitrate NEGATIVE (NEGATIVE) 10/01/17 20:20 Urine Bilirubin NEGATIVE (NEGATIVE) 10/01/17 20:20 Urine Urobilinogen 0.2 E.U./dL (0.2 - 1.0) 10/01/17 20:20 Ur Leukocyte Esterase NEGATIVE (NEGATIVE) 10/01/17 20:20 Urine RBC NONE SEEN /hpf (0-5) 10/01/17 20:20 Urine WBC NONE SEEN /hpf (0-5) 10/01/17 20:20 Ur Epithelial Cells NONE SEEN /lpf (FEW) 10/01/17 20:20 Urine Bacteria NONE SEEN /hpf (NONE SEEN) 10/01/17 20:20 Hepatitis A IgM Ab NEGATIVE 09/25/17 08:55 Hep Bs Antigen NEGATIVE 09/25/17 08:55 Hep B Core IgM Ab NEGATIVE 09/25/17 08:55 Hepatitis C Antibody SEE REF. LAB REPORT 09/25/17 08:55 - Physical Exam Vitals and I&O: Vital Signs Temp 97.8 F 10/02/17 12:22 Pulse 53 10/02/17 12:22 Resp 17 10/02/17 12:22 BP 136/75 10/02/17 12:22 Pulse Ox 97 10/02/17 12:22 Intake & Output 10/01/17 10/02/17 10/02/17 18:59 06:59 18:59 Intake Total 850 340 Balance 850 340 Weight (lbs) 59.511 kg 59.058 kg 59.965 kg Intake: Oral 850 340 Other: # Voids 3 3 # Bowel Movements 0 1 Stool Characteristics Soft Soft Formed Brown Weight Source Bedscale Bedscale Bedscale Active Medications: Current Medications Acetaminophen (Tylenol) 650 mg PO Q6H PRN PRN Reason: TEMP >101.1 OR PAIN Stop: 11/22/17 20:23 Last Admin: 10/01/17 21:14 Dose: 650 mg Amlodipine Besylate (Norvasc) 5 mg PO DAILY NADINE Stop: 11/23/17 08:59 Last Admin: 10/02/17 08:24 Dose: 5 mg Docusate Sodium (Colace) 250 mg PO BID NADINE Stop: 11/23/17 08:59 Last Admin: 10/02/17 08:28 Dose: 250 mg Sodium Chloride (Nacl 0.9%) 1,000 mls @ 25 mls/hr IV .Q24H NADINE Stop: 11/28/17 19:14 Last Admin: 10/01/17 01:23 Dose: 25 mls/hr Lactulose (Cephulac) 20 gm PO TID NADINE Stop: 11/23/17 20:59 Last Admin: 10/02/17 14:09 Dose: 20 gm Losartan Potassium (Cozaar) 50 mg PO DAILY NADINE Stop: 11/23/17 08:59 Last Admin: 10/02/17 08:27 Dose: 50 mg Sodium Chloride (Nacl Tab) 2 gm PO BID NADINE Stop: 11/30/17 10:59 Last Admin: 10/02/17 08:28 Dose: 2 gm General: Alert, No acute distress HEENT: PERRLA, EOMI Neck: Supple Cardiovascular: Regular rate, Normal S1, Normal S2 Lungs: Clear to auscultation Abdomen: Bowel sounds, Soft Neurological: Other (unsteady gait) Assessment/Plan - Assessment Assessment: encephalopathy h/o falls r/o transient ischemic attack h/o arthritis Incidental left renal mass, mostly likely renal cell carcinoma Ataxia and balance problems h/o elevated ammonia levels ALOC improved - Plan Plan: neuro & psych eval continue current orders continue present management Nutritional Asmnt/Malnutr-PDOC - Dietary Evaluation Malnutrition Findings (Please click <Entered> for more info): Nutritional Asmnt/Malnutrition Start: 09/26/17 17: 00 Text: Status: Complete Freq: Protocol: Document 09/26/17 17:00 PRADEEP (Rec: 09/26/17 17:30 LCBRANDON [email or web address]) Nutritional Asmnt/Malnutrition Patient General Information Nutritional Screening Moderate Risk Diagnosis hyponatremia, encephalopahty Pertinent Medical Hx/Surgical Hx not indicated Subjective Information Pt seen lying in bed at time of visit, repeating speech. Per nurse, pt ate 100% of breakfast this morning. Per EMR, PO intake 100%. Current Diet Order/ Nutrition Support [facility] soft ground Pertinent Medications colace, nacl 0.9% Pertinent Labs 09/25 Na 130, Cr 0.6, glucose 84 Nutritional Hx/Data Height 1.57 m Height (Calculated Centimeters) 157.5 Current Weight (lbs) 59.421 kg Weight (Calculated Kilograms) 59.4 Weight (Calculated Grams) 44054.6 [place] Body Weight 118 Body Mass Index (BMI) 23.9 Weight Status Approriate GI Symptoms GI Symptoms None Last BM 09/25 Difficult in: None Food Allergies Yes: nuts, corn, bread Skin Integrity/Comment: veronica Norton Estimated Nutritional Goals BEE in Kcals: Using Current wt Calories/Kcals/Kg 25-30 Kcals Calculated 7708-7570 Protein: Using Current wt Protein g/k Protein Calculated 60 Fluid: ml 1500-1800ml (1ml/kcal) Nutritional Problem 1. Problem Problem altered nutrition related lab Etiology electrolytes imbalance Signs/Symptoms: Na 130, Cr 0.6 Malnutrition Alert Is there a minimum of two criteria No selected? Query Text:Check all the applicable criteria. A minimum of two criteria are recommended for diagnosis of either severe or non-severe malnutrition. Malnutrition Related to Morbid Obesity Malnutrition related to morbid obesity No Intervention/Recommendation Comments 1. Continue with current diet as ordered. 2. Monitor PO intake, wt, labs and skin integrity 3. F/U as low risk in 7 days, 10/03 Expected Outcomes/Goals Expected Outcomes/Goals 1. PO intake to meet at least 75% of nutritional needs. 2. Wt stability, skin to remain intact, labs to approach WNL.
--- NOTE | 2017-10-03 01:26 | Progress Notes ---
DATE: 10/02/2017 SUBJECTIVE: The patient is in bed, eating. A little bit more cooperative and in fact will interact a little bit. The patient has still difficulty with walking. OBJECTIVE: VITAL SIGNS: Temperature 98.4, blood pressure 130/70, and pulse is 74. NECK: Supple. No neck bruits. CARDIOVASCULAR: S1 and S2. RESPIRATORY: Lungs are clear. NEUROLOGIC: The patient will lift upper extremity. Lower extremity, again about 4/5 ataxia. LABORATORY DATA: patient had a CT scan of the cervical spine, which shows some DJD, but no significant spinal stenosis. ASSESSMENT AND PLAN: 1. Workup of the left renal mass. 2. Encephalopathy. 3. Dementia. 4. Hypertension. 5. Atrial fibrillation. 6. Hyponatremia. JOB# [id number]
--- NOTE | 2017-10-06 02:06 | Discharge Summary ---
DATE OF DISCHARGE: 10/02/2017 HOSPITAL COURSE: The patient was admitted on 09/23 and discharge on 10/02. The patient is very well known to me from [facility]. The patient was admitted because of his confusion and diagnosis was encephalopathy, history of falls, rule out , arthritis. Apparently, he had all the workup, which was negative, but the CAT scan of the abdomen done showed possible mass in the right kidney. I spoke with the urologist and he wanted this to be done in a tertiary care, so with the final diagnoses of newly found mass in his kidney, history of encephalopathy, dementia, history of myelopathy and history of atrial fibrillation attacks, the patient was sent back to the long term where I will be following the patient and will make a referral to the tertiary care. JOB# [id number]
== END 2017-10-02 17:00 | DRG 442 ==
LOC: ER 15:46 → TELE 19:50 → MSI 09-25 13:06
PROVIDERS: ADMIT Internal Medicine; ATTEND Internal Medicine
DX: K72.90 Hepatic failure, unspecified without coma (principal); E87.1 Hypo-osmolality and hyponatremia; M19.90 Unspecified osteoarthritis, unspecified site; F03.90 Unspecified dementia, unspecified severity, without behavioral disturbance, psychotic disturbance, mood disturbance, and anxiety; R13.10 Dysphagia, unspecified; K59.00 Constipation, unspecified; R27.0 Ataxia, unspecified; N28.89 Other specified disorders of kidney and ureter; I48.91 Unspecified atrial fibrillation; M81.0 Age-related osteoporosis without current pathological fracture; E87.6 Hypokalemia; K76.89 Other specified diseases of liver; Z91.81 History of falling
CPT/HCPCS: 36415-UA; 70450-TC; 71045-TC; 72125-TC; 72170-TC; 74000-TC; 76700-TC; 80048-TC; 80053-TC; 80074-90; 80076-TC; 81001-TC; 81003-TC; 82085-90; 82105-90; 82140-TC; 82607-90; 82746-90; 83690-TC; 83735-TC; 84443-TC; 85025-TC; 85610-TC; 86141-TC; 87086-90; 93005; 93880-TC; J7030; Q9967; Z7610

== ENCOUNTER 2018-01-20 21:18 | Inpatient (IN) | payer MEDICARE, OTHER ==
[2018-01-20 22:00] LABS: % BASOPHILS 0.5 % (0.0-2.0); % EOSINOPHILS 5.4 % (0.0-5.0); % LYMPHOCYTES 25.1 % (20.0-50.0); % MONOCYTES 8.1 % (2.0-10.0); % NEUTROPHILS 60.9 % (40.0-80.0); EOSINOPHILE ABSOLUTE 0.4 Th/cmm (0.1-0.4); HEMATOCRIT 45.9 % (41.0-60); HEMOGLOBIN 15.3 gm/dL (12-16); LYMPHOCYTE ABSOLUTE 1.7 Th/cmm (1.5-3.0); MEAN CELL VOLUME 89.6 fl (80-99); MEAN CORPUSCULAR HEMOGLOBIN 29.9 pg (27.0-31.0); MEAN CORPUSCULAR HGB CONC 33.3 pg (28.0-36.0); MEAN PLATELET VOLUME 5.8 fl; MONOCYTE ABSOLUTE 0.5 Th/cmm (0.3-1.0); NEUTROPHILE ABSOLUTE 4.1 Th/cmm (1.8-8.0); PLATELET COUNT 439 Th/cmm (150-400); RED BLOOD COUNT 5.12 Mil/cmm (3.80-5.80); RED CELL DISTRIBUTION WIDTH 12.6 % (11.5-20.0); WHITE BLOOD COUNT 6.7 Th/cmm (4.8-10.8)
[2018-01-20 22:16] LABS: ALB/GLOB RATIO 1.5 (1.0-1.8); ALBUMIN 4.4 gm/dL (4.2-5.5); ALKALINE PHOSPHATASE 83 U/L (34-104); ANION GAP 12.7 (7.0-16.0); BILIRUBIN,TOTAL 0.4 mg/dL (0.3-1.0); BUN - UREA NITROGEN 17 mg/dL (7-25); CALCIUM SERUM 9.5 mg/dL (8.6-10.3); CHLORIDE 92 mEq/L (98-107); CREATININE - SERUM 0.7 mg/dL (0.7-1.3); GLUCOSE 95 mg/dL (70-105); POTASSIUM SERUM 3.7 mEq/L (3.5-5.1); SGOT 15 U/L (13-39); SGPT/ALT 12 U/L (7-52); SODIUM SERUM 128 mEq/L (136-145); TOTAL PROTEIN,SERUM 7.3 gm/dL (6.0-8.3)
[2018-01-20 22:19] LABS: INR 1.17 (0.5-1.4); PROTHROMBIN TIME (TEST) 12.1 SECONDS (9.5-11.5)
[2018-01-20] MEDS ORDERED: Sodium Chloride 0.9% 1,000 ML IV ONE (22:25)
--- NOTE | 2018-01-20 22:47 | ED Physician Chart ---
ED Chief Complaint/HPI - Patient Information Date Seen:: 01/20/18 Time Seen:: 22:00 Chief Complaint:: Unsteady gait History of Present Illness:: 82 yo male was brought from [facility] to ER for evaluation of frequent fall due to unsteady gait. Patient was urinary incontinent and had foul urine odor. In order to get urine sample, a straight catheter insertion was attempted without success due to urethra stenosis and bleeding. Allergies:: Allergies Allergy/AdvReac Type Severity Reaction Status Date / Time No Known Allergies Allergy Verified 01/20/18 21:22 ED Review of Systems - Review of Systems General/Constitutional: No fever, No chills Skin: No bruising Head: No headache Eyes: No pain ENT: No nasal drainage Neck: No stiffness Cardio Vascular: No chest pain Pulmonary: No SOB, No cough GI: No nausea, No vomiting Musculoskeletal: No bone or joint pain Psychiatric: Prior psych history Neurological: Confusion ED Past Medical History - Past Medical History Past Medical History: HTN, CHF, CVA/TIA, PUD/GERD, Dementia, Other ( ENCEPHALOPATHY, ALTERED MENTAL STATUS, A-FIB, UNSTEADY GAIT) Social History: Non Smoker, No Alcohol, No Drug Use Family Medical History - Family Member Niece History Unknown: Yes Ethnicity: ED Physical Exam - Physical Examination General/Constitutional: Awake, Alert Head: Atraumatic Eyes: PERRL Skin: No ecchymosis ENMT: Nasal exam nl Neck: No nuchal rigidity Respiratory: Clear to Auscultation Cardio Vascular: RRR, No murmur, gallop, rubs, NL S1 S2 GI: No tenderness/rebounding/guarding Extremities: No edema Other Neuro/Psych comments:: oriented to self only ED Labs/Radiology/EKG Results - Lab Results Results: Laboratory Tests 01/20/18 01/20/18 01/20/18 21:50 21:50 21:50 WBC 6.7 RBC 5.12 Hgb 15.3 Hct 45.9 MCV 89.6 MCH 29.9 MCHC Differential 33.3 RDW 12.6 Plt Count 439 H MPV 5.8 Neutrophils % 60.9 Lymphocytes % 25.1 Monocytes % 8.1 Eosinophils % 5.4 H Basophils % 0.5 PT INR PTT (Actin FS) Sodium 128 L Potassium 3.7 Chloride 92 L Carbon Dioxide 27.0 Anion Gap 12.7 BUN 17 Creatinine 0.7 Est GFR ( Amer) TNP Est GFR (Non-Af Amer) TNP BUN/Creatinine Ratio 24.3 Glucose 95 Calcium 9.5 Total Bilirubin 0.4 AST 15 ALT 12 Alkaline Phosphatase 83 Troponin I B-Natriuretic Peptide 19.9 Total Protein 7.3 Albumin 4.4 Globulin 2.9 Albumin/Globulin Ratio 1.5 01/20/18 01/20/18 21:50 21:50 WBC RBC Hgb Hct MCV MCH MCHC Differential RDW Plt Count MPV Neutrophils % Lymphocytes % Monocytes % Eosinophils % Basophils % PT 12.1 H INR 1.17 PTT (Actin FS) 28.9 Sodium Potassium Chloride Carbon Dioxide Anion Gap BUN Creatinine Est GFR ( Amer) Est GFR (Non-Af Amer) BUN/Creatinine Ratio Glucose Calcium Total Bilirubin AST ALT Alkaline Phosphatase Troponin I 0.01 B-Natriuretic Peptide Total Protein Albumin Globulin Albumin/Globulin Ratio - EKG Interpretations EKG Time:: 21:38 Rate & Rhythm: 67 bpm, sinus rhythm [place]: Normal axis Intervals: Prolonged NC interval Comments:: Abnormal R wave progression, early transition ED Assessment - Assessment General Assessment: Hyponatremia Urinary tract infection Hypertension Dementia Unsteady gait Assessment/Comments:: CBC, CMP, Trop I, BNP, UA EKG, CXR NS 1L IV bolus Rocephin Admit to telemetry ED Septic Shock - . Is Septic Shock (SBP<90, OR Lactate>4 mmol\L) present?: No ED Reassessment (Disposition) - Reassessment Reassessment Condition:: Improved - Patient Disposition Discharge/Transfer:: Acute Care w/in this hosp Admitting Medical Physician:: Jake Ivy
[2018-01-20] MEDS ORDERED: cefTRIAXone 1 GM in Sodium Chloride 0.9% 50 ML IV ONE (23:25)
[2018-01-21 02:32] VITALS: BP 148/75
[2018-01-21] MEDS: D5-0.45NS 1,000 ML IV SCH ×2 (03:32→22:55)
[2018-01-21 05:46] LABS: % BASOPHILS 0.9 % (0.0-2.0); % EOSINOPHILS 5.9 % (0.0-5.0); % LYMPHOCYTES 26.6 % (20.0-50.0); % MONOCYTES 8.6 % (2.0-10.0); BASOPHILE ABSOLUTE 0.1 Th/cumm (0-0.2); EOSINOPHILE ABSOLUTE 0.6 Th/cmm (0.1-0.4); HEMOGLOBIN 13.8 gm/dL (12-16); LYMPHOCYTE ABSOLUTE 2.5 Th/cmm (1.5-3.0); MEAN CELL VOLUME 87.8 fl (80-99); MEAN CORPUSCULAR HEMOGLOBIN 30.2 pg (27.0-31.0); MEAN CORPUSCULAR HGB CONC 34.4 pg (28.0-36.0); MEAN PLATELET VOLUME 5.6 fl; MONOCYTE ABSOLUTE 0.8 Th/cmm (0.3-1.0); NEUTROPHILE ABSOLUTE 5.4 Th/cmm (1.8-8.0); PLATELET COUNT 391 Th/cmm (150-400); RED BLOOD COUNT 4.56 Mil/cmm (3.80-5.80); RED CELL DISTRIBUTION WIDTH 12.5 % (11.5-20.0); WHITE BLOOD COUNT 9.4 Th/cmm (4.8-10.8)
[2018-01-21 05:58] LABS: ANION GAP 11.8 (7.0-16.0); BUN - UREA NITROGEN 15 mg/dL (7-25); CALCIUM SERUM 8.8 mg/dL (8.6-10.3); CARBON DIOXIDE 23.6 mEq/L (21.0-31.0); CHLORIDE 100 mEq/L (98-107); CREATININE - SERUM 0.6 mg/dL (0.7-1.3); GLUCOSE 80 mg/dL (70-105); POTASSIUM SERUM 3.4 mEq/L (3.5-5.1); SODIUM SERUM 132 mEq/L (136-145)
--- NOTE | 2018-01-21 08:43 | Diagnostic Imaging Report ---
CHEST X-RAY: AP view INDICATION: Shortness of breath COMPARISON: 09/23/2017 FINDINGS: Chronic lung changes are seen. Patient's head obscures the upper hemithoraces. Right lower lung zone subsegmental atelectasis versus scarring is noted. No focal consolidation or pleural effusions. Heart size is borderline prominent. Tortuous aorta is noted. Degenerative changes of the spine are noted. Postsurgical changes of the left clavicle are again noted. IMPRESSION: Right lower lung zone subsegmental atelectasis versus scarring. No focal consolidation identified. Tortuous aorta.
--- NOTE | 2018-01-21 09:06 | Diagnostic Imaging Report ---
Head CT without intravenous contrast Indication: Altered level of consciousness Comparison: Head CT on 09/24/2017 Technique: Axial images were obtained from the vertex to the skull base without IV contrast. Coronal reconstructions were made. Total DLP: 1305, CTDI80 FINDINGS: Images of the brain obtained without contrast demonstrate no evidence of an acute hemorrhage. Again seen is prominence of the lateral and third ventricle with normal size fourth ventricle. Atrophy is noted. Mild white matter disease is noted. Prominent CSF space of the left middle cranial fossa is noted measuring 3.2 x 2.5 cm. Mucous retention cyst versus polyp of the left maxillary sinus is noted. No evidence of a skull fracture or significant focal soft tissue swelling. IMPRESSION: No evidence of an acute intracranial hemorrhage. Redemonstration of Prominence of the third and lateral ventricles. The fourth ventricle is normal in size. This may be related to atrophy, however, other etiologies such as aqueductal stenosis cannot be excluded. Please correlate clinically. Mild supratentorial white matter disease. Left middle cranial fossa CSF prominence which may represent an arachnoid cyst. Mild sinus disease.
[2018-01-21] MEDS ORDERED: Potassium Chloride 20 mEq ER Tab PO ONE (10:00)
--- NOTE | 2018-01-21 11:08 | Diagnostic Imaging Report ---
Carotid ultrasound HISTORY: Altered level of consciousness COMPARISON: None Technique: Longitudinal and transverse sonographic sector images of the carotid arteries were obtained with doppler analysis. FINDINGS: Exam of the right side demonstrates intimal thickening and mild to moderate generalized atherosclerotic vascular disease. Exam of the side demonstrates intimal thickening and mild to moderate generalized atherosclerotic vascular disease. The velocity and velocity ratios are within normal limits. Antegrade vertebral artery flow is demonstrated bilaterally. IMPRESSION: Mild to moderate generalized atherosclerotic vascular disease. No evidence of hemodynamically significant stenosis.
--- NOTE | 2018-01-21 11:16 | Diagnostic Imaging Report ---
Ultrasound abdomen HISTORY: Abdominal pain COMPARISON: CT abdomen and pelvis on 09/26/2017 ultrasound abdomen on 09/25/2017. Patient has history of left renal mass and multiple hepatic cysts. Technique: Sonography of the abdomen was performed in multiple planes. FINDINGS: Exam is limited due to patient's medical condition. The liver demonstrates heterogeneous echotexture and measures 18.8 cm. Multiple sonolucent lesions are seen throughout the liver the largest within the right lobe measuring 5.5 x 4.5 cm. Assessment of the gallbladder was limited as patient had difficulty positioning. Gallbladder sludge cannot be excluded. Assessment for gallstones was limited. The CBD measures 6 mm. Assessment of pancreas is limited due to bowel gas. The right kidney measures 1.0 x 5.7 cm. No evidence of focal lesions or hydronephrosis. The left kidney measures 11.7 x 5.6 cm demonstrating an mass lesions seen along the mid to upper pole measuring 6.0 x 5.4 cm. 1.1 cm echogenic focus of the mid pole is also noted. No evidence of splenomegaly. Additional images of the urinary bladder and prostate gland were performed. The urinary bladder is distended. Patient refused voiding. There is a hypoechoic area along the inferior urinary bladder measuring 4.5 x 1.3 cm possibly representing debris or mass lesion. Mild urinary bladder wall thickening is noted measuring up to 5 mm. The prostate gland measures 3.2 x 3.8 cm demonstrating echogenic focus probably a calcification measuring 1.3 cm. IMPRESSION: Limited exam due to patient's medical condition. Large left renal mass as also seen on previous CT examinations. Again findings may represent renal cell carcinoma. Clinical correlation and follow-up is needed. Markedly distended urinary bladder. Patient was unable to void. There is a indeterminate hypoechoic area along the inferior urinary bladder which may represent debris or other mass effect. This lesion measures 4.5 x 1.3 cm. Mild urinary bladder wall thickening is also noted. Please correlate clinically. Borderline prominent prostate gland with calcification Suboptimal assessment of the gallbladder. Mildly distended gallbladder is noted. Small amount of sludge cannot be excluded. Assessment for gallstones was also limited on this exam. Hepatomegaly with multiple hepatic cysts as seen on previous CT examination. Mild heterogeneous hepatic echotexture which may reflect underlying hepatocellular disease. Echogenic focus of the left kidney which may represent renal sinus fat. A nonobstructive stone is less likely.
--- NOTE | 2018-01-21 12:21 | Consultation ---
Consult Note - Consult Note Service Date: 01/21/18 Referring Physician: Jake Ivy Consult Note: PHYSICIAN Consultation Note: Date of Admission: 01/21/18 Purpose of Consultation: UTI Chief Complaint: Patient TRAN DUTTA was admitted to [facility] Telemetry with UTI, ALOC. History of Present Illness: 82 yo male encephalopathy, dementia, ataxia, HTN, A fib.was brought from SNF to ER for evaluation of frequent fall due to unsteady gait. Patient was urinary incontinent and had foul urine odor. In order to get urine sample, a straight catheter insertion was attempted in the ER without success due to urethra stenosis and bleeding. UTI was suspected and ID consult was called for antibiotic management. Past Medical History: Encephalopathy. Dementia. Ataxia, HTN, A fib. Ataxia, h/o frequent falls. Allergies Allergy/AdvReac Type Severity Reaction Status Date / Time No Known Allergies Allergy Verified 01/20/18 21:22 Vital Signs Temp 97.3 F 01/21/18 08:00 Pulse 62 01/21/18 11:01 Resp 18 01/21/18 08:00 BP 147/79 01/21/18 11:01 Pulse Ox 100 01/21/18 08:00 Intake & Output 01/20/18 01/21/18 01/21/18 18:59 06:59 18:59 Weight (lbs) 61.689 kg Other: # Voids 2 Weight Source Bedscale Laboratory Results - last 24 hr 01/20/18 01/20/18 01/20/18 21:50 21:50 21:50 WBC 6.7 RBC 5.12 Hgb 15.3 Hct 45.9 MCV 89.6 MCH 29.9 MCHC Differential 33.3 RDW 12.6 Plt Count 439 H MPV 5.8 Neutrophils % 60.9 Lymphocytes % 25.1 Monocytes % 8.1 Eosinophils % 5.4 H Basophils % 0.5 PT INR PTT (Actin FS) Sodium 128 L Potassium 3.7 Chloride 92 L Carbon Dioxide 27.0 Anion Gap 12.7 BUN 17 Creatinine 0.7 Est GFR ( Amer) TNP Est GFR (Non-Af Amer) TNP BUN/Creatinine Ratio 24.3 Glucose 95 Calcium 9.5 Total Bilirubin 0.4 AST 15 ALT 12 Alkaline Phosphatase 83 Troponin I B-Natriuretic Peptide 19.9 Total Protein 7.3 Albumin 4.4 Globulin 2.9 Albumin/Globulin Ratio 1.5 01/20/18 01/20/18 01/21/18 21:50 21:50 05:35 WBC 9.4 RBC 4.56 Hgb 13.8 Hct 40.0 L D MCV 87.8 MCH 30.2 MCHC Differential 34.4 RDW 12.5 Plt Count 391 MPV 5.6 Neutrophils % 58.0 Lymphocytes % 26.6 Monocytes % 8.6 Eosinophils % 5.9 H Basophils % 0.9 PT 12.1 H INR 1.17 PTT (Actin FS) 28.9 Sodium Potassium Chloride Carbon Dioxide Anion Gap BUN Creatinine Est GFR ( Amer) Est GFR (Non-Af Amer) BUN/Creatinine Ratio Glucose Calcium Total Bilirubin AST ALT Alkaline Phosphatase Troponin I 0.01 B-Natriuretic Peptide Total Protein Albumin Globulin Albumin/Globulin Ratio 01/21/18 05:35 WBC RBC Hgb Hct MCV MCH MCHC Differential RDW Plt Count MPV Neutrophils % Lymphocytes % Monocytes % Eosinophils % Basophils % PT INR PTT (Actin FS) Sodium 132 L Potassium 3.4 L Chloride 100 Carbon Dioxide 23.6 Anion Gap 11.8 BUN 15 Creatinine 0.6 L Est GFR ( Amer) TNP Est GFR (Non-Af Amer) TNP BUN/Creatinine Ratio 25.0 Glucose 80 Calcium 8.8 Total Bilirubin AST ALT Alkaline Phosphatase Troponin I B-Natriuretic Peptide Total Protein Albumin Globulin Albumin/Globulin Ratio Home Medication Medication Instructions Recorded Type Acetaminophen [Tylenol] 650 mg PO Q6H PRN 11/27/16 History Amlodipine Besylate 5 mg PO DAILY 11/27/16 History Docusate Sodium [Colace] 250 mg PO BID 11/27/16 History Hydrochlorothiazide [Microzide] 12.5 mg PO DAILY 11/27/16 History Losartan Potassium [Cozaar] 50 mg PO DAILY 11/27/16 History Lactulose [Cephulac] 20 gm PO TID udc 10/02/17 Rx Sodium Chloride Tab [NaCL Tab] 1 gm PO BID 01/20/18 History Current Medications Generic Name Dose Route Start Last Admin Trade Name Freq PRN Reason Stop Dose Admin Acetaminophen 650 mg 01/21/18 10:42 Tylenol PO 03/22/18 10:41 Q6H PRN TEMP >101.1 OR PAIN Amlodipine Besylate 5 mg 01/22/18 09:00 Norvasc PO 03/23/18 08:59 DAILY NADINE Docusate Sodium 250 mg 01/21/18 17:00 Colace PO 03/22/18 16:59 BID NADINE Hydrochlorothiazide 12.5 mg 01/22/18 09:00 Hctz PO 03/23/18 08:59 DAILY NADINE Dextrose/Sodium Chloride 1,000 mls @ 50 mls/hr 01/21/18 02:30 01/21/18 03:32 D5-0.45ns IV 03/22/18 02:29 50 mls/hr .Q20H NADINE Administration Levofloxacin 500 mg in 100 mls @ 100 mls/hr 01/22/18 09:00 Levaquin Pb IV 03/23/18 08:59 Q24HR NADINE Lactulose 20 gm 01/21/18 14:00 Cephulac PO 03/22/18 13:59 TID NADINE Losartan Potassium 50 mg 01/22/18 09:00 Cozaar PO 03/23/18 08:59 DAILY NADINE Sodium Chloride 1 gm 01/21/18 17:00 Nacl Tab PO 03/22/18 16:59 BID NADINE Review of Systems: A 12 point ROS was reviewed with the pertinent positive and negatives noted in the HPI. General/Constitutional: No fever, No chills, no weakness. HEENT:: No headache, No nasal drainage, no diplopia, no photophobia, no weakness. Cardio Vascular: No chest pain, no palpitations or swelling of legs. Pulmonary: No Cough, No SOB, no congestion. GI: No nausea, No vomiting. : No dysuria, had hematuria. Musculoskeletal: No bone or joint pain Neurological: No headache, no dizziness. No focal weakness. Skin: No rash Social History Smoking Status Smoker, status unknown Family Medical History Unknown. Physical Exam: General: comfortable, not in distress. HEENT: HEAD: NCNT Oral cavity: Moist, pink tongue. Eyes: No pallor, no icterus. pupil PERRLA. EOMI Neck: Supple. no JVD no use of accessory neck muscles. Cardio: S1 and S2 WNL. No murmur, no gallop. NO rub. Respiratory: CTAP Abdominal: Soft NT ND BS present. Genital/Urinary: deferred Extremities: NCCE Neurological: Alert and awake. speech is clear. LABS: Reviewed. Skin: intact,. Assessment: 1. UTI. 2. Urethral stenosis. 3. Dementia. 4. Encephalopathy. 5. Dementia. 6. Ataxia. 7. HTN. 8. A fib. 9. frequent falls. 10. Left renal mass, renal cell CA. Plan: Continue levaquin. Wait for Urology consultation. Thank you, Dr Ivy for involving me in taking care of this patient. Signed, Angelo Manjarrez M.D. 203
[2018-01-21] MEDS: Lactulose 10 Gm/15 mL 30mL UDC PO SCH ×2 (13:54→20:45)
[2018-01-21 15:33] LABS: URINE SOURCE RANDOM
[2018-01-21 15:37] LABS: URINE BILIRUBIN NEGATIVE (NEGATIVE); URINE BLOOD SMALL (NEGATIVE); URINE GLUCOSE (UA) NEGATIVE (NEGATIVE); URINE KETONE NEGATIVE (NEGATIVE); URINE LEUKOCYTE ESTERASE LARGE (NEGATIVE); URINE MICROSCOPIC INDICATED? YES; URINE NITRATE NEGATIVE (NEGATIVE); URINE PH 7.5 (4.6 - 8.0); URINE PROTEIN NEGATIVE (NEGATIVE); URINE UROBILINOGEN 0.2 E.U./dL (0.2 - 1.0)
[2018-01-21 15:48] LABS: URINE CLARITY HAZY (CLEAR); URINE COLOR YELLOW
[2018-01-21 15:49] LABS: URINE RBC 0-2 /hpf (0-5)
[2018-01-21 15:50] LABS: URINE BACTERIA OCCASIONAL /hpf (NONE SEEN); URINE EPITHELIAL CELLS NONE SEEN /lpf (FEW)
--- NOTE | 2018-01-21 19:23 | History & Physical ---
ADMIT DATE: 01/21/2018 HISTORY OF PRESENT ILLNESS: The patient is a very well-known to me. The patient is known to have history of dementia, history of psychosis, history of hypertension, history of benign enlargement of the prostate, resident of [facility], actually was here last time and we found that he has a renal mass. I spoke to the conservator, who did not want anything done at the time and the patient was sent back. The patient has been having several episodes of falling, unsteady gait, and ataxia. He also has a history of ureteral stenosis. The patient was evaluated in the Emergency Room and was admitted for ataxia and rule out metastatic lesion. The patient had no fever, no chills, no rigors, no nasal discharge. The patient complained severe weakness, confusion, and history of fall. The patient has a history of hypertension, history of congestive heart failure, history of dementia, history of encephalopathy, and history of atrial fibrillation. PAST MEDICAL HISTORY: As enumerated above. PAST SURGICAL HISTORY: Unremarkable. FAMILY HISTORY: Unremarkable. PHYSICAL EXAMINATION: GENERAL: The patient is resident of [facility]. His EKG showed sinus rhythm, heart rate was slightly kind of slow, less than 67. HEAD: Normal. ENT: Normal. NECK: Supple, nontender. LUNGS: Clear. CARDIOVASCULAR SYSTEM: S1, S2 heard. ABDOMEN: Soft. Bowel sounds are heard. CENTRAL NERVOUS SYSTEM: The patient is confused. DIAGNOSES: Unsteady gait, history of several falls, history of renal mass, rule out metastasis, hypertension, history of congestive heart failure, history of transient ischemic attack in the past, history of encephalopathy in the past, history of atrial fibrillation was made. PLAN: The patient is being admitted. I will go ahead and do a neurological evaluation and cardiac evaluation and will also call Dr. Harper for consult as well as we will start him on antibiotics for this urinary tract infection. JOB# [id number]
--- NOTE | 2018-01-22 03:13 | Consultation ---
DATE OF CONSULTATION: 01/21/[address] Angelo Manjarrez. HISTORY OF PRESENT ILLNESS: This is an 82-year-old male patient with dementia, ataxia, hypertension, and paroxysmal atrial fibrillation. The patient has frequent falls. The patient at this time was brought to the Emergency Room with urinary tract infection. The patient is a poor historian. History received from the charts. PAST MEDICAL HISTORY: The patient has dementia, ataxia, hypertension, and paroxysmal atrial fibrillation. FAMILY HISTORY: Unremarkable. SOCIAL HISTORY: No history of smoking or alcohol abuse. ALLERGIES: No known allergies. PHYSICAL EXAMINATION: VITAL SIGNS: Blood pressure 130/82, pulse 68, and respirations 28. HEENT: Head normocephalic. No lumps or bumps. Eyes, pupils equal, reactive to light. Fundi show AV nicking, sclerae white, conjunctivae pink. NECK: Carotid 2+. Normal upstroke. JVD flat. Thyroid not palpable. Lymph nodes not palpable. CHEST: Shows increased AP diameter. No kyphosis, scoliosis. LUNGS: Bilateral bronchovesicular breath sounds. HEART: PMI fifth intercostal space with lateral to midclavicular line. S1, S2. No S3, S4, soft systolic murmur. ABDOMEN: Soft. Liver, spleen not palpable. No organomegaly. Bowel sounds active. NEUROLOGIC: Unremarkable. The patient has dementia. EXTREMITIES: Peripheral pulses 2+. No pedal edema. CLINICAL IMPRESSION: Urinary tract infection, paroxysmal atrial fibrillation now in sinus rhythm, dementia, urethral stenosis, ataxia, hypertension, frequent falls, left renal mass, renal cell carcinoma. PLAN: The patient at the present time to continue present care. No anticoagulation done due to frequent falls. JOB# [id number]
[2018-01-22 05:26] LABS: % BASOPHILS 0.9 % (0.0-2.0); % EOSINOPHILS 6.3 % (0.0-5.0); % LYMPHOCYTES 28.7 % (20.0-50.0); % MONOCYTES 9.7 % (2.0-10.0); % NEUTROPHILS 54.4 % (40.0-80.0); BASOPHILE ABSOLUTE 0.1 Th/cumm (0-0.2); EOSINOPHILE ABSOLUTE 0.6 Th/cmm (0.1-0.4); HEMATOCRIT 41.9 % (41.0-60); HEMOGLOBIN 14.1 gm/dL (12-16); LYMPHOCYTE ABSOLUTE 2.5 Th/cmm (1.5-3.0); MEAN CELL VOLUME 89.5 fl (80-99); MEAN CORPUSCULAR HEMOGLOBIN 30.2 pg (27.0-31.0); MEAN CORPUSCULAR HGB CONC 33.7 pg (28.0-36.0); MEAN PLATELET VOLUME 5.8 fl; MONOCYTE ABSOLUTE 0.9 Th/cmm (0.3-1.0); NEUTROPHILE ABSOLUTE 4.7 Th/cmm (1.8-8.0); PLATELET COUNT 387 Th/cmm (150-400); RED BLOOD COUNT 4.68 Mil/cmm (3.80-5.80); RED CELL DISTRIBUTION WIDTH 12.2 % (11.5-20.0); WHITE BLOOD COUNT 8.8 Th/cmm (4.8-10.8)
[2018-01-22 05:47] LABS: ANION GAP 12.5 (7.0-16.0); BUN - UREA NITROGEN 13 mg/dL (7-25); CALCIUM SERUM 8.7 mg/dL (8.6-10.3); CARBON DIOXIDE 23.8 mEq/L (21.0-31.0); CHLORIDE 97 mEq/L (98-107); CREATININE - SERUM 0.6 mg/dL (0.7-1.3); GLUCOSE 82 mg/dL (70-105); POTASSIUM SERUM 3.3 mEq/L (3.5-5.1); SODIUM SERUM 130 mEq/L (136-145)
[2018-01-22] MEDS ORDERED: Potassium Chloride 20 mEq ER Tab PO ONE (08:00)
[2018-01-22] MEDS: Lactulose 10 Gm/15 mL 30mL UDC PO SCH ×3 (09:11→21:23)
[2018-01-22] MEDS: Levofloxacin 500mg/100mL 500 MG/100 ML BAG IV SCH (09:13)
--- NOTE | 2018-01-22 11:04 | Internal Medicine Prog Note ---
Internal Medicine Subjective - Subjective Service Date: 01/22/18 Patient seen and examined:: with staff Patient is:: awake, verbal Per staff patient has:: tolerating meds Internal Medicine Objective - Results Result Diagrams: 01/22/18 05:00 01/22/18 05:00 Recent Labs: Laboratory Last Values WBC 8.8 Th/cmm (4.8-10.8) 01/22/18 05:00 RBC 4.68 Mil/cmm (3.80-5.80) 01/22/18 05:00 Hgb 14.1 gm/dL (12-16) 01/22/18 05:00 Hct 41.9 % (41.0-60) 01/22/18 05:00 MCV 89.5 fl (80-99) 01/22/18 05:00 MCH 30.2 pg (27.0-31.0) 01/22/18 05:00 MCHC Differential 33.7 pg (28.0-36.0) 01/22/18 05:00 RDW 12.2 % (11.5-20.0) 01/22/18 05:00 Plt Count 387 Th/cmm (150-400) 01/22/18 05:00 MPV 5.8 fl 01/22/18 05:00 Neutrophils % 54.4 % (40.0-80.0) 01/22/18 05:00 Lymphocytes % 28.7 % (20.0-50.0) 01/22/18 05:00 Monocytes % 9.7 % (2.0-10.0) 01/22/18 05:00 Eosinophils % 6.3 % (0.0-5.0) H 01/22/18 05:00 Basophils % 0.9 % (0.0-2.0) 01/22/18 05:00 PT 12.1 SECONDS (9.5-11.5) H 01/20/18 21:50 INR 1.17 (0.5-1.4) 01/20/18 21:50 PTT (Actin FS) 28.9 SECONDS (26.0-38.0) 01/20/18 21:50 Sodium 130 mEq/L (136-145) L 01/22/18 05:00 Potassium 3.3 mEq/L (3.5-5.1) L 01/22/18 05:00 Chloride 97 mEq/L (98-107) L 01/22/18 05:00 Carbon Dioxide 23.8 mEq/L (21.0-31.0) 01/22/18 05:00 Anion Gap 12.5 (7.0-16.0) 01/22/18 05:00 BUN 13 mg/dL (7-25) 01/22/18 05:00 Creatinine 0.6 mg/dL (0.7-1.3) L 01/22/18 05:00 Est GFR ( Amer) TNP 01/22/18 05:00 Est GFR (Non-Af Amer) TNP 01/22/18 05:00 BUN/Creatinine Ratio 21.7 01/22/18 05:00 Glucose 82 mg/dL (70-105) 01/22/18 05:00 Calcium 8.7 mg/dL (8.6-10.3) 01/22/18 05:00 Total Bilirubin 0.4 mg/dL (0.3-1.0) 01/20/18 21:50 AST 15 U/L (13-39) 01/20/18 21:50 ALT 12 U/L (7-52) 01/20/18 21:50 Alkaline Phosphatase 83 U/L (34-104) 01/20/18 21:50 Troponin I 0.01 ng/mL (0.01-0.05) 01/20/18 21:50 B-Natriuretic Peptide 19.9 pg/mL (5.0-100.0) 01/20/18 21:50 Total Protein 7.3 gm/dL (6.0-8.3) 01/20/18 21:50 Albumin 4.4 gm/dL (4.2-5.5) 01/20/18 21:50 Globulin 2.9 gm/dL 01/20/18 21:50 Albumin/Globulin Ratio 1.5 (1.0-1.8) 01/20/18 21:50 Urine Source RANDOM 01/21/18 15:25 Urine Color YELLOW 01/21/18 15:25 Urine Clarity HAZY (CLEAR) 01/21/18 15:25 Urine pH 7.5 (4.6 - 8.0) 01/21/18 15:25 Ur Specific [place] 1.010 (1.005-1.030) 01/21/18 15:25 Urine Protein NEGATIVE mg/dL (NEGATIVE) 01/21/18 15:25 Urine Glucose (UA) NEGATIVE mg/dL (NEGATIVE) 01/21/18 15:25 Urine Ketones NEGATIVE mg/dL (NEGATIVE) 01/21/18 15:25 Urine Blood SMALL (NEGATIVE) H 01/21/18 15:25 Urine Nitrate NEGATIVE (NEGATIVE) 01/21/18 15:25 Urine Bilirubin NEGATIVE (NEGATIVE) 01/21/18 15:25 Urine Urobilinogen 0.2 E.U./dL (0.2 - 1.0) 01/21/18 15:25 Ur Leukocyte Esterase LARGE (NEGATIVE) H 01/21/18 15:25 Urine RBC 0-2 /hpf (0-5) H 01/21/18 15:25 Urine WBC 10-25 /hpf (0-5) H 01/21/18 15:25 Ur Epithelial Cells NONE SEEN /lpf (FEW) 01/21/18 15:25 Urine Bacteria OCCASIONAL /hpf (NONE SEEN) 01/21/18 15:25 - Physical Exam Vitals and I&O: Vital Signs Temp 97.7 F 01/22/18 04:00 Pulse 67 01/22/18 09:11 Resp 14 01/22/18 04:00 BP 163/91 01/22/18 09:11 Pulse Ox 98 01/22/18 04:00 Intake & Output 01/21/18 01/22/18 01/22/18 18:59 06:59 18:59 Intake Total 700 1089.167 Balance 700 1089.167 Weight (lbs) 136 lb 136 lb Intake: Intake, IV Amount 969.167 D5-0.45NS 1,000 ml @ 50 969.167 mls/hr IV .Q20H [facility] Rx#: [id number] Oral 700 120 Other: # Voids 3 3 # Bowel Movements 0 Weight Source Bedscale Bedscale Active Medications: Current Medications Acetaminophen (Tylenol) 650 mg PO Q6H PRN PRN Reason: TEMP >101.1 OR PAIN Stop: 03/22/18 10:41 Amlodipine Besylate (Norvasc) 5 mg PO DAILY [facility] Stop: 03/23/18 08:59 Last Admin: 01/22/18 09:09 Dose: 5 mg Docusate Sodium (Colace) 250 mg PO BID [facility] Stop: 03/22/18 16:59 Last Admin: 01/22/18 09:09 Dose: 250 mg Hydrochlorothiazide (Hctz) 12.5 mg PO DAILY NADINE Stop: 03/23/18 08:59 Last Admin: 01/22/18 09:11 Dose: 12.5 mg Dextrose/Sodium Chloride (D5-0.45ns) 1,000 mls @ 50 mls/hr IV .Q20H NADINE Stop: 03/22/18 02:29 Last Admin: 01/21/18 22:55 Dose: 50 mls/hr Levofloxacin (Levaquin Pb) 500 mg in 100 mls @ 100 mls/hr IV Q24HR NADINE Stop: 03/23/18 08:59 Last Admin: 01/22/18 09:13 Dose: 100 mls/hr Lactulose (Cephulac) 20 gm PO TID NADINE Stop: 03/22/18 13:59 Last Admin: 01/22/18 09:11 Dose: 20 gm Lorazepam (Ativan) 1 mg PO Q4HR PRN; Protocol PRN Reason: Anxiety Stop: 03/22/18 23:01 Last Admin: 01/21/18 23:45 Dose: 1 mg Losartan Potassium (Cozaar) 50 mg PO DAILY NADINE Stop: 03/23/18 08:59 Last Admin: 01/22/18 09:11 Dose: 50 mg Sodium Chloride (Nacl Tab) 1 gm PO BID NADINE Stop: 03/22/18 16:59 Last Admin: 01/22/18 09:09 Dose: 1 gm General: weak HEENT: NC/AT, PERRLA Neck: Supple Lungs: CTAB Cardiovascular: RRR, Normal S1, Normal S2, without murmur Abdomen: soft, non-tender, non-distended, positive bowel sound Extremities: excoriation Neurological: alert Internal Medicine Assmt/Plan - Assessment Assessment: acute uti left renal pass with renal cell ca urethral stenosis ataxia htn hx afib hx frequent falls. dementia - Plan Plan: pt/ot fall precautions ivabx as per id urology consultation follow up labs in am continue current plan of care
--- NOTE | 2018-01-22 17:30 | Cardiology ---
01/21/[address] Ivy. M-MODE ECHOCARDIOGRAM: Mitral valve, anterior leaflet of mitral valve shows normal excursion, EF velocity. Posterior leaflet of the mitral valve shows normal excursion. Left ventricular posterior wall shows increased thickness, normal excursion. Interventricular septum shows increased thickness, normal excursion, hypertrophy of the left ventricle, ejection fraction 60%. Left atrium normal. Aortic root shows normal dimension, normal excursion of aortic leaflets. CONCLUSION: Hypertrophy of the left ventricle, ejection fraction 60%. 2D ECHO: Long axis view show normal size left ventricle with hypertrophy of the left ventricle. Left atrium normal. Aortic root shows normal dimension, normal excursion of aortic leaflets. Short axis view of mitral valve normal. Short axis view of aortic valve normal. Apical four chamber view showed normal sized left ventricle, left atrium, right ventricle, right atrium, tricuspid and mitral valve. Ejection fraction 60%. CONCLUSION: Hypertrophy of the left ventricle, ejection fraction 60%. Doppler study shows mild aortic regurgitation, mild tricuspid regurgitation, right ventricular systolic pressure 28 mmHg. CONCLUSION: Hypertrophy of the left ventricle, mild tricuspid regurgitation, mild aortic regurgitation, ejection fraction 60%. JOB# [id number]
[2018-01-22] MEDS: D5-0.45NS 1,000 ML IV SCH (18:36)
--- NOTE | 2018-01-22 22:07 | Infectious Disease Prog Note ---
Infectious Disease Subjective - Review of Systems Service Date: 01/22/18 Subjective: There is no new change, no fever. Infectious Disease Objective - Results Result Diagrams: 01/22/18 05:00 01/22/18 05:00 Recent Labs: Laboratory Last Values WBC 8.8 Th/cmm (4.8-10.8) 01/22/18 05:00 RBC 4.68 Mil/cmm (3.80-5.80) 01/22/18 05:00 Hgb 14.1 gm/dL (12-16) 01/22/18 05:00 Hct 41.9 % (41.0-60) 01/22/18 05:00 MCV 89.5 fl (80-99) 01/22/18 05:00 MCH 30.2 pg (27.0-31.0) 01/22/18 05:00 MCHC Differential 33.7 pg (28.0-36.0) 01/22/18 05:00 RDW 12.2 % (11.5-20.0) 01/22/18 05:00 Plt Count 387 Th/cmm (150-400) 01/22/18 05:00 MPV 5.8 fl 01/22/18 05:00 Neutrophils % 54.4 % (40.0-80.0) 01/22/18 05:00 Lymphocytes % 28.7 % (20.0-50.0) 01/22/18 05:00 Monocytes % 9.7 % (2.0-10.0) 01/22/18 05:00 Eosinophils % 6.3 % (0.0-5.0) H 01/22/18 05:00 Basophils % 0.9 % (0.0-2.0) 01/22/18 05:00 PT 12.1 SECONDS (9.5-11.5) H 01/20/18 21:50 INR 1.17 (0.5-1.4) 01/20/18 21:50 PTT (Actin FS) 28.9 SECONDS (26.0-38.0) 01/20/18 21:50 Sodium 130 mEq/L (136-145) L 01/22/18 05:00 Potassium 3.3 mEq/L (3.5-5.1) L 01/22/18 05:00 Chloride 97 mEq/L (98-107) L 01/22/18 05:00 Carbon Dioxide 23.8 mEq/L (21.0-31.0) 01/22/18 05:00 Anion Gap 12.5 (7.0-16.0) 01/22/18 05:00 BUN 13 mg/dL (7-25) 01/22/18 05:00 Creatinine 0.6 mg/dL (0.7-1.3) L 01/22/18 05:00 Est GFR ( Amer) TNP 01/22/18 05:00 Est GFR (Non-Af Amer) TNP 01/22/18 05:00 BUN/Creatinine Ratio 21.7 01/22/18 05:00 Glucose 82 mg/dL (70-105) 01/22/18 05:00 Calcium 8.7 mg/dL (8.6-10.3) 01/22/18 05:00 Total Bilirubin 0.4 mg/dL (0.3-1.0) 01/20/18 21:50 AST 15 U/L (13-39) 01/20/18 21:50 ALT 12 U/L (7-52) 01/20/18 21:50 Alkaline Phosphatase 83 U/L (34-104) 01/20/18 21:50 Troponin I 0.01 ng/mL (0.01-0.05) 01/20/18 21:50 B-Natriuretic Peptide 19.9 pg/mL (5.0-100.0) 01/20/18 21:50 Total Protein 7.3 gm/dL (6.0-8.3) 01/20/18 21:50 Albumin 4.4 gm/dL (4.2-5.5) 01/20/18 21:50 Globulin 2.9 gm/dL 01/20/18 21:50 Albumin/Globulin Ratio 1.5 (1.0-1.8) 01/20/18 21:50 Prostate Specific Ag 20.8 ng/mL (0.0-4.0) H 01/21/18 05:35 Urine Source RANDOM 01/21/18 15:25 Urine Color YELLOW 01/21/18 15:25 Urine Clarity HAZY (CLEAR) 01/21/18 15:25 Urine pH 7.5 (4.6 - 8.0) 01/21/18 15:25 Ur Specific [place] 1.010 (1.005-1.030) 01/21/18 15:25 Urine Protein NEGATIVE mg/dL (NEGATIVE) 01/21/18 15:25 Urine Glucose (UA) NEGATIVE mg/dL (NEGATIVE) 01/21/18 15:25 Urine Ketones NEGATIVE mg/dL (NEGATIVE) 01/21/18 15:25 Urine Blood SMALL (NEGATIVE) H 01/21/18 15:25 Urine Nitrate NEGATIVE (NEGATIVE) 01/21/18 15:25 Urine Bilirubin NEGATIVE (NEGATIVE) 01/21/18 15:25 Urine Urobilinogen 0.2 E.U./dL (0.2 - 1.0) 01/21/18 15:25 Ur Leukocyte Esterase LARGE (NEGATIVE) H 01/21/18 15:25 Urine RBC 0-2 /hpf (0-5) H 01/21/18 15:25 Urine WBC 10-25 /hpf (0-5) H 01/21/18 15:25 Ur Epithelial Cells NONE SEEN /lpf (FEW) 01/21/18 15:25 Urine Bacteria OCCASIONAL /hpf (NONE SEEN) 01/21/18 15:25 - Physical Exam Vitals and I&O: Vital Signs Temp 99.4 F 01/22/18 15:00 Pulse 80 01/22/18 15:00 Resp 18 01/22/18 15:00 BP 133/83 01/22/18 15:00 Pulse Ox 98 01/22/18 15:00 Intake & Output 01/22/18 01/22/18 01/23/18 06:59 18:59 06:59 Intake Total 1313.140 5523.167 Balance 8772.656 8760.167 Weight (lbs) 61.689 kg 61.689 kg Intake: Intake, IV Amount 784.405 9769.167 D5-0.45NS 1,000 ml @ 50 969.167 984.167 mls/hr IV .Q20H NADINE Rx#: [id number] Levofloxacin 500mg/100mL 100 500 mg In 100 ml @ 100 mls/hr IV Q24HR NADINE Rx#: [id number] Oral 120 500 Other: # Voids 3 2 # Bowel Movements 4 Weight Source Bedscale Bedscale Active Medications: Current Medications Acetaminophen (Tylenol) 650 mg PO Q6H PRN PRN Reason: TEMP >101.1 OR PAIN Stop: 03/22/18 10:41 Amlodipine Besylate (Norvasc) 5 mg PO DAILY NADINE Stop: 03/23/18 08:59 Last Admin: 01/22/18 09:09 Dose: 5 mg Docusate Sodium (Colace) 250 mg PO BID NADINE Stop: 03/22/18 16:59 Last Admin: 01/22/18 16:30 Dose: 250 mg Hydrochlorothiazide (Hctz) 12.5 mg PO DAILY NADINE Stop: 03/23/18 08:59 Last Admin: 01/22/18 09:11 Dose: 12.5 mg Dextrose/Sodium Chloride (D5-0.45ns) 1,000 mls @ 50 mls/hr IV .Q20H NADINE Stop: 03/22/18 02:29 Last Admin: 01/22/18 18:36 Dose: 50 mls/hr Levofloxacin (Levaquin Pb) 500 mg in 100 mls @ 100 mls/hr IV Q24HR NADINE Stop: 03/23/18 08:59 Last Infusion: 01/22/18 10:15 Dose: Infused Lactulose (Cephulac) 20 gm PO TID NADINE Stop: 03/22/18 13:59 Last Admin: 01/22/18 21:23 Dose: Not Given Lorazepam (Ativan) 1 mg PO Q4HR PRN; Protocol PRN Reason: Anxiety Stop: 03/22/18 23:01 Last Admin: 01/21/18 23:45 Dose: 1 mg Losartan Potassium (Cozaar) 50 mg PO DAILY NADINE Stop: 03/23/18 08:59 Last Admin: 01/22/18 09:11 Dose: 50 mg Sodium Chloride (Nacl Tab) 1 gm PO BID NADINE Stop: 03/22/18 16:59 Last Admin: 01/22/18 16:30 Dose: 1 gm General: no acute distress, well developed, well nourished HEENT: atraumatic, normocephalic, PERRLA, EOMI, moist mucous membrane Neck: supple, no thyromegaly Cardiovascular: S1S2, regular Lungs: clear to auscultation bilaterally, clear to percussion Abdomen: soft, no tender, no distended, no hepatomegaly Extremities: no cyanosis, no clubbing, no edema Neurological: awake, alert, oriented Skin: intact Infectious Disease Assmt/Plan - Assessment Assessment: 1. UTI. 2. Urethral stenosis. 3. Dementia. 4. Encephalopathy. 5. Dementia. 6. Ataxia. 7. HTN. 8. A fib. 9. frequent falls. 10. Left renal mass, renal cell CA. - Plan Plan: Continue levaquin. waiting for urology consult.
[2018-01-23 05:36] LABS: % BASOPHILS 0.4 % (0.0-2.0); % EOSINOPHILS 5.1 % (0.0-5.0); % MONOCYTES 10.4 % (2.0-10.0); % NEUTROPHILS 57.1 % (40.0-80.0); EOSINOPHILE ABSOLUTE 0.4 Th/cmm (0.1-0.4); HEMATOCRIT 44.5 % (41.0-60); HEMOGLOBIN 14.5 gm/dL (12-16); LYMPHOCYTE ABSOLUTE 2.1 Th/cmm (1.5-3.0); MEAN CELL VOLUME 90.5 fl (80-99); MEAN CORPUSCULAR HEMOGLOBIN 29.6 pg (27.0-31.0); MEAN CORPUSCULAR HGB CONC 32.7 pg (28.0-36.0); MEAN PLATELET VOLUME 5.7 fl; MONOCYTE ABSOLUTE 0.8 Th/cmm (0.3-1.0); NEUTROPHILE ABSOLUTE 4.5 Th/cmm (1.8-8.0); PLATELET COUNT 394 Th/cmm (150-400); RED BLOOD COUNT 4.92 Mil/cmm (3.80-5.80); RED CELL DISTRIBUTION WIDTH 12.2 % (11.5-20.0); WHITE BLOOD COUNT 7.8 Th/cmm (4.8-10.8)
[2018-01-23 06:00] LABS: ALB/GLOB RATIO 1.4 (1.0-1.8); ALBUMIN 3.9 gm/dL (4.2-5.5); ALKALINE PHOSPHATASE 67 U/L (34-104); ANION GAP 11.1 (7.0-16.0); BILIRUBIN,TOTAL 0.5 mg/dL (0.3-1.0); BUN - UREA NITROGEN 12 mg/dL (7-25); CARBON DIOXIDE 27.7 mEq/L (21.0-31.0); CHLORIDE 93 mEq/L (98-107); CREATININE - SERUM 0.7 mg/dL (0.7-1.3); GLUCOSE 83 mg/dL (70-105); POTASSIUM SERUM 3.8 mEq/L (3.5-5.1); SGOT 14 U/L (13-39); SGPT/ALT 10 U/L (7-52); SODIUM SERUM 128 mEq/L (136-145); TOTAL PROTEIN,SERUM 6.6 gm/dL (6.0-8.3)
[2018-01-23] MEDS: Levofloxacin 500mg/100mL 500 MG/100 ML BAG IV SCH (09:01)
[2018-01-23] MEDS: Lactulose 10 Gm/15 mL 30mL UDC PO SCH ×3 (09:03→20:10)
[2018-01-23] MEDS ORDERED: Probiotic Screen MC PRN (11:49)
--- NOTE | 2018-01-23 14:35 | Infectious Disease Prog Note ---
Infectious Disease Subjective - Review of Systems Service Date: 01/23/18 Subjective: There is no new change, no fever. Infectious Disease Objective - Results Result Diagrams: 01/23/18 05:20 01/23/18 05:20 Recent Labs: Laboratory Last Values WBC 7.8 Th/cmm (4.8-10.8) 01/23/18 05:20 RBC 4.92 Mil/cmm (3.80-5.80) 01/23/18 05:20 Hgb 14.5 gm/dL (12-16) 01/23/18 05:20 Hct 44.5 % (41.0-60) 01/23/18 05:20 MCV 90.5 fl (80-99) 01/23/18 05:20 MCH 29.6 pg (27.0-31.0) 01/23/18 05:20 MCHC Differential 32.7 pg (28.0-36.0) 01/23/18 05:20 RDW 12.2 % (11.5-20.0) 01/23/18 05:20 Plt Count 394 Th/cmm (150-400) 01/23/18 05:20 MPV 5.7 fl 01/23/18 05:20 Neutrophils % 57.1 % (40.0-80.0) 01/23/18 05:20 Lymphocytes % 27.0 % (20.0-50.0) 01/23/18 05:20 Monocytes % 10.4 % (2.0-10.0) H 01/23/18 05:20 Eosinophils % 5.1 % (0.0-5.0) H 01/23/18 05:20 Basophils % 0.4 % (0.0-2.0) 01/23/18 05:20 PT 12.1 SECONDS (9.5-11.5) H 01/20/18 21:50 INR 1.17 (0.5-1.4) 01/20/18 21:50 PTT (Actin FS) 28.9 SECONDS (26.0-38.0) 01/20/18 21:50 Sodium 128 mEq/L (136-145) L 01/23/18 05:20 Potassium 3.8 mEq/L (3.5-5.1) 01/23/18 05:20 Chloride 93 mEq/L (98-107) L 01/23/18 05:20 Carbon Dioxide 27.7 mEq/L (21.0-31.0) 01/23/18 05:20 Anion Gap 11.1 (7.0-16.0) 01/23/18 05:20 BUN 12 mg/dL (7-25) 01/23/18 05:20 Creatinine 0.7 mg/dL (0.7-1.3) 01/23/18 05:20 Est GFR ( Amer) TNP 01/23/18 05:20 Est GFR (Non-Af Amer) TNP 01/23/18 05:20 BUN/Creatinine Ratio 17.1 01/23/18 05:20 Glucose 83 mg/dL (70-105) 01/23/18 05:20 Calcium 9.0 mg/dL (8.6-10.3) 01/23/18 05:20 Total Bilirubin 0.5 mg/dL (0.3-1.0) 01/23/18 05:20 AST 14 U/L (13-39) 01/23/18 05:20 ALT 10 U/L (7-52) 01/23/18 05:20 Alkaline Phosphatase 67 U/L (34-104) 01/23/18 05:20 Troponin I 0.01 ng/mL (0.01-0.05) 01/20/18 21:50 B-Natriuretic Peptide 19.9 pg/mL (5.0-100.0) 01/20/18 21:50 Total Protein 6.6 gm/dL (6.0-8.3) 01/23/18 05:20 Albumin 3.9 gm/dL (4.2-5.5) L 01/23/18 05:20 Globulin 2.7 gm/dL 01/23/18 05:20 Albumin/Globulin Ratio 1.4 (1.0-1.8) 01/23/18 05:20 Prostate Specific Ag 20.8 ng/mL (0.0-4.0) H 01/21/18 05:35 Urine Source RANDOM 01/21/18 15:25 Urine Color YELLOW 01/21/18 15:25 Urine Clarity HAZY (CLEAR) 01/21/18 15:25 Urine pH 7.5 (4.6 - 8.0) 01/21/18 15:25 Ur Specific [place] 1.010 (1.005-1.030) 01/21/18 15:25 Urine Protein NEGATIVE mg/dL (NEGATIVE) 01/21/18 15:25 Urine Glucose (UA) NEGATIVE mg/dL (NEGATIVE) 01/21/18 15:25 Urine Ketones NEGATIVE mg/dL (NEGATIVE) 01/21/18 15:25 Urine Blood SMALL (NEGATIVE) H 01/21/18 15:25 Urine Nitrate NEGATIVE (NEGATIVE) 01/21/18 15:25 Urine Bilirubin NEGATIVE (NEGATIVE) 01/21/18 15:25 Urine Urobilinogen 0.2 E.U./dL (0.2 - 1.0) 01/21/18 15:25 Ur Leukocyte Esterase LARGE (NEGATIVE) H 01/21/18 15:25 Urine RBC 0-2 /hpf (0-5) H 01/21/18 15:25 Urine WBC 10-25 /hpf (0-5) H 01/21/18 15:25 Ur Epithelial Cells NONE SEEN /lpf (FEW) 01/21/18 15:25 Urine Bacteria OCCASIONAL /hpf (NONE SEEN) 01/21/18 15:25 - Physical Exam Vitals and I&O: Vital Signs Temp 97.4 F 01/23/18 04:00 Pulse 62 01/23/18 09:03 Resp 18 01/23/18 04:00 BP 154/73 01/23/18 09:03 Pulse Ox 95 01/23/18 04:00 Intake & Output 01/22/18 01/23/18 01/23/18 18:59 06:59 18:59 Intake Total 1584.167 120 Balance 1584.167 120 Weight (lbs) 61.689 kg 61.689 kg Intake: Intake, IV Amount 1084.167 D5-0.45NS 1,000 ml @ 50 984.167 mls/hr IV .Q20H NADINE Rx#: [id number] Levofloxacin 500mg/100mL 100 500 mg In 100 ml @ 100 mls/hr IV Q24HR NADINE Rx#: [id number] Oral 500 120 Other: # Voids 2 3 # Bowel Movements 4 3 Stool Characteristics Liquid Foamy Weight Source Bedscale Bedscale Active Medications: Current Medications Acetaminophen (Tylenol) 650 mg PO Q6H PRN PRN Reason: TEMP >101.1 OR PAIN Stop: 03/22/18 10:41 Amlodipine Besylate (Norvasc) 5 mg PO DAILY NADINE Stop: 03/23/18 08:59 Last Admin: 01/23/18 09:03 Dose: 5 mg Docusate Sodium (Colace) 250 mg PO BID NADINE Stop: 03/22/18 16:59 Last Admin: 01/23/18 08:57 Dose: 250 mg Hydrochlorothiazide (Hctz) 12.5 mg PO DAILY NADINE Stop: 03/23/18 08:59 Last Admin: 01/23/18 08:57 Dose: 12.5 mg Dextrose/Sodium Chloride (D5-0.45ns) 1,000 mls @ 50 mls/hr IV .Q20H NADINE Stop: 03/22/18 02:29 Last Admin: 01/22/18 18:36 Dose: 50 mls/hr Levofloxacin (Levaquin Pb) 500 mg in 100 mls @ 100 mls/hr IV Q24HR NADINE Stop: 03/23/18 08:59 Last Admin: 01/23/18 09:01 Dose: 100 mls/hr Lactobacillus Rhamnosus (Culturelle 15b) 1 each PO DAILY NADINE Stop: 03/25/18 08:59 Lactulose (Cephulac) 20 gm PO TID NADINE Stop: 03/22/18 13:59 Last Admin: 01/23/18 13:43 Dose: 20 gm Lorazepam (Ativan) 1 mg PO Q4HR PRN; Protocol PRN Reason: Anxiety Stop: 03/22/18 23:01 Last Admin: 01/21/18 23:45 Dose: 1 mg Losartan Potassium (Cozaar) 50 mg PO DAILY NADINE Stop: 03/23/18 08:59 Last Admin: 01/23/18 09:01 Dose: 50 mg Miscellaneous (Probiotic Screen) 1 ea MC PRN PRN PRN Reason: PROTOCOL Stop: 03/24/18 11:48 Sodium Chloride (Nacl Tab) 1 gm PO BID NADINE Stop: 03/22/18 16:59 Last Admin: 01/23/18 09:01 Dose: 1 gm General: no acute distress, well developed, well nourished HEENT: atraumatic, normocephalic, PERRLA, EOMI Neck: supple, no thyromegaly Cardiovascular: S1S2, regular Lungs: clear to auscultation bilaterally, clear to percussion Abdomen: soft, no tender, no distended, no rebound Extremities: no cyanosis, no clubbing, no edema Neurological: awake, alert, oriented Skin: intact Infectious Disease Assmt/Plan - Assessment Assessment: 1. UTI. 2. Urethral stenosis. obstructive uropathy. 3. Dementia. 4. Encephalopathy. 5. Dementia. 6. Ataxia. 7. HTN. 8. A fib. 9. frequent falls. 10. Left renal mass, renal cell CA. - Plan Plan: Continue levaquin. waiting for urology consult.
--- NOTE | 2018-01-23 16:26 | Internal Medicine Prog Note ---
Internal Medicine Subjective - Subjective Patient seen and examined:: chart reviewed, other (several episodes of falls ) Patient is:: awake, verbal Per staff patient has:: tolerating meds Internal Medicine Objective - Results Result Diagrams: 01/23/18 05:20 01/23/18 05:20 Recent Labs: Laboratory Last Values WBC 7.8 Th/cmm (4.8-10.8) 01/23/18 05:20 RBC 4.92 Mil/cmm (3.80-5.80) 01/23/18 05:20 Hgb 14.5 gm/dL (12-16) 01/23/18 05:20 Hct 44.5 % (41.0-60) 01/23/18 05:20 MCV 90.5 fl (80-99) 01/23/18 05:20 MCH 29.6 pg (27.0-31.0) 01/23/18 05:20 MCHC Differential 32.7 pg (28.0-36.0) 01/23/18 05:20 RDW 12.2 % (11.5-20.0) 01/23/18 05:20 Plt Count 394 Th/cmm (150-400) 01/23/18 05:20 MPV 5.7 fl 01/23/18 05:20 Neutrophils % 57.1 % (40.0-80.0) 01/23/18 05:20 Lymphocytes % 27.0 % (20.0-50.0) 01/23/18 05:20 Monocytes % 10.4 % (2.0-10.0) H 01/23/18 05:20 Eosinophils % 5.1 % (0.0-5.0) H 01/23/18 05:20 Basophils % 0.4 % (0.0-2.0) 01/23/18 05:20 PT 12.1 SECONDS (9.5-11.5) H 01/20/18 21:50 INR 1.17 (0.5-1.4) 01/20/18 21:50 PTT (Actin FS) 28.9 SECONDS (26.0-38.0) 01/20/18 21:50 Sodium 128 mEq/L (136-145) L 01/23/18 05:20 Potassium 3.8 mEq/L (3.5-5.1) 01/23/18 05:20 Chloride 93 mEq/L (98-107) L 01/23/18 05:20 Carbon Dioxide 27.7 mEq/L (21.0-31.0) 01/23/18 05:20 Anion Gap 11.1 (7.0-16.0) 01/23/18 05:20 BUN 12 mg/dL (7-25) 01/23/18 05:20 Creatinine 0.7 mg/dL (0.7-1.3) 01/23/18 05:20 Est GFR ( Amer) TNP 01/23/18 05:20 Est GFR (Non-Af Amer) TNP 01/23/18 05:20 BUN/Creatinine Ratio 17.1 01/23/18 05:20 Glucose 83 mg/dL (70-105) 01/23/18 05:20 Calcium 9.0 mg/dL (8.6-10.3) 01/23/18 05:20 Total Bilirubin 0.5 mg/dL (0.3-1.0) 01/23/18 05:20 AST 14 U/L (13-39) 01/23/18 05:20 ALT 10 U/L (7-52) 01/23/18 05:20 Alkaline Phosphatase 67 U/L (34-104) 01/23/18 05:20 Troponin I 0.01 ng/mL (0.01-0.05) 01/20/18 21:50 B-Natriuretic Peptide 19.9 pg/mL (5.0-100.0) 01/20/18 21:50 Total Protein 6.6 gm/dL (6.0-8.3) 01/23/18 05:20 Albumin 3.9 gm/dL (4.2-5.5) L 01/23/18 05:20 Globulin 2.7 gm/dL 01/23/18 05:20 Albumin/Globulin Ratio 1.4 (1.0-1.8) 01/23/18 05:20 Prostate Specific Ag 20.8 ng/mL (0.0-4.0) H 01/21/18 05:35 Urine Source RANDOM 01/21/18 15:25 Urine Color YELLOW 01/21/18 15:25 Urine Clarity HAZY (CLEAR) 01/21/18 15:25 Urine pH 7.5 (4.6 - 8.0) 01/21/18 15:25 Ur Specific [place] 1.010 (1.005-1.030) 01/21/18 15:25 Urine Protein NEGATIVE mg/dL (NEGATIVE) 01/21/18 15:25 Urine Glucose (UA) NEGATIVE mg/dL (NEGATIVE) 01/21/18 15:25 Urine Ketones NEGATIVE mg/dL (NEGATIVE) 01/21/18 15:25 Urine Blood SMALL (NEGATIVE) H 01/21/18 15:25 Urine Nitrate NEGATIVE (NEGATIVE) 01/21/18 15:25 Urine Bilirubin NEGATIVE (NEGATIVE) 01/21/18 15:25 Urine Urobilinogen 0.2 E.U./dL (0.2 - 1.0) 01/21/18 15:25 Ur Leukocyte Esterase LARGE (NEGATIVE) H 01/21/18 15:25 Urine RBC 0-2 /hpf (0-5) H 01/21/18 15:25 Urine WBC 10-25 /hpf (0-5) H 01/21/18 15:25 Ur Epithelial Cells NONE SEEN /lpf (FEW) 01/21/18 15:25 Urine Bacteria OCCASIONAL /hpf (NONE SEEN) 01/21/18 15:25 - Physical Exam Vitals and I&O: Vital Signs Temp 97.4 F 01/23/18 04:00 Pulse 62 01/23/18 09:03 Resp 18 01/23/18 04:00 BP 154/73 01/23/18 09:03 Pulse Ox 95 01/23/18 04:00 Intake & Output 01/22/18 01/23/18 01/23/18 18:59 06:59 18:59 Intake Total 1584.167 120 Balance 1584.167 120 Weight (lbs) 61.689 kg 61.689 kg Intake: Intake, IV Amount 1084.167 D5-0.45NS 1,000 ml @ 50 984.167 mls/hr IV .Q20H NADINE Rx#: [id number] Levofloxacin 500mg/100mL 100 500 mg In 100 ml @ 100 mls/hr IV Q24HR NADINE Rx#: [id number] Oral 500 120 Other: # Voids 2 3 # Bowel Movements 4 3 Stool Characteristics Liquid Foamy Weight Source Bedscale Bedscale Active Medications: Current Medications Acetaminophen (Tylenol) 650 mg PO Q6H PRN PRN Reason: TEMP >101.1 OR PAIN Stop: 03/22/18 10:41 Amlodipine Besylate (Norvasc) 5 mg PO DAILY NADINE Stop: 03/23/18 08:59 Last Admin: 01/23/18 09:03 Dose: 5 mg Docusate Sodium (Colace) 250 mg PO BID NADINE Stop: 03/22/18 16:59 Last Admin: 01/23/18 08:57 Dose: 250 mg Hydrochlorothiazide (Hctz) 12.5 mg PO DAILY NADINE Stop: 03/23/18 08:59 Last Admin: 01/23/18 08:57 Dose: 12.5 mg Dextrose/Sodium Chloride (D5-0.45ns) 1,000 mls @ 50 mls/hr IV .Q20H NADINE Stop: 03/22/18 02:29 Last Admin: 01/22/18 18:36 Dose: 50 mls/hr Levofloxacin (Levaquin Pb) 500 mg in 100 mls @ 100 mls/hr IV Q24HR NADINE Stop: 03/23/18 08:59 Last Admin: 01/23/18 09:01 Dose: 100 mls/hr Lactobacillus Rhamnosus (Culturelle 15b) 1 each PO DAILY NADINE Stop: 03/25/18 08:59 Lactulose (Cephulac) 20 gm PO TID NADINE Stop: 03/22/18 13:59 Last Admin: 01/23/18 13:43 Dose: 20 gm Lorazepam (Ativan) 1 mg PO Q4HR PRN; Protocol PRN Reason: Anxiety Stop: 03/22/18 23:01 Last Admin: 01/21/18 23:45 Dose: 1 mg Losartan Potassium (Cozaar) 50 mg PO DAILY NADINE Stop: 03/23/18 08:59 Last Admin: 01/23/18 09:01 Dose: 50 mg Miscellaneous (Probiotic Screen) 1 ea MC PRN PRN PRN Reason: PROTOCOL Stop: 03/24/18 11:48 Sodium Chloride (Nacl Tab) 1 gm PO BID NADINE Stop: 03/22/18 16:59 Last Admin: 01/23/18 09:01 Dose: 1 gm General: weak HEENT: NC/AT, PERRLA Neck: Supple Lungs: CTAB Cardiovascular: RRR, Normal S1, Normal S2, without murmur Abdomen: soft, non-tender, non-distended, positive bowel sound Extremities: excoriation Neurological: alert Internal Medicine Assmt/Plan - Assessment Assessment: unsteady gait h/o several falls h/o renal mass htn chf transient ischemic attack h/o encephalopathy h.o a fib - Plan Plan: as per order sheet
[2018-01-23] MEDS: D5-0.45NS 1,000 ML IV SCH (20:11)
[2018-01-24] MEDS ORDERED: Lactobacillus Rhamnosus GG 15 Billion CFU CAP.SPRINK PO SCH (09:00)
[2018-01-24] MEDS: Lactulose 10 Gm/15 mL 30mL UDC PO SCH ×2 (09:39→13:13)
[2018-01-24] MEDS: Levofloxacin 500mg/100mL 500 MG/100 ML BAG IV SCH (09:41)
--- NOTE | 2018-01-24 22:28 | Progress Notes ---
DATE: 01/24/2018 SUBJECTIVE: The patient was seen in his room. The patient is one-to-one sitter due to confusion and a recent fall. The patient is a poor historian, but otherwise the patient appears to be in no acute distress. OBJECTIVE: VITAL SIGNS: Temperature 98.4, heart rate 65, blood pressure 132/72, respirations 17, 94% on room air. HEENT: Head is atraumatic and normocephalic. Eyes: Bilateral conjunctivae are clear. Bilateral pupils are equally round and reactive. NECK: Supple. No JVD. CARDIOVASCULAR: S1 and S2, without murmur. PULMONARY: Clear to auscultation. GASTROINTESTINAL: Soft and nontender without guarding. Positive bowel sounds. MUSCULOSKELETAL: No clubbing. No cyanosis. Positive muscle weakness. ASSESSMENT: 1. Urinary tract infection. 2. Dementia. 3. Hypertension. 4. Unsteady gait. PLAN: We will continue current antibiotics. We will put the patient on fall precaution. We will also get monitor the patient's behavior, still pending for Urology consult. Treatment plans were discussed with the patient's nurse. Treatment plans were discussed with Dr. Ivy. JOB# [id number]
--- NOTE | 2018-01-25 01:58 | Consultation ---
DATE OF CONSULTATION: 01/24/2018 NEUROLOGY CONSULTATION HISTORY OF PRESENT ILLNESS: The patient is an 82-year-old admitted with altered mentation. Initially quite lethargic and then somewhat agitated. At the moment, he is lying in bed. Eyes closed. We will awaken. He seems to follow some instruction. He will lift his arm fully. Staff says he is able to eat and actually feed himself a little bit, seems to be better than before. PAST MEDICAL HISTORY: 1. The patient with atrial fibrillation, hypertension. The patient with ataxia. 2. 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 3. The patient with the urinary incontinence. The patient also with urethra stenosis with bleeding urine. History of frequent falls. MEDICATIONS: Per reconciliation. REVIEW OF SYSTEMS: A 12-point negative except for above. PHYSICAL EXAMINATION: VITAL SIGNS: Temperature 98.6, blood pressure 130/70, pulse is 74. NECK: Supple, no bruits. HEART: Sounds are S1, S2. LUNGS: Occasional crepitation. ABDOMEN: Soft. NEUROLOGIC: The patient is lying in bed. Eyes closed, but will open up. The patient pupils are reactive to light. He will lift both arms up, somewhat increased tone would like a combination of some rigidity, but he is able to lift them up. I do not see much tremor or cogwheeling. Legs, he will withdraw. INVESTIGATIONS: CT scan of the head shows enlarged ventricles, third and lateral. In addition to that, question of possible cyst on the left side. ASSESSMENT: 1. Encephalopathy. 2. Underlying dementia. 3. Urinary tract infection, probably contributing to the sepsis to encephalopathy. 4. History of atrial fibrillation. 5. Ataxia with falls. 6. Left renal mass carcinoma, renal cell. PLAN: At this moment, continue present treatment. Gradual ambulation. JOB# [id number]
--- NOTE | 2018-01-25 18:40 | Discharge Summary ---
DATE OF DISCHARGE: 01/24/2018 HOSPITAL COURSE: The patient is a very well known to me. The patient is from [facility]. Apparently, the patient had several falls. The patient has been ataxic. The patient known to have history of mass in his kidney. The patient was admitted for the ataxia. The patient had a workup done and the patient found to have a mass again in the kidney area and there was no metastatic lesion in the brain and patient otherwise is stable. I have also had a problem getting a urologist to see him and I will have him follow the urologist as an outpatient. The patient also found to have UTI, was treated. The patient was in stable condition on 01/01/2018 to discharged back to [facility] where I will be following the patient. CONDITION AT DISCHARGE: Stable. MEDICATIONS: See the reconciliation. JOB# [id number]
== END 2018-01-24 18:45 | DRG 871 ==
LOC: ER 21:18 → MSI 01-21 01:10 → TELE 01-21 02:29
PROVIDERS: ADMIT Internal Medicine; ATTEND Internal Medicine
DX: A41.9 Sepsis, unspecified organism (principal); G93.41 Metabolic encephalopathy; E87.1 Hypo-osmolality and hyponatremia; N39.0 Urinary tract infection, site not specified; C64.2 Malignant neoplasm of left kidney, except renal pelvis; G93.40 Encephalopathy, unspecified; N35.919 Unspecified urethral stricture, male, unspecified site; F03.90 Unspecified dementia, unspecified severity, without behavioral disturbance, psychotic disturbance, mood disturbance, and anxiety; R27.0 Ataxia, unspecified; I11.0 Hypertensive heart disease with heart failure; I50.9 Heart failure, unspecified; K21.9 Gastro-esophageal reflux disease without esophagitis; I48.0 Paroxysmal atrial fibrillation; Z91.81 History of falling; Z86.73 Personal history of transient ischemic attack (TIA), and cerebral infarction without residual deficits
CPT/HCPCS: 36415-UA; 70450-TC; 71045-TC; 76700-TC; 80048-TC; 80053-TC; 81001-TC; 83880-TC; 84153-90; 84484-TC; 85025-TC; 85610-TC; 87086-90; 93005; 93880-TC; 97530; J0696; J1956; J7030; X3904; Z7610